=== PATIENT | female | born 1930 | race Two or more races ===

== ENCOUNTER 2016-05-10 07:39 | Inpatient (IN) | payer MEDICARE, OTHER ==
--- NOTE | 2016-05-10 08:01 | PDOC ---
History of Present Illness - General History Source: Family Exam Limitations: Other (AMS) - History of Present Illness Initial Comments: 05/10/16 08:20 The patient is a 85-year-old female, with a significant past medical history of hypothyroidism (on Synthroid), who presents to the ED with altered mental status today. As per daughter, the patient has been experiencing 4 days of chest pain and a right-sided headache. Yesterday the patient experienced 2 witnessed falls. Granddaughter reports loss of consciousness for both episodes but not head trauma. Patient was noted to have slurred speech yesterday and is not active as usual. Pt was brought to [facility] and was diagnosed with a UTI and prescribed a course of Levaquin. Upon examination, patient is complaining of left-sided groin pain. She denies having any chest pain at this time. Granddaughter does report recent travel to [place] and [place]. Patient arrived back on 04/30. HPI is limited due to patients altered mental status. Allergies: Aspirin, Iodine Past surgical history: NONE Social history: No tobacco or alcohol use PMD - Dr. Coronado <Brea Bedolla - Last Filed: 05/10/16 10:21> - General History Source: Family Exam Limitations: No Limitations <Maia Barajas - Last Filed: 05/14/16 02:16> - General Chief Complaint: Altered Mental Status Stated Complaint: ALTERED MENTAL Time Seen by Provider: 05/10/16 07:46 Past History <Brea Bedolla - Last Filed: 05/10/16 10:21> - Past Medical History Thyroid Disease: Yes (HYPO.) - Psycho/Social/Smoking Cessation Hx Anxiety: No Suicidal Ideation: No Smoking History: Never smoked Hx Alcohol Use: No Drug/Substance Use Hx: No Substance Use Type: None <Maia Barajas - Last Filed: 05/14/16 02:16> - Past Medical History Allergies/Adverse Reactions: Allergies Allergy/AdvReac Type Severity Reaction Status Date / Time aspirin Allergy Unknown Verified 05/10/16 07:41 iodine Allergy Unknown Verified 05/10/16 07:41 Home Medications: Ambulatory Orders Levothyroxine [Synthroid -] 50 mcg PO DAILY 05/10/16 Review of Systems - Review of Systems Able to Perform ROS?: Yes Comments:: 05/10/16 08:20 GENERAL/CONSTITUTIONAL: No: fever, chills, weakness, loss of appetite. HEAD, EYES, EARS, NOSE AND THROAT: No: change in vision, ear pain, discharge, sore throat, throat swelling. CARDIOVASCULAR: No: chest pain, lightheadedness, palpitations, syncope RESPIRATORY: No: cough, shortness of breath, wheezing, hemoptysis, stridor. GASTROINTESTINAL: No: nausea, vomiting, abdominal cramping, diarrhea, rectal bleeding, constipation. GENITOURINARY: No: dysuria, hematuria, frequency, urgency, flank pain. (+)Left- sided groin pain MUSCULOSKELETAL: No: back pain, neck pain, joint pain, muscle swelling or pain SKIN AND BREASTS: No: lesions, pallor, rash or easy bruising. NEUROLOGIC: No: vertigo, paresthesias, weakness. (+)Headache ENDOCRINE: No: unexplained weight gain or loss HEMATOLOGIC/LYMPHATIC: No: anemia, easy bleeding, swelling nodes <Brea Bedolla - Last Filed: 05/10/16 10:21> *Physical Exam - Vital Signs Last Vital Signs Temp Pulse Resp BP Pulse Ox 98.7 F 85 18 135/87 100 05/10/16 07:42 05/10/16 07:42 05/10/16 07:42 05/10/16 07:42 05/10/16 07:42 - Physical Exam Comments: 05/10/16 08:22 GENERAL: The patient is in no acute distress. HEAD: Normal with no signs of trauma. EYES: PERRLA, EOMI, sclera anicteric, conjunctiva clear. ENT: Ears normal, nares patent, oropharynx clear without exudates. Moist mucous membranes. NECK: Normal range of motion, supple without lymphadenopathy, JVD, or masses. LUNGS: Breath sounds equal, clear to auscultation bilaterally. No wheezes, and no crackles. HEART:Regular rate and rhythm, normal S1 and S2 without murmur, rub or gallop. ABDOMEN: Soft, nontender, normoactive bowel sounds. No guarding, no rebound. EXTREMITIES: Normal range of motion, no edema. No clubbing or cyanosis. No erythema, or tenderness. NEUROLOGICAL: See NIHSS. MUSCULOSKELETAL: Back non-tender to palpation, no CVA tenderness SKIN: Warm, Dry, normal turgor, no rashes or lesions noted. <Brea Bedolla - Last Filed: 05/10/16 10:21> - Vital Signs Last Vital Signs Temp Pulse Resp BP Pulse Ox 98.7 F 85 18 135/87 100 05/10/16 07:42 05/10/16 07:42 05/10/16 07:42 05/10/16 07:42 05/10/16 07:42 <Maia Barajas - Last Filed: 05/14/16 02:16> ED Treatment Course - LABORATORY CBC & Chemistry Diagram: 05/10/16 08:21 05/10/16 09:20 <Brea Bedolla - Last Filed: 05/10/16 10:21> - LABORATORY CBC & Chemistry Diagram: 05/11/16 06:00 05/11/16 06:00 - RADIOLOGY Radiology Studies Ordered: Category Date Time Status HEAD CT WITHOUT CONTRAST [CT] Stat CT Scan 05/10/16 07:50 Ordered CHEST X-RAY PORTABLE* [RAD] Stat Radiology 05/10/16 07:48 Ordered <Maia Barajas - Last Filed: 05/14/16 02:16> Medical Decision Making - Critical Care Time Total Critical Care Time (minutes): 35 Critical Care Statement: The care of this patient involved high complexity decision making to prevent further life threatening deterioration of the patient 's condition and/or to evalute & treat vital organ system(s) failure or risk of failure. - Medical Decision Making 05/10/16 07:59 A portion of this note was documented by scribe services under my direction. I have reviewed the details of the note, within reason, and agree with the documentation with the following case summary and management plan written by me. Nursing documentation reviewed and incorporated into medical decision making 05/10/16 08:07 This is an 85 yo F who presents to the ER with granddaughter by EMS due to altered mental status pt has been altered for the past 4 days She has been staying in her room She fell yesterday when she tried walking Pt was taken to OSH where labs were done, UA as well Pt dx with UTI Discharged to home on Levaquin Pt granddaughter concerned because again, she is unable to walk Pt previously complained of chest pain and right frontal headache Currently, pt has no chest pain she continues to have a headache On examination: Pt is pleasant A&O x 3 RRR Lungs CTA Please see NIHSS for complete neuro examination Briefly Pt asked to left her legs She is unable to lift left leg, states this is due to pain in the left groin Pt unable to follow commands when I am on the left side of her bed Adeel neglect Pt unable to identify objects on NIHSS stroke scale Pending labs, CT, cxr will do xray left hip Will admit 05/10/16 09:40 Laboratory Tests 05/10/16 05/10/16 05/10/16 08:21 08:21 08:21 WBC 6.7 Hgb 12.2 Hct 36.8 Plt Count 269 INR 1.06 Urine Blood 1+ H Urine Nitrite Negative Ur Leukocyte Esterase 2+ H Urine RBC 1 Urine WBC [address] Pending Results 05/10/16 10:07 CT: No evidence of acute intracranial hemorrhage, edema, midline shift, mass effect or fracture. No CT evidence of acute territorial infarct. Chest x-ray: No evidence of pneumonia, CHF, pleural effusion or pneumothorax 05/10/16 10:17 Laboratory Tests 05/10/16 09:20 Sodium 140 Potassium 4.4 Chloride 106 Carbon Dioxide 25 BUN 22 H Creatinine 1.2 H Random Glucose 92 Alkaline Phosphatase 105 Creatine Kinase 292 H Troponin I < 0.02 Per grand daughter, pt may have had a seizure? Per family, patient is doing "better" 05/10/16 10:[address] Patrick Will admit Requesting consults to [facility] (pt likely had a CVA, not seen on CT) and [facility] (For possible UTI) Clinical impression: AMS/likely CVA, UTI <Maia Barajas - Last Filed: 05/14/16 02:16> *DC/Admit/Observation/Transfer - Attestations Scribe Attestion: 05/10/16 08:23 Documentation prepared by Brea Bedolla, acting as director of medical education for Maia Barajas MD. <Brea Bedolla - Last Filed: 05/10/16 10:21> - Discharge Dispostion Admit: Yes <Maia Barajas - Last Filed: 05/14/16 02:16> Diagnosis at time of Disposition: Altered mental status Qualifiers: Altered mental status type: unspecified Qualified Code(s): R41.82 - Altered mental status, unspecified UTI (urinary tract infection) Qualifiers: Urinary tract infection type: acute cystitis Hematuria presence: without hematuria Qualified Code(s): N30.00 - Acute cystitis without hematuria - Discharge Dispostion Condition at time of disposition: Stable - Referrals NIH Stroke Scale - Last Known Well Date/Time & Onset Date Last Known Well: 05/06/16 - Initial Evaluation Level of consciousness: Alert Ask patient the month and their age: Answers both correctly Ask patient to open & close eyes; make fist and let go: Obeys both correctly Best gaze (horizontal eye movement): Partial gaze palsy Visual field testing: Partial hemianopia Facial paresis (Show teeth/raise eyebrows/close eyes tight): Minor paralysis ( flattened nasolabial fold, asymmetry on smiling) Motor Function: Left Arm: Normal Motor Function: Right Arm: Normal (extends arm 90 (or 45) degrees for 10 seconds without drift Motor Function: Left Leg: No effort against gravity Motor Function: Right Leg: Normal (extends leg 30 degrees for 5 seconds without drift) Limb Ataxia: No ataxia Sensory(Use pinprick test arms,legs,trunk,face/side to side): Normal Best language (Describe picture, name items, read sentences): Mild to moderate aphasia Dysarthria (read several words): Normal articulation Extinction and Inattention: Profound adeel-inattention or extinction to more than one modality - Total Score NIH Stroke Scale Score: 9 <Maia Barajas - Last Filed: 05/14/16 02:16> tPA Exclusion checklist 3-4.5h - Time Elapsed Date last known well: 05/06/16 - Thrombolytic Therapy Candidate Is patient eligible for thrombolytic therapy: No - Exclusion Criteria 3-4.5 hr SBP greater than 185 or DBP greater than 110mmHg despite tx: No Recent IC/spinal surgery,head trauma or stroke<3mos.: No Hx IC hemorrhage, IC neoplasm, AV malformation or aneurysm: No Active internal bleeding: No Blding diathesis(low plt ct, inc PTT,INR>1.7 or use of NOAC): No CT demonstrates multilobar infarct(>1/3 cerebral hemiphere): No Arterial puncture at noncompressible site in previous 7 days: No Blood glucose concentration less than 50mg/dL (2.7mmol/L): No - Relative Exclusion Criteria 3-4.5 hr Life expectancy <1 yr or severe co-morbid illness: No : No Patient/family refused: No Rapid improvement: No Stroke severity too mild: No Recent acute CT (w/in previous 3 months): No Seizure at onset with postictal residual neuro impairments: No Major surgery or serious trauma w/in previous 14 days: No Recent GI or hemorrhage (w/in previous 21 days): No - Add'l Relative Exclusion 3-4.5 hr Age > 80: Yes Hx of both diabetes AND prior ischemic stroke: No Taking an oral anticoagulant regardless of INR: No NIHSS >25: No - Ineligibility reason(s) Reasons No tPA given: Outside of window - delayed arrival <Maia Barajas - Last Filed: 05/14/16 02:16>
[2016-05-10 08:35] LABS: BASOPHIL 0.9 % (0-2.0); EOSINOPHIL 1.2 % (0-4.5); MCH 28.3 pg (25.7-33.7); MCHC 33.2 g/dl (32.0-36.0); MEAN CELL VOLUME 85.1 fl (80-96); NEUTROPHILS 52.5 % (42.8-82.8); PLATELET COUNT 269 K/MM3 (134-434); RDW 15.5 % (11.6-15.6); URINE APPEARANCE CLEAR; URINE BILIRUBIN NEGATIVE (NEGATIVE); URINE COLOR STRAW; URINE GLUCOSE (UA) NEGATIVE (NEGATIVE); URINE KETONE NEGATIVE (NEGATIVE); URINE NITRITE NEGATIVE (NEGATIVE); URINE PROTEIN NEGATIVE (NEGATIVE); URINE UROBILINOGEN NEGATIVE E.U./dl (0.2-1.0); WHITE BLOOD COUNT 6.7 K/mm3 (4.0-10.0)
[2016-05-10 08:40] LABS: URINE BLOOD 1+ (NEGATIVE); URINE LEUK ESTERASE 2+ (NEGATIVE)
[2016-05-10 08:41] LABS: URINE BACTERIA FEW /hpf (NONE SEEN); URINE MUCUS RARE; URINE RBC 1 /hpf (0-3); URINE WBC 15 /hpf (3-5)
[2016-05-10] MEDS ORDERED: ONDANSETRON 4 MG/2 ML VIAL IVPB ONE (09:13)
[2016-05-10] MEDS ORDERED: ACETAMINOPHEN 1000 MG/100 ML VIAL (NON FORMULARY) IVPB ONE (09:13)
[2016-05-10] MEDS ORDERED: CEFTRIAXONE 1 GM in DEXTROSE 5%-WATER - 50 ML IVPB ONE (09:14)
[2016-05-10] MEDS ORDERED: ONDANSETRON 4 MG/2 ML VIAL ONE (09:25)
[2016-05-10] MEDS ORDERED: CEFTRIAXONE 50 ML ONE (09:25)
[2016-05-10] MEDS ORDERED: ACETAMINOPHEN INJECTION 100 ML IVPB ONE (09:58)
[2016-05-10 10:04] LABS: ALBUMIN 3.9 g/dl (3.4-5.0); ANION GAP 9 (8-16); BILIRUBIN,TOTAL 0.5 mg/dL (0.2-1.0); CALCIUM 8.5 mg/dL (8.5-10.1); CO2 25 mmol/L (21-32); CREATININE 1.2 mg/dL (0.55-1.02); GLUCOSE,RANDOM 92 mg/dL (74-106); SGOT/AST 30 U/L (15-37); SGPT/ALT 22 U/L (12-78); TOT PROT 7.1 g/dl (6.4-8.2)
[2016-05-10 10:06] LABS: ALK PHOS 105 U/L (45-117); TROPONIN I < 0.02 ng/ml (0.00-0.05)
--- NOTE | 2016-05-10 10:53 | EKG ---
Test Reason : Blood Pressure : / mmHG Vent. Rate : 090 BPM Atrial Rate : 090 BPM P-R Int : 132 ms QRS Dur : 076 ms QT Int : 372 ms P-R-T Axes : 044 -25 011 degrees QTc Int : 455 ms POOR DATA QUALITY, INTERPRETATION MAY BE ADVERSELY AFFECTED NORMAL SINUS RHYTHM VOLTAGE CRITERIA FOR LEFT VENTRICULAR HYPERTROPHY LEFTWARD AXIS ABNORMAL ECG NO PREVIOUS ECGS AVAILABLE Confirmed by DEMETRIUS SOLITARIO MD ([id number]) on 05/10/2016 10:52:53 AM Referred By: Confirmed By:DEMETRIUS SOLITARIO MD
[2016-05-10] MEDS ORDERED: LEVOTHYROXINE NA 25 MCG TABLET (FP) ONE ×2 (11:40→11:58)
[2016-05-10] MEDS: LEVOTHYROXINE NA 75 MCG TABLET (FP) PO ONE ×2 (11:48→12:01)
--- NOTE | 2016-05-10 15:05 | HP ---
Admitting History and Physical - Primary Care Physician PCP: Maykel Coronado - Admission Chief Complaint: 1. FALL. 2. AMS. 3. UTI History Source: Medical Record - Smoking History Smoking history: Never smoked - Alcohol/Substance Use Hx Alcohol Use: No Home Medications - Allergies Allergies/Adverse Reactions: Allergies Allergy/AdvReac Type Severity Reaction Status Date / Time aspirin Allergy Unknown Verified 05/10/16 07:41 iodine Allergy Unknown Verified 05/10/16 07:41 - Home Medications Home Medications: Ambulatory Orders Levothyroxine [Synthroid -] 50 mcg PO DAILY 05/10/16 Review of Systems - Review of Systems Constitutional: reports: Chills Cardiovascular: reports: Chest Pain Respiratory: denies: SOB Neurological: reports: Weakness Physical Examination Vital Signs: Vital Signs Temperature 99.1 F 05/10/16 09:54 Pulse Rate 16 L 05/10/16 12:53 Respiratory Rate 78 H 05/10/16 12:53 Blood Pressure 137/72 05/10/16 12:53 O2 Sat by Pulse Oximetry (%) 97 05/10/16 12:53 Findings/Remarks: HAD D/W FAMILY AT BEDSIDE Constitutional: Yes: Calm Cardiovascular: Yes: Regular Rate and Rhythm, S1, S2 Respiratory: Yes: CTA Bilaterally Gastrointestinal: Yes: Normal Bowel Sounds, Soft Edema: No Neurological: Yes: Alert, Oriented, Weakness, Other (FOLLOWS COMMANDS. AAO3) ...Motor Strength: LUE (3/5), LLE (2/5), RUE (4/5), RLE (4/5) Psychiatric: No: Agitated Imaging - Results Chest X-ray: Report Reviewed X-ray: Report Reviewed Cat Scan: Report Reviewed Problem List - Problems (1) Altered mental status Code(s): R41.82 - ALTERED MENTAL STATUS, UNSPECIFIED Qualifiers: Altered mental status type: unspecified Qualified Code(s): R41.82 - Altered mental status, unspecified (2) UTI (urinary tract infection) Code(s): N39.0 - URINARY TRACT INFECTION, SITE NOT SPECIFIED Qualifiers: Urinary tract infection type: acute cystitis Hematuria presence: without hematuria Qualified Code(s): N30.00 - Acute cystitis without hematuria (3) Fall Code(s): W19.XXXA - UNSPECIFIED FALL, INITIAL ENCOUNTER (4) Hypothyroid Code(s): E03.9 - HYPOTHYROIDISM, UNSPECIFIED (5) Chest pain Code(s): R07.9 - CHEST PAIN, UNSPECIFIED (6) Head ache Code(s): R51 - HEADACHE Assessment/Plan The patient is a 85-year-old female, with a significant past medical history of hypothyroidism (on Synthroid), who presents to the ED with altered mental status today. As per daughter, the patient has been experiencing 4 days of chest pain and a right-sided headache. Yesterday the patient experienced 2 witnessed falls. Granddaughter reports loss of consciousness for both episodes but not head trauma. Patient was noted to have slurred speech yesterday and is not active as usual. Pt was brought to [facility] and was diagnosed with a UTI and prescribed a course of Levaquin. Upon examination, patient is complaining of left-sided groin pain. She denies having any chest pain at this time. Granddaughter does report recent travel to [place] and [place]. Patient arrived back on 04/30. (1) Altered mental status Code(s): R41.82 - ALTERED MENTAL STATUS, UNSPECIFIED Qualifiers: Altered mental status type: unspecified Qualified Code(s): R41.82 - Altered mental status, unspecified 2/2 UTI? 2/2 CVA? 2/2 ACS? NEURO CONSULTED SEE #6 (2) UTI (urinary tract infection) Code(s): N39.0 - URINARY TRACT INFECTION, SITE NOT SPECIFIED Qualifiers: Urinary tract infection type: acute cystitis Hematuria presence: without hematuria Qualified Code(s): N30.00 - Acute cystitis without hematuria ID CONSULTED F/U CULTURES IV ABx - BCx (3) Fall Code(s): W19.XXXA - UNSPECIFIED FALL, INITIAL ENCOUNTER PT CONSULTED SW CONSULTED FOR [facility] S/P DC (4) Hypothyroid Code(s): E03.9 - HYPOTHYROIDISM, UNSPECIFIED - TSH (5) Chest pain Code(s): R07.9 - CHEST PAIN, UNSPECIFIED TROP NEG x 1 -> F/U EKG UNREMARKABLE - CARDIO (6) Head ache Code(s): R51 - HEADACHE HAD CTB AT [facility] 1/12 AM -> PER FAMILY WAS NEG TODAY'S CTB NEG COUGH WITH WATER -> THICKENED NECTOR/PUREE DIET - [facility]
[2016-05-10] MEDS: DEXTROSE 5%-NORMAL SALINE 1,000 ML IV SCH (17:00)
[2016-05-10 17:57] VITALS: BMI 25.4
--- NOTE | 2016-05-10 18:02 | CONSULT ---
Consult Consult Specialty:: Cardiology Referred by:: Dr Domingo Reason for Consultation:: Chest pain, ? syncope - History of Present Illness Chief Complaint: Change in mental status History of Present Illness: 85- yo female, with hx of HLD, hypothyroidism (on Synthroid), seizures 3 ya, here with altered mental status. Daughter says that about a week ago, pt complained of CP -. lasted 2 days. They didn't make much of it because pt had just been to [facility] and was very active. Yesterday, she was found on floor -> taken to [facility] where found with a UTI and d/mariam Today, she was again found on the floor -> had difficulty speaking (slurred speech) and didn't recognize her -> taken to ER here. Patient has no history of NJ, CHF, CP syndrome, per her daughter. She saw digital asset specialist (? name ) 3 ya ago after she started wit the seizures -. tests were always ok. - History Source History Provided By: Family Member - Past Medical History [employer] INS[employer]: Yes: Seizure (3 ya) Cardio/Vascular: Yes: Hyperlipdemia Endocrine: Yes: Hypothyroidism - Alcohol/Substance Use Hx Alcohol Use: No - Smoking History Smoking history: Former smoker (remotely) Have you smoked in the past 12 months: No - Social History Usual Living Arrangement: With Child Home Medications - Allergies Allergies/Adverse Reactions: Allergies Allergy/AdvReac Type Severity Reaction Status Date / Time aspirin Allergy Unknown Verified 05/10/16 07:41 iodine Allergy Unknown Verified 05/10/16 07:41 - Home Medications Home Medications: Ambulatory Orders Levothyroxine [Synthroid -] 50 mcg PO DAILY 05/10/16 Family Disease History - Family Disease History Family History: Denies (premature CAD) Review of Systems Unable to obtain ROS, reason: due to MS Physical Exam Vital Signs: Vital Signs Temperature 98.3 F 05/10/16 15:39 Pulse Rate 85 05/10/16 15:39 Respiratory Rate 16 05/10/16 15:39 Blood Pressure 133/78 05/10/16 15:39 O2 Sat by Pulse Oximetry (%) 100 05/10/16 15:39 Constitutional: Yes: No Distress Eyes: Yes: Conjunctiva Clear HENT: Yes: Atraumatic Neck: Yes: Supple Cardiovascular: Yes: Regular Rate and Rhythm. No: Murmur Respiratory: Yes: CTA Bilaterally Gastrointestinal: Yes: Normal Bowel Sounds, Soft. No: Tenderness Musculoskeletal: Yes: Muscle Weakness (on left mostly) Extremities: Yes: Other (warm) Edema: No Peripheral Pulses WNL: Yes Neurological: Yes: Facial Droop (? on left), Other (slurred) Imaging - Results Chest X-ray: Report Reviewed, Image Reviewed EKG: Report Reviewed, Image Reviewed (SR, LVH) Assessment/Plan 85 yo female with the above history , here with change in mental status -. appear with left droop and left sided weakness Head CT w/o acute changes Report of syncope, but pt was found on floor on both occasions, awake, per her daughter. Report of CP for 2 days last week. No evidence of ACS so far No CHF. Rec: Trend cardiac enzymes Continue pt's lipitor when able to swallow pills Cont thyroid meds Check lipids, TFTs Per Neuro/IM Thanks! We'll follow! D/w daughter at bedside
[2016-05-10 18:07] LABS: TROPONIN I < 0.02 ng/ml (0.00-0.05)
[2016-05-10 22:35] LABS: TROPONIN I < 0.02 ng/ml (0.00-0.05)
[2016-05-11] MEDS: LEVOTHYROXINE NA 50 MCG TABLET (FP) PO SCH (06:26)
[2016-05-11] MEDS: DEXTROSE 5%-NORMAL SALINE 1,000 ML IV SCH ×2 (06:42→18:50)
[2016-05-11 07:53] LABS: BASOPHIL 0.4 % (0-2.0); EOSINOPHIL 1.4 % (0-4.5); MCH 28.4 pg (25.7-33.7); MCHC 33.3 g/dl (32.0-36.0); MEAN CELL VOLUME 85.1 fl (80-96); MEAN PLT VOLUME 7.7 fl (7.5-11.1); NEUTROPHILS 55.7 % (42.8-82.8); PLATELET COUNT 280 K/MM3 (134-434); RDW 14.9 % (11.6-15.6)
--- NOTE | 2016-05-11 10:18 | PN ---
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, Physician - Current Medication List Current Medications: Active Medications Dextrose/Sodium Chloride (D5-Ns -) 1,000 mls @ 75 mls/hr IV ASDIR [facility] Last Admin: 05/11/16 06:42 Dose: 75 mls/hr Ceftriaxone Sodium (Rocephin 1gm Ivpb (Pre-Docked)) 50 mls @ 100 mls/hr IVPB DAILY [facility] Levothyroxine Sodium (Synthroid -) 50 mcg PO DAILY@0700 [facility] Last Admin: 05/11/16 06:26 Dose: 50 mcg - Objective Vital Signs: Vital Signs Temperature 98.8 F 05/11/16 05:39 Pulse Rate 91 H 05/11/16 05:39 Respiratory Rate 18 05/11/16 05:39 Blood Pressure 153/79 05/11/16 05:39 O2 Sat by Pulse Oximetry (%) 100 05/10/16 20:57 Cardiovascular: Yes: S1, S2 Respiratory: Yes: Regular, CTA Bilaterally Gastrointestinal: Yes: Normal Bowel Sounds, Soft Neurological: Yes: Facial Droop, Pre-Existing Deficit Labs: CBC, BMP 05/11/16 06:00 05/11/16 06:00 INR, PTT INR 1.06 (0.82-1.09) 05/10/16 08:21 Assessment/Plan The patient is a 85-year-old female, with a significant past medical history of hypothyroidism (on Synthroid), who presents to the ED with altered mental status today. As per daughter, the patient has been experiencing 4 days of chest pain and a right-sided headache. Yesterday the patient experienced 2 witnessed falls. Granddaughter reports loss of consciousness for both episodes but not head trauma. Patient was noted to have slurred speech yesterday and is not active as usual. Pt was brought to [facility] and was diagnosed with a UTI and prescribed a course of Levaquin. Upon examination, patient is complaining of left-sided groin pain. She denies having any chest pain at this time. Granddaughter does report recent travel to [place] and [place]. Patient arrived back on 04/30. (1) Altered mental status-- Code(s): R41.82 - ALTERED MENTAL STATUS, UNSPECIFIED Qualifiers: Altered mental status type: unspecified Qualified Code(s): R41.82 - Altered mental status, unspecified CT OF HEAD NEGATIVE-- R/O CVA-- NEURO CONSULTED---MRI SEE #6 (2) UTI (urinary tract infection) Code(s): N39.0 - URINARY TRACT INFECTION, SITE NOT SPECIFIED Qualifiers: Urinary tract infection type: acute cystitis Hematuria presence: without hematuria Qualified Code(s): N30.00 - Acute cystitis without hematuria ID CONSULTED F/U CULTURES IV ABx - BCx (3) Fall Code(s): W19.XXXA - UNSPECIFIED FALL, INITIAL ENCOUNTER PT CONSULTED SW CONSULTED FOR [facility] S/P DC (4) Hypothyroid Code(s): E03.9 - HYPOTHYROIDISM, UNSPECIFIED - TSH (5) Chest pain Code(s): R07.9 - CHEST PAIN, UNSPECIFIED TROP NEG x 1 -> F/U EKG UNREMARKABLE - CARDIO (6) Head ache Code(s): R51 - HEADACHE HAD CTB AT [facility] 1/12 AM -> PER FAMILY WAS NEG TODAY'S CTB NEG COUGH WITH WATER -> THICKENED NECTOR/PUREE DIET -
[2016-05-11] MEDS: CEFTRIAXONE 50 ML IVPB SCH (10:44)
[2016-05-11 10:52] LABS: ALBUMIN 3.2 g/dl (3.4-5.0); BILIRUBIN,TOTAL 0.4 mg/dL (0.2-1.0); CALCIUM 8.4 mg/dL (8.5-10.1); TOT PROT 6.7 g/dl (6.4-8.2)
--- NOTE | 2016-05-11 14:19 | PN ---
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 (short form) - Note 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: ID Consult dictated UTI/possible sepsis secondary to UTI Toxic metabolic encephalopathy Await cultures Continue ceftriaxone empirically
--- NOTE | 2016-05-11 14:37 | CONSULT ---
Consult - text type - Consultation Consultation Note: NEUROLOGY CONSULTATION is greatly appreciated: This 85 yo RH woman live with her family who are at the bedside. PMH of hypothyroidism, on L-Thyroxin. 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 Was on AED's but DC'ed few years ago. Last week, c/o chest pain x few days. 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 Family describes difficulty walking and left sided weakness. She received Rx for UTI and was discharged although family insists she still couldn't walk due to left sided weakness. Yesterday AM fell again with slurred speech and weakness. Today coughing after family fed small amt's pureed. CT of head in ER (reviewed): Essentially normal study for age. Moderate, diffuse atrophy. No evidence for acute CVA. MANISH: No bruits, Cor reg, No head trauma. NEURO: Awake, alert, but resting with eyes closed. Follows most simple commands. CN: Right conjugate gaze deviation. Left homonomous hemianopsia to threat. Mild Left facial. Gag decreased. Motor: Left arm drops when elevated. Left leg rests everted. Depressed reflexes on left. Left Babinski. Coord: Normal on right. Sensory: Reduced response to pinch left arm. IMP: Acute Right cerebral dysfunction, most c/w MCA-territory CVA. History of seizures but seizure with Shun's Paralysis much less likely at this juncture. The major issue is whether her chest pain last week could have been a missed NJ predisposing to Cardiogenic embolism. SUGGEST: MRI of brain and MR Angio today (Angio may give information re: thrombotic vs embolic CVA). Carotid duplex Doppler. Event of AM may have been a Right cerebral TIA. Check records [facility] ER. Discussed with Cardiology: Transfer to telemetry, r/o NJ, transsternal and possibly Transesophageal Echos. NPO for now. Speech and swallowing eval Friday. Thank you very much, Car Marrero MD
--- NOTE | 2016-05-11 14:42 | PN ---
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, Physician History of Present Illness: no new events - Current Medication List Current Medications: Active Medications Cyanocobalamin (Vitamin B12 Injection -) 1,000 mcg IM DAILY [facility] Dextrose/Sodium Chloride (D5-Ns -) 1,000 mls @ 75 mls/hr IV ASDIR [facility] Last Admin: 05/11/16 06:42 Dose: 75 mls/hr Ceftriaxone Sodium (Rocephin 1gm Ivpb (Pre-Docked)) 50 mls @ 100 mls/hr IVPB DAILY [facility] Last Admin: 05/11/16 10:44 Dose: 100 mls/hr Levothyroxine Sodium (Synthroid -) 50 mcg PO DAILY@0700 [facility] Last Admin: 05/11/16 06:26 Dose: 50 mcg - Objective Vital Signs: Vital Signs Temperature 98.8 F 05/11/16 05:39 Pulse Rate 91 H 05/11/16 05:39 Respiratory Rate 18 05/11/16 05:39 Blood Pressure 153/79 05/11/16 05:39 O2 Sat by Pulse Oximetry (%) 100 05/11/16 09:00 Constitutional: Yes: No Distress, Other (mumbling) HENT: Yes: Atraumatic Neck: Yes: Supple Cardiovascular: Yes: Regular Rate and Rhythm Respiratory: Yes: CTA Bilaterally Gastrointestinal: Yes: Normal Bowel Sounds, Soft. No: Abdomen, Obese Extremities: Yes: Other (warm) Edema: No Peripheral Pulses WNL: Yes Neurological: Yes: Other (answers some questions) Labs: CBC, BMP 05/11/16 06:00 05/11/16 06:00 INR, PTT INR 1.06 (0.82-1.09) 05/10/16 08:21 Assessment/Plan 85 yo female with the above history , here with change in mental status -. appear with left droop and left sided weakness Head CT w/o acute changes Report of syncope, but pt was found on floor on both occasions, awake, per her daughter. Report of CP for 2 days last week. No evidence of ACS -> trop I neg X [address] Marrero, pt appears with large left MCA CVA -. ? embolic phenomenon Rec: Transfer to tele to afib Resume pt's lipitor when able to swallow pills Check lipids, TFTs Echocardiogram on Friday Per Neuro/IM Thanks! We'll follow! D/w daughter and other family members at bedside D/w Dr Marrero
--- NOTE | 2016-05-11 14:43 | CONS ---
INFECTIOUS DISEASE CONSULTATION DATE OF CONSULTATION: DATE OF DICTATION: 05/11/2016 HISTORY OF PRESENT ILLNESS: The patient is an 85-year-old female evaluated for urinary tract infection, possible urosepsis. History was obtained from the chart and family members as she cannot give a history. The patient was taken to the hospital by her family members with worsening mentation. She has a change in the mental status over the past several days. She has had falls at home. Is also complaining of chest pain and right-sided headache. She was seen in the emergency room at [facility] where she was diagnosed with a urinary tract infection and prescribed Levaquin. Family reports they had not filled that prescription. She now is admitted with deterioration to the point where she is unable to ambulate. She is awake. However, she offers no complaints. Family reports that she has not complained of dysuria or hematuria. No complaints of suprapubic or flank pain. PAST MEDICAL HISTORY: Positive for hypothyroidism. ALLERGIES: 1. ASPIRIN 2. IODINE MEDICATIONS: 1. Ceftriaxone 2. Levothyroxine 3. Vitamin B12 SOCIAL HISTORY: Lives at home with family members, non-smoker, non-drinker. SYSTEMS REVIEW: Neurologic: As per HPI. Cardiac: Negative chest pain and palpitations. Respiratory: Negative cough or sputum production. Gastrointestinal: Negative vomiting or diarrhea. Genitourinary: As per HPI. LAB DATA: White count 5.0, hematocrit 34.7, platelet count 280, BUN 13, creatinine 1.0. Urinalysis: 15 white cells. Blood cultures pending. PHYSICAL EXAMINATION: General: The patient is awake and alert, not acutely toxic-appearing. Vital signs: Temperature 98.8, blood pressure 153/79, pulse 91/regular, respirations 18 per minute. HEENT: Sclera anicteric. Heart: Heart sounds S1, S2. Lungs: Clear. Abdomen: Soft, no tenderness elicited. No mass, rebound or rigidity. No suprapubic or flank tenderness elicited. Extremities: Negative for edema. IMPRESSION: 1. Urinary tract infection/possible sepsis secondary to UTI. 2. Toxic metabolic encephalopathy versus stroke. 3. Urine culture appears to have been contaminated. Will repeat pending repeat culture. Empiric antibiotic coverage with Ceftriaxone 1 gm IV piggyback daily. 4. Neurology evaluation discussed with family members. 5. Further recommendations pending cultures. Will follow. Thank you for the kind referral. DEMETRIUS BOWERS M.D. [id number]
[2016-05-11 15:36] LABS: TROPONIN I < 0.02 ng/ml (0.00-0.05)
[2016-05-11 18:18] LABS: THYROID STIMULATING HORMONE 3.1 uIU/ml (0.358-3.74)
[2016-05-11] MEDS: CYANOCOBALAMIN (VITAMIN B-12) 1000 MCG/1 ML VIAL IM SCH (18:51)
[2016-05-12] MEDS: LEVOTHYROXINE NA 50 MCG TABLET (FP) PO SCH (06:02)
--- NOTE | 2016-05-12 07:54 | PN ---
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, Physician - Current Medication List Current Medications: Active Medications Cyanocobalamin (Vitamin B12 Injection -) 1,000 mcg IM DAILY [facility] Last Admin: 05/11/16 18:51 Dose: 1,000 mcg Dextrose/Sodium Chloride (D5-Ns -) 1,000 mls @ 75 mls/hr IV ASDIR [facility] Last Admin: 05/11/16 18:50 Dose: 75 mls/hr Ceftriaxone Sodium (Rocephin 1gm Ivpb (Pre-Docked)) 50 mls @ 100 mls/hr IVPB DAILY [facility] Last Admin: 05/11/16 10:44 Dose: 100 mls/hr Levothyroxine Sodium (Synthroid -) 50 mcg PO DAILY@0700 [facility] Last Admin: 05/12/16 06:02 Dose: Not Given - Objective Vital Signs: Vital Signs Temperature 98 F 05/12/16 07:21 Pulse Rate 75 05/12/16 07:21 Respiratory Rate 20 05/12/16 07:21 Blood Pressure 119/68 05/12/16 07:21 O2 Sat by Pulse Oximetry (%) 100 05/11/16 22:00 Labs: CBC, BMP 05/11/16 06:00 05/11/16 06:00 INR, PTT INR 1.06 (0.82-1.09) 05/10/16 08:21 Problem List - Problems (1) CVA (cerebral vascular accident) Assessment/Plan: CT OF HEAD NEGATIVE-- R/O CVA-- NEURO CONSULTED---NOTED MRI--ACUTE CVA STATIN PLAVIX WILL D/W FAMILY REGARDING ASA ALLERGY Code(s): I63.9 - CEREBRAL INFARCTION, UNSPECIFIED (2) Hypothyroid Assessment/Plan: CONTINUE WITH SYNTHROID Code(s): E03.9 - HYPOTHYROIDISM, UNSPECIFIED (3) UTI (urinary tract infection) Assessment/Plan: ABX AWAIT CULTURES Code(s): N39.0 - URINARY TRACT INFECTION, SITE NOT SPECIFIED Qualifiers: Urinary tract infection type: acute cystitis Hematuria presence: without hematuria Qualified Code(s): N30.00 - Acute cystitis without hematuria
[2016-05-12] MEDS: CEFTRIAXONE 50 ML IVPB SCH (08:59)
[2016-05-12] MEDS: HEPARIN NA (PORCINE) 5,000 UNITS/ML 1ML VIAL SQ SCH ×2 (08:59→22:00)
[2016-05-12] MEDS: CYANOCOBALAMIN (VITAMIN B-12) 1000 MCG/1 ML VIAL IM SCH (08:59)
[2016-05-12] MEDS: CLOPIDOGREL BISULFATE 75 MG TABLET (FP) PO SCH (09:00)
[2016-05-12 10:16] LABS: CHOLESTEROL 214 mg/dL (50-200); LDL CHOLESTEROL (ONLY SJRH) 146 mg/dL (5-100)
--- NOTE | 2016-05-12 13:14 | CONSULT ---
Admitting History and Physical - Primary Care Physician PCP: Aiden Patrick - Admission History of Present Illness: Per NEUROLOGY : "This 85 yo RH woman live with her family who are at the bedside. PMH of hypothyroidism, on L-Thyroxin. 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 Was on AED's but DC'ed few years ago. Last week, c/o chest pain x few days. 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 Family describes difficulty walking and left sided weakness. She received Rx for UTI and was discharged although family insists she still couldn't walk due to left sided weakness. Yesterday AM fell again with slurred speech and weakness. Today coughing after family fed small amt's pureed. CT of head in ER (reviewed): Essentially normal study for age. Moderate, diffuse atrophy. No evidence for acute CVA....... IMP: Acute Right cerebral dysfunction, most c/w MCA-territory CVA. History of seizures but seizure with Shun's Paralysis much less likely at this juncture. The major issue is whether her chest pain last week could have been a missed GA predisposing to Cardiogenic embolism. SUGGEST: MRI of brain and MR Angio today (Angio may give information re: thrombotic vs embolic CVA). Carotid duplex Doppler. Event of AM may have been a Right cerebral TIA. Check records [facility] ER. Discussed with Cardiology: Transfer to telemetry, r/o GA, transsternal and possibly Transesophageal Echos. NPO for now. 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 Left hemianopsia suspected. Left neglect.Possible anosognosia, attempts to clap with left hemiplegia) Attention: Moderate Impairment (keeps eyes closed. Opens briefly upon command.) Ability to Follow Directions: Good - Hearing Hearing: Functional Hearing: Normal Hearing Aide: No Speech Evaluation - Communication Primary Language: GABONESE Communication: Yes: Simple Responses, Dysarthria - Speech Production Dysarthria: Yes: Flaccid Intelligibility: Yes: Mildly Impaired - Speech Characteristics Voice Loudness: Mildly Soft/Quiet Voice Pitch: Yes: Normal Voice Phonatory-based Quality: Yes: Normal Speech Pattern: Impaired Speech Clarity: < 50% Nasal Resonance: Normal Articulation: Yes: Imprecise - Language/Auditory Comprehension Follows: Yes: 1 Stage Simple Commands - Memory/Perception Hemaniopsia: Yes: Left - Swallow Evaluation/Bedside Assessment Current Nutritional Intake: NPO Oral Secretions: Yes: WFL Dentition: Yes: Edentulous (upper), Missing Teeth (lower) Facial Symmetry at Rest: Facial Droop Left Facial Symmetry on Retraction: Facial Droop Left Pucker Lips: Droops Left Smile: Droops Left Lingual Speed of Movement: Reduced Bolus Size: Small Oral Prep Time: Increased Timing of Swallow: Delayed Coughing/Throat Clear: No (with trial nectar thick liquid) Recommendations - Speech Evaluation, Impression/Plan Impression: 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 o x 3. Attempts to clap with left sideb faccid. Ansognosia suspected. Dysphagia with likely aspiration on thin liquid. - [facility]position [facility] - Dysphagia Impressions/Plan Swallowing Skills: Impaired Dysphagia Impressions: Mild Impairment, Moderate Impairment, Suspect Aspiration (thin) *Silent aspiration: cannot be R/O at bedside Dysphagia Treatment Plan: Small Bites, Chin Tuck/Down, Safe Rate, 1/2 tsp. at a time, Elevate HOB during feed Recommendations: Modified Barium Swallow (if cough/congestion, NPO/MBS or to advance diet.) - Recommendations Diet Consistency: Dysphagia Pureed Medication Administration: Crushed with applesauce Liquids: [place] Thick (on tsp) Supplement: Magic Cup, Other (Ensure compact)
[2016-05-12] MEDS: ARTIFICIAL TEARS (POLYVINYL ALCOHOL 1.4%) OPTH DROPS OU PRN (21:59)
[2016-05-12] MEDS: ATORVASTATIN CA 40 MG TABLET (FP) PO SCH (22:00)
[2016-05-12] MEDS: DEXTROSE 5%-NORMAL SALINE 1,000 ML IV SCH (22:01)
[2016-05-12] MEDS: ACETAMINOPHEN 325 MG TABLET (FP) PO PRN (23:28)
[2016-05-13] MEDS: LEVOTHYROXINE NA 50 MCG TABLET (FP) PO SCH (06:52)
--- NOTE | 2016-05-13 09:35 | PN ---
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, Physician Chief Complaint: HAD D/W FAMILY CANNOT SEE FROM L EYE - Current Medication List Current Medications: Active Medications Acetaminophen (Tylenol -) 650 mg PO Q4H PRN PRN Reason: FEVER OR PAIN Last Admin: 05/12/16 23:28 Dose: 650 mg Artificial Tears (Artificial Tears) 1 drop OU BID PRN PRN Reason: DRY EYES Last Admin: 05/12/16 21:59 Dose: 1 5ml Atorvastatin Calcium (Lipitor -) 40 mg PO HS [facility] Last Admin: 05/12/16 22:00 Dose: 40 mg Clopidogrel Bisulfate (Plavix -) 75 mg PO DAILY [facility] Last Admin: 05/12/16 09:00 Dose: 75 mg Cyanocobalamin (Vitamin B12 Injection -) 1,000 mcg IM DAILY [facility] Last Admin: 05/12/16 08:59 Dose: 1,000 mcg Heparin Sodium (Porcine) (Heparin -) 5,000 unit SQ BID [facility] Last Admin: 05/12/16 22:00 Dose: 5,000 unit Dextrose/Sodium Chloride (D5-Ns -) 1,000 mls @ 75 mls/hr IV ASDIR [facility] Last Admin: 05/12/16 22:01 Dose: 75 mls/hr Ceftriaxone Sodium (Rocephin 1gm Ivpb (Pre-Docked)) 50 mls @ 100 mls/hr IVPB DAILY [facility] Last Admin: 05/12/16 08:59 Dose: 100 mls/hr Levothyroxine Sodium (Synthroid -) 50 mcg PO DAILY@0700 [facility] Last Admin: 05/13/16 06:52 Dose: 50 mcg - Objective Vital Signs: Vital Signs Temperature 98.6 F 05/13/16 05:39 Pulse Rate 95 H 05/13/16 05:39 Respiratory Rate 16 05/13/16 05:39 Blood Pressure 141/70 05/13/16 05:39 O2 Sat by Pulse Oximetry (%) 96 05/12/16 21:00 Constitutional: Yes: Calm Cardiovascular: Yes: Regular Rate and Rhythm, S1, S2 Respiratory: Yes: CTA Bilaterally Gastrointestinal: Yes: Normal Bowel Sounds, Soft Edema: No Neurological: Yes: Alert, Oriented (FOLLOWS COMMANDS), Weakness (LEFT), Other ( DID NOT TELL ME HOW MANY FINGERS FROM L EYE) Labs: CBC, BMP 05/11/16 06:00 05/11/16 06:00 INR, PTT INR 1.06 (0.82-1.09) 05/10/16 08:21 Problem List - Problems (1) Altered mental status Code(s): R41.82 - ALTERED MENTAL STATUS, UNSPECIFIED Qualifiers: Altered mental status type: unspecified Qualified Code(s): R41.82 - Altered mental status, unspecified (2) UTI (urinary tract infection) Code(s): N39.0 - URINARY TRACT INFECTION, SITE NOT SPECIFIED Qualifiers: Urinary tract infection type: acute cystitis Hematuria presence: without hematuria Qualified Code(s): N30.00 - Acute cystitis without hematuria (3) Fall Code(s): W19.XXXA - UNSPECIFIED FALL, INITIAL ENCOUNTER (4) Hypothyroid Code(s): E03.9 - HYPOTHYROIDISM, UNSPECIFIED (5) Chest pain Code(s): R07.9 - CHEST PAIN, UNSPECIFIED (6) Head ache Code(s): R51 - HEADACHE Assessment/Plan (1) CVA (cerebral vascular accident) Assessment/Plan: NEURO CONSULTED---NOTED ACUTE CVA + TIA STATIN PLAVIX WILL D/W FAMILY REGARDING ASA ALLERGY LOST L EYE VISION -> OPHTHAL - F/U TODAY'S ECHO - PT Code(s): I63.9 - CEREBRAL INFARCTION, UNSPECIFIED (2) Hypothyroid Assessment/Plan: CONTINUE WITH SYNTHROID TSH WNL Code(s): E03.9 - HYPOTHYROIDISM, UNSPECIFIED (3) UTI (urinary tract infection) Assessment/Plan: IV ABX AWAIT CULTURES -> F/U REPEAT UCx Code(s): N39.0 - URINARY TRACT INFECTION, SITE NOT SPECIFIED Qualifiers: Urinary tract infection type: acute cystitis Hematuria presence: without hematuria Qualified Code(s): N30.00 - Acute cystitis without hematuria 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
--- NOTE | 2016-05-13 09:39 | PN ---
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, Physician History of Present Illness: No events overnight. - Current Medication List Current Medications: Active Medications Acetaminophen (Tylenol -) 650 mg PO Q4H PRN PRN Reason: FEVER OR PAIN Last Admin: 05/12/16 23:28 Dose: 650 mg Artificial Tears (Artificial Tears) 1 drop OU BID PRN PRN Reason: DRY EYES Last Admin: 05/12/16 21:59 Dose: 1 5ml Atorvastatin Calcium (Lipitor -) 40 mg PO HS [facility] Last Admin: 05/12/16 22:00 Dose: 40 mg Clopidogrel Bisulfate (Plavix -) 75 mg PO DAILY [facility] Last Admin: 05/12/16 09:00 Dose: 75 mg Cyanocobalamin (Vitamin B12 Injection -) 1,000 mcg IM DAILY [facility] Last Admin: 05/12/16 08:59 Dose: 1,000 mcg Heparin Sodium (Porcine) (Heparin -) 5,000 unit SQ BID [facility] Last Admin: 05/12/16 22:00 Dose: 5,000 unit Dextrose/Sodium Chloride (D5-Ns -) 1,000 mls @ 75 mls/hr IV ASDIR [facility] Last Admin: 05/12/16 22:01 Dose: 75 mls/hr Ceftriaxone Sodium (Rocephin 1gm Ivpb (Pre-Docked)) 50 mls @ 100 mls/hr IVPB DAILY [facility] Last Admin: 05/12/16 08:59 Dose: 100 mls/hr Levothyroxine Sodium (Synthroid -) 50 mcg PO DAILY@0700 [facility] Last Admin: 05/13/16 06:52 Dose: 50 mcg - Objective Vital Signs: Vital Signs Temperature 98.6 F 05/13/16 05:39 Pulse Rate 95 H 05/13/16 05:39 Respiratory Rate 16 05/13/16 05:39 Blood Pressure 141/70 05/13/16 05:39 O2 Sat by Pulse Oximetry (%) 96 05/12/16 21:00 Constitutional: Yes: No Distress Eyes: Yes: Conjunctiva Clear, EOM Intact HENT: Yes: Atraumatic, Normocephalic Cardiovascular: Yes: Regular Rate and Rhythm. No: JVD, Murmur Respiratory: Yes: CTA Bilaterally Gastrointestinal: Yes: Normal Bowel Sounds, Soft. No: Tenderness Edema: No Labs: CBC, BMP 05/11/16 06:00 05/11/16 06:00 INR, PTT INR 1.06 (0.82-1.09) 05/10/16 08:21 Assessment/Plan 85 yo female with hyperlipidemia, hypothyroidism (on synthroid), seizures 3 years ago. Admitted with AMS and found to have R MCA infarct per brain MRI. Patient reported episode of CP x 2 days last week. No evidence of ACS -> trop neg x 3. No evidence of anterior infarct per ECG to predispose patient to developing LV thrombus. No afib/flutter to date. RECS: Continue Plavix and Lipitor Transthoracic echocardiogram pending. Low suspicion of SC last week to cause formation of LV thrombus as this is usually seen in the setting of large anterior STEMI with significant LV dysfunction. No evidence per ECG to suggest this. Further recs as per neurology and primary care team.
[2016-05-13] MEDS: CEFTRIAXONE 50 ML IVPB SCH (09:54)
[2016-05-13] MEDS: CYANOCOBALAMIN (VITAMIN B-12) 1000 MCG/1 ML VIAL IM SCH (09:55)
[2016-05-13] MEDS: CLOPIDOGREL BISULFATE 75 MG TABLET (FP) PO SCH (09:56)
[2016-05-13] MEDS: HEPARIN NA (PORCINE) 5,000 UNITS/ML 1ML VIAL SQ SCH ×2 (09:59→22:08)
[2016-05-13] MEDS: ARTIFICIAL TEARS (POLYVINYL ALCOHOL 1.4%) OPTH DROPS OU PRN (10:17)
--- NOTE | 2016-05-13 12:13 | PN ---
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, Physician Chief Complaint: ID Lethargic but arousable and able to answer questions Ceftriaxone - Current Medication List Current Medications: Active Medications Acetaminophen (Tylenol -) 650 mg PO Q4H PRN PRN Reason: FEVER OR PAIN Last Admin: 05/12/16 23:28 Dose: 650 mg Artificial Tears (Artificial Tears) 1 drop OU BID PRN PRN Reason: DRY EYES Last Admin: 05/13/16 10:17 Dose: 1 drop Atorvastatin Calcium (Lipitor -) 40 mg PO HS [facility] Last Admin: 05/12/16 22:00 Dose: 40 mg Clopidogrel Bisulfate (Plavix -) 75 mg PO DAILY [facility] Last Admin: 05/13/16 09:56 Dose: 75 mg Cyanocobalamin (Vitamin B12 Injection -) 1,000 mcg IM DAILY [facility] Last Admin: 05/13/16 09:55 Dose: 1,000 mcg Heparin Sodium (Porcine) (Heparin -) 5,000 unit SQ BID [facility] Last Admin: 05/13/16 09:59 Dose: 5,000 unit Dextrose/Sodium Chloride (D5-Ns -) 1,000 mls @ 75 mls/hr IV ASDIR [facility] Last Admin: 05/12/16 22:01 Dose: 75 mls/hr Ceftriaxone Sodium (Rocephin 1gm Ivpb (Pre-Docked)) 50 mls @ 100 mls/hr IVPB DAILY [facility] Last Admin: 05/13/16 09:54 Dose: 100 mls/hr Levothyroxine Sodium (Synthroid -) 50 mcg PO DAILY@0700 [facility] Last Admin: 05/13/16 06:52 Dose: 50 mcg - Objective Vital Signs: Vital Signs Temperature 98.4 F 05/13/16 10:05 Pulse Rate 90 05/13/16 10:05 Respiratory Rate 18 05/13/16 10:05 Blood Pressure 128/77 05/13/16 10:05 O2 Sat by Pulse Oximetry (%) 96 05/13/16 10:05 Constitutional: Yes: No Distress Neck: Yes: WNL, Supple Cardiovascular: Yes: S1, S2 Respiratory: Yes: WNL, Regular, CTA Bilaterally Gastrointestinal: Yes: WNL, Normal Bowel Sounds, Soft. No: Tenderness Edema: No Labs: CBC, BMP 05/11/16 06:00 05/11/16 06:00 INR, PTT INR 1.06 (0.82-1.09) 05/10/16 08:21 Assessment/Plan Microbiology 05/10/16 08:21 Urine - Urine Clean Catch Urine Culture - Final Contaminated: Please Repeat 05/10/16 17:50 Blood - Peripheral Venous Blood Culture - Preliminary NO GROWTH OBTAINED AFTER 48 HOURS, INCUBATION TO CONTINUE FOR 3 DAYS. 05/10/16 17:45 Blood - Peripheral Venous Blood Culture - Preliminary NO GROWTH OBTAINED AFTER 48 HOURS, INCUBATION TO CONTINUE FOR 3 DAYS. Laboratory Tests 05/10/16 05/11/16 05/11/16 08:21 06:00 06:00 WBC 5.0 Hgb 11.6 Hct 34.7 Plt Count 280 BUN 13 D Creatinine 1.0 Creat Clearance w eGFR 52.45 Ur Leukocyte Esterase 2+ H Urine RBC 1 Urine WBC 15 Assessment UTI ( Contaminated urine) Plan Switch po therapy Keflex po bid 3 days Chun ANDREWS
--- NOTE | 2016-05-13 13:14 | PN ---
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 Selected Entries 05/12/16 05/12/16 05/12/16 02:25 07:21 10:00 Breakfast Supper Temperature 97.6 F 98 F 98.2 F 05/12/16 05/12/16 05/12/16 14:00 18:00 22:00 Breakfast Supper 25% Temperature 97.6 F 99.5 F 100.1 F H 05/13/16 05/13/16 05/13/16 01:55 05:39 10:05 Breakfast Supper Temperature 99 F 98.6 F 98.4 F 05/13/16 10:52 Breakfast 75% Supper Temperature For MBS to further assess swallowing function. Consider rehab eval/PT/ Rehab placement.
[2016-05-13] MEDS: DEXTROSE 5%-NORMAL SALINE 1,000 ML IV SCH ×2 (13:55→17:40)
[2016-05-13] MEDS: ACETAMINOPHEN 325 MG TABLET (FP) PO PRN ×2 (13:57→19:03)
[2016-05-13] MEDS ORDERED: ONDANSETRON 4 MG/2 ML VIAL IVPB PRN (17:26)
--- NOTE | 2016-05-13 21:00 | PN ---
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 (short form) - Note 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: NEUROLOGY FOLLOW-up: Events reviewed. MRI of brain (reviewed): Acute R MCA-territory infarct. MR Angio (reviewed): R MCA trifurcation occlusion. Appears to be a round occlusion (3 x3 mm) but not definitive of embolism over thrombus. Carotid duplex: Intimal thickening and mural plaque but no sig. stenosis. Ms. Alford's consultation appreicated. Pt on pureed, thickened, feeds. MANISH: Cor reg. - head trauma NEURO: Awake, alert, follows commands. Sl dysarthric speech. Rests with eyes closed. Opens on command. Still with Right conjugate gaze deviation and left homonomous hemianopsia to threat. Left arm is flaccid. left leg rests everted. Still depressed reflexes on left and left Babinski. Still decreased reaction to pinch Left arm. IMP: Stable but severe neuro deficit after Right MCA occlusion and infarct. SUGGEST: Continue telemetry. Await Echo(s). Low molecular weight heparinoids for now (for DVT prophylaxis) but still suspect possible cardiogenic embolism. PM&R evaluation and bedside PT as directed. Thank you very much, Car Marrero MD
[2016-05-13] MEDS: CEPHALEXIN MONOHYDRATE 500 MG CAPSULE (UD) PO SCH (22:07)
[2016-05-13] MEDS: ATORVASTATIN CA 40 MG TABLET (FP) PO SCH (22:07)
[2016-05-14] MEDS: LEVOTHYROXINE NA 50 MCG TABLET (FP) PO SCH (06:39)
[2016-05-14 07:07] LABS: ALBUMIN 2.6 g/dl (3.4-5.0); ALK PHOS 104 U/L (45-117); ANION GAP 7 (8-16); BILIRUBIN,TOTAL 0.3 mg/dL (0.2-1.0); CALCIUM 7.5 mg/dL (8.5-10.1); CO2 23 mmol/L (21-32); CREATININE 0.8 mg/dL (0.55-1.02); GLUCOSE,RANDOM 115 mg/dL (74-106); SGOT/AST 74 U/L (15-37); SGPT/ALT 45 U/L (12-78); TOT PROT 5.9 g/dl (6.4-8.2)
[2016-05-14 07:17] LABS: BASOPHIL 0.6 % (0-2.0); EOSINOPHIL 0.8 % (0-4.5); MCH 28.3 pg (25.7-33.7); MCHC 33.2 g/dl (32.0-36.0); MEAN CELL VOLUME 85.2 fl (80-96); MEAN PLT VOLUME 8.4 fl (7.5-11.1); NEUTROPHILS 63.3 % (42.8-82.8); PLATELET COUNT 234 K/MM3 (134-434); RDW 14.7 % (11.6-15.6); WHITE BLOOD COUNT 9.5 K/mm3 (4.0-10.0)
--- NOTE | 2016-05-14 09:10 | PN ---
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, Physician History of Present Illness: No events overnight. - Current Medication List Current Medications: Active Medications Acetaminophen (Tylenol -) 650 mg PO Q4H PRN PRN Reason: FEVER OR PAIN Last Admin: 05/13/16 19:03 Dose: 650 mg Artificial Tears (Artificial Tears) 1 drop OU BID PRN PRN Reason: DRY EYES Last Admin: 05/13/16 10:17 Dose: 1 drop Atorvastatin Calcium (Lipitor -) 40 mg PO HS [facility] Last Admin: 05/13/16 22:07 Dose: 40 mg Cephalexin HCl (Keflex -) 500 mg PO BID [facility] Last Admin: 05/13/16 22:07 Dose: 500 mg Clopidogrel Bisulfate (Plavix -) 75 mg PO DAILY [facility] Last Admin: 05/13/16 09:56 Dose: 75 mg Cyanocobalamin (Vitamin B12 Injection -) 1,000 mcg IM DAILY [facility] Last Admin: 05/13/16 09:55 Dose: 1,000 mcg Heparin Sodium (Porcine) (Heparin -) 5,000 unit SQ BID [facility] Last Admin: 05/13/16 22:08 Dose: 5,000 unit Dextrose/Sodium Chloride (D5-Ns -) 1,000 mls @ 75 mls/hr IV ASDIR [facility] Last Admin: 05/13/16 17:40 Dose: Not Given Levothyroxine Sodium (Synthroid -) 50 mcg PO DAILY@0700 [facility] Last Admin: 05/14/16 06:39 Dose: 50 mcg Ondansetron HCl (Zofran Injection) 4 mg IVPB Q6H PRN PRN Reason: NAUSEA AND/OR VOMITING Last Admin: 05/13/16 17:48 Dose: 4 mg - Objective Vital Signs: Vital Signs Temperature 98.2 F 05/14/16 06:00 Pulse Rate 94 H 05/14/16 06:00 Respiratory Rate 18 05/14/16 06:00 Blood Pressure 132/77 05/14/16 06:00 O2 Sat by Pulse Oximetry (%) 96 05/13/16 21:00 HENT: Yes: Atraumatic, Normocephalic Cardiovascular: Yes: Regular Rate and Rhythm. No: JVD, Murmur Respiratory: Yes: CTA Bilaterally Gastrointestinal: Yes: Normal Bowel Sounds, Soft. No: Tenderness Edema: No Labs: CBC, BMP 05/14/16 05:35 05/14/16 05:35 INR, PTT INR 1.06 (0.82-1.09) 05/10/16 08:21 Assessment/Plan 85 yo female with hyperlipidemia, hypothyroidism (on synthroid), seizures 3 years ago. Admitted with AMS and found to have R MCA infarct per brain MRI. Patient reported episode of CP x 2 days last week. No evidence of ACS -> trop neg x 3. No evidence of anterior infarct per ECG to predispose patient to developing LV thrombus. No afib/flutter to date per review of telemetry. 05/13/16 Echo demonstrated normal LV size and systolic function, mild TR, diastolic dysfunction. I reviewed the echo images myself as well and no LV thrombus was seen or gross valvular vegetations. RECS: Transthoracic echocardiogram negative for LV thrombus. No atrial arrhythmias ( e.g. afib/flutter) to date as potential cause for her CVA. Would continue treatment with Plavix and atorvastatin. NYA is unlikely to change patient's management at this time as there is no LV thrombus on transthoracic echo and no afib/aflutter to date to warrant anticoagulation. Possible embolic cause for CVA may be plaque rupture in aorta or other artery, however, treatment for this would be antiplatelet agents and statin therapy. Patient may benefit from outpatient event monitor or implantable loop recorder to evaluate for occult afib. If NYA is still requested by neurology consult, please call me at . Further recs as per neurology and primary care team. Will see prn. Please call with questions.
[2016-05-14] MEDS: CYANOCOBALAMIN (VITAMIN B-12) 1000 MCG/1 ML VIAL IM SCH (10:02)
[2016-05-14] MEDS: CEPHALEXIN MONOHYDRATE 500 MG CAPSULE (UD) PO SCH ×2 (10:02→21:35)
[2016-05-14] MEDS: HEPARIN NA (PORCINE) 5,000 UNITS/ML 1ML VIAL SQ SCH ×2 (10:02→21:35)
[2016-05-14] MEDS: CLOPIDOGREL BISULFATE 75 MG TABLET (FP) PO SCH (10:02)
--- NOTE | 2016-05-14 16:09 | PN ---
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, Physician Chief Complaint: asleep, lethargic fever 102' 02 sat 93% on room air family bedside - Current Medication List Current Medications: Active Medications Acetaminophen (Tylenol -) 650 mg PO Q4H PRN PRN Reason: FEVER OR PAIN Last Admin: 05/13/16 19:03 Dose: 650 mg Artificial Tears (Artificial Tears) 1 drop OU BID PRN PRN Reason: DRY EYES Last Admin: 05/13/16 10:17 Dose: 1 drop Atorvastatin Calcium (Lipitor -) 40 mg PO HS [facility] Last Admin: 05/13/16 22:07 Dose: 40 mg Cephalexin HCl (Keflex -) 500 mg PO BID [facility] Last Admin: 05/14/16 10:02 Dose: 500 mg Clopidogrel Bisulfate (Plavix -) 75 mg PO DAILY [facility] Last Admin: 05/14/16 10:02 Dose: 75 mg Cyanocobalamin (Vitamin B12 Injection -) 1,000 mcg IM DAILY [facility] Last Admin: 05/14/16 10:02 Dose: 1,000 mcg Heparin Sodium (Porcine) (Heparin -) 5,000 unit SQ BID [facility] Last Admin: 05/14/16 10:02 Dose: 5,000 unit Dextrose/Sodium Chloride (D5-Ns -) 1,000 mls @ 75 mls/hr IV ASDIR [facility] Last Admin: 05/13/16 17:40 Dose: Not Given Levothyroxine Sodium (Synthroid -) 50 mcg PO DAILY@0700 [facility] Last Admin: 05/14/16 06:39 Dose: 50 mcg Ondansetron HCl (Zofran Injection) 4 mg IVPB Q6H PRN PRN Reason: NAUSEA AND/OR VOMITING Last Admin: 05/13/16 17:48 Dose: 4 mg - Objective Vital Signs: Vital Signs Temperature 102.5 F H 05/14/16 14:30 Pulse Rate 111 H 05/14/16 14:30 Respiratory Rate 20 05/14/16 14:30 Blood Pressure 137/81 05/14/16 14:30 O2 Sat by Pulse Oximetry (%) 96 05/14/16 09:00 Constitutional: Yes: Mild Distress Eyes: Yes: Conjunctiva Clear, Tearing, Other HENT: Yes: WNL, Other Neck: Yes: WNL Cardiovascular: Yes: WNL Respiratory: Yes: WNL, On Nasal O2 Gastrointestinal: Yes: WNL Genitourinary: Yes: Incontinence Musculoskeletal: Yes: Muscle Weakness Edema: No Peripheral Pulses WNL: Yes Integumentary: Yes: WNL Wound/Incision: Yes: Clean/Dry Neurological: Yes: Pre-Existing Deficit, Weakness ...Motor Strength: LLE, RLE (weakness left sided) Psychiatric: Yes: Other Labs: CBC, BMP 05/14/16 05:35 05/14/16 05:35 INR, PTT INR 1.06 (0.82-1.09) 05/10/16 08:21 Problem List - Problems (1) Altered mental status Code(s): R41.82 - ALTERED MENTAL STATUS, UNSPECIFIED Qualifiers: Altered mental status type: unspecified Qualified Code(s): R41.82 - Altered mental status, unspecified (2) CVA (cerebral vascular accident) Code(s): I63.9 - CEREBRAL INFARCTION, UNSPECIFIED (3) Fever Code(s): R50.9 - FEVER, UNSPECIFIED Assessment/Plan bllod cultures x 2 urine analysis and cultures cxr portable r/o pna pt, oob to chair po intake good for lunch fall and seizure precautions
[2016-05-14] MEDS: ACETAMINOPHEN 325 MG TABLET (FP) PO PRN (16:16)
[2016-05-14] MEDS: DEXTROSE 5%-NORMAL SALINE 1,000 ML IV SCH (17:00)
[2016-05-14 20:50] LABS: URINE APPEARANCE CLEAR; URINE BILIRUBIN NEGATIVE (NEGATIVE); URINE BLOOD NEGATIVE (NEGATIVE); URINE COLOR STRAW; URINE GLUCOSE (UA) NEGATIVE (NEGATIVE); URINE KETONE NEGATIVE (NEGATIVE); URINE LEUK ESTERASE NEGATIVE (NEGATIVE); URINE NITRITE NEGATIVE (NEGATIVE); URINE PROTEIN NEGATIVE (NEGATIVE); URINE UROBILINOGEN NEGATIVE E.U./dl (0.2-1.0)
[2016-05-14] MEDS: ATORVASTATIN CA 40 MG TABLET (FP) PO SCH (21:39)
[2016-05-15] MEDS: LEVOTHYROXINE NA 50 MCG TABLET (FP) PO SCH (06:07)
[2016-05-15 07:05] LABS: ALBUMIN 2.3 g/dl (3.4-5.0); BILIRUBIN,TOTAL 0.3 mg/dL (0.2-1.0); CALCIUM 8.1 mg/dL (8.5-10.1); TOT PROT 5.6 g/dl (6.4-8.2)
[2016-05-15 07:31] LABS: MCH 28.4 pg (25.7-33.7); MCHC 33.2 g/dl (32.0-36.0); MEAN CELL VOLUME 85.5 fl (80-96); MEAN PLT VOLUME 8.2 fl (7.5-11.1); PLATELET COUNT 234 K/MM3 (134-434); RDW 14.6 % (11.6-15.6); WHITE BLOOD COUNT 9.5 K/mm3 (4.0-10.0)
--- NOTE | 2016-05-15 09:12 | PN ---
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, Physician Chief Complaint: HAD D/W FAMILY FAMILY INVOLVED REQUESTING R KNEE XRay 2/2 STILL IN PAIN AGREE WITH [facility] - Current Medication List Current Medications: Active Medications Acetaminophen (Tylenol -) 650 mg PO Q4H PRN PRN Reason: FEVER OR PAIN Last Admin: 05/14/16 16:16 Dose: 650 mg Artificial Tears (Artificial Tears) 1 drop OU BID PRN PRN Reason: DRY EYES Last Admin: 05/13/16 10:17 Dose: 1 drop Atorvastatin Calcium (Lipitor -) 40 mg PO HS [facility] Last Admin: 05/14/16 21:39 Dose: 40 mg Cephalexin HCl (Keflex -) 500 mg PO BID [facility] Last Admin: 05/14/16 21:35 Dose: 500 mg Clopidogrel Bisulfate (Plavix -) 75 mg PO DAILY [facility] Last Admin: 05/14/16 10:02 Dose: 75 mg Cyanocobalamin (Vitamin B12 Injection -) 1,000 mcg IM DAILY [facility] Last Admin: 05/14/16 10:02 Dose: 1,000 mcg Heparin Sodium (Porcine) (Heparin -) 5,000 unit SQ BID [facility] Last Admin: 05/14/16 21:35 Dose: 5,000 unit Dextrose/Sodium Chloride (D5-Ns -) 1,000 mls @ 75 mls/hr IV ASDIR [facility] Last Admin: 05/14/16 17:00 Dose: 75 mls/hr Levothyroxine Sodium (Synthroid -) 50 mcg PO DAILY@0700 [facility] Last Admin: 05/15/16 06:07 Dose: 50 mcg Ondansetron HCl (Zofran Injection) 4 mg IVPB Q6H PRN PRN Reason: NAUSEA AND/OR VOMITING Last Admin: 05/13/16 17:48 Dose: 4 mg - Objective Vital Signs: Vital Signs Temperature 99.7 F H 05/15/16 06:00 Pulse Rate 111 H 05/15/16 06:00 Respiratory Rate 20 05/15/16 06:00 Blood Pressure 114/62 05/15/16 06:00 O2 Sat by Pulse Oximetry (%) 96 05/14/16 21:00 Constitutional: Yes: Calm Eyes: Yes: Other (POOR VISION -> SEEN BY OPHTHAL?) Cardiovascular: Yes: Regular Rate and Rhythm, S1, S2 Respiratory: Yes: CTA Bilaterally Gastrointestinal: Yes: Normal Bowel Sounds, Soft Edema: No Neurological: Yes: Weakness (LEFT) Labs: CBC, BMP 05/15/16 05:32 05/15/16 05:32 INR, PTT INR 1.06 (0.82-1.09) 05/10/16 08:21 Problem List - Problems (1) Altered mental status Code(s): R41.82 - ALTERED MENTAL STATUS, UNSPECIFIED Qualifiers: Altered mental status type: unspecified Qualified Code(s): R41.82 - Altered mental status, unspecified (2) UTI (urinary tract infection) Code(s): N39.0 - URINARY TRACT INFECTION, SITE NOT SPECIFIED Qualifiers: Urinary tract infection type: acute cystitis Hematuria presence: without hematuria Qualified Code(s): N30.00 - Acute cystitis without hematuria (3) Fall Code(s): W19.XXXA - UNSPECIFIED FALL, INITIAL ENCOUNTER (4) Hypothyroid Code(s): E03.9 - HYPOTHYROIDISM, UNSPECIFIED (5) Chest pain Code(s): R07.9 - CHEST PAIN, UNSPECIFIED (6) Head ache Code(s): R51 - HEADACHE Assessment/Plan (1) Altered mental status Code(s): R41.82 - ALTERED MENTAL STATUS, UNSPECIFIED Qualifiers: Altered mental status type: unspecified Qualified Code(s): R41.82 - Altered mental status, unspecified (2) CVA (cerebral vascular accident) Code(s): I63.9 - CEREBRAL INFARCTION, UNSPECIFIED po intake good for lunch -> as per mbs can eat with precautions/modifications fall and seizure precautions appreciate cardio consult -> Possible embolic cause for CVA may be plaque rupture in aorta or other artery, however, treatment for this would be antiplatelet agents and statin therapy. Patient may benefit from outpatient event monitor or implantable loop recorder to evaluate for occult afib. (3) Fever Code(s): R50.9 - FEVER, UNSPECIFIED f/u repeat ucx & bcx tmax 102.5 on po abx cxr portable r/o pna -> nad pt, oob to chair - f/u id recommendations DISCHARGE PLANNING TO [facility]
[2016-05-15] MEDS: DEXTROSE 5%-NORMAL SALINE 1,000 ML IV SCH ×2 (10:00→17:07)
[2016-05-15] MEDS: CYANOCOBALAMIN (VITAMIN B-12) 1000 MCG/1 ML VIAL IM SCH (10:01)
[2016-05-15] MEDS: HEPARIN NA (PORCINE) 5,000 UNITS/ML 1ML VIAL SQ SCH ×2 (10:01→22:19)
[2016-05-15] MEDS: CLOPIDOGREL BISULFATE 75 MG TABLET (FP) PO SCH (10:07)
[2016-05-15] MEDS: CEPHALEXIN MONOHYDRATE 500 MG CAPSULE (UD) PO SCH ×2 (10:07→22:19)
--- NOTE | 2016-05-15 11:33 | PN ---
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 Swallowing precautions/recommendations made including arousing pt for each trial and reminding her to swallow, HOB elevated , chin at neutral, 1/2 tsp at a time. Monitor tolerance. Eyes remain closed most of the time secondary to acute CVA. Selected Entries 05/13/16 05/13/16 05/13/16 01:55 05:39 10:05 Breakfast Diet Tolerated Lunch Supper Temperature 99 F 98.6 F 98.4 F 05/13/16 05/13/16 05/13/16 15:36 18:00 22:00 Breakfast Diet Tolerated Lunch Supper Temperature 99 F 100.5 F H 98.0 F 05/14/16 05/14/16 05/14/16 02:00 06:00 09:58 Breakfast Diet Tolerated Lunch Supper Temperature 98.3 F 98.2 F 98.2 F 05/14/16 05/14/16 05/14/16 10:00 13:06 14:30 Breakfast 75% 100% Diet Tolerated Lunch 100% Supper Temperature 102.5 F H 05/14/16 05/14/16 05/14/16 18:29 19:15 22:00 Breakfast Diet Tolerated Lunch Supper Temperature 101.6 F H 98.9 F 99.5 F 05/14/16 05/15/16 05/15/16 22:34 02:00 06:00 Breakfast Diet Tolerated Lunch Supper 100% Temperature 98.7 F 99.7 F H 05/15/16 05/15/16 08:49 10:05 Breakfast 100% Diet Tolerated Well Lunch Supper Temperature 99.6 F Laboratory Tests 05/15/16 05:32 WBC 9.5
[2016-05-15] MEDS ORDERED: PT OWN MED DRAWER 7, Y5N ONE ×3 (13:03→22:03)
[2016-05-15] MEDS: ARTIFICIAL TEARS (POLYVINYL ALCOHOL 1.4%) OPTH DROPS OU PRN ×2 (17:07→22:19)
[2016-05-16] MEDS: DEXTROSE 5%-NORMAL SALINE 1,000 ML IV SCH ×2 (01:06→17:15)
[2016-05-16] MEDS: LEVOTHYROXINE NA 50 MCG TABLET (FP) PO SCH (06:01)
[2016-05-16 07:21] LABS: BASOPHIL 0.4 % (0-2.0); EOSINOPHIL 1.3 % (0-4.5); MCH 28.2 pg (25.7-33.7); MEAN CELL VOLUME 85.6 fl (80-96); MEAN PLT VOLUME 8.4 fl (7.5-11.1); NEUTROPHILS 64.9 % (42.8-82.8); PLATELET COUNT 286 K/MM3 (134-434); RDW 15.3 % (11.6-15.6); WHITE BLOOD COUNT 10.6 K/mm3 (4.0-10.0)
[2016-05-16 07:43] LABS: ALBUMIN 2.3 g/dl (3.4-5.0); BILIRUBIN,TOTAL 0.4 mg/dL (0.2-1.0); CALCIUM 7.9 mg/dL (8.5-10.1); TOT PROT 5.7 g/dl (6.4-8.2)
[2016-05-16] MEDS: HEPARIN NA (PORCINE) 5,000 UNITS/ML 1ML VIAL SQ SCH ×2 (10:14→21:03)
[2016-05-16] MEDS: CLOPIDOGREL BISULFATE 75 MG TABLET (FP) PO SCH (10:18)
[2016-05-16] MEDS: CEPHALEXIN MONOHYDRATE 500 MG CAPSULE (UD) PO SCH ×2 (10:18→21:03)
[2016-05-16] MEDS: ARTIFICIAL TEARS (POLYVINYL ALCOHOL 1.4%) OPTH DROPS OU PRN (10:22)
--- NOTE | 2016-05-16 11:02 | PN ---
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: Selected Entries 05/12/16 05/12/16 05/12/16 02:25 07:21 10:00 Breakfast Lunch Supper Temperature 97.6 F 98 F 98.2 F 05/12/16 05/12/16 05/12/16 14:00 18:00 22:00 Breakfast Lunch Supper Temperature 97.6 F 99.5 F 100.1 F H 05/14/16 05/14/16 05/14/16 02:00 06:00 09:58 Breakfast Lunch Supper Temperature 98.3 F 98.2 F 98.2 F 05/14/16 05/14/16 05/14/16 14:30 18:29 19:15 Breakfast Lunch Supper Temperature 102.5 F H 101.6 F H 98.9 F 05/14/16 05/15/16 05/15/16 22:00 02:00 06:00 Breakfast Lunch Supper Temperature 99.5 F 98.7 F 99.7 F H 05/15/16 05/15/16 05/15/16 08:49 10:05 14:40 Breakfast 100% Lunch 100% Supper Temperature 99.6 F 98.6 F 05/15/16 05/15/16 05/15/16 18:47 21:00 22:15 Breakfast Lunch Supper Temperature 98.8 F 101.8 F H 100.1 F H 05/15/16 05/16/16 05/16/16 23:10 02:00 06:26 Breakfast Lunch Supper 100% Temperature 98.5 F 98.3 F Laboratory Tests 05/15/16 05/16/16 05:32 05:35 WBC 9.5 10.6 H Tolerating diet well per staff. Eyes remain closed but interactive with cues.
[2016-05-16] MEDS: MAGNESIUM HYDROX 2400MG/30ML ORAL SUSPENSION 30 ML CUP PO PRN (18:55)
[2016-05-16] MEDS: DOCUSATE SODIUM 100 MG CAPSULE (FP) PO PRN (18:56)
--- NOTE | 2016-05-16 19:20 | PN ---
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, Physician - Current Medication List Current Medications: Active Medications Artificial Tears (Artificial Tears) 1 drop OU BID PRN PRN Reason: DRY EYES Last Admin: 05/16/16 10:22 Dose: 1 drop Cephalexin HCl (Keflex -) 500 mg PO BID [facility] Last Admin: 05/16/16 10:18 Dose: 500 mg Clopidogrel Bisulfate (Plavix -) 75 mg PO DAILY [facility] Last Admin: 05/16/16 10:18 Dose: 75 mg Docusate Sodium (Colace -) 100 mg PO BID PRN PRN Reason: CONSTIPATION Last Admin: 05/16/16 18:56 Dose: 100 mg Heparin Sodium (Porcine) (Heparin -) 5,000 unit SQ BID [facility] Last Admin: 05/16/16 10:14 Dose: 5,000 unit Dextrose/Sodium Chloride (D5-Ns -) 1,000 mls @ 75 mls/hr IV ASDIR [facility] Last Admin: 05/16/16 17:15 Dose: 75 mls/hr Levothyroxine Sodium (Synthroid -) 50 mcg PO DAILY@0700 [facility] Last Admin: 05/16/16 06:01 Dose: Not Given Magnesium Hydroxide (Milk Of Magnesia -) 30 ml PO Q8H PRN PRN Reason: INDIGESTION Last Admin: 05/16/16 18:55 Dose: 30 ml - Objective Vital Signs: Vital Signs Temperature 99.3 F 05/16/16 14:46 Pulse Rate 114 H 05/16/16 14:46 Respiratory Rate 18 05/16/16 14:46 Blood Pressure 140/72 05/16/16 14:46 O2 Sat by Pulse Oximetry (%) 95 05/16/16 10:20 Cardiovascular: Yes: Regular Rate and Rhythm, S1, S2 Respiratory: Yes: CTA Bilaterally Gastrointestinal: Yes: Normal Bowel Sounds, Soft Labs: CBC, BMP 05/16/16 05:35 05/16/16 05:35 INR, PTT INR 1.06 (0.82-1.09) 05/10/16 08:21 Problem List - Problems (1) Altered mental status Code(s): R41.82 - ALTERED MENTAL STATUS, UNSPECIFIED Qualifiers: Altered mental status type: unspecified Qualified Code(s): R41.82 - Altered mental status, unspecified (2) UTI (urinary tract infection) Code(s): N39.0 - URINARY TRACT INFECTION, SITE NOT SPECIFIED Qualifiers: Urinary tract infection type: acute cystitis Hematuria presence: without hematuria Qualified Code(s): N30.00 - Acute cystitis without hematuria (3) Fall Code(s): W19.XXXA - UNSPECIFIED FALL, INITIAL ENCOUNTER (4) Hypothyroid Code(s): E03.9 - HYPOTHYROIDISM, UNSPECIFIED (5) Chest pain Code(s): R07.9 - CHEST PAIN, UNSPECIFIED (6) Head ache Code(s): R51 - HEADACHE Assessment/Plan 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
--- NOTE | 2016-05-16 19:41 | CON.GI ---
Consult Consult Specialty:: GI Referred by:: Dr Moura - History of Present Illness Chief Complaint: transaminitis History of Present Illness: 85 y/o female was admitted because of acute stroke on 05/10/2015. On routine labs the patient was noted to have elevated LFTS. Today she is more alert and able to tolerate liquids. She was given medication for constipation. 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: Yes: Seizure (3 ya) Cardio/Vascular: Yes: Hyperlipdemia ...: No Endocrine: Yes: Hypothyroidism - Alcohol/Substance Use Hx Alcohol Use: No - Smoking History Smoking history: Never smoked Have you smoked in the past 12 months: No - Social History Usual Living Arrangement: With Child Home Medications - Allergies Allergies/Adverse Reactions: Allergies Allergy/AdvReac Type Severity Reaction Status Date / Time aspirin Allergy Unknown Verified 05/10/16 07:41 iodine Allergy Unknown Verified 05/10/16 07:41 - Home Medications Home Medications: Ambulatory Orders Levothyroxine [Synthroid -] 50 mcg PO DAILY 05/10/16 Physical Exam-GI Vital Signs: Vital Signs Temperature 99.3 F 05/16/16 14:46 Pulse Rate 114 H 05/16/16 14:46 Respiratory Rate 18 05/16/16 14:46 Blood Pressure 140/72 05/16/16 14:46 O2 Sat by Pulse Oximetry (%) 95 05/16/16 10:20 Constitutional: Yes: No Distress Eyes: Yes: Conjunctiva Clear HENT: Yes: Atraumatic Neck: Yes: Supple Cardiovascular: Yes: Regular Rate and Rhythm Respiratory: Yes: CTA Bilaterally Gastrointestinal Inspection: No: Distention ...Palpate: Yes: Soft. No: Firm/Rigid, Guarding, Hepatomegaly, Mass, Pulsatile Mass, Splenomegaly, Tenderness ...Percussion: No: Tympanitic Labs: CBC, BMP 05/16/16 05:35 05/16/16 05:35 INR, PTT INR 1.06 (0.82-1.09) 05/10/16 08:21 Problem List - Problems (1) Elevated liver enzymes Assessment/Plan: most likely secondary to ischemia R> expect lfts to have downward trend as patients dehydration improves Code(s): R74.8 - ABNORMAL LEVELS OF OTHER SERUM ENZYMES
[2016-05-17] MEDS: LEVOTHYROXINE NA 50 MCG TABLET (FP) PO SCH (06:22)
[2016-05-17] MEDS: DEXTROSE 5%-NORMAL SALINE 1,000 ML IV SCH (06:56)
[2016-05-17 07:15] LABS: BASOPHIL 0.9 % (0-2.0); EOSINOPHIL 1.1 % (0-4.5); MCH 28.3 pg (25.7-33.7); MCHC 33.1 g/dl (32.0-36.0); MEAN CELL VOLUME 85.4 fl (80-96); NEUTROPHILS 59.3 % (42.8-82.8); PLATELET COUNT 286 K/MM3 (134-434); RDW 14.8 % (11.6-15.6); WHITE BLOOD COUNT 10.6 K/mm3 (4.0-10.0)
[2016-05-17 07:49] LABS: ALBUMIN 2.2 g/dl (3.4-5.0); BILIRUBIN,TOTAL 0.4 mg/dL (0.2-1.0); CALCIUM 8.3 mg/dL (8.5-10.1); CREATININE 0.9 mg/dL (0.55-1.02); TOT PROT 5.7 g/dl (6.4-8.2)
[2016-05-17] MEDS: HEPARIN NA (PORCINE) 5,000 UNITS/ML 1ML VIAL SQ SCH ×2 (09:33→21:14)
[2016-05-17] MEDS: CLOPIDOGREL BISULFATE 75 MG TABLET (FP) PO SCH (09:33)
--- NOTE | 2016-05-17 10:36 | DS ---
Physical Examination Vital Signs: Vital Signs Temperature 98.2 F 05/17/16 08:28 Pulse Rate 114 H 05/17/16 08:28 Respiratory Rate 18 05/17/16 08:28 Blood Pressure 164/77 05/17/16 08:28 O2 Sat by Pulse Oximetry (%) 98 05/16/16 21:00 Labs: CBC, BMP 05/17/16 05:38 05/17/16 05:38 Discharge Summary Reason For Visit: ALTERED MENTAL STATUS,UTI Current Active Problems Altered mental status (Acute) CVA (cerebral vascular accident) (Acute) Chest pain (Acute) Elevated liver enzymes (Acute) Fall (Acute) Fever (Acute) Head ache (Acute) Hypothyroid (Acute) UTI (urinary tract infection) (Acute) Hospital Course: (1) Altered mental status Code(s): R41.82 - ALTERED MENTAL STATUS, UNSPECIFIED Qualifiers: Altered mental status type: unspecified Qualified Code(s): R41.82 - Altered mental status, unspecified (2) CVA (cerebral vascular accident) Code(s): I63.9 - CEREBRAL INFARCTION, UNSPECIFIED po intake good for lunch -> as per mbs can eat with precautions/modifications fall and seizure precautions sq heparin/asa appreciate cardio consult -> Possible embolic cause for CVA may be plaque rupture in aorta or other artery, however, treatment for this would be antiplatelet agents and statin therapy. Patient may benefit from outpatient event monitor or implantable loop recorder to evaluate for occult afib. (3) Fever Code(s): R50.9 - FEVER, UNSPECIFIED resolved repeat ucx/bcx/cxr - neg pt, oob to chair id on case [facility] Condition: Stable - Instructions Referrals: Maykel Coronado [Primary Care Provider] - Disposition: [facility] - Home Medications Comprehensive Discharge Medication List: Ambulatory Orders Levothyroxine [Synthroid -] 50 mcg PO DAILY 05/10/16
--- NOTE | 2016-05-17 10:59 | DS ---
Physical Examination Vital Signs: Vital Signs Temperature 98.2 F 05/17/16 08:28 Pulse Rate 114 H 05/17/16 08:28 Respiratory Rate 18 05/17/16 08:28 Blood Pressure 164/77 05/17/16 08:28 O2 Sat by Pulse Oximetry (%) 98 05/16/16 21:00 Constitutional: Yes: Mild Distress Eyes: Yes: WNL HENT: Yes: WNL Neck: Yes: WNL Cardiovascular: Yes: WNL Respiratory: Yes: WNL Gastrointestinal: Yes: WNL Renal/: Yes: WNL Musculoskeletal: Yes: Muscle Weakness Extremities: Yes: WNL Edema: No Peripheral Pulses WNL: Yes Integumentary: Yes: WNL Wound/Incision: Yes: Clean/Dry Neurological: Yes: Pre-Existing Deficit, Unsteady Gait ...Motor Strength: LLE, RLE Psychiatric: Yes: Other Labs: CBC, BMP 05/17/16 05:38 05/17/16 05:38 Discharge Summary Reason For Visit: ALTERED MENTAL STATUS,UTI Current Active Problems Altered mental status (Acute) CVA (cerebral vascular accident) (Acute) Chest pain (Acute) Elevated liver enzymes (Acute) Fall (Acute) Fever (Acute) Head ache (Acute) Hypothyroid (Acute) UTI (urinary tract infection) (Acute) Procedures: Principal: mri/mra brain Other Procedures: ct head/carotid doppler Hospital Course: admitted for acute weakness/altered mental status, cva vs tia, weakness, fever, chronically ill woman with multiple medical problems will need SNF Condition: Stable - Instructions Diet, Activity, Other Instructions: ada/low sodium Referrals: Maykel Coronado [Primary Care Provider] - Aiden Patrick MD [Staff Physician] - Disposition: [facility]ARE HOME FACILITY - Home Medications Comprehensive Discharge Medication List: Ambulatory Orders Levothyroxine [Synthroid -] 50 mcg PO DAILY 05/10/16 Clopidogrel Bisulfate [Plavix -] 75 mg PO DAILY tablet 05/17/16 Docusate Sodium [Colace -] 100 mg PO BID PRN #0 capsule 05/17/16 Heparin - 5,000 unit SQ BID vial 05/17/16 Magnesium Hydrox 2400MG/30Ml [Milk of Magnesia -] 30 ml PO Q8H PRN #0 cup Polyvinyl Alcohol [Artificial Tears] 1 drop OU BID PRN #0 drops 05/17/16
--- NOTE | 2016-05-17 12:26 | PN ---
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 Eyes remain closed but interactive with cues. Pending d/c. Continue modified diet until pt becomes more alert and arousable. Pt ,may benefit from a repeat MBS to upgrade diet with safety.
[2016-05-17] MEDS: MAGNESIUM HYDROX 2400MG/30ML ORAL SUSPENSION 30 ML CUP PO PRN (20:20)
[2016-05-17] MEDS: DOCUSATE SODIUM 100 MG CAPSULE (FP) PO PRN (20:20)
[2016-05-18] MEDS: LEVOTHYROXINE NA 50 MCG TABLET (FP) PO SCH (06:28)
[2016-05-18] MEDS ORDERED: PT OWN MED DRAWER 7, Y5N ONE (06:48)
[2016-05-18] MEDS: HEPARIN NA (PORCINE) 5,000 UNITS/ML 1ML VIAL SQ SCH ×2 (10:21→21:22)
[2016-05-18] MEDS: CLOPIDOGREL BISULFATE 75 MG TABLET (FP) PO SCH (10:22)
[2016-05-18] MEDS: ARTIFICIAL TEARS (POLYVINYL ALCOHOL 1.4%) OPTH DROPS OU PRN (10:26)
--- NOTE | 2016-05-18 15:33 | PN ---
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 (short form) - Note 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: CHART REVIEWED AWAITING AUTHORIZATION FOR SNF FAMILY BEDSIDE PATIENT EXAMINED CONTINUE CURRENT CARE Problem List - Problems (1) Altered mental status Code(s): R41.82 - ALTERED MENTAL STATUS, UNSPECIFIED Qualifiers: Altered mental status type: unspecified Qualified Code(s): R41.82 - Altered mental status, unspecified (2) CVA (cerebral vascular accident) Code(s): I63.9 - CEREBRAL INFARCTION, UNSPECIFIED (3) Fever Code(s): R50.9 - FEVER, UNSPECIFIED
[2016-05-19] MEDS: LEVOTHYROXINE NA 50 MCG TABLET (FP) PO SCH (06:03)
[2016-05-19] MEDS ORDERED: PIPERACILLIN/TAZOB 3.375 GM/50 ML PRE-DOCKED IVPB ONE (10:15)
[2016-05-19 10:44] LABS: MCH 28.2 pg (25.7-33.7); MCHC 33.5 g/dl (32.0-36.0); MEAN CELL VOLUME 84.2 fl (80-96); MEAN PLT VOLUME 7.4 fl (7.5-11.1); PLATELET COUNT 354 K/MM3 (134-434); RDW 14.6 % (11.6-15.6); WHITE BLOOD COUNT 9.5 K/mm3 (4.0-10.0)
--- NOTE | 2016-05-19 10:52 | PN ---
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, Physician Chief Complaint: ID Unresponvive verbal stimuli Febrile 103 with intermittent fevers Drooling - Current Medication List Current Medications: Active Medications Artificial Tears (Artificial Tears) 1 drop OU BID PRN PRN Reason: DRY EYES Last Admin: 05/18/16 10:26 Dose: 1 drop Clopidogrel Bisulfate (Plavix -) 75 mg PO DAILY [facility] Last Admin: 05/18/16 10:22 Dose: 75 mg Docusate Sodium (Colace -) 100 mg PO BID PRN PRN Reason: CONSTIPATION Last Admin: 05/17/16 20:20 Dose: 100 mg Heparin Sodium (Porcine) (Heparin -) 5,000 unit SQ BID [facility] Last Admin: 05/18/16 21:22 Dose: 5,000 unit Ibuprofen (Caldolor Injection -) 400 mg IVPB ONCE ONE Stop: 05/19/16 10:16 Levothyroxine Sodium (Synthroid -) 50 mcg PO DAILY@0700 [facility] Last Admin: 05/19/16 06:03 Dose: 50 mcg Magnesium Hydroxide (Milk Of Magnesia -) 30 ml PO Q8H PRN PRN Reason: INDIGESTION Last Admin: 05/17/16 20:20 Dose: 30 ml - Objective Vital Signs: Vital Signs Temperature 103 F H 05/19/16 09:28 Pulse Rate 142 H 05/19/16 09:28 Respiratory Rate 20 05/19/16 09:28 Blood Pressure 158/83 05/19/16 09:28 O2 Sat by Pulse Oximetry (%) 98 05/18/16 21:00 Constitutional: Yes: No Distress, Other (Unresponsive) Neck: Yes: Decreased ROM Cardiovascular: Yes: Tachycardia, S1, S2 Respiratory: Yes: WNL, Regular, CTA Bilaterally Gastrointestinal: Yes: WNL, Normal Bowel Sounds, Soft. No: Tenderness, Tenderness, Epigastrium Labs: CBC, BMP 05/19/16 10:20 INR, PTT INR 1.06 (0.82-1.09) 05/10/16 08:21 Assessment/Plan Microbiology 05/14/16 19:00 Urine - Urine - Catheterized Urine Culture - Final NO GROWTH OBTAINED 05/17/16 17:30 Blood - Peripheral Venous Blood Culture - Preliminary NO GROWTH OBTAINED AFTER 24 HOURS, INCUBATION TO CONTINUE FOR 4 DAYS. 05/17/16 17:30 Blood - Peripheral Venous Blood Culture - Preliminary NO GROWTH OBTAINED AFTER 24 HOURS, INCUBATION TO CONTINUE FOR 4 DAYS. Selected Entries 05/19/16 09:28 Temperature 103 F H Laboratory Tests 05/10/16 05/14/16 05/17/16 08:21 19:00 05:38 WBC 10.6 H Hgb 10.4 L Hct 31.5 L Plt Count 286 Creat Clearance w eGFR Ur Leukocyte Esterase 2+ H Negative 05/17/16 05:38 WBC Hgb Hct Plt Count Creat Clearance w eGFR 59.23 Ur Leukocyte Esterase Assessment FUO blood cultures negative and chest xray no clear infiltrate though at risk for aspiration with underlying CVA Plan Agree with empiric trial of Zosyn and if no change in fever would image chest abd and do a spinal tap Chun ANDREWS
--- NOTE | 2016-05-19 10:55 | PN ---
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 (short form) - Note 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: ID addendum Issue of liver enzymes noted Laboratory Tests 05/17/16 05:38 AST 248 H D Alkaline Phosphatase 217 H D Recent sono with stones Advise explore the GB as possible source of fever with HIDA and CT abd pelvis Chun ANDREWS
[2016-05-19] MEDS: CLOPIDOGREL BISULFATE 75 MG TABLET (FP) PO SCH (11:00)
[2016-05-19] MEDS: HEPARIN NA (PORCINE) 5,000 UNITS/ML 1ML VIAL SQ SCH ×2 (11:00→22:24)
[2016-05-19] MEDS ORDERED: IBUPROFEN 800 MG/8 ML IJ IVPB ONE (11:15)
[2016-05-19 11:16] LABS: ALBUMIN 2.4 g/dl (3.4-5.0); BILIRUBIN,TOTAL 0.4 mg/dL (0.2-1.0); CALCIUM 8.2 mg/dL (8.5-10.1); CREATININE 0.9 mg/dL (0.55-1.02); TOT PROT 6.5 g/dl (6.4-8.2)
--- NOTE | 2016-05-19 11:57 | PN ---
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, Physician Chief Complaint: asleep fever transaminitis - Current Medication List Current Medications: Active Medications Artificial Tears (Artificial Tears) 1 drop OU BID PRN PRN Reason: DRY EYES Last Admin: 05/18/16 10:26 Dose: 1 drop Clopidogrel Bisulfate (Plavix -) 75 mg PO DAILY [facility] Last Admin: 05/19/16 11:00 Dose: Not Given Docusate Sodium (Colace -) 100 mg PO BID PRN PRN Reason: CONSTIPATION Last Admin: 05/17/16 20:20 Dose: 100 mg Heparin Sodium (Porcine) (Heparin -) 5,000 unit SQ BID [facility] Last Admin: 05/19/16 11:00 Dose: 5,000 unit Piperacillin Sod/Tazobactam Sod (Zosyn 4.5gm Ivpb (Pre-Docked)) 100 mls @ 200 mls/hr IVPB Q8H-IV [facility] Levothyroxine Sodium (Synthroid -) 50 mcg PO DAILY@0700 [facility] Last Admin: 05/19/16 06:03 Dose: 50 mcg Magnesium Hydroxide (Milk Of Magnesia -) 30 ml PO Q8H PRN PRN Reason: INDIGESTION Last Admin: 05/17/16 20:20 Dose: 30 ml - Objective Vital Signs: Vital Signs Temperature 103 F H 05/19/16 09:28 Pulse Rate 142 H 05/19/16 09:28 Respiratory Rate 20 05/19/16 09:28 Blood Pressure 158/83 05/19/16 09:28 O2 Sat by Pulse Oximetry (%) 98 05/18/16 21:00 Constitutional: Yes: Mild Distress Eyes: Yes: WNL HENT: Yes: WNL Neck: Yes: WNL Cardiovascular: Yes: WNL Respiratory: Yes: WNL Gastrointestinal: Yes: WNL Genitourinary: Yes: Incontinence Musculoskeletal: Yes: WNL Extremities: Yes: WNL Edema: No Peripheral Pulses WNL: Yes Integumentary: Yes: WNL Wound/Incision: Yes: Clean/Dry Neurological: Yes: Pre-Existing Deficit, Unsteady Gait, Weakness ...Motor Strength: LUE, LLE Psychiatric: Yes: Other Labs: CBC, BMP 05/19/16 10:20 05/19/16 10:20 INR, PTT INR 1.06 (0.82-1.09) 05/10/16 08:21 Problem List - Problems (1) Altered mental status Code(s): R41.82 - ALTERED MENTAL STATUS, UNSPECIFIED Qualifiers: Altered mental status type: unspecified Qualified Code(s): R41.82 - Altered mental status, unspecified (2) CVA (cerebral vascular accident) Code(s): I63.9 - CEREBRAL INFARCTION, UNSPECIFIED (3) Fever Code(s): R50.9 - FEVER, UNSPECIFIED (4) Acute disorder of liver Code(s): K76.9 - LIVER DISEASE, UNSPECIFIED Assessment/Plan DISCUSSED WITH ID DR WAN PERSISTENT FEVER BLOOD CX NEGATIVE INCREASING TRANSAMINASES ORDER CT SCAN ABD PELVIS WITH HIDS MAY HAVE NEUROLOGY ORDER LUMBAR PUNCTURE IF GI WORKUP NEGATIVE ZOSYN IV CANCEL DISCHARGE ORDER TO SNF FOR NOW
[2016-05-19] MEDS: PIPERACILLIN/TAZOB 4.5 GM 100 ML IVPB SCH (17:38)
--- NOTE | 2016-05-19 17:55 | CONSULT ---
Consult Consult Specialty:: Surgery Reason for Consultation:: Evaluate for cholangitis - History of Present Illness History of Present Illness: 85 female presented to the hospital on 05/10/16 for altered mental status Per the chart the patient had been experiencing 4 days of chest pain and a headache and had two witnessed falls prior to presenting to the hospital She was noted to have slurred speech at the time She was diagnosed with an acute stroke and followed by Neurology She was noted during her hospital course to have elevated LFTs GI was consulted at that time- noted elevated LFTs likely due to ischemia Ultrasound demonstrated small gallstones, no pericholecystic fluid, no thickening of the gallbladder wall, no ductal dilation; no evidence of acute cholecystitis Seen by ID as well to rule out source of infection Somnolent-unable to elicit history from patient Tmax 103 this am HR 60-140s BP 90-150s/40-80s Abd soft, no RUQ tenderness, no Mcmanus's sign, no rebound tenderness WBC 9.5 AST/ALT elevated Bilirubin 0.4 - History Source History Provided By: Medical Record Limitations to Obtaining History: Unresponsive - Past Medical History 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: Yes: Seizure (3 ya) Cardio/Vascular: Yes: Hyperlipdemia ...: No Endocrine: Yes: Hypothyroidism - Alcohol/Substance Use Hx Alcohol Use: No - Smoking History Smoking history: Never smoked Have you smoked in the past 12 months: No - Social History Usual Living Arrangement: With Child Home Medications - Allergies Allergies/Adverse Reactions: Allergies Allergy/AdvReac Type Severity Reaction Status Date / Time aspirin Allergy Unknown Verified 05/10/16 07:41 iodine Allergy Unknown Verified 05/10/16 07:41 - Home Medications Home Medications: Ambulatory Orders Levothyroxine [Synthroid -] 50 mcg PO DAILY 05/10/16 Clopidogrel Bisulfate [Plavix -] 75 mg PO DAILY tablet 05/17/16 Docusate Sodium [Colace -] 100 mg PO BID PRN #0 capsule 05/17/16 Heparin - 5,000 unit SQ BID vial 05/17/16 Magnesium Hydrox 2400MG/30Ml [Milk of Magnesia -] 30 ml PO Q8H PRN #0 cup Polyvinyl Alcohol [Artificial Tears] 1 drop OU BID PRN #0 drops 05/17/16 Family Disease History - Family Disease History Family History: Unable to Obtain Review of Systems Unable to obtain ROS, reason: Somnolent, not responding Physical Exam Vital Signs: Vital Signs Temperature 100.0 F H 05/19/16 14:45 Pulse Rate 107 H 05/19/16 14:45 Respiratory Rate 20 05/19/16 14:45 Blood Pressure 91/47 05/19/16 14:45 O2 Sat by Pulse Oximetry (%) 98 05/19/16 10:40 Neck: Yes: Supple Respiratory: Yes: Diminished Gastrointestinal: Yes: Soft. No: Distention, Tenderness, Tenderness, Rebound Neurological: Yes: Lethargy, Unresponsive Labs: CBC, BMP 05/19/16 10:20 05/19/16 10:20 Imaging - Results Ultrasound: Report Reviewed Problem List - Problems (1) Altered mental status Code(s): R41.82 - ALTERED MENTAL STATUS, UNSPECIFIED Qualifiers: Altered mental status type: unspecified Qualified Code(s): R41.82 - Altered mental status, unspecified (2) Elevated liver enzymes Code(s): R74.8 - ABNORMAL LEVELS OF OTHER SERUM ENZYMES Assessment/Plan 85 female with acute Right MCA infarct per chart with elevated transaminase levels Somnolent/lethargic Unable to elicit history No evidence of an acute abdomen on exam WBC WNL Ultrasound- no ductal dilation GI following If concerned about cholangitis, would recommend MRCP although I do not believe that is the reason for the elevated LFTs Agree with GI- likely ischemic in nature
[2016-05-19] MEDS: IBUPROFEN 800 MG/8 ML IJ IVPB PRN (18:06)
[2016-05-20] MEDS: PIPERACILLIN/TAZOB 4.5 GM 100 ML IVPB SCH ×3 (01:05→18:28)
[2016-05-20] MEDS: LEVOTHYROXINE NA 50 MCG TABLET (FP) PO SCH (06:00)
[2016-05-20 07:10] LABS: MCH 28.2 pg (25.7-33.7); MEAN CELL VOLUME 85.3 fl (80-96); MEAN PLT VOLUME 7.5 fl (7.5-11.1); PLATELET COUNT 331 K/MM3 (134-434); RDW 14.7 % (11.6-15.6); WHITE BLOOD COUNT 5.5 K/mm3 (4.0-10.0)
[2016-05-20 07:33] LABS: ALBUMIN 2.2 g/dl (3.4-5.0); BILIRUBIN,TOTAL 0.3 mg/dL (0.2-1.0); CALCIUM 7.9 mg/dL (8.5-10.1); CREATININE 1.1 mg/dL (0.55-1.02)
--- NOTE | 2016-05-20 09:44 | PN ---
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 Eyes open and interactive, Salvadorean speaking. Good intelligibility. If pt continues to be alert, will upgrade diet. Improving rehab candidacy.
--- NOTE | 2016-05-20 10:22 | PN ---
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, Physician Chief Complaint: HAD D/W FAMILY AT BEDSIDE FEELS PATIENT IS IMPROVING MORE LUCID BEING FED - Current Medication List Current Medications: Active Medications Artificial Tears (Artificial Tears) 1 drop OU BID PRN PRN Reason: DRY EYES Last Admin: 05/18/16 10:26 Dose: 1 drop Docusate Sodium (Colace -) 100 mg PO BID PRN PRN Reason: CONSTIPATION Last Admin: 05/17/16 20:20 Dose: 100 mg Heparin Sodium (Porcine) (Heparin -) 5,000 unit SQ BID [facility] Last Admin: 05/19/16 22:24 Dose: 5,000 unit Piperacillin Sod/Tazobactam Sod (Zosyn 4.5gm Ivpb (Pre-Docked)) 100 mls @ 200 mls/hr IVPB Q8H-IV [facility] Last Admin: 05/20/16 01:05 Dose: 200 mls/hr Ibuprofen (Caldolor Injection -) 400 mg IVPB Q6H PRN PRN Reason: FEVER Last Admin: 05/19/16 18:06 Dose: 400 mg Levothyroxine Sodium (Synthroid -) 50 mcg PO DAILY@0700 [facility] Last Admin: 05/20/16 06:00 Dose: Not Given Magnesium Hydroxide (Milk Of Magnesia -) 30 ml PO Q8H PRN PRN Reason: INDIGESTION Last Admin: 05/17/16 20:20 Dose: 30 ml - Objective Vital Signs: Vital Signs Temperature 98.2 F 05/20/16 06:00 Pulse Rate 99 H 05/20/16 10:16 Respiratory Rate 20 05/20/16 06:00 Blood Pressure 123/65 05/20/16 06:00 O2 Sat by Pulse Oximetry (%) 95 05/20/16 10:16 Constitutional: Yes: Calm Cardiovascular: Yes: Regular Rate and Rhythm, S1, S2 Respiratory: Yes: CTA Bilaterally Gastrointestinal: Yes: Normal Bowel Sounds, Soft Edema: No Labs: CBC, BMP 05/20/16 05:30 05/20/16 05:30 INR, PTT INR 1.06 (0.82-1.09) 05/10/16 08:21 Problem List - Problems (1) Altered mental status Code(s): R41.82 - ALTERED MENTAL STATUS, UNSPECIFIED Qualifiers: Altered mental status type: unspecified Qualified Code(s): R41.82 - Altered mental status, unspecified (2) UTI (urinary tract infection) Code(s): N39.0 - URINARY TRACT INFECTION, SITE NOT SPECIFIED Qualifiers: Urinary tract infection type: acute cystitis Hematuria presence: without hematuria Qualified Code(s): N30.00 - Acute cystitis without hematuria (3) Fall Code(s): W19.XXXA - UNSPECIFIED FALL, INITIAL ENCOUNTER (4) Hypothyroid Code(s): E03.9 - HYPOTHYROIDISM, UNSPECIFIED (5) Chest pain Code(s): R07.9 - CHEST PAIN, UNSPECIFIED (6) Head ache Code(s): R51 - HEADACHE Assessment/Plan (1) Altered mental status Code(s): R41.82 - ALTERED MENTAL STATUS, UNSPECIFIED Qualifiers: Altered mental status type: unspecified Qualified Code(s): R41.82 - Altered mental status, unspecified MAY HAVE NEUROLOGY ORDER LUMBAR PUNCTURE IF GI WORKUP NEGATIVE (2) CVA (cerebral vascular accident) Code(s): I63.9 - CEREBRAL INFARCTION, UNSPECIFIED FOR [facility] (3) Fever Code(s): R50.9 - FEVER, UNSPECIFIED APPRECIATE ID CONSULT PERSISTENT FEVER BLOOD CX NEGATIVE ZOSYN IV (4) Acute disorder of liver Code(s): K76.9 - LIVER DISEASE, UNSPECIFIED NOT IMPROVED APPRECIATE SURG CONSULT APPRECIATE GI CONSULT -> ISCHEMIC - F/U YUNI CHUNG
[2016-05-20] MEDS: HEPARIN NA (PORCINE) 5,000 UNITS/ML 1ML VIAL SQ SCH ×2 (10:41→21:14)
--- NOTE | 2016-05-20 14:11 | PN ---
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 (short form) - Note 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: No acute events Per family, patient appears more awake and more lucid Deny pain Tolerating dysphagia diet Afebrile today BP 90-120/40-60s HR 90-140 Abd soft, ND, NT WBC 5.5 AST/ALT 325/328- slightly increasing Alk Phos 320- decreasing Bilirubin 0.3- WNL Lipase 327- WNL Continue current care MRCP if cholangitis still being considered- although unlikely Problem List - Problems (1) Altered mental status Code(s): R41.82 - ALTERED MENTAL STATUS, UNSPECIFIED Qualifiers: Altered mental status type: unspecified Qualified Code(s): R41.82 - Altered mental status, unspecified (2) Elevated liver enzymes Code(s): R74.8 - ABNORMAL LEVELS OF OTHER SERUM ENZYMES
[2016-05-20] MEDS: IBUPROFEN 800 MG/8 ML IJ IVPB PRN (16:10)
--- NOTE | 2016-05-20 20:51 | PN ---
GI 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 Subjective: lfts was trending upward - Objective Vital Signs: Vital Signs Temperature 99.3 F 05/20/16 18:09 Pulse Rate 97 H 05/20/16 18:09 Respiratory Rate 18 05/20/16 18:09 Blood Pressure 100/60 05/20/16 18:09 O2 Sat by Pulse Oximetry (%) 95 05/20/16 10:16 Constitutional: Well Nourished Eyes: Yes: Conjunctiva Clear HENT: Yes: Atraumatic Cardiovascular: Yes: Regular Rate and Rhythm Respiratory: Yes: CTA Bilaterally ...Palpate: Yes: Soft. No: Firm/Rigid, Guarding, Hepatomegaly, Mass, Pulsatile Mass, Splenomegaly, Tenderness Labs: CBC, BMP 05/20/16 05:30 05/20/16 05:30 INR, PTT INR 1.06 (0.82-1.09) 05/10/16 08:21 Problem List - Problems (1) Elevated liver enzymes Assessment/Plan: R> start Actigal 300mg bid Code(s): R74.8 - ABNORMAL LEVELS OF OTHER SERUM ENZYMES
[2016-05-20] MEDS ORDERED: PT OWN MED DRAWER 7, Y5N ONE (21:10)
[2016-05-20] MEDS: DOCUSATE SODIUM 100 MG CAPSULE (FP) PO PRN (21:13)
[2016-05-20] MEDS: ARTIFICIAL TEARS (POLYVINYL ALCOHOL 1.4%) OPTH DROPS OU PRN (21:13)
[2016-05-20] MEDS: URSODIOL 300 MG CAPSULE PO SCH (21:14)
[2016-05-21] MEDS: PIPERACILLIN/TAZOB 4.5 GM 100 ML IVPB SCH ×3 (02:16→17:12)
[2016-05-21] MEDS: LEVOTHYROXINE NA 50 MCG TABLET (FP) PO SCH ×2 (06:07→11:00)
[2016-05-21 07:27] LABS: BASOPHIL 0.9 % (0-2.0); EOSINOPHIL 2.6 % (0-4.5); MCH 28.2 pg (25.7-33.7); MEAN CELL VOLUME 85.6 fl (80-96); MEAN PLT VOLUME 7.6 fl (7.5-11.1); NEUTROPHILS 45.7 % (42.8-82.8); PLATELET COUNT 361 K/MM3 (134-434); RDW 14.7 % (11.6-15.6); WHITE BLOOD COUNT 5.2 K/mm3 (4.0-10.0)
[2016-05-21 08:17] LABS: ALBUMIN 2.4 g/dl (3.4-5.0); BILIRUBIN,TOTAL 0.2 mg/dL (0.2-1.0); CREATININE 1.2 mg/dL (0.55-1.02); TOT PROT 6.5 g/dl (6.4-8.2)
[2016-05-21] MEDS ORDERED: PT OWN MED DRAWER 7, Y5N ONE ×2 (10:48→22:10)
[2016-05-21] MEDS: HEPARIN NA (PORCINE) 5,000 UNITS/ML 1ML VIAL SQ SCH ×2 (11:00→22:17)
[2016-05-21] MEDS: URSODIOL 300 MG CAPSULE PO SCH ×2 (11:00→22:17)
--- NOTE | 2016-05-21 11:33 | PN ---
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 Sleeping. REC as before. Continue modified diet. When more alert, diet upgrade would be indicated.
--- NOTE | 2016-05-21 12:14 | PN ---
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, Physician Chief Complaint: Seen in presence of family who spoke to pt in French Pt awake, alert. Answers questions appropriately Offers no complaints No c/o abdominal pain. No N/V Temps down- afebrile WBC WNL LFTs remains elevated HIDA pending - Current Medication List Current Medications: Active Medications Artificial Tears (Artificial Tears) 1 drop OU BID PRN PRN Reason: DRY EYES Last Admin: 05/20/16 21:13 Dose: 1 drop Docusate Sodium (Colace -) 100 mg PO BID PRN PRN Reason: CONSTIPATION Last Admin: 05/20/16 21:13 Dose: 100 mg Heparin Sodium (Porcine) (Heparin -) 5,000 unit SQ BID [facility] Last Admin: 05/21/16 11:00 Dose: 5,000 unit Piperacillin Sod/Tazobactam Sod (Zosyn 4.5gm Ivpb (Pre-Docked)) 100 mls @ 200 mls/hr IVPB Q8H-IV [facility] Last Admin: 05/21/16 11:00 Dose: 200 mls/hr Ibuprofen (Caldolor Injection -) 400 mg IVPB Q6H PRN PRN Reason: FEVER Last Admin: 05/20/16 16:10 Dose: 400 mg Levothyroxine Sodium (Synthroid -) 50 mcg PO DAILY@0700 [facility] Last Admin: 05/21/16 11:00 Dose: 50 mcg Magnesium Hydroxide (Milk Of Magnesia -) 30 ml PO Q8H PRN PRN Reason: INDIGESTION Last Admin: 05/17/16 20:20 Dose: 30 ml Ursodiol (Actigal -) 300 mg PO BID [facility] Last Admin: 05/21/16 11:00 Dose: 300 mg - Objective Vital Signs: Vital Signs Temperature 98.1 F 05/21/16 06:16 Pulse Rate 65 05/21/16 06:16 Respiratory Rate 18 05/21/16 06:16 Blood Pressure 120/72 05/21/16 06:16 O2 Sat by Pulse Oximetry (%) 100 05/20/16 21:00 Constitutional: Yes: No Distress Eyes: Yes: Conjunctiva Clear Cardiovascular: Yes: Regular Rate and Rhythm, S1, S2 Respiratory: Yes: Diminished Gastrointestinal: Yes: Normal Bowel Sounds, Soft. No: Tenderness Edema: No Neurological: Yes: Other (hemiparesis) Labs: CBC, BMP 05/21/16 05:35 05/21/16 05:35 INR, PTT INR 1.06 (0.82-1.09) 05/10/16 08:21 Assessment/Plan Fevers- resolved on empiric Zosyn Elevated LFTs possible occult biliary tract disease S/P CVA Await HIDA Continue empiric zosyn No evidence for DISABILITY REPRESENTATIVE infection. No need for LP
--- NOTE | 2016-05-21 15:20 | PN ---
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, Physician Chief Complaint: ASLEEP PASSED SWALLOW EVAL AWAITING RESULTS OF HIDS SCAN - Current Medication List Current Medications: Active Medications Artificial Tears (Artificial Tears) 1 drop OU BID PRN PRN Reason: DRY EYES Last Admin: 05/20/16 21:13 Dose: 1 drop Docusate Sodium (Colace -) 100 mg PO BID PRN PRN Reason: CONSTIPATION Last Admin: 05/20/16 21:13 Dose: 100 mg Heparin Sodium (Porcine) (Heparin -) 5,000 unit SQ BID [facility] Last Admin: 05/21/16 11:00 Dose: 5,000 unit Piperacillin Sod/Tazobactam Sod (Zosyn 4.5gm Ivpb (Pre-Docked)) 100 mls @ 200 mls/hr IVPB Q8H-IV [facility] Last Admin: 05/21/16 11:00 Dose: 200 mls/hr Ibuprofen (Caldolor Injection -) 400 mg IVPB Q6H PRN PRN Reason: FEVER Last Admin: 05/20/16 16:10 Dose: 400 mg Levothyroxine Sodium (Synthroid -) 50 mcg PO DAILY@0700 [facility] Last Admin: 05/21/16 11:00 Dose: 50 mcg Magnesium Hydroxide (Milk Of Magnesia -) 30 ml PO Q8H PRN PRN Reason: INDIGESTION Last Admin: 05/17/16 20:20 Dose: 30 ml Ursodiol (Actigal -) 300 mg PO BID [facility] Last Admin: 05/21/16 11:00 Dose: 300 mg - Objective Vital Signs: Vital Signs Temperature 98.6 F 05/21/16 14:43 Pulse Rate 101 H 05/21/16 14:43 Respiratory Rate 18 05/21/16 14:43 Blood Pressure 118/60 05/21/16 14:43 O2 Sat by Pulse Oximetry (%) 100 05/20/16 21:00 Constitutional: Yes: Mild Distress Eyes: Yes: WNL HENT: Yes: WNL Neck: Yes: WNL Cardiovascular: Yes: WNL Respiratory: Yes: WNL Gastrointestinal: Yes: WNL Genitourinary: Yes: Incontinence Musculoskeletal: Yes: Muscle Weakness Extremities: Yes: WNL Edema: No Peripheral Pulses WNL: Yes Integumentary: Yes: WNL Wound/Incision: Yes: Clean/Dry Neurological: Yes: Pre-Existing Deficit, Unsteady Gait, Weakness ...Motor Strength: LUE, LLE, RLE Psychiatric: Yes: Other Labs: CBC, BMP 05/21/16 05:35 05/21/16 05:35 INR, PTT INR 1.06 (0.82-1.09) 05/10/16 08:21 Problem List - Problems (1) Altered mental status Code(s): R41.82 - ALTERED MENTAL STATUS, UNSPECIFIED Qualifiers: Altered mental status type: unspecified Qualified Code(s): R41.82 - Altered mental status, unspecified (2) CVA (cerebral vascular accident) Code(s): I63.9 - CEREBRAL INFARCTION, UNSPECIFIED (3) Fever Code(s): R50.9 - FEVER, UNSPECIFIED (4) Acute disorder of liver Code(s): K76.9 - LIVER DISEASE, UNSPECIFIED Assessment/Plan AWAIT HIDA SCAN RESULTS CONTINUE ZOSYN MONITOR LFT'S GI AND ID EVAL APPRECIATED OOB TO CHAIR WILL NEED SNF POST CVA
[2016-05-21] MEDS: IBUPROFEN 800 MG/8 ML IJ IVPB PRN (17:11)
--- NOTE | 2016-05-21 19:31 | PN ---
GI 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 Subjective: Patient currently comfortable She is taking po without difficulty, and conversant. She responds to questions appropriately. Her son is present - Objective Vital Signs: Vital Signs Temperature 98.6 F 05/21/16 14:43 Pulse Rate 101 H 05/21/16 14:43 Respiratory Rate 18 05/21/16 14:43 Blood Pressure 118/60 05/21/16 14:43 O2 Sat by Pulse Oximetry (%) 97 05/21/16 09:00 Constitutional: Well Nourished, Calm Eyes: Yes: Other (L gaze) Neck: Yes: Supple Cardiovascular: Yes: Regular Rate and Rhythm Respiratory: Yes: CTA Bilaterally Gastrointestinal Inspection: Yes: WNL ...Auscultate: Yes: Normoactive Bowel Sounds ...Palpate: Yes: Soft. No: Tenderness Neurological: Yes: Other (L sided neglect) Labs: CBC, BMP 05/21/16 05:35 05/21/16 05:35 INR, PTT INR 1.06 (0.82-1.09) 05/10/16 08:21 Assessment/Plan 85 F S/P MCA stroke, with elevated LFT's Likely multifactorial, incl meds, hypotension early in the admission. No evidence of CBD obstruction on HIDA with good biliary to bowel transit. Temp to 102.9 earlier today R/O central fever, Urinary. LFTs trending down on actigall-continue as ordered.
--- NOTE | 2016-05-21 19:35 | PN ---
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 (short form) - Note 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: NEUROLOGY F/U: Events reviewed and discussed with son. Now on Zosyn (day #3) for fever and mild leukocytosis without obvious source. Son notes good appetite and swallowing when he feeds her. Exam: Still with eyes closed but opens on commands. Fluent speech in brief phrases and follows simple commands. Still with Right conjugate gaze deviation and Left homonomous hemianopsia. Left are still flaccid and left leg weak (3/5). Still areflexic on left with Left Babinski. Grimaces to pinch left leg >>> Arm. IMP: Severe Right cerebral dysfunction after Right MCA infarct. On Heparin 5000 units BID for DVT prophylaxis. No obvious cardioembolic source to warrant anticoagulation. Suggest: Mobilize OO bed to chair TID for meals. Continue antibiotics as per ID. PT Eval and Rx. Begin planning for Rehab or SNF/rehab placement. Thank you very much, Car Marrero MD
[2016-05-21] MEDS: ARTIFICIAL TEARS (POLYVINYL ALCOHOL 1.4%) OPTH DROPS OU PRN (22:17)
[2016-05-22] MEDS: PIPERACILLIN/TAZOB 4.5 GM 100 ML IVPB SCH ×3 (03:10→18:00)
[2016-05-22] MEDS: LEVOTHYROXINE NA 50 MCG TABLET (FP) PO SCH (06:11)
[2016-05-22 07:03] LABS: MCH 28.8 pg (25.7-33.7); MCHC 33.7 g/dl (32.0-36.0); MEAN CELL VOLUME 85.5 fl (80-96); MEAN PLT VOLUME 7.2 fl (7.5-11.1); PLATELET COUNT 355 K/MM3 (134-434); RDW 14.6 % (11.6-15.6); WHITE BLOOD COUNT 4.1 K/mm3 (4.0-10.0)
[2016-05-22 07:41] LABS: ALBUMIN 2.2 g/dl (3.4-5.0); CALCIUM 7.4 mg/dL (8.5-10.1)
[2016-05-22 07:46] LABS: BILIRUBIN,TOTAL 0.2 mg/dL (0.2-1.0); CREATININE 1.1 mg/dL (0.55-1.02)
--- NOTE | 2016-05-22 09:15 | PN ---
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, Physician Chief Complaint: NO CHANGE - Current Medication List Current Medications: Active Medications Artificial Tears (Artificial Tears) 1 drop OU BID PRN PRN Reason: DRY EYES Last Admin: 05/21/16 22:17 Dose: 1 drop Docusate Sodium (Colace -) 100 mg PO BID PRN PRN Reason: CONSTIPATION Last Admin: 05/20/16 21:13 Dose: 100 mg Heparin Sodium (Porcine) (Heparin -) 5,000 unit SQ BID [facility] Last Admin: 05/21/16 22:17 Dose: 5,000 unit Piperacillin Sod/Tazobactam Sod (Zosyn 4.5gm Ivpb (Pre-Docked)) 100 mls @ 200 mls/hr IVPB Q8H-IV [facility] Last Admin: 05/22/16 03:10 Dose: 200 mls/hr Ibuprofen (Caldolor Injection -) 400 mg IVPB Q6H PRN PRN Reason: FEVER Last Admin: 05/21/16 17:11 Dose: 400 mg Levothyroxine Sodium (Synthroid -) 50 mcg PO DAILY@0700 [facility] Last Admin: 05/22/16 06:11 Dose: 50 mcg Magnesium Hydroxide (Milk Of Magnesia -) 30 ml PO Q8H PRN PRN Reason: INDIGESTION Last Admin: 05/17/16 20:20 Dose: 30 ml Ursodiol (Actigal -) 300 mg PO BID [facility] Last Admin: 05/21/16 22:17 Dose: 300 mg - Objective Vital Signs: Vital Signs Temperature 98.8 F 05/22/16 06:00 Pulse Rate 105 H 05/22/16 06:00 Respiratory Rate 20 05/22/16 06:00 Blood Pressure 117/70 05/22/16 06:00 O2 Sat by Pulse Oximetry (%) 97 05/21/16 21:00 Constitutional: Yes: Calm Cardiovascular: Yes: Regular Rate and Rhythm, S1, S2 Respiratory: Yes: CTA Bilaterally Gastrointestinal: Yes: Normal Bowel Sounds, Soft Edema: No Neurological: Yes: Weakness Labs: CBC, BMP 05/22/16 05:35 05/22/16 05:35 INR, PTT INR 1.06 (0.82-1.09) 05/10/16 08:21 Problem List - Problems (1) Altered mental status Code(s): R41.82 - ALTERED MENTAL STATUS, UNSPECIFIED Qualifiers: Altered mental status type: unspecified Qualified Code(s): R41.82 - Altered mental status, unspecified (2) UTI (urinary tract infection) Code(s): N39.0 - URINARY TRACT INFECTION, SITE NOT SPECIFIED Qualifiers: Urinary tract infection type: acute cystitis Hematuria presence: without hematuria Qualified Code(s): N30.00 - Acute cystitis without hematuria (3) Fall Code(s): W19.XXXA - UNSPECIFIED FALL, INITIAL ENCOUNTER (4) Hypothyroid Code(s): E03.9 - HYPOTHYROIDISM, UNSPECIFIED (5) Chest pain Code(s): R07.9 - CHEST PAIN, UNSPECIFIED (6) Head ache Code(s): R51 - HEADACHE Assessment/Plan (1) Altered mental status Code(s): R41.82 - ALTERED MENTAL STATUS, UNSPECIFIED Qualifiers: Altered mental status type: unspecified Qualified Code(s): R41.82 - Altered mental status, unspecified (2) CVA (cerebral vascular accident) Code(s): I63.9 - CEREBRAL INFARCTION, UNSPECIFIED (3) Fever Code(s): R50.9 - FEVER, UNSPECIFIED (4) Acute disorder of liver Code(s): K76.9 - LIVER DISEASE, UNSPECIFIED Assessment/Plan AWAIT HIDA SCAN RESULTS -> NEG CONTINUE ZOSYN MONITOR LFT'S -> IMPROVED GI AND ID EVAL APPRECIATED OOB TO CHAIR WILL NEED SNF POST CVA 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
[2016-05-22] MEDS: URSODIOL 300 MG CAPSULE PO SCH ×2 (10:37→21:21)
[2016-05-22] MEDS: HEPARIN NA (PORCINE) 5,000 UNITS/ML 1ML VIAL SQ SCH ×2 (10:38→21:21)
[2016-05-22] MEDS: ARTIFICIAL TEARS (POLYVINYL ALCOHOL 1.4%) OPTH DROPS OU PRN ×2 (10:39→21:22)
--- NOTE | 2016-05-22 15:33 | PN ---
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 . Per pt's family,reported to be verbal and fluent with improving dysarthria. Eyes closed, rare responses for me today. As pt becomes more alert, possibly in future at [place], diet upgrade may be considered.
--- NOTE | 2016-05-22 16:10 | PN ---
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 (short form) - Note 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: Temperature of 102.9 yesterday am Afebrile since HR 90-110s BP 110-130/50-70s On dysphagia diet Abd soft, NT WBC 4 LFTs improving HIDA- normal; no signs of acute cholecystitis or CBD obstruction Continue current care No surgical intervention needed at this time Thank you Problem List - Problems (1) Altered mental status Code(s): R41.82 - ALTERED MENTAL STATUS, UNSPECIFIED Qualifiers: Altered mental status type: unspecified Qualified Code(s): R41.82 - Altered mental status, unspecified (2) Elevated liver enzymes Code(s): R74.8 - ABNORMAL LEVELS OF OTHER SERUM ENZYMES
[2016-05-22] MEDS: IBUPROFEN 800 MG/8 ML IJ IVPB PRN (16:46)
[2016-05-22] MEDS: DOCUSATE SODIUM 100 MG CAPSULE (FP) PO PRN ×2 (16:47→21:22)
[2016-05-22] MEDS ORDERED: PT OWN MED DRAWER 7, Y5N ONE (21:00)
[2016-05-23] MEDS: PIPERACILLIN/TAZOB 4.5 GM 100 ML IVPB SCH ×3 (01:15→17:05)
[2016-05-23] MEDS: LEVOTHYROXINE NA 50 MCG TABLET (FP) PO SCH (06:35)
[2016-05-23 07:01] LABS: BASOPHIL 0.7 % (0-2.0); EOSINOPHIL 0.9 % (0-4.5); MCH 28.7 pg (25.7-33.7); MCHC 33.6 g/dl (32.0-36.0); MEAN CELL VOLUME 85.2 fl (80-96); MEAN PLT VOLUME 7.6 fl (7.5-11.1); NEUTROPHILS 39.2 % (42.8-82.8); PLATELET COUNT 411 K/MM3 (134-434); RDW 14.8 % (11.6-15.6); WHITE BLOOD COUNT 3.7 K/mm3 (4.0-10.0)
[2016-05-23 07:57] LABS: ALBUMIN 2.3 g/dl (3.4-5.0); BILIRUBIN,TOTAL 0.3 mg/dL (0.2-1.0); CALCIUM 7.7 mg/dL (8.5-10.1); CREATININE 1.2 mg/dL (0.55-1.02); TOT PROT 6.3 g/dl (6.4-8.2)
[2016-05-23] MEDS: URSODIOL 300 MG CAPSULE PO SCH ×2 (10:16→21:21)
[2016-05-23] MEDS: HEPARIN NA (PORCINE) 5,000 UNITS/ML 1ML VIAL SQ SCH ×2 (10:16→21:21)
--- NOTE | 2016-05-23 11:04 | PN ---
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, Physician Chief Complaint: awake more alert events and chart reviewed - Current Medication List Current Medications: Active Medications Artificial Tears (Artificial Tears) 1 drop OU BID PRN PRN Reason: DRY EYES Last Admin: 05/22/16 21:22 Dose: 1 drop Docusate Sodium (Colace -) 100 mg PO BID PRN PRN Reason: CONSTIPATION Last Admin: 05/22/16 21:22 Dose: 100 mg Heparin Sodium (Porcine) (Heparin -) 5,000 unit SQ BID [facility] Last Admin: 05/23/16 10:16 Dose: 5,000 unit Piperacillin Sod/Tazobactam Sod (Zosyn 4.5gm Ivpb (Pre-Docked)) 100 mls @ 200 mls/hr IVPB Q8H-IV [facility] Last Admin: 05/23/16 10:16 Dose: 200 mls/hr Ibuprofen (Caldolor Injection -) 400 mg IVPB Q6H PRN PRN Reason: FEVER Last Admin: 05/22/16 16:46 Dose: 400 mg Levothyroxine Sodium (Synthroid -) 50 mcg PO DAILY@0700 [facility] Last Admin: 05/23/16 06:35 Dose: 50 mcg Magnesium Hydroxide (Milk Of Magnesia -) 30 ml PO Q8H PRN PRN Reason: INDIGESTION Last Admin: 05/17/16 20:20 Dose: 30 ml Ursodiol (Actigal -) 300 mg PO BID [facility] Last Admin: 05/23/16 10:16 Dose: 300 mg - Objective Vital Signs: Vital Signs Temperature 97.8 F 05/23/16 06:00 Pulse Rate 99 H 05/23/16 06:00 Respiratory Rate 18 05/23/16 06:00 Blood Pressure 110/71 05/23/16 06:00 O2 Sat by Pulse Oximetry (%) 100 05/22/16 22:00 Constitutional: Yes: Mild Distress Eyes: Yes: WNL HENT: Yes: WNL Neck: Yes: WNL Cardiovascular: Yes: WNL Respiratory: Yes: WNL Gastrointestinal: Yes: WNL Genitourinary: Yes: Incontinence Musculoskeletal: Yes: Muscle Weakness Extremities: Yes: WNL Edema: No Peripheral Pulses WNL: Yes Integumentary: Yes: WNL Wound/Incision: Yes: Clean/Dry Neurological: Yes: Confusion, Weakness ...Motor Strength: LLE, RLE Psychiatric: Yes: Other Labs: CBC, BMP 05/23/16 05:35 05/23/16 05:35 INR, PTT INR 1.06 (0.82-1.09) 05/10/16 08:21 Problem List - Problems (1) Altered mental status Code(s): R41.82 - ALTERED MENTAL STATUS, UNSPECIFIED Qualifiers: Altered mental status type: unspecified Qualified Code(s): R41.82 - Altered mental status, unspecified (2) CVA (cerebral vascular accident) Code(s): I63.9 - CEREBRAL INFARCTION, UNSPECIFIED (3) Fever Code(s): R50.9 - FEVER, UNSPECIFIED (4) Acute disorder of liver Code(s): K76.9 - LIVER DISEASE, UNSPECIFIED Assessment/Plan PERSISTENT FEVERS CT ABD/PELVIS/CHEST R/O NEOPLASM VS HIDDEN ABSCESS IV ABX DVT PROPHYLAXIS OOB TO CHAIR
--- NOTE | 2016-05-23 11:14 | PN ---
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, Physician History of Present Illness: Awake, alert, responsive Afebrile this am, but temp 101.1 overnight Breathing non-labored. No cough noted - Current Medication List Current Medications: Active Medications Artificial Tears (Artificial Tears) 1 drop OU BID PRN PRN Reason: DRY EYES Last Admin: 05/22/16 21:22 Dose: 1 drop Docusate Sodium (Colace -) 100 mg PO BID PRN PRN Reason: CONSTIPATION Last Admin: 05/22/16 21:22 Dose: 100 mg Heparin Sodium (Porcine) (Heparin -) 5,000 unit SQ BID [facility] Last Admin: 05/23/16 10:16 Dose: 5,000 unit Piperacillin Sod/Tazobactam Sod (Zosyn 4.5gm Ivpb (Pre-Docked)) 100 mls @ 200 mls/hr IVPB Q8H-IV [facility] Last Admin: 05/23/16 10:16 Dose: 200 mls/hr Ibuprofen (Caldolor Injection -) 400 mg IVPB Q6H PRN PRN Reason: FEVER Last Admin: 05/22/16 16:46 Dose: 400 mg Levothyroxine Sodium (Synthroid -) 50 mcg PO DAILY@0700 [facility] Last Admin: 05/23/16 06:35 Dose: 50 mcg Magnesium Hydroxide (Milk Of Magnesia -) 30 ml PO Q8H PRN PRN Reason: INDIGESTION Last Admin: 05/17/16 20:20 Dose: 30 ml Ursodiol (Actigal -) 300 mg PO BID [facility] Last Admin: 05/23/16 10:16 Dose: 300 mg - Objective Vital Signs: Vital Signs Temperature 97.8 F 05/23/16 06:00 Pulse Rate 99 H 05/23/16 06:00 Respiratory Rate 18 05/23/16 06:00 Blood Pressure 110/71 05/23/16 06:00 O2 Sat by Pulse Oximetry (%) 100 05/22/16 22:00 Constitutional: Yes: No Distress, Thin Eyes: Yes: Conjunctiva Clear Cardiovascular: Yes: Regular Rate and Rhythm, S1, S2 Respiratory: Yes: Diminished Gastrointestinal: Yes: Normal Bowel Sounds, Soft. No: Tenderness Extremities: Yes: Other (+hemiparesis) Labs: CBC, BMP 05/23/16 05:35 05/23/16 05:35 INR, PTT INR 1.06 (0.82-1.09) 05/10/16 08:21 Assessment/Plan Fevers- unclear source Elevated LFTs- slowly improving HIDA normal S/P CVA Obtain CT C/A/P Continue empiric zosyn No evidence for [employer]ISTR[employer] infection. No need for LP
[2016-05-23] MEDS ORDERED: PT OWN MED DRAWER 7, Y5N ONE (21:12)
[2016-05-23] MEDS: ARTIFICIAL TEARS (POLYVINYL ALCOHOL 1.4%) OPTH DROPS OU PRN (21:21)
[2016-05-24] MEDS ORDERED: PT OWN MED DRAWER 7, Y5N ONE ×3 (01:54→21:50)
[2016-05-24] MEDS: PIPERACILLIN/TAZOB 4.5 GM 100 ML IVPB SCH ×2 (02:04→11:26)
[2016-05-24] MEDS: LEVOTHYROXINE NA 50 MCG TABLET (FP) PO SCH (06:53)
[2016-05-24 09:33] LABS: ALBUMIN 2.4 g/dl (3.4-5.0); BILIRUBIN,TOTAL 0.2 mg/dL (0.2-1.0); CALCIUM 7.7 mg/dL (8.5-10.1); CREATININE 1.1 mg/dL (0.55-1.02); TOT PROT 6.6 g/dl (6.4-8.2)
--- NOTE | 2016-05-24 10:57 | PN ---
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, Physician Chief Complaint: HAD D/W FAMILY FAMILY USUALLY PRESENT PATIENT MORE ALERT FOLLOWS COMMANDS - Current Medication List Current Medications: Active Medications Artificial Tears (Artificial Tears) 1 drop OU BID PRN PRN Reason: DRY EYES Last Admin: 05/23/16 21:21 Dose: 1 drop Docusate Sodium (Colace -) 100 mg PO BID PRN PRN Reason: CONSTIPATION Last Admin: 05/22/16 21:22 Dose: 100 mg Piperacillin Sod/Tazobactam Sod (Zosyn 4.5gm Ivpb (Pre-Docked)) 100 mls @ 200 mls/hr IVPB Q8H-IV [facility] Last Admin: 05/24/16 02:04 Dose: 200 mls/hr Ibuprofen (Caldolor Injection -) 400 mg IVPB Q6H PRN PRN Reason: FEVER Last Admin: 05/22/16 16:46 Dose: 400 mg Lactobacillus Acidophilus (Bacid -) 1 tab PO DAILY [facility] Levothyroxine Sodium (Synthroid -) 50 mcg PO DAILY@0700 [facility] Last Admin: 05/24/16 06:53 Dose: 50 mcg Magnesium Hydroxide (Milk Of Magnesia -) 30 ml PO Q8H PRN PRN Reason: INDIGESTION Last Admin: 05/17/16 20:20 Dose: 30 ml Ursodiol (Actigal -) 300 mg PO BID [facility] Last Admin: 05/23/16 21:21 Dose: 300 mg - Objective Vital Signs: Vital Signs Temperature 98.3 F 05/24/16 06:00 Pulse Rate 100 H 05/24/16 06:00 Respiratory Rate 18 05/24/16 06:00 Blood Pressure 115/65 05/24/16 06:00 O2 Sat by Pulse Oximetry (%) 100 05/23/16 22:00 Constitutional: Yes: Calm Eyes: Yes: Other (L POOR VISION) Cardiovascular: Yes: Regular Rate and Rhythm, S1, S2 Respiratory: Yes: CTA Bilaterally Gastrointestinal: Yes: Normal Bowel Sounds, Soft Edema: No Neurological: Yes: Weakness Labs: CBC, BMP 05/23/16 05:35 05/24/16 08:40 INR, PTT INR 1.06 (0.82-1.09) 05/10/16 08:21 Problem List - Problems (1) Altered mental status Code(s): R41.82 - ALTERED MENTAL STATUS, UNSPECIFIED Qualifiers: Altered mental status type: unspecified Qualified Code(s): R41.82 - Altered mental status, unspecified (2) UTI (urinary tract infection) Code(s): N39.0 - URINARY TRACT INFECTION, SITE NOT SPECIFIED Qualifiers: Urinary tract infection type: acute cystitis Hematuria presence: without hematuria Qualified Code(s): N30.00 - Acute cystitis without hematuria (3) Fall Code(s): W19.XXXA - UNSPECIFIED FALL, INITIAL ENCOUNTER (4) Hypothyroid Code(s): E03.9 - HYPOTHYROIDISM, UNSPECIFIED (5) Chest pain Code(s): R07.9 - CHEST PAIN, UNSPECIFIED (6) Head ache Code(s): R51 - HEADACHE Assessment/Plan (1) Altered mental status Code(s): R41.82 - ALTERED MENTAL STATUS, UNSPECIFIED Qualifiers: Altered mental status type: unspecified Qualified Code(s): R41.82 - Altered mental status, unspecified (2) CVA (cerebral vascular accident) Code(s): I63.9 - CEREBRAL INFARCTION, UNSPECIFIED OOB TO CHAIR FOR [facility] PT ON CASE (3) Fever Code(s): R50.9 - FEVER, UNSPECIFIED APPRECIATE ID & GI CONSULTS CTAP -> T12 COMPRESSION Fx. OSTEOPENIA. PROCTITIS vs LESION IV ABx CULTURES NEG (4) Acute disorder of liver Code(s): K76.9 - LIVER DISEASE, UNSPECIFIED HIDA- normal; no signs of acute cholecystitis or CBD obstruction APPRECIATE GI & SURG CONSULTS FACILITIES ADMINISTRATOR JULIET
[2016-05-24] MEDS: URSODIOL 300 MG CAPSULE PO SCH ×2 (11:26→21:53)
[2016-05-24] MEDS: HEPARIN NA (PORCINE) 5,000 UNITS/ML 1ML VIAL SQ SCH (11:26)
[2016-05-24] MEDS: LACTOBACILLUS ACIDOPHILUS 1 EACH TAB (FP) PO SCH (11:26)
--- NOTE | 2016-05-24 12:28 | PN ---
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, Physician History of Present Illness: More lethargic today Family reports pt comfortable, without c/o pain Temps down Leukopenic LFTs remain elevated - Current Medication List Current Medications: Active Medications Artificial Tears (Artificial Tears) 1 drop OU BID PRN PRN Reason: DRY EYES Last Admin: 05/23/16 21:21 Dose: 1 drop Docusate Sodium (Colace -) 100 mg PO BID PRN PRN Reason: CONSTIPATION Last Admin: 05/22/16 21:22 Dose: 100 mg Piperacillin Sod/Tazobactam Sod (Zosyn 4.5gm Ivpb (Pre-Docked)) 100 mls @ 200 mls/hr IVPB Q8H-IV [facility] Last Admin: 05/24/16 11:26 Dose: 200 mls/hr Ibuprofen (Caldolor Injection -) 400 mg IVPB Q6H PRN PRN Reason: FEVER Last Admin: 05/22/16 16:46 Dose: 400 mg Lactobacillus Acidophilus (Bacid -) 1 tab PO DAILY [facility] Last Admin: 05/24/16 11:26 Dose: 1 tab Levothyroxine Sodium (Synthroid -) 50 mcg PO DAILY@0700 [facility] Last Admin: 05/24/16 06:53 Dose: 50 mcg Magnesium Hydroxide (Milk Of Magnesia -) 30 ml PO Q8H PRN PRN Reason: INDIGESTION Last Admin: 05/17/16 20:20 Dose: 30 ml Ursodiol (Actigal -) 300 mg PO BID [facility] Last Admin: 05/24/16 11:26 Dose: 300 mg - Objective Vital Signs: Vital Signs Temperature 99.3 F 05/24/16 09:00 Pulse Rate 105 H 05/24/16 09:00 Respiratory Rate 18 05/24/16 09:00 Blood Pressure 118/76 05/24/16 09:00 O2 Sat by Pulse Oximetry (%) 100 05/23/16 22:00 Constitutional: Yes: No Distress Eyes: Yes: Conjunctiva Clear Cardiovascular: Yes: Regular Rate and Rhythm, S1, S2 Respiratory: Yes: Diminished Gastrointestinal: Yes: Normal Bowel Sounds. No: Tenderness Labs: CBC, BMP 05/23/16 05:35 05/24/16 08:40 INR, PTT INR 1.06 (0.82-1.09) 05/10/16 08:21 Assessment/Plan Fevers- unclear source Elevated LFTs- slowly improving HIDA normal CT C/A/P no acute pathology S/P CVA Day # 6 empiric zosyn Will D/C, observe Reculture off antibiotics for recurrent fever
--- NOTE | 2016-05-24 12:45 | PN ---
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 Slow to respond with limited verbalizations. Selected Entries 05/23/16 05/23/16 05/23/16 02:14 06:00 10:00 Breakfast Supper Temperature 97.6 F 97.8 F 98.5 F 05/23/16 05/23/16 05/24/16 15:00 22:00 02:00 Breakfast Supper 75% Temperature 97.9 F 97.9 F 99.1 F 05/24/16 05/24/16 06:00 09:00 Breakfast 75% Supper Temperature 98.3 F 99.3 F
[2016-05-25] MEDS: ARTIFICIAL TEARS (POLYVINYL ALCOHOL 1.4%) OPTH DROPS OU PRN ×2 (06:27→21:43)
[2016-05-25] MEDS: LEVOTHYROXINE NA 50 MCG TABLET (FP) PO SCH (06:27)
[2016-05-25 07:24] LABS: BASOPHIL 0.4 % (0-2.0); MCH 28.1 pg (25.7-33.7); MCHC 32.8 g/dl (32.0-36.0); MEAN CELL VOLUME 85.5 fl (80-96); MEAN PLT VOLUME 7.2 fl (7.5-11.1); NEUTROPHILS 51.6 % (42.8-82.8); PLATELET COUNT 398 K/MM3 (134-434); WHITE BLOOD COUNT 7.5 K/mm3 (4.0-10.0)
[2016-05-25 08:33] LABS: ALBUMIN 2.5 g/dl (3.4-5.0); BILIRUBIN,TOTAL 0.2 mg/dL (0.2-1.0); CALCIUM 8.2 mg/dL (8.5-10.1); CREATININE 0.9 mg/dL (0.55-1.02); TOT PROT 6.4 g/dl (6.4-8.2)
--- NOTE | 2016-05-25 09:21 | PN ---
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, Physician - Current Medication List Current Medications: Active Medications Artificial Tears (Artificial Tears) 1 drop OU BID PRN PRN Reason: DRY EYES Last Admin: 05/25/16 06:27 Dose: 1 drop Docusate Sodium (Colace -) 100 mg PO BID PRN PRN Reason: CONSTIPATION Last Admin: 05/22/16 21:22 Dose: 100 mg Ibuprofen (Caldolor Injection -) 400 mg IVPB Q6H PRN PRN Reason: FEVER Last Admin: 05/22/16 16:46 Dose: 400 mg Lactobacillus Acidophilus (Bacid -) 1 tab PO DAILY [facility] Last Admin: 05/24/16 11:26 Dose: 1 tab Levothyroxine Sodium (Synthroid -) 50 mcg PO DAILY@0700 [facility] Last Admin: 05/25/16 06:27 Dose: 50 mcg Magnesium Hydroxide (Milk Of Magnesia -) 30 ml PO Q8H PRN PRN Reason: INDIGESTION Last Admin: 05/17/16 20:20 Dose: 30 ml Ursodiol (Actigal -) 300 mg PO BID [facility] Last Admin: 05/24/16 21:53 Dose: 300 mg - Objective Vital Signs: Vital Signs Temperature 98.8 F 05/25/16 06:25 Pulse Rate 92 H 05/25/16 06:25 Respiratory Rate 16 05/25/16 06:25 Blood Pressure 125/71 05/25/16 06:25 O2 Sat by Pulse Oximetry (%) 100 05/24/16 21:00 Cardiovascular: Yes: S1, S2 Respiratory: Yes: Regular, CTA Bilaterally Gastrointestinal: Yes: Normal Bowel Sounds, Soft Labs: CBC, BMP 05/25/16 06:00 05/25/16 06:00 INR, PTT INR 1.06 (0.82-1.09) 05/10/16 08:21 Problem List - Problems (1) CVA (cerebral vascular accident) Code(s): I63.9 - CEREBRAL INFARCTION, UNSPECIFIED (2) Hypothyroid Code(s): E03.9 - HYPOTHYROIDISM, UNSPECIFIED (3) UTI (urinary tract infection) Code(s): N39.0 - URINARY TRACT INFECTION, SITE NOT SPECIFIED Qualifiers: Urinary tract infection type: acute cystitis Hematuria presence: without hematuria Qualified Code(s): N30.00 - Acute cystitis without hematuria Assessment/Plan The patient is a 85-year-old female, with a significant past medical history of hypothyroidism (on Synthroid), who presents to the ED with altered mental status today. As per daughter, the patient has been experiencing 4 days of chest pain and a right-sided headache. Yesterday the patient experienced 2 witnessed falls. Granddaughter reports loss of consciousness for both episodes but not head trauma. Patient was noted to have slurred speech yesterday and is not active as usual. Pt was brought to [facility] and was diagnosed with a UTI and prescribed a course of Levaquin. Upon examination, patient is complaining of left-sided groin pain. She denies having any chest pain at this time. Granddaughter does report recent travel to [place] and [place]. Patient arrived back on 04/30. (1) Altered mental status-- Code(s): R41.82 - ALTERED MENTAL STATUS, UNSPECIFIED Qualifiers: Altered mental status type: unspecified Qualified Code(s): R41.82 - Altered mental status, unspecified CT OF HEAD NEGATIVE-- MRI-- CVA-- PT (2) UTI (urinary tract infection) Code(s): N39.0 - URINARY TRACT INFECTION, SITE NOT SPECIFIED Qualifiers: Urinary tract infection type: acute cystitis Hematuria presence: without hematuria Qualified Code(s): N30.00 - Acute cystitis without hematuria ID CONSULTED Microbiology 05/17/16 17:30 Blood - Peripheral Venous Blood Culture - Final NO GROWTH AFTER 5 DAYS INCUBATION 05/12/16 17:00 Urine - Urine - Catheterized Urine Culture - Final NO GROWTH OBTAINED (3) Hypothyroid Code(s): E03.9 - HYPOTHYROIDISM, UNSPECIFIED - TSH (4) Acute disorder of liver Code(s): K76.9 - LIVER DISEASE, UNSPECIFIED HIDA- normal; no signs of acute cholecystitis or CBD obstruction APPRECIATE GI & SURG CONSULTS (5) Fever Code(s): R50.9 - FEVER, UNSPECIFIED APPRECIATE ID & GI CONSULTS CTAP -> T12 COMPRESSION Fx. OSTEOPENIA. PROCTITIS vs LESION OFF IV ABx CULTURES NEG
[2016-05-25] MEDS: URSODIOL 300 MG CAPSULE PO SCH ×2 (10:26→21:43)
[2016-05-25] MEDS: LACTOBACILLUS ACIDOPHILUS 1 EACH TAB (FP) PO SCH (10:26)
[2016-05-25] MEDS: MAGNESIUM HYDROX 2400MG/30ML ORAL SUSPENSION 30 ML CUP PO PRN (15:26)
[2016-05-26] MEDS: IBUPROFEN 800 MG/8 ML IJ IVPB PRN (01:21)
[2016-05-26] MEDS: LEVOTHYROXINE NA 50 MCG TABLET (FP) PO SCH (07:00)
[2016-05-26] MEDS: LACTOBACILLUS ACIDOPHILUS 1 EACH TAB (FP) PO SCH (10:35)
[2016-05-26] MEDS: URSODIOL 300 MG CAPSULE PO SCH ×2 (10:35→21:01)
--- NOTE | 2016-05-26 11:18 | PN ---
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, Physician History of Present Illness: IN BED COMFORTABLE - Current Medication List Current Medications: Active Medications Artificial Tears (Artificial Tears) 1 drop OU BID PRN PRN Reason: DRY EYES Last Admin: 05/25/16 21:43 Dose: 1 drop Docusate Sodium (Colace -) 100 mg PO BID PRN PRN Reason: CONSTIPATION Last Admin: 05/22/16 21:22 Dose: 100 mg Ibuprofen (Caldolor Injection -) 400 mg IVPB Q6H PRN PRN Reason: FEVER Last Admin: 05/26/16 01:21 Dose: 400 mg Lactobacillus Acidophilus (Bacid -) 1 tab PO DAILY [facility] Last Admin: 05/26/16 10:35 Dose: 1 tab Levothyroxine Sodium (Synthroid -) 50 mcg PO DAILY@0700 [facility] Last Admin: 05/26/16 07:00 Dose: 50 mcg Magnesium Hydroxide (Milk Of Magnesia -) 30 ml PO Q8H PRN PRN Reason: INDIGESTION Last Admin: 05/25/16 15:26 Dose: 30 ml Ursodiol (Actigal -) 300 mg PO BID [facility] Last Admin: 05/26/16 10:35 Dose: 300 mg - Objective Vital Signs: Vital Signs Temperature 98.1 F 05/26/16 07:00 Pulse Rate 95 H 05/26/16 07:00 Respiratory Rate 20 05/26/16 07:00 Blood Pressure 116/68 05/26/16 07:00 O2 Sat by Pulse Oximetry (%) 100 05/24/16 21:00 Cardiovascular: Yes: S1, S2 Respiratory: Yes: Regular, CTA Bilaterally Gastrointestinal: Yes: Normal Bowel Sounds, Soft Edema: No Neurological: Yes: Alert, Other (LEFT LOUISA) Labs: CBC, BMP 05/25/16 06:00 05/25/16 06:00 INR, PTT INR 1.06 (0.82-1.09) 05/10/16 08:21 Problem List - Problems (1) CVA (cerebral vascular accident) Code(s): I63.9 - CEREBRAL INFARCTION, UNSPECIFIED (2) Hypothyroid Code(s): E03.9 - HYPOTHYROIDISM, UNSPECIFIED (3) UTI (urinary tract infection) Code(s): N39.0 - URINARY TRACT INFECTION, SITE NOT SPECIFIED Qualifiers: Urinary tract infection type: acute cystitis Hematuria presence: without hematuria Qualified Code(s): N30.00 - Acute cystitis without hematuria Assessment/Plan The patient is a 85-year-old female, with a significant past medical history of hypothyroidism (on Synthroid), who presents to the ED with altered mental status today. As per daughter, the patient has been experiencing 4 days of chest pain and a right-sided headache. Yesterday the patient experienced 2 witnessed falls. Granddaughter reports loss of consciousness for both episodes but not head trauma. Patient was noted to have slurred speech yesterday and is not active as usual. Pt was brought to [facility] and was diagnosed with a UTI and prescribed a course of Levaquin. Upon examination, patient is complaining of left-sided groin pain. She denies having any chest pain at this time. Granddaughter does report recent travel to [place] and [place]. Patient arrived back on 04/30. (1) Altered mental status-- Code(s): R41.82 - ALTERED MENTAL STATUS, UNSPECIFIED Qualifiers: Altered mental status type: unspecified Qualified Code(s): R41.82 - Altered mental status, unspecified CT OF HEAD NEGATIVE-- MRI-- RT CVA-- PT (2) UTI (urinary tract infection) Code(s): N39.0 - URINARY TRACT INFECTION, SITE NOT SPECIFIED Qualifiers: Urinary tract infection type: acute cystitis Hematuria presence: without hematuria Qualified Code(s): N30.00 - Acute cystitis without hematuria Microbiology 05/17/16 17:30 Blood - Peripheral Venous Blood Culture - Final NO GROWTH AFTER 5 DAYS INCUBATION 05/14/16 19:00 Urine - Urine - Catheterized Urine Culture - Final NO GROWTH OBTAINED (3) Hypothyroid Code(s): E03.9 - HYPOTHYROIDISM, UNSPECIFIED - TSH (4) Acute disorder of liver Code(s): K76.9 - LIVER DISEASE, UNSPECIFIED HIDA- normal; no signs of acute cholecystitis or CBD obstruction APPRECIATE GI & SURG CONSULTS (5) Fever Code(s): R50.9 - FEVER, UNSPECIFIED TEMP 100.8 APPRECIATE ID & GI CONSULTS CTAP -> T12 COMPRESSION Fx. OSTEOPENIA. PROCTITIS vs LESION OFF IV ABx CULTURES NE
[2016-05-26] MEDS ORDERED: PT OWN MED DRAWER 7, Y5N ONE (20:35)
[2016-05-27] MEDS: LEVOTHYROXINE NA 50 MCG TABLET (FP) PO SCH (06:10)
[2016-05-27] MEDS: LACTOBACILLUS ACIDOPHILUS 1 EACH TAB (FP) PO SCH (09:57)
[2016-05-27] MEDS: URSODIOL 300 MG CAPSULE PO SCH (09:57)
--- NOTE | 2016-05-27 11:22 | PN ---
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, LPN RN HOSPICE - Note 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: Selected Entries 05/26/16 05/26/16 05/26/16 01:55 07:00 09:00 Breakfast 75% Lunch Supper Temperature 100.8 F H 98.1 F 05/26/16 05/26/16 05/26/16 10:00 13:00 14:00 Breakfast Lunch 50% Supper Temperature 98.4 F 98.2 F 05/26/16 05/26/16 05/26/16 18:51 23:38 23:55 Breakfast Lunch Supper 100% Temperature 98.1 F 98.2 F 05/27/16 05/27/16 02:00 06:00 Breakfast Lunch Supper Temperature 97.6 F 97.4 F L Performance unchanged. Pending d/c, when medically appropriate.
--- NOTE | 2016-05-27 14:13 | PN ---
[id number] Tears (Artificial Tears) 1 drop OU BID PRN PRN Reason: DRY EYES Last Admin: 05/25/16 21:43 Dose: 1 drop Docusate Sodium (Colace -) 100 mg PO BID PRN PRN Reason: CONSTIPATION Last Admin: 05/22/16 21:22 Dose: 100 mg Ibuprofen (Caldolor Injection -) 400 mg IVPB Q6H PRN PRN Reason: FEVER Last Admin: 05/26/16 01:21 Dose: 400 mg Lactobacillus Acidophilus (Bacid -) 1 tab PO DAILY [facility] Last Admin: 05/27/16 09:57 Dose: 1 tab Levothyroxine Sodium (Synthroid -) 50 mcg PO DAILY@0700 [facility] Last Admin: 05/27/16 06:10 Dose: 50 mcg Magnesium Hydroxide (Milk Of Magnesia -) 30 ml PO Q8H PRN PRN Reason: INDIGESTION Last Admin: 05/25/16 15:26 Dose: 30 ml Ursodiol (Actigal -) 300 mg PO BID [facility] Last Admin: 05/27/16 09:57 Dose: 300 mg - Objective Vital Signs: Vital Signs Temperature 98.2 F 05/27/16 10:00 Pulse Rate 93 H 05/27/16 10:00 Respiratory Rate 18 05/27/16 10:00 Blood Pressure 132/71 05/27/16 10:00 O2 Sat by Pulse Oximetry (%) 99 05/27/16 09:00 Cardiovascular: Yes: WNL Respiratory: Yes: WNL Gastrointestinal: Yes: WNL Labs: CBC, BMP 05/25/16 06:00 05/25/16 06:00 INR, PTT INR 1.06 (0.82-1.09) 05/10/16 08:21 Problem List - Problems (1) Altered mental status Code(s): R41.82 - ALTERED MENTAL STATUS, UNSPECIFIED (2) UTI (urinary tract infection) Code(s): N39.0 - URINARY TRACT INFECTION, SITE NOT SPECIFIED Qualifiers: Urinary tract infection type: acute cystitis Hematuria presence: without hematuria Qualified Code(s): N30.00 - Acute cystitis without hematuria (3) Fall Code(s): W19.XXXA - UNSPECIFIED FALL, INITIAL ENCOUNTER (4) Hypothyroid Code(s): E03.9 - HYPOTHYROIDISM, UNSPECIFIED (5) Chest pain Code(s): R07.9 - CHEST PAIN, UNSPECIFIED (6) Head ache Code(s): R51 - HEADACHE Assessment/Plan The patient is a 85-year-old female, with a significant past medical history of hypothyroidism (on Synthroid), who presents to the ED with altered mental status today. As per daughter, the patient has been experiencing 4 days of chest pain and a right-sided headache. Yesterday the patient experienced 2 witnessed falls. Granddaughter reports loss of consciousness for both episodes but not head trauma. Patient was noted to have slurred speech yesterday and is not active as usual. Pt was brought to [facility] and was diagnosed with a UTI and prescribed a course of Levaquin. Upon examination, patient is complaining of left-sided groin pain. She denies having any chest pain at this time. Granddaughter does report recent travel to [place] and [place]. Patient arrived back on 04/30. (1) Altered mental status-- Code(s): R41.82 - ALTERED MENTAL STATUS, UNSPECIFIED Qualifiers: Altered mental status type: unspecified Qualified Code(s): R41.82 - Altered mental status, unspecified CT OF HEAD NEGATIVE-- MRI-- RT CVA-- PT FOR SNF (2) UTI (urinary tract infection) Code(s): N39.0 - URINARY TRACT INFECTION, SITE NOT SPECIFIED Qualifiers: Urinary tract infection type: acute cystitis Hematuria presence: without hematuria Qualified Code(s): N30.00 - Acute cystitis without hematuria S/P ABx APPRECIATE ID CONSULT (3) Hypothyroid Code(s): E03.9 - HYPOTHYROIDISM, UNSPECIFIED TSH WNL (4) Acute disorder of liver Code(s): K76.9 - LIVER DISEASE, UNSPECIFIED HIDA- normal; no signs of acute cholecystitis or CBD obstruction APPRECIATE GI & SURG CONSULTS LFTs IMPROVING (5) Fever Code(s): R50.9 - FEVER, UNSPECIFIED TEMP 100.8 APPRECIATE ID & GI CONSULTS CTAP -> T12 COMPRESSION Fx. OSTEOPENIA. PROCTITIS vs LESION OFF IV ABx CULTURES NEG DISCHARGE TO SNF [facility]
[2016-05-27 15:03] VITALS: BP 101/67; PULSE 100; TEMP 97.6
--- NOTE | 2016-05-28 14:59 | DS ---
Physical Examination Vital Signs: Vital Signs Temperature 97.6 F 05/27/16 14:02 Pulse Rate 100 H 05/27/16 14:02 Respiratory Rate 18 05/27/16 14:02 Blood Pressure 101/67 05/27/16 14:02 O2 Sat by Pulse Oximetry (%) 99 05/27/16 09:00 Findings/Remarks: addendum to discharge summary , patient has Encephalopathy for AlteredMental Status Labs: CBC, BMP 05/25/16 06:00 05/25/16 06:00 Discharge Summary Reason For Visit: ALTERED MENTAL STATUS,UTI Altered Mental Status from Encephalopathy for altered mental status Condition: Stable - Instructions Diet, Activity, Other Instructions: ada/low sodium Referrals: Maykel Coronado [Primary Care Provider] - Aiden Patrick MD [Staff Physician] - Disposition: [facility] - Home Medications Comprehensive Discharge Medication List: Ambulatory Orders Levothyroxine [Synthroid -] 50 mcg PO DAILY 05/10/16 Docusate Sodium [Colace -] 100 mg PO BID PRN #0 capsule 05/17/16 Magnesium Hydrox 2400MG/30Ml [Milk of Magnesia -] 30 ml PO Q8H PRN #0 cup Polyvinyl Alcohol [Artificial Tears] 1 drop OU BID PRN #0 drops 05/17/16 Lactobacillus Acidophilus [Bacid -] 1 tab PO DAILY tab 05/27/16 Ursodiol [Actigal -] 300 mg PO BID capsule 05/27/16
--- NOTE | 2016-06-05 10:14 | PN ---
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 (short form) - Note 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: PATIENT WAS NOT STARTED ON STATIN THERAPY AT THIS TIME BECAUSE OF ACUTE TRANSAMINITIS WHICH IS CONTRAINDICATED TO START WITH HIGH LIVER FUNCTION. PLAVIX WAS STOPPED BECAUSE POSSIBLE ACUTE BRAIN BLEED, WILL RESTART OUTPATIENT IF LEVELS IMPROVE. Problem List - Problems (1) Altered mental status Code(s): R41.82 - ALTERED MENTAL STATUS, UNSPECIFIED (2) CVA (cerebral vascular accident) Code(s): I63.9 - CEREBRAL INFARCTION, UNSPECIFIED (3) Fever Code(s): R50.9 - FEVER, UNSPECIFIED (4) Acute disorder of liver Code(s): K76.9 - LIVER DISEASE, UNSPECIFIED
--- NOTE | 2016-06-05 10:16 | PN ---
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 (short form) - Note 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: STATINS HELD BECAUSE OF ACUTE TRANSAMINITIS WHICH IS CONTRAINDICATED, AND PLAVIX HELD DUE TO POSSIBLE BRAIN BLEED. WILL RESTART OUTPATIENT WHEN LEVELS IMPROVE. Problem List - Problems (1) Altered mental status Code(s): R41.82 - ALTERED MENTAL STATUS, UNSPECIFIED (2) CVA (cerebral vascular accident) Code(s): I63.9 - CEREBRAL INFARCTION, UNSPECIFIED (3) Fever Code(s): R50.9 - FEVER, UNSPECIFIED (4) Acute disorder of liver Code(s): K76.9 - LIVER DISEASE, UNSPECIFIED
== END 2016-05-27 15:41 | DRG 64 ==
LOC: JER 07:39 → JERBED 10:38 → J7W 16:05 → J4S 05-11 18:14
PROVIDERS: ADMIT Family Medicine; ATTEND Family Medicine
DX: I63.511 Cerebral infarction due to unspecified occlusion or stenosis of right middle cerebral artery (principal); G93.40 Encephalopathy, unspecified; N39.0 Urinary tract infection, site not specified; G81.94 Hemiplegia, unspecified affecting left nondominant side; E03.9 Hypothyroidism, unspecified; R29.709 NIHSS score 9; R51 Headache; E78.5 Hyperlipidemia, unspecified; R07.9 Chest pain, unspecified; K76.9 Liver disease, unspecified; R41.82 Altered mental status, unspecified
CPT/HCPCS: 36415; 70450-TC; 70544-TC; 70551-TC; 71010-TC; 71250-TC; 73523-TC; 73560-TC-RT; 74176-TC; 74230-TC; 76705-TC; 78226-TC; 80053; 80061; 80074; 81003; 81015; 82550; 82553; 82607; 83605; 83690; 83721; 83880; 84443; 84484; 85025; 85027; 85610; 86593; 86850; 86900; 86901; 87040; 87086; 92611-GN; 93005; 93010; 93306-TC; 93880-TC; 97116-GP; 97163-GP; 99284-25; A9537; J1644

== ENCOUNTER 2016-06-02 14:05 | Inpatient (IN) | payer MEDICARE ==
[2016-06-02] MEDS ORDERED: LORAZEPAM CARPU-JECT 2 MG/ML DISP.SYRIN ONE ×2 (14:19→14:25)
[2016-06-02] MEDS ORDERED: levETIRAcetam 500 MG/5 ML INJECTION VIAL IVPB ONE ×2 (14:24→14:32)
[2016-06-02] MEDS ORDERED: SODIUM CHLORIDE 0.9% 1000 ML INFUS.BAG IV PRN (14:30)
--- NOTE | 2016-06-02 14:30 | PDOC ---
History of Present Illness - General History Source: EMS, Family, Old Records Exam Limitations: Clinical Condition <Radha Farris - Last Filed: 06/02/16 17:12> - General History Source: Patient, Old Records Exam Limitations: Clinical Condition - History of Present Illness Initial Comments: 06/02/16 14:56 The patient is a 85-year-old woman, accompanied by family, with a past medical history of epilepsy (not on any medications) hypothyroidism, hypocholesterolemia and CVA (April 2016) who presents to the emergency department via EMS for further evaluation of altered mental status. At baseline , the patient is awake, alert and communicative, as per family. EMS was activated when the patient was found to be tachycardic with noted right upper extremities stiffness. Patient/ family at bedside state that the patient has been experiencing RUE stiffness with associated RUE/RLE involuntary muscle twitches for the past 6 days. Family expresses concern, as patient recently had a CVA, last month, for which she is currently undergoing rehabilitation at [facility]. Upon arrival, patient was noted to have a rectal temperature measurement of 101.4 and a heart rate in the 130s. Allergies: Aspirin. Iodine Past Surgical History: None reported Social History: No tobacco, ETOH and recreational drug use. Primary Care Physician: Dr. Maykel Coronado [phone] <Kathryn Araujo - Last Filed: 06/02/16 17:18> - General Stated Complaint: ALTERED MENTAL Time Seen by Provider: 06/02/16 14:26 Past History - Past Medical History Hypercholesterolemia: Yes Thyroid Disease: Yes (HYPO.) - Psycho/Social/Smoking Cessation Hx Anxiety: No Suicidal Ideation: No Smoking History: Never smoked Have you smoked in the past 12 months: No Hx Alcohol Use: No Drug/Substance Use Hx: No Substance Use Type: None Hx Substance Use Treatment: No <Radha Farris - Last Filed: 06/02/16 17:12> <Kathryn Araujo - Last Filed: 06/02/16 17:18> - Past Medical History Allergies/Adverse Reactions: Allergies Allergy/AdvReac Type Severity Reaction Status Date / Time aspirin Allergy Unknown Verified 05/10/16 07:41 iodine Allergy Unknown Verified 05/10/16 07:41 Home Medications: Ambulatory Orders Levothyroxine [Synthroid -] 75 mcg PO DAILY 05/10/16 Docusate Sodium [Colace -] 100 mg PO BID PRN #0 capsule 05/17/16 Polyvinyl Alcohol [Artificial Tears] 1 drop OU BID PRN #0 drops 05/17/16 Lactobacillus Acidophilus [Bacid -] 1 tab PO DAILY tab 05/27/16 Ursodiol [Actigal -] 300 mg PO BID capsule 05/27/16 Amlodipine Besylate [Norvasc -] 10 mg PO DAILY 06/02/16 Atorvastatin Ca [Lipitor] 20 mg PO HS 06/02/16 Review of Systems - Review of Systems Able to Perform ROS?: Yes Comments:: 06/02/16 15:07 CONSTITUTIONAL: Absent: fever, chills, diaphoresis, generalized weakness, malaise, loss of appetite HEENT: Absent: rhinorrhea, nasal congestion, throat pain, throat swelling, difficulty swallowing, mouth swelling, ear pain, eye pain, visual Changes CARDIOVASCULAR: Absent: chest pain, syncope, palpitations, irregular heart rate , lightheadedness, peripheral edema RESPIRATORY: Absent: cough, shortness of breath, dyspnea with exertion, orthopnea, wheezing, stridor, hemoptysis GASTROINTESTINAL:Absent: abdominal pain, abdominal distension, nausea, vomiting , diarrhea, constipation, melena, hematochezia GENITOURINARY: Absent: dysuria, frequency, urgency, hesitancy, hematuria, flank pain, genital pain MUSCULOSKELETAL: Absent: myalgia, arthralgia, joint swelling SKIN: Absent: rash, itching, pallor HEMATOLOGIC/IMMUNOLOGIC: Absent: easy bleeding, easy bruising, lymphadenopathy, frequent infections ENDOCRINE:Absent: unexplained weight gain, unexplained weight loss, heat intolerance, cold intolerance NEUROLOGIC: Present: right sided involuntary twitches. Right upper extremity stiffness. Absent: headache, dizziness, unsteady gait, seizure, mental status changes, bladder or bowel incontinence PSYCHIATRIC: Absent: anxiety, depression, suicidal or homicidal ideation, hallucinations <Kathryn Araujo - Last Filed: 06/02/16 17:18> *Physical Exam - Vital Signs Last Vital Signs Temp Pulse Resp BP Pulse Ox 101.4 F H 136 H 16 164/77 98 06/02/16 14:05 06/02/16 14:05 06/02/16 14:05 06/02/16 14:05 06/02/16 14:05 - Physical Exam Comments: 06/02/16 15:07 GENERAL: Unresponsive to verbal stimuli. HEENT: Normocephalic, atraumatic. PERRLA, EOMI. No conjunctival pallor. Sclera are non-icteric. NECK: Supple. Full ROM. No JVD. CARDIOVASCULAR: Tachycardic, Regular rate and rhythm. No murmurs, rubs, or gallops. PULMONARY: Bilateral rhonchorous breath sounds but with good air movement. No wheezing, rales. ABDOMINAL: Soft. Non-tender. Non-distended. No rebound or guarding. No organomegaly. Normoactive bowel sounds. MUSCULOSKELETAL: Normal range of motion at all joints. No bony deformities or tenderness. No CVA tenderness. EXTREMITIES: No cyanosis. No clubbing. No edema. No calf tenderness. SKIN: Warm to touch. Normal capillary refill. No rashes. No jaundice. NEUROLOGICAL: Flaccid on the left side. Bilateral upper extremities rigors. <Kathryn Araujo - Last Filed: 06/02/16 17:18> Heart Score/ECG Review #1 06/02/16 15:07 Reviewed and interpreted by Dr. Radha Farris IMPRESSION: Sinus tachycardia with a rate of 140 bpm. Poor R wave progression. No acute ST changes. <Kathryn Araujo - Last Filed: 06/02/16 17:18> ED Treatment Course - LABORATORY CBC & Chemistry Diagram: 06/02/16 15:23 06/02/16 15:23 <Radha Farris - Last Filed: 06/02/16 17:12> - LABORATORY CBC & Chemistry Diagram: 06/02/16 15:23 06/02/16 15:23 - RADIOLOGY Radiograph Interpretation: 06/02/16 15:37 EXAM: RAD/CHEST X-RAY PORTABLE IMPRESSION: Since 05/17/2016, there is no change of an adverse nature. Atelectasis at the right base resolved. There is a weak inspiration, prominent mediastinum and tracheal deviation to the right. There are prominent central markings. The angles are sharp and the soft tissues are intact there is a scoliosis. EXAM: CT/HEAD CT WITHOUT CONTRAST IMPRESSION: Prior study 05/10/2016 available for correlation Although it may be secondary to slight change in position is a questionable faint new region of slightly decreased attenuation in the region of the right internal capsule right periventricular region. An early infarct cannot be excluded There is no evidence of any intracerebral hemorrhage, mass lesion or midline shift. There is no evidence of an acute subdural hematoma. No fractures are identified. - Medications Given in the ED: ED Medications Discontinued Medications Generic Name Dose Route Start Last Admin Trade Name Kaykay PRN Reason Stop Dose Admin Acetaminophen 1,000 mg 06/02/16 14:31 06/02/16 14:45 Ofirmev Injection - IVPB 06/02/16 14:32 1,000 mg ONCE ONE Administration Levetiracetam 1,000 mg 06/02/16 14:32 06/02/16 14:20 Keppra Injection - IVPB 06/02/16 14:33 1,000 mg ONCE ONE Administration Lorazepam 4 mg 06/02/16 14:31 06/02/16 14:15 Ativan Injection - IVPUSH 06/02/16 14:32 4 mg ONCE ONE Administration <Kathryn Araujo - Last Filed: 06/02/16 17:18> Medical Decision Making - Medical Decision Making 06/02/16 14:50 85-year-old female with 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 Differential diagnosis includes but is not limited to: Status epilepticus, intracranial process, Buerger's, sepsis, pneumonia, UTI, dehydration, electrolyte abnormality, toxic/metabolic derangement. Plan: 1. CT head 2. EKG 3. Chest x-ray 4. Panculture 5. IV fluids for hydration 6. IV antibiotics 7. Tylenol for fever 8. Benzos and will load with Keppra 9. Observe and reevaluate 06/02/16 17:12 Addendum: CT head shows a questionable new hypodensity in the right internal capsule. Chest x-rays improved from prior. Labs are reviewed and are noted in the EMR. I have spoken into the neurologist conveyor installer who recommends that we continue giving the patient Keppra 500 mg twice a day IV for seizure prophylaxis. Also MRA MRI as an inpatient. Will admit the patient to a [facility] bed. The patient has been endorsed to Dr. Domingo. <Radha Farris - Last Filed: 06/02/16 17:12> - Medical Decision Making 06/02/16 16:40 A call was placed to patient's covering physician, Dr. Aiden Patrick, who covers for patients PMD, Dr. Maykel Coronado at [phone]. Informed by phone service that Dr. Nj Domingo covering. 06/02/16 16:49 A call was placed to Neurologist, Dr. Car Marrero to [phone]. Immediate response by Dr. Melanie Bray. Case was discussed. Accepts Case. 06/02/16 17:[address] Nj Domingo. Case was discussed. Accepts Case. <Kathryn Araujo - Last Filed: 06/02/16 17:18> *DC/Admit/Observation/Transfer - Discharge Dispostion Admit: Yes - Attestations Physician Attestion: 06/02/16 14:52 I, Dr. Radha Farris, attest that the scribes documentation that appears above has been prepared under my direction and personally reviewed by me in its entirety. I confirmed that the note above accurately reflects all work, treatment, procedures, and medical decision-making performed by me. <Radha Farris - Last Filed: 06/02/16 17:12> - Attestations Scribe Attestion: 06/02/16 15:08 Documentation prepared by Kathryn Araujo, acting as medical research assistant for Radha Farris MD. <Kathryn Araujo - Last Filed: 06/02/16 17:18> Diagnosis at time of Disposition: Altered mental status, Fever, Seizure, Sepsis - Discharge Dispostion Condition at time of disposition: Good - Referrals Referrals: Maykel Coronado [Primary Care Provider] -
[2016-06-02] MEDS ORDERED: ACETAMINOPHEN 1000 MG/100 ML VIAL (NON FORMULARY) IVPB ONE (14:31)
[2016-06-02] MEDS ORDERED: LORAZEPAM CARPU-JECT 2 MG/ML DISP.SYRIN IVPUSH ONE (14:31)
[2016-06-02] MEDS ORDERED: ACETAMINOPHEN INJECTION 100 ML IVPB ONE (14:42)
[2016-06-02] MEDS ORDERED: PIPERACILLIN/TAZOB 3.375 GM/50 ML PRE-DOCKED IV ONE (14:47)
[2016-06-02] MEDS ORDERED: VANCOMYCIN 1,000 MG in DEXTROSE 5%-WATER - 250 ML IVPB ONE (14:47)
[2016-06-02] MEDS ORDERED: VANCOMYCIN 1 GRAM (PRE-DOCKED) 250 ML IVPB ONE (15:07)
[2016-06-02] MEDS ORDERED: PIPERACILLIN/TAZOB 3.375 GM 50 ML IVPB ONE (15:07)
[2016-06-02 15:14] LABS: INR 1.91 (0.82-1.09); PROTHROMBIN TIME (PATIENT) 21.3 SEC (9.98-11.88)
[2016-06-02 15:16] LABS: ACTIVATED PTT 32.5 SECONDS (26.9-34.4)
[2016-06-02 15:22] LABS: VENOUS PH 7.38 (7.31-7.41)
[2016-06-02 15:23] LABS: VENOUS BLOOD GAS HCO3 11.3 meq/L (22-29)
[2016-06-02 15:34] LABS: BASOPHIL 0.5 % (0-2.0); EOSINOPHIL 0.1 % (0-4.5); MCH 27.4 pg (25.7-33.7); MCHC 32.7 g/dl (32.0-36.0); MEAN CELL VOLUME 83.8 fl (80-96); MEAN PLT VOLUME 7.3 fl (7.5-11.1); NEUTROPHILS 81.2 % (42.8-82.8); PLATELET COUNT 318 K/MM3 (134-434); RDW 14.5 % (11.6-15.6); WHITE BLOOD COUNT 12.3 K/mm3 (4.0-10.0)
[2016-06-02 15:51] LABS: URINE APPEARANCE CLEAR; URINE BILIRUBIN NEGATIVE (NEGATIVE); URINE COLOR YELLOW; URINE GLUCOSE (UA) NEGATIVE (NEGATIVE); URINE KETONE NEGATIVE (NEGATIVE); URINE LEUK ESTERASE NEGATIVE (NEGATIVE); URINE NITRITE NEGATIVE (NEGATIVE); URINE PROTEIN NEGATIVE (NEGATIVE); URINE UROBILINOGEN NEGATIVE E.U./dl (0.2-1.0)
[2016-06-02 16:02] LABS: ALBUMIN 2.4 g/dl (3.4-5.0); BILIRUBIN,TOTAL 0.4 mg/dL (0.2-1.0); TOT PROT 6.6 g/dl (6.4-8.2)
[2016-06-02 16:34] LABS: URINE BLOOD 1+ (NEGATIVE)
[2016-06-02 16:36] LABS: URINE BACTERIA RARE /hpf (NONE SEEN); URINE MUCUS RARE; URINE RBC 9 /hpf (0-3); URINE WBC <1 /hpf (3-5)
[2016-06-02 17:43] LABS: TROPONIN I < 0.02 ng/ml (0.00-0.05)
[2016-06-02] MEDS ORDERED: DOCUSATE SODIUM 100 MG CAPSULE (FP) PO PRN (18:27)
--- NOTE | 2016-06-02 21:28 | EKG ---
Test Reason : Blood Pressure : / mmHG Vent. Rate : 137 BPM Atrial Rate : 137 BPM P-R Int : 114 ms QRS Dur : 066 ms QT Int : 284 ms P-R-T Axes : 049 -30 051 degrees QTc Int : 428 ms POOR DATA QUALITY, INTERPRETATION MAY BE ADVERSELY AFFECTED SINUS TACHYCARDIA LEFT AXIS DEVIATION MODERATE VOLTAGE CRITERIA FOR LVH, MAY BE NORMAL VARIANT CANNOT RULE OUT SEPTAL INFARCT , AGE UNDETERMINED ABNORMAL ECG WHEN COMPARED WITH ECG OF 10-MAY-2016 07:50, VENT. RATE HAS INCREASED BY 47 BPM MINIMAL CRITERIA FOR SEPTAL INFARCT ARE NOW PRESENT Confirmed by KELSIE ROBISON MD ([id number]) on 06/02/2016 9:27:59 PM Referred By: Confirmed By:KELSIE ROBISON MD
[2016-06-02] MEDS ORDERED: ATORVASTATIN CA 20 MG TABLET (FP) PO SCH (22:00)
[2016-06-02] MEDS: URSODIOL 300 MG CAPSULE PO SCH (22:12)
[2016-06-03 06:46] LABS: BASOPHIL 0.7 % (0-2.0); EOSINOPHIL 0.4 % (0-4.5); MCHC 32.9 g/dl (32.0-36.0); MEAN PLT VOLUME 7.4 fl (7.5-11.1); NEUTROPHILS 78.2 % (42.8-82.8); PLATELET COUNT 301 K/MM3 (134-434); RDW 14.9 % (11.6-15.6); WHITE BLOOD COUNT 12.3 K/mm3 (4.0-10.0)
[2016-06-03] MEDS ORDERED: LEVOTHYROXINE NA 50 MCG TABLET (FP) PO SCH (07:00)
[2016-06-03 07:06] LABS: ALBUMIN 2.1 g/dl (3.4-5.0); ALK PHOS 177 U/L (45-117); ANION GAP 10 (8-16); BILIRUBIN,TOTAL 0.4 mg/dL (0.2-1.0); CO2 24 mmol/L (21-32); CREATININE 0.8 mg/dL (0.55-1.02); GLUCOSE,RANDOM 81 mg/dL (74-106); SGOT/AST 28 U/L (15-37); SGPT/ALT 27 U/L (12-78)
--- NOTE | 2016-06-03 08:32 | PN ---
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, Physician Chief Complaint: ID Full note dictated brought with fever 101 altered mental status Recent stroke Jam 2016 Possible seizure activity noted now per family . We saw her in Apr for fever as well with no obvious source found of infection. Currently arousable but nonverbal lethargic Jemimao and Tae given - Current Medication List Current Medications: Active Medications Amlodipine Besylate (Norvasc -) 10 mg PO DAILY [facility] Artificial Tears (Artificial Tears) 1 drop OU BID PRN PRN Reason: DRY EYES Atorvastatin Calcium (Lipitor -) 20 mg PO HS [facility] Last Admin: 06/02/16 22:12 Dose: Not Given Docusate Sodium (Colace -) 100 mg PO BID PRN PRN Reason: CONSTIPATION Lactobacillus Acidophilus (Bacid -) 1 tab PO DAILY [facility] Levetiracetam (Keppra Injection -) 500 mg IVPB BID [facility] Levothyroxine Sodium (Synthroid -) 75 mcg PO DAILY@0700 [facility] Sodium Chloride (Normal Saline -) 1,000 ml IV Q20M PRN PRN Reason: MAP<65mm Hg OR SBP <90 Last Admin: 06/02/16 15:43 Dose: 1,000 ml Ursodiol (Actigal -) 300 mg PO BID [facility] Last Admin: 06/02/16 22:12 Dose: Not Given - Objective Vital Signs: Vital Signs Temperature 98.7 F 06/03/16 05:05 Pulse Rate 114 H 06/03/16 07:32 Respiratory Rate 18 06/03/16 07:32 Blood Pressure 98/67 06/03/16 07:32 O2 Sat by Pulse Oximetry (%) 98 06/03/16 07:32 Constitutional: Yes: Well Nourished, No Distress, Other (Lethargic arousable) Neck: Yes: WNL, Supple, Tenderness Cardiovascular: Yes: WNL, Regular Rate and Rhythm. No: Bradycardia, Murmur Respiratory: Yes: WNL, Regular, CTA Bilaterally Gastrointestinal: Yes: WNL, Normal Bowel Sounds, Soft. No: Tenderness Edema: No Labs: CBC, BMP 06/03/16 06:00 06/03/16 06:00 INR, PTT INR 1.91 (0.82-1.09) H D 06/02/16 14:46 Problem List - Problems (1) Altered mental status Code(s): R41.82 - ALTERED MENTAL STATUS, UNSPECIFIED (2) Fever Code(s): R50.9 - FEVER, UNSPECIFIED (3) Seizure Code(s): R56.9 - UNSPECIFIED CONVULSIONS Assessment/Plan Microbiology 05/17/16 17:30 Blood - Peripheral Venous Blood Culture - Final NO GROWTH AFTER 5 DAYS INCUBATION 05/10/16 17:50 Blood - Peripheral Venous Blood Culture - Final NO GROWTH AFTER 5 DAYS INCUBATION 05/10/16 17:45 Blood - Peripheral Venous Blood Culture - Final NO GROWTH AFTER 5 DAYS INCUBATION Laboratory Tests 06/02/16 06/02/16 06/03/16 14:46 14:46 06:00 WBC 12.3 H RBC 3.88 Hgb 10.8 Plt Count 301 Neutrophils % 78.2 Lymphocytes % 10.1 D Monocytes % 10.6 H INR 1.91 H D BUN Creatinine Creat Clearance w eGFR Lactic Acid 1.010 AST ALT Alkaline Phosphatase 06/03/16 06:00 WBC RBC Hgb Plt Count Neutrophils % Lymphocytes % Monocytes % INR BUN 19 H Creatinine 0.8 Creat Clearance w eGFR > 60 Lactic Acid AST 28 ALT 27 Alkaline Phosphatase 177 H Assessment Fever unknown source Seizure possible Recent stroke Plan Cultures Empiric Ceftiaxone pending c/s Neuro evaluation Chun ANDREWS
[2016-06-03] MEDS: URSODIOL 300 MG CAPSULE PO SCH ×2 (09:57→22:00)
[2016-06-03] MEDS: amLODIPine BESYLATE 10 MG TABLET (FP) PO SCH (09:58)
[2016-06-03] MEDS: levETIRAcetam 500 MG/5 ML INJECTION VIAL IVPB SCH ×2 (09:58→21:59)
[2016-06-03] MEDS: ATORVASTATIN CA 20 MG TABLET (FP) PO SCH (09:58)
[2016-06-03] MEDS: LACTOBACILLUS ACIDOPHILUS 1 EACH TAB (FP) PO SCH (09:58)
--- NOTE | 2016-06-03 10:30 | CONS ---
DATE OF CONSULTATION: DATE OF DICTATION: 06/03/2016 This is an 86-year-old female from [facility], who I am asked to see for evaluation of fever. She was brought, accompanied by her family, with a past medical history of epilepsy and a recent stroke for which she was hospitalized at [facility] last month. She presented with complaints of altered mental status, noting that at baseline she is generally awake, alert and communicative, as per her family. EMS was called and found the patient to be tachycardiac with "right upper extremity stiffness." Involuntary muscle twitches had been intermittently noticed for several days. On arrival, she was tachycardiac in the 130s with a fever of 101.4. We had seen her for fever during her previous admission in April and found multiple negative cultures with no obvious source of infection with her workup including CAT scan imaging of the chest and abdomen. Currently, she is lethargic but arousable, but unable to intelligently answer any questions. PAST MEDICAL HISTORY: Includes seizure disorder, hypothyroidism, hyperlipidemia, recent CVA. MEDICATIONS: Levothyroxine, Actigall, amlodipine, atorvastatin. ALLERGIES: ASPIRIN, IODINE. SOCIAL HISTORY: assisted resident, never smoked with no history of alcohol abuse. FAMILY HISTORY: Unobtainable from the patient at this time. REVIEW OF SYSTEMS: Constitutional: Febrile, no chills. Respiratory: No cough, shortness of breath, dyspnea, wheezing. Cardiac: Absent chest pain, syncope, palpitations, positive tachycardia. Neurological: Seizure disorder with recent onset seizures. PHYSICAL EXAMINATION: Vital Signs: Temperature was 101.4, pulse 136, respirations 16, blood pressure 164/77, pulse oximetry 98%. General: She was lethargic but arousable but unable to answer questions. HEENT: Normocephalic, atraumatic. Pupils reactive to light. Neck: Supple, full range of motion. Lungs: Bilateral rhonchi with no rales or wheezing. Cardiac: Regular rhythm without murmur or gallop. Abdomen: Soft, nontender, not distended. No guarding, rebound, organomegaly. Extremities: No cyanosis, clubbing, or edema. LABORATORIES: The white count is 12.3 with a hemoglobin 10.5, platelets of 318. INR 1.9. BUN 19, creatinine 0.8, alkaline phosphatase 177. Urinalysis with 9 RBCs, 1 WBC. DIAGNOSTIC STUDIES: Chest x-ray is reviewed, shows no acute pathology. CT of the head shows questionable faint decreased attenuation in the region of the right periventricular region or right internal capsule. ASSESSMENT: An 86-year-old senior care resident with seizure disorder and recent acute right cerebral infarct in the distribution of middle cerebral artery, documented May 11, 2016. Presents now with onset of fever and tachycardia with what sounds like seizure activity noted per family. No obvious sources of infection at this time. She was given a dose of vancomycin and Zosyn from the ER attending. She has no fever currently with minimally elevated WBC and no obvious focus of infection. Blood cultures and urine culture have been sent. I will continue her on ceftriaxone for some empiric coverage pending blood culture results. Consideration might be given to stopping antibiotics if no source of infection found. LAY WAN M.D. [id number]
[2016-06-03 11:38] VITALS: BMI 24.4
[2016-06-03] MEDS ORDERED: ACETAMINOPHEN 650 MG/20.3 ML ORAL SOLUTION (CUPS) PO ONE (14:00)
[2016-06-03] MEDS ORDERED: ACETAMINOPHEN 650 MG/20.3 ML ORAL SOLUTION (CUPS) ONE (14:15)
--- NOTE | 2016-06-03 16:20 | HP ---
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) Cardiovascular: Yes: Hyperlipdemia Endocrine: Yes: Hypothyroidism - Smoking History Smoking history: Never smoked Have you smoked in the past 12 months: No - Alcohol/Substance Use Hx Alcohol Use: No Home Medications - Allergies Allergies/Adverse Reactions: Allergies Allergy/AdvReac Type Severity Reaction Status Date / Time aspirin Allergy Unknown Verified 05/10/16 07:41 iodine Allergy Unknown Verified 05/10/16 07:41 - Home Medications Home Medications: Ambulatory Orders Levothyroxine [Synthroid -] 75 mcg PO DAILY 05/10/16 Polyvinyl Alcohol [Artificial Tears] 1 drop OU BID PRN #0 drops 05/17/16 Lactobacillus Acidophilus [Bacid -] 1 tab PO DAILY tab 05/27/16 Ursodiol [Actigal -] 300 mg PO BID capsule 05/27/16 Amlodipine Besylate [Norvasc -] 10 mg PO DAILY 06/02/16 Atorvastatin Ca [Lipitor] 20 mg PO HS 06/02/16 Docusate Sodium 300 mg PO Q12H PRN 06/03/16 Review of Systems Findings/Remarks: UNABLE TO OBTAIN Physical Examination Vital Signs: Vital Signs Temperature 100.9 F H 06/03/16 12:15 Pulse Rate 114 H 06/03/16 10:50 Respiratory Rate 17 06/03/16 10:50 Blood Pressure 118/71 06/03/16 10:50 O2 Sat by Pulse Oximetry (%) 100 06/03/16 10:50 Findings/Remarks: HAD D/W FAMILY MEMBER BP UNCONTROLLED AT [facility] EKG ABNL PATIENT AT ADMISSION COULD NOT MOVE RUE & RLE -> NOW MOVING Constitutional: Yes: Calm Cardiovascular: Yes: Regular Rate and Rhythm, S1, S2 Respiratory: Yes: CTA Bilaterally Gastrointestinal: Yes: Normal Bowel Sounds, Soft Edema: No Labs: CBC, BMP 06/03/16 06:00 06/03/16 06:00 Imaging - Results Chest X-ray: Report Reviewed Cat Scan: Report Reviewed EKG: Report Reviewed Problem List - Problems (1) Altered mental status Code(s): R41.82 - ALTERED MENTAL STATUS, UNSPECIFIED (2) Fever Code(s): R50.9 - FEVER, UNSPECIFIED (3) Seizure Code(s): R56.9 - UNSPECIFIED CONVULSIONS (4) Sepsis Code(s): A41.9 - SEPSIS, UNSPECIFIED ORGANISM (5) CVA (cerebral vascular accident) Code(s): I63.9 - CEREBRAL INFARCTION, UNSPECIFIED (6) Hypothyroid Code(s): E03.9 - HYPOTHYROIDISM, UNSPECIFIED (7) HTN (hypertension) Code(s): I10 - ESSENTIAL (PRIMARY) HYPERTENSION Assessment/Plan The patient is a 85-year-old woman, accompanied by family, with a past medical history of epilepsy (not on any medications) hypothyroidism, hypocholesterolemia and CVA (April 2016) who presents to the emergency department via EMS for further evaluation of altered mental status. At baseline , the patient is awake, alert and communicative, as per family. EMS was activated when the patient was found to be tachycardic with noted right upper extremities stiffness. Patient/ family at bedside state that the patient has been experiencing RUE stiffness with associated RUE/RLE involuntary muscle twitches for the past 6 days. Family expresses concern, as patient recently had a CVA, last month, for which she is currently undergoing rehabilitation at [facility]. Upon arrival, patient was noted to have a rectal temperature measurement of 101.4 and a heart rate in the 130s. Allergies: Aspirin. Iodine Past Surgical History: None reported Social History: No tobacco, ETOH and recreational drug use. Primary Care Physician: Dr. Maykel Coronado [phone] (1) Altered mental status Code(s): R41.82 - ALTERED MENTAL STATUS, UNSPECIFIED 2/2 INFECTION? 2/2 SEIZURE? 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
[2016-06-03] MEDS: ACETAMINOPHEN 650 MG SUPP.RECT PR PRN (16:40)
[2016-06-03] MEDS: KETOROLAC TROMETHAMINE 30 MG/1 ML VIAL IM PRN (20:40)
--- NOTE | 2016-06-03 21:29 | CONSULT ---
Consult - text type - Consultation Consultation Note: NEUROLOGY CONSULTATION is greatly appreciated: This 86 yo RH woman with h/o hypothyroidism had 3 seizures in her 70's and 80's. Know to me from 05/11/16 admission with acute R MCA territory CVA and dense L hemiparesis. Now readmitted from [facility] with recurrent episodes of RIGHT sided stiffness followed by transient weakness. CT of head (reviewed): Old R MCA territory lucency. No new lesions. Temps to 101. WBC 12K Loaded with levetiracetam 1 gm IV Also given 4mg of Lorazepam IV MANISH: No bruits. Neck supple. Neg Kernigs. Cardona catheter NEURO: Still with eyes closed but now poorly responsive. No speech, follows no commands. Full EOM's to Doll's head No response to visual threat Right side decorticate posturing to sternal pressure. Left side still flacid. IMP: S/P Right CVA. Now "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 R/O infection Suggest: Continue levetiracetam 500 mg q12 hrs[address] Repeat CT or MRI of brain EEG (NB: If level of consciousness doesn't begin to improve she may require EEG monitoring for Non-convulsive status epilepticus). W/U for infection and Rx if indicated. Prognosis guarded at this juncture. Thank you very much, Car Marrero MD
[2016-06-04] MEDS: LEVOTHYROXINE NA 75 MCG TABLET (FP) PO SCH (06:50)
[2016-06-04 07:41] LABS: BASOPHIL 0.4 % (0-2.0); EOSINOPHIL 1.2 % (0-4.5); INR 1.28 (0.82-1.09); MCHC 33.1 g/dl (32.0-36.0); MEAN CELL VOLUME 84.6 fl (80-96); MEAN PLT VOLUME 7.7 fl (7.5-11.1); NEUTROPHILS 72.9 % (42.8-82.8); PLATELET COUNT 279 K/MM3 (134-434); PROTHROMBIN TIME (PATIENT) 14.2 SEC (9.98-11.88); RDW 14.9 % (11.6-15.6); WHITE BLOOD COUNT 10.7 K/mm3 (4.0-10.0)
[2016-06-04 08:01] LABS: ALBUMIN 1.9 g/dl (3.4-5.0); ALK PHOS 190 U/L (45-117); ANION GAP 11 (8-16); BILIRUBIN,TOTAL 0.4 mg/dL (0.2-1.0); CALCIUM 7.6 mg/dL (8.5-10.1); CO2 24 mmol/L (21-32); GLUCOSE,RANDOM 81 mg/dL (74-106); SGOT/AST 24 U/L (15-37); SGPT/ALT 23 U/L (12-78); TOT PROT 5.8 g/dl (6.4-8.2)
[2016-06-04 08:22] LABS: TROPONIN I < 0.02 ng/ml (0.00-0.05)
[2016-06-04] MEDS ORDERED: PT OWN MED DRAWER 7, Y5N ONE ×2 (11:24→21:08)
[2016-06-04] MEDS: URSODIOL 300 MG CAPSULE PO SCH ×2 (11:25→21:19)
[2016-06-04] MEDS: LACTOBACILLUS ACIDOPHILUS 1 EACH TAB (FP) PO SCH (11:26)
[2016-06-04] MEDS: ATORVASTATIN CA 20 MG TABLET (FP) PO SCH (11:26)
[2016-06-04] MEDS: levETIRAcetam 500 MG/5 ML INJECTION VIAL IVPB SCH ×2 (11:26→21:19)
[2016-06-04] MEDS: amLODIPine BESYLATE 10 MG TABLET (FP) PO SCH (11:26)
[2016-06-04] MEDS ORDERED: VANCOMYCIN 1 GRAM (PRE-DOCKED) 250 ML IVPB ONE (13:00)
--- NOTE | 2016-06-04 14:50 | CON.CARD ---
Consult Consult Specialty:: Cardiology Referred by:: Dr. 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 Patient was now admitted on from [facility] with reported AMS and right arm stiffness. Patient was found to be tachycardic which prompted cardiology consultation. Patient was noted to be febrile in ED with HR 120-130s and hypertensive with SBP 160s. ECG demonstrated sinus tachycardia with HR 137 bpm with LVH, LAD. Other than one recorded episode of hypertension on initial presentation, patient has been normotensive on current medical management. PMD: Dr. 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), Seizure (3 years ago) Cardio/Vascular: Yes: Hyperlipdemia Endocrine: Yes: Hypothyroidism - Alcohol/Substance Use Hx Alcohol Use: No History of Substance Use: reports: None - Smoking History Smoking history: Former smoker Have you smoked in the past 12 months: No - Social History Usual Living Arrangement: With Child Home Medications - Allergies Allergies/Adverse Reactions: Allergies Allergy/AdvReac Type Severity Reaction Status Date / Time aspirin Allergy Unknown Verified 05/10/16 07:41 iodine Allergy Unknown Verified 05/10/16 07:41 - Home Medications Home Medications: Ambulatory Orders Levothyroxine [Synthroid -] 75 mcg PO DAILY 05/10/16 Polyvinyl Alcohol [Artificial Tears] 1 drop OU BID PRN #0 drops 05/17/16 Lactobacillus Acidophilus [Bacid -] 1 tab PO DAILY tab 05/27/16 Ursodiol [Actigal -] 300 mg PO BID capsule 05/27/16 Amlodipine Besylate [Norvasc -] 10 mg PO DAILY 06/02/16 Atorvastatin Ca [Lipitor] 20 mg PO HS 06/02/16 Docusate Sodium 300 mg PO Q12H PRN 06/03/16 Vital Signs: Vital Signs Temperature 98.4 F 06/04/16 10:56 Pulse Rate 99 H 06/04/16 06:00 Respiratory Rate 20 06/04/16 06:00 Blood Pressure 97/51 06/04/16 06:00 O2 Sat by Pulse Oximetry (%) 100 06/04/16 09:00 - Other Data Labs, Other Data: CBC, BMP 06/04/16 05:35 06/04/16 05:35 INR, PTT INR 1.28 (0.82-1.09) H D 06/04/16 05:35 Troponin, BNP 06/04/16 06/04/16 05:35 05:35 Troponin I < 0.02 Cancelled Troponin, BNP 06/04/16 06/04/16 05:35 05:35 Troponin I < 0.02 Cancelled Echo: Report Reviewed (05/13/16 Echo: Normal LV size and systolic function. Impaired LV relaxation. Mild TR.) Imaging - Results Chest X-ray: Report Reviewed (06/02/16: No acute pulmonary process.), Image Reviewed Other: Report Reviewed (08/13/13 Dipyridamole Myoview: Mild apical ischemia. 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 Patient was now admitted on from [facility] with reported AMS and right arm stiffness. Cardiology consulted for tachycardia evaluation. Patient was found to be tachycardic on admission in setting of fever, with HR 120-130s and hypertensive with SBP 160s. However patient has been normotensive since admission on 06/02/16 on current medical management. ECG on 06/02/16 demonstrated sinus tachycardia with HR 137 bpm with LVH, LAD. Patient remains in sinus tachycardia this afternoon with HR 100s. Patient currently being treated for new onset seizures and was empirically being treated for possibel infection. RECS: Would not try to supress patient's tachycardia as this is likely reactive to underlying condition causing her initial presentation. Would check orthostatics. If positive, would give additional IV fluids. If patient should become hypertensive again during hospitalization, may start metoprolol for additional BP control. No further cardiac work-up is indicated. Further recs as per primary team/neurology/ID Will see prn. Call with questions.
--- NOTE | 2016-06-04 16:13 | PN ---
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 (short form) - Note 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: alert, family at bedside says she is back at baseline mental status no more fevers Vital Signs Period Temp Pulse Resp BP Sys/Ontiveros Pulse Ox Last 24 Hr 98.2 F-101.6 F 99-121 18-20 97-120/51-66 92-100 cor-rrr lungs decreased bs at bases abd soft,nt ext no edema left hemiparesis CBC, BMP 06/04/16 05:35 06/04/16 05:35 Microbiology 06/02/16 14:46 Blood - Peripheral Venous Blood Culture - Preliminary NO GROWTH OBTAINED AFTER 48 HOURS, INCUBATION TO CONTINUE FOR 3 DAYS. 06/02/16 14:46 Blood - Peripheral Venous Blood Culture - Preliminary Pending Organism 06/02/16 17:40 Nasopharyngeal Swab Respiratory Virus Panel - Preliminary 06/02/16 15:30 Urine - Urine - Catheterized Urine Culture - Final NO GROWTH OBTAINED 06/02/16 17:40 Nasopharyngeal Swab Influenza Types A,B Antigen (YUNIER) - Final 06/02/16 17:40 Nasopharyngeal Swab - Final a/p Fevers bacteremia- blood cultures repeated, vancomycin given, will f/u in am s/p CVA possible seizures- f/u EEG
--- NOTE | 2016-06-04 16:55 | PN ---
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, Physician Chief Complaint: AWAKE, MORE ALERT STILL HAS TRANSAMINITIS AND STATIN ON HOLD AT THIS TIME UNTIL FURTHER TESTING COMPLETE - Current Medication List Current Medications: Active Medications Acetaminophen (Tylenol Suppository -) 650 mg [place] Q6H PRN PRN Reason: FEVER OR PAIN Last Admin: 06/03/16 16:40 Dose: 650 mg Amlodipine Besylate (Norvasc -) 10 mg PO DAILY [facility] Last Admin: 06/04/16 11:26 Dose: 10 mg Artificial Tears (Artificial Tears) 1 drop OU BID PRN PRN Reason: DRY EYES Atorvastatin Calcium (Lipitor -) 20 mg PO DAILY [facility] Last Admin: 06/04/16 11:26 Dose: 20 mg Docusate Sodium (Colace -) 100 mg PO BID PRN PRN Reason: CONSTIPATION Ketorolac Tromethamine (Toradol Injection -) 30 mg IM Q12H PRN PRN Reason: PAIN Stop: 06/08/16 19:33 Last Admin: 06/03/16 20:40 Dose: 30 mg Lactobacillus Acidophilus (Bacid -) 1 tab PO DAILY [facility] Last Admin: 06/04/16 11:26 Dose: 1 tab Levetiracetam (Keppra Injection -) 500 mg IVPB BID [facility] Last Admin: 06/04/16 11:26 Dose: 500 mg Levothyroxine Sodium (Synthroid -) 75 mcg PO DAILY@0700 [facility] Last Admin: 06/04/16 06:50 Dose: 75 mcg Sodium Chloride (Normal Saline -) 1,000 ml IV Q20M PRN PRN Reason: MAP<65mm Hg OR SBP <90 Last Admin: 06/02/16 15:43 Dose: 1,000 ml Ursodiol (Actigal -) 300 mg PO BID [facility] Last Admin: 06/04/16 11:25 Dose: 300 mg - Objective Vital Signs: Vital Signs Temperature 98.5 F 06/04/16 14:30 Pulse Rate 114 H 06/04/16 14:30 Respiratory Rate 18 06/04/16 14:30 Blood Pressure 105/56 06/04/16 14:30 O2 Sat by Pulse Oximetry (%) 100 06/04/16 09:00 Constitutional: Yes: Mild Distress Eyes: Yes: WNL HENT: Yes: WNL Neck: Yes: WNL Cardiovascular: Yes: WNL Respiratory: Yes: WNL Gastrointestinal: Yes: WNL Genitourinary: Yes: Incontinence Musculoskeletal: Yes: Muscle Weakness Extremities: Yes: Internal Rotation (LEFT ARM) Edema: No Peripheral Pulses WNL: Yes Integumentary: Yes: WNL Wound/Incision: Yes: Clean/Dry Neurological: Yes: Pre-Existing Deficit, Weakness ...Motor Strength: LLE, RLE Psychiatric: Yes: Other Labs: CBC, BMP 06/04/16 05:35 06/04/16 05:35 INR, PTT INR 1.28 (0.82-1.09) H D 06/04/16 05:35 Problem List - Problems (1) Altered mental status Code(s): R41.82 - ALTERED MENTAL STATUS, UNSPECIFIED (2) Fever Code(s): R50.9 - FEVER, UNSPECIFIED (3) HTN (hypertension) Code(s): I10 - ESSENTIAL (PRIMARY) HYPERTENSION (4) Seizure Code(s): R56.9 - UNSPECIFIED CONVULSIONS (5) Sepsis Code(s): A41.9 - SEPSIS, UNSPECIFIED ORGANISM (6) Acute disorder of liver Code(s): K76.9 - LIVER DISEASE, UNSPECIFIED (7) CVA (cerebral vascular accident) Code(s): I63.9 - CEREBRAL INFARCTION, UNSPECIFIED (8) Elevated liver enzymes Code(s): R74.8 - ABNORMAL LEVELS OF OTHER SERUM ENZYMES (9) Hypothyroid Code(s): E03.9 - HYPOTHYROIDISM, UNSPECIFIED (10) UTI (urinary tract infection) Code(s): N39.0 - URINARY TRACT INFECTION, SITE NOT SPECIFIED Qualifiers: Urinary tract infection type: acute cystitis Hematuria presence: without hematuria Qualified Code(s): N30.00 - Acute cystitis without hematuria Assessment/Plan EEG FOR SEIZURE WORKUP ENCEPHALOPATHY IMPROVED MENTAL STATUS BETTER STATIN THERAPY ON HOLD AT THIS TIME DUE TO TRANSAMINITIS ASPIRIN ALLERGY, CAN NOT START DUE TO ANAPHYLAXIS ALLERGY PLAVIX TO RESTART ONCE WORKUP COMPLETE PT AND SNF
[2016-06-05] MEDS: ACETAMINOPHEN 650 MG SUPP.RECT PR PRN ×2 (00:49→16:44)
[2016-06-05] MEDS: LEVOTHYROXINE NA 75 MCG TABLET (FP) PO SCH (06:05)
[2016-06-05] MEDS ORDERED: PT OWN MED DRAWER 7, Y5N ONE ×2 (09:12→21:09)
[2016-06-05] MEDS: amLODIPine BESYLATE 10 MG TABLET (FP) PO SCH (09:22)
[2016-06-05] MEDS: URSODIOL 300 MG CAPSULE PO SCH ×2 (09:22→22:07)
[2016-06-05] MEDS: LACTOBACILLUS ACIDOPHILUS 1 EACH TAB (FP) PO SCH (09:22)
[2016-06-05] MEDS: levETIRAcetam 500 MG/5 ML INJECTION VIAL IVPB SCH (09:22)
[2016-06-05] MEDS: ATORVASTATIN CA 20 MG TABLET (FP) PO SCH (09:22)
--- NOTE | 2016-06-05 09:55 | PN ---
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, Physician Chief Complaint: AWAKE AND MUCH MORE ALERT +APPETITE - Current Medication List Current Medications: Active Medications Acetaminophen (Tylenol Suppository -) 650 mg [place] Q6H PRN PRN Reason: FEVER OR PAIN Last Admin: 06/05/16 00:49 Dose: 650 mg Amlodipine Besylate (Norvasc -) 10 mg PO DAILY [facility] Last Admin: 06/05/16 09:22 Dose: 10 mg Artificial Tears (Artificial Tears) 1 drop OU BID PRN PRN Reason: DRY EYES Atorvastatin Calcium (Lipitor -) 20 mg PO DAILY [facility] Last Admin: 06/05/16 09:22 Dose: 20 mg Docusate Sodium (Colace -) 100 mg PO BID PRN PRN Reason: CONSTIPATION Ketorolac Tromethamine (Toradol Injection -) 30 mg IM Q12H PRN PRN Reason: PAIN Stop: 06/08/16 19:33 Last Admin: 06/03/16 20:40 Dose: 30 mg Lactobacillus Acidophilus (Bacid -) 1 tab PO DAILY [facility] Last Admin: 06/05/16 09:22 Dose: 1 tab Levetiracetam (Keppra -) 500 mg PO BID [facility] Levothyroxine Sodium (Synthroid -) 75 mcg PO DAILY@0700 [facility] Last Admin: 06/05/16 06:05 Dose: 75 mcg Sodium Chloride (Normal Saline -) 1,000 ml IV Q20M PRN PRN Reason: MAP<65mm Hg OR SBP <90 Last Admin: 06/02/16 15:43 Dose: 1,000 ml Ursodiol (Actigal -) 300 mg PO BID [facility] Last Admin: 06/05/16 09:22 Dose: 300 mg - Objective Vital Signs: Vital Signs Temperature 98.5 F 06/05/16 05:15 Pulse Rate 112 H 06/05/16 05:15 Respiratory Rate 18 06/05/16 05:15 Blood Pressure 104/52 06/05/16 05:15 O2 Sat by Pulse Oximetry (%) 100 06/04/16 09:00 Constitutional: Yes: No Distress Eyes: Yes: WNL HENT: Yes: WNL Neck: Yes: WNL Cardiovascular: Yes: WNL Respiratory: Yes: WNL Gastrointestinal: Yes: WNL Genitourinary: Yes: Hernandez Present Musculoskeletal: Yes: Muscle Weakness Extremities: Yes: Other Edema: No Peripheral Pulses WNL: Yes Integumentary: Yes: WNL Wound/Incision: Yes: Clean/Dry Neurological: Yes: Pre-Existing Deficit, Seizure, Unsteady Gait, Weakness ...Motor Strength: RLE (MYOCLONUS TREMOR) Psychiatric: Yes: WNL, Other Labs: CBC, BMP 06/04/16 05:35 06/04/16 05:35 INR, PTT INR 1.28 (0.82-1.09) H D 06/04/16 05:35 Problem List - Problems (1) Altered mental status Code(s): R41.82 - ALTERED MENTAL STATUS, UNSPECIFIED (2) Fever Code(s): R50.9 - FEVER, UNSPECIFIED (3) HTN (hypertension) Code(s): I10 - ESSENTIAL (PRIMARY) HYPERTENSION (4) Seizure Code(s): R56.9 - UNSPECIFIED CONVULSIONS (5) Sepsis Code(s): A41.9 - SEPSIS, UNSPECIFIED ORGANISM (6) Acute disorder of liver Code(s): K76.9 - LIVER DISEASE, UNSPECIFIED (7) CVA (cerebral vascular accident) Code(s): I63.9 - CEREBRAL INFARCTION, UNSPECIFIED (8) Elevated liver enzymes Code(s): R74.8 - ABNORMAL LEVELS OF OTHER SERUM ENZYMES (9) Hypothyroid Code(s): E03.9 - HYPOTHYROIDISM, UNSPECIFIED (10) UTI (urinary tract infection) Code(s): N39.0 - URINARY TRACT INFECTION, SITE NOT SPECIFIED Qualifiers: Urinary tract infection type: acute cystitis Hematuria presence: without hematuria Qualified Code(s): N30.00 - Acute cystitis without hematuria Assessment/Plan EEG FOR SEIZURE WORKUP ENCEPHALOPATHY IMPROVED MENTAL STATUS BETTER STATIN THERAPY ON HOLD AT THIS TIME DUE TO TRANSAMINITIS ASPIRIN ALLERGY, CAN NOT START DUE TO ANAPHYLAXIS ALLERGY PLAVIX TO RESTART ONCE WORKUP COMPLETE DC HERNANDEZ AND MONITOR CHANGE TO PO KEPPRA PT AND SNF
[2016-06-05] MEDS: levETIRAcetam 500 MG TABLET (FP) PO SCH ×2 (11:52→22:06)
--- NOTE | 2016-06-05 12:29 | PN ---
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 (short form) - Note 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: alert,resting comfortably Vital Signs Period Temp Pulse Resp BP Sys/Ontiveros Pulse Ox Last 24 Hr 98.5 F-100 F 109-123 18-20 101-133/48-67 98 cor-rrr llungs clear abd soft,nt ext +hemiparesis CBC, BMP 06/04/16 05:35 06/04/16 05:35 Microbiology 06/02/16 14:46 Blood - Peripheral Venous Blood Culture - Preliminary Staphylococcus Coagulase Neg 06/02/16 14:46 Blood - Peripheral Venous Blood Culture - Preliminary NO GROWTH OBTAINED AFTER 48 HOURS, INCUBATION TO CONTINUE FOR 3 DAYS. 06/02/16 17:40 Nasopharyngeal Swab Respiratory Virus Panel - Preliminary 06/02/16 15:30 Urine - Urine - Catheterized Urine Culture - Final NO GROWTH OBTAINED 06/02/16 17:40 Nasopharyngeal Swab Influenza Types A,B Antigen (YUNIER) - Final 06/02/16 17:40 Nasopharyngeal Swab - Final a/p Fevers bacteremia- blood cultures repeated, vancomycin given, one bottle coag neg staph - no need to treat- contaminant s/p CVA possible seizures- f/u EEG observe off antibiotics
[2016-06-06] MEDS: LEVOTHYROXINE NA 75 MCG TABLET (FP) PO SCH (06:05)
[2016-06-06 07:45] LABS: MCH 27.8 pg (25.7-33.7); MCHC 32.6 g/dl (32.0-36.0); MEAN CELL VOLUME 85.2 fl (80-96); MEAN PLT VOLUME 8.3 fl (7.5-11.1); PLATELET COUNT 350 K/MM3 (134-434); RDW 15.1 % (11.6-15.6)
[2016-06-06 08:06] LABS: ALBUMIN 2.2 g/dl (3.4-5.0); ANION GAP 10 (8-16); CALCIUM 8.8 mg/dL (8.5-10.1); CO2 24 mmol/L (21-32); CREATININE 0.8 mg/dL (0.55-1.02); GLUCOSE,RANDOM 91 mg/dL (74-106); SGOT/AST 33 U/L (15-37)
[2016-06-06 08:12] LABS: ALK PHOS 242 U/L (45-117); BILIRUBIN,TOTAL 0.3 mg/dL (0.2-1.0); SGPT/ALT 30 U/L (12-78); TOT PROT 6.5 g/dl (6.4-8.2)
[2016-06-06] MEDS: ATORVASTATIN CA 20 MG TABLET (FP) PO SCH (11:28)
[2016-06-06] MEDS: levETIRAcetam 500 MG TABLET (FP) PO SCH ×2 (11:28→21:00)
[2016-06-06] MEDS: URSODIOL 300 MG CAPSULE PO SCH ×2 (11:28→21:00)
[2016-06-06] MEDS: LACTOBACILLUS ACIDOPHILUS 1 EACH TAB (FP) PO SCH (11:28)
[2016-06-06] MEDS: amLODIPine BESYLATE 10 MG TABLET (FP) PO SCH (11:29)
--- NOTE | 2016-06-06 19:04 | PN ---
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, Physician Chief Complaint: AWAKE, ALERT X 2, +APPETITE - Current Medication List Current Medications: Active Medications Acetaminophen (Tylenol Suppository -) 650 mg [place] Q6H PRN PRN Reason: FEVER OR PAIN Last Admin: 06/05/16 16:44 Dose: 650 mg Amlodipine Besylate (Norvasc -) 10 mg PO DAILY [facility] Last Admin: 06/06/16 11:29 Dose: 10 mg Artificial Tears (Artificial Tears) 1 drop OU BID PRN PRN Reason: DRY EYES Atorvastatin Calcium (Lipitor -) 20 mg PO DAILY [facility] Last Admin: 06/06/16 11:28 Dose: 20 mg Docusate Sodium (Colace -) 100 mg PO BID PRN PRN Reason: CONSTIPATION Ketorolac Tromethamine (Toradol Injection -) 30 mg IM Q12H PRN PRN Reason: PAIN Stop: 06/08/16 19:33 Last Admin: 06/03/16 20:40 Dose: 30 mg Lactobacillus Acidophilus (Bacid -) 1 tab PO DAILY [facility] Last Admin: 06/06/16 11:28 Dose: 1 tab Levetiracetam (Keppra -) 500 mg PO BID [facility] Last Admin: 06/06/16 11:28 Dose: 500 mg Levothyroxine Sodium (Synthroid -) 75 mcg PO DAILY@0700 [facility] Last Admin: 06/06/16 06:05 Dose: 75 mcg Sodium Chloride (Normal Saline -) 1,000 ml IV Q20M PRN PRN Reason: MAP<65mm Hg OR SBP <90 Last Admin: 06/02/16 15:43 Dose: 1,000 ml Ursodiol (Actigal -) 300 mg PO BID [facility] Last Admin: 06/06/16 11:28 Dose: 300 mg - Objective Vital Signs: Vital Signs Temperature 99.6 F 06/06/16 14:20 Pulse Rate 116 H 06/06/16 14:20 Respiratory Rate 18 06/06/16 14:20 Blood Pressure 108/62 06/06/16 14:20 O2 Sat by Pulse Oximetry (%) 97 06/06/16 09:00 Constitutional: Yes: Mild Distress Eyes: Yes: WNL HENT: Yes: WNL Neck: Yes: WNL Cardiovascular: Yes: WNL Respiratory: Yes: WNL Gastrointestinal: Yes: WNL Genitourinary: Yes: Incontinence Musculoskeletal: Yes: Muscle Weakness Extremities: Yes: WNL Edema: No Peripheral Pulses WNL: Yes Integumentary: Yes: WNL Wound/Incision: Yes: Clean/Dry Neurological: Yes: Confusion, Pre-Existing Deficit ...Motor Strength: LLE, RLE Psychiatric: Yes: Other Labs: CBC, BMP 06/06/16 05:35 06/06/16 05:35 INR, PTT INR 1.28 (0.82-1.09) H D 06/04/16 05:35 Problem List - Problems (1) Altered mental status Code(s): R41.82 - ALTERED MENTAL STATUS, UNSPECIFIED (2) Fever Code(s): R50.9 - FEVER, UNSPECIFIED (3) HTN (hypertension) Code(s): I10 - ESSENTIAL (PRIMARY) HYPERTENSION (4) Seizure Code(s): R56.9 - UNSPECIFIED CONVULSIONS (5) Sepsis Code(s): A41.9 - SEPSIS, UNSPECIFIED ORGANISM (6) Acute disorder of liver Code(s): K76.9 - LIVER DISEASE, UNSPECIFIED (7) CVA (cerebral vascular accident) Code(s): I63.9 - CEREBRAL INFARCTION, UNSPECIFIED (8) Elevated liver enzymes Code(s): R74.8 - ABNORMAL LEVELS OF OTHER SERUM ENZYMES (9) Hypothyroid Code(s): E03.9 - HYPOTHYROIDISM, UNSPECIFIED (10) UTI (urinary tract infection) Code(s): N39.0 - URINARY TRACT INFECTION, SITE NOT SPECIFIED Qualifiers: Urinary tract infection type: acute cystitis Hematuria presence: without hematuria Qualified Code(s): N30.00 - Acute cystitis without hematuria Assessment/Plan EEG FOR SEIZURE WORKUP ENCEPHALOPATHY IMPROVED MENTAL STATUS BETTER STATIN THERAPY ON HOLD AT THIS TIME DUE TO TRANSAMINITIS ASPIRIN ALLERGY, CAN NOT START DUE TO ANAPHYLAXIS ALLERGY PLAVIX TO RESTART ONCE WORKUP COMPLETE DC HERNANDEZ AND MONITOR CHANGE TO PO [facility] PT AND SNF DC PLANNING
[2016-06-06] MEDS ORDERED: PT OWN MED DRAWER 7, Y5N ONE (20:40)
[2016-06-07] MEDS ORDERED: PT OWN MED DRAWER 7, Y5N ONE ×3 (03:53→20:08)
[2016-06-07] MEDS: LEVOTHYROXINE NA 75 MCG TABLET (FP) PO SCH (05:59)
[2016-06-07] MEDS: ATORVASTATIN CA 20 MG TABLET (FP) PO SCH (09:49)
[2016-06-07] MEDS: URSODIOL 300 MG CAPSULE PO SCH ×2 (09:50→22:07)
[2016-06-07] MEDS: amLODIPine BESYLATE 10 MG TABLET (FP) PO SCH (09:50)
[2016-06-07] MEDS: LACTOBACILLUS ACIDOPHILUS 1 EACH TAB (FP) PO SCH (09:50)
[2016-06-07] MEDS: levETIRAcetam 500 MG TABLET (FP) PO SCH ×2 (09:50→22:07)
--- NOTE | 2016-06-07 09:54 | DS ---
Physical Examination Vital Signs: Vital Signs Temperature 97.7 F 06/07/16 06:00 Pulse Rate 108 H 06/07/16 06:00 Respiratory Rate 20 06/07/16 06:00 Blood Pressure 108/57 06/07/16 06:00 O2 Sat by Pulse Oximetry (%) 100 06/06/16 21:00 Constitutional: Yes: No Distress Eyes: Yes: WNL HENT: Yes: WNL Neck: Yes: WNL Cardiovascular: Yes: WNL Respiratory: Yes: WNL Gastrointestinal: Yes: WNL Renal/: Yes: WNL Musculoskeletal: Yes: Muscle Weakness Extremities: Yes: WNL Edema: No Peripheral Pulses WNL: Yes Integumentary: Yes: WNL Wound/Incision: Yes: Clean/Dry Neurological: Yes: Pre-Existing Deficit, Unsteady Gait, Weakness ...Motor Strength: LLE, RLE Psychiatric: Yes: Other Labs: CBC, BMP 06/06/16 05:35 06/06/16 05:35 Discharge Summary Reason For Visit: ALTERED MENTAL/FEVER/SEIZURES Current Active Problems Altered mental status (Acute) Fever (Acute) HTN (hypertension) (Acute) Seizure (Acute) Sepsis (Acute) Procedures: Principal: ct scan Other Procedures: labs/cx Hospital Course: admitted for altered mental status, cva, transaminitis, worked up, infectious disease and neurology eval . will need [place] as outpatient. hold statin terapy due to transaminitis. restart plavix as outpatient Condition: Good - Instructions Diet, Activity, Other Instructions: chopped Referrals: Maykel Coronado [Primary Care Provider] - Disposition: [facility] - Home Medications Comprehensive Discharge Medication List: Ambulatory Orders Levothyroxine [Synthroid -] 75 mcg PO DAILY 05/10/16 Polyvinyl Alcohol [Artificial Tears] 1 drop OU BID PRN #0 drops 05/17/16 Lactobacillus Acidophilus [Bacid -] 1 tab PO DAILY tab 05/27/16 Ursodiol [Actigal -] 300 mg PO BID capsule 05/27/16 Amlodipine Besylate [Norvasc -] 10 mg PO DAILY 06/02/16 Acetaminophen Suppository [Tylenol .Suppository -] 650 mg [place] Q6H PRN #0 supp.rect 06/07/16 Docusate Sodium [Colace -] 100 mg PO BID PRN #0 capsule 06/07/16 Levetiracetam [Keppra -] 500 mg PO BID tablet 06/07/16 Plavix 75mg daily
[2016-06-07] MEDS: KETOROLAC TROMETHAMINE 30 MG/1 ML VIAL IM PRN (14:16)
[2016-06-08] MEDS: LEVOTHYROXINE NA 75 MCG TABLET (FP) PO SCH (06:24)
[2016-06-08] MEDS ORDERED: PT OWN MED DRAWER 7, Y5N ONE (10:16)
[2016-06-08] MEDS: URSODIOL 300 MG CAPSULE PO SCH ×2 (10:33→23:01)
[2016-06-08] MEDS: LACTOBACILLUS ACIDOPHILUS 1 EACH TAB (FP) PO SCH (10:33)
[2016-06-08] MEDS: levETIRAcetam 500 MG TABLET (FP) PO SCH ×2 (10:34→23:01)
[2016-06-08] MEDS: amLODIPine BESYLATE 10 MG TABLET (FP) PO SCH (10:34)
[2016-06-08] MEDS: ATORVASTATIN CA 20 MG TABLET (FP) PO SCH (10:34)
--- NOTE | 2016-06-08 12:21 | PN ---
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 (short form) - Note 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: PATIENT SEEN AND EXAMINED FAMILY BEDSIDE AWAITING AUTHORIZATION Problem List - Problems (1) Altered mental status Code(s): R41.82 - ALTERED MENTAL STATUS, UNSPECIFIED (2) Fever Code(s): R50.9 - FEVER, UNSPECIFIED (3) HTN (hypertension) Code(s): I10 - ESSENTIAL (PRIMARY) HYPERTENSION (4) Seizure Code(s): R56.9 - UNSPECIFIED CONVULSIONS (5) Sepsis Code(s): A41.9 - SEPSIS, UNSPECIFIED ORGANISM (6) Acute disorder of liver Code(s): K76.9 - LIVER DISEASE, UNSPECIFIED (7) CVA (cerebral vascular accident) Code(s): I63.9 - CEREBRAL INFARCTION, UNSPECIFIED (8) Elevated liver enzymes Code(s): R74.8 - ABNORMAL LEVELS OF OTHER SERUM ENZYMES (9) Hypothyroid Code(s): E03.9 - HYPOTHYROIDISM, UNSPECIFIED (10) UTI (urinary tract infection) Code(s): N39.0 - URINARY TRACT INFECTION, SITE NOT SPECIFIED Qualifiers: Urinary tract infection type: acute cystitis Hematuria presence: without hematuria Qualified Code(s): N30.00 - Acute cystitis without hematuria
[2016-06-09] MEDS: LEVOTHYROXINE NA 75 MCG TABLET (FP) PO SCH (06:59)
[2016-06-09] MEDS: amLODIPine BESYLATE 10 MG TABLET (FP) PO SCH (09:57)
[2016-06-09] MEDS: LACTOBACILLUS ACIDOPHILUS 1 EACH TAB (FP) PO SCH (09:57)
[2016-06-09] MEDS: levETIRAcetam 500 MG TABLET (FP) PO SCH ×2 (09:57→21:00)
[2016-06-09] MEDS: ATORVASTATIN CA 20 MG TABLET (FP) PO SCH (09:57)
[2016-06-09] MEDS: URSODIOL 300 MG CAPSULE PO SCH ×2 (09:57→21:00)
--- NOTE | 2016-06-09 12:52 | PN ---
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, Physician Chief Complaint: AWAKE EATING LUNCH - Current Medication List Current Medications: Active Medications Acetaminophen (Tylenol Suppository -) 650 mg W[place] Q6H PRN PRN Reason: FEVER OR PAIN Last Admin: 06/05/16 16:44 Dose: 650 mg Amlodipine Besylate (Norvasc -) 10 mg PO DAILY [facility] Last Admin: 06/09/16 09:57 Dose: 10 mg Artificial Tears (Artificial Tears) 1 drop OU BID PRN PRN Reason: DRY EYES Atorvastatin Calcium (Lipitor -) 20 mg PO DAILY [facility] Last Admin: 06/09/16 09:57 Dose: 20 mg Docusate Sodium (Colace -) 100 mg PO BID PRN PRN Reason: CONSTIPATION Lactobacillus Acidophilus (Bacid -) 1 tab PO DAILY [facility] Last Admin: 06/09/16 09:57 Dose: 1 tab Levetiracetam (Keppra -) 500 mg PO BID [facility] Last Admin: 06/09/16 09:57 Dose: 500 mg Levothyroxine Sodium (Synthroid -) 75 mcg PO DAILY@0700 [facility] Last Admin: 06/09/16 06:59 Dose: 75 mcg Sodium Chloride (Normal Saline -) 1,000 ml IV Q20M PRN PRN Reason: MAP<65mm Hg OR SBP <90 Last Admin: 06/02/16 15:43 Dose: 1,000 ml Ursodiol (Actigal -) 300 mg PO BID [facility] Last Admin: 06/09/16 09:57 Dose: 300 mg - Objective Vital Signs: Vital Signs Temperature 98.0 F 06/09/16 10:00 Pulse Rate 119 H 06/09/16 10:00 Respiratory Rate 18 06/09/16 10:00 Blood Pressure 123/64 06/09/16 10:00 O2 Sat by Pulse Oximetry (%) 96 06/07/16 21:00 Constitutional: Yes: Mild Distress Eyes: Yes: WNL HENT: Yes: WNL Neck: Yes: WNL Cardiovascular: Yes: WNL Respiratory: Yes: WNL Gastrointestinal: Yes: WNL Genitourinary: Yes: Incontinence Musculoskeletal: Yes: Muscle Weakness Edema: No Peripheral Pulses WNL: Yes Integumentary: Yes: Other Wound/Incision: Yes: Other Neurological: Yes: Pre-Existing Deficit, Weakness ...Motor Strength: LUE, LLE Psychiatric: Yes: WNL Labs: CBC, BMP 06/06/16 05:35 06/06/16 05:35 INR, PTT INR 1.28 (0.82-1.09) H D 06/04/16 05:35 Problem List - Problems (1) Altered mental status Code(s): R41.82 - ALTERED MENTAL STATUS, UNSPECIFIED (2) Fever Code(s): R50.9 - FEVER, UNSPECIFIED (3) HTN (hypertension) Code(s): I10 - ESSENTIAL (PRIMARY) HYPERTENSION (4) Seizure Code(s): R56.9 - UNSPECIFIED CONVULSIONS (5) Sepsis Code(s): A41.9 - SEPSIS, UNSPECIFIED ORGANISM (6) Acute disorder of liver Code(s): K76.9 - LIVER DISEASE, UNSPECIFIED (7) CVA (cerebral vascular accident) Code(s): I63.9 - CEREBRAL INFARCTION, UNSPECIFIED (8) Elevated liver enzymes Code(s): R74.8 - ABNORMAL LEVELS OF OTHER SERUM ENZYMES (9) Hypothyroid Code(s): E03.9 - HYPOTHYROIDISM, UNSPECIFIED (10) UTI (urinary tract infection) Code(s): N39.0 - URINARY TRACT INFECTION, SITE NOT SPECIFIED Qualifiers: Urinary tract infection type: acute cystitis Hematuria presence: without hematuria Qualified Code(s): N30.00 - Acute cystitis without hematuria Assessment/Plan EEG FOR SEIZURE WORKUP ENCEPHALOPATHY IMPROVED MENTAL STATUS BETTER STATIN THERAPY ON HOLD AT THIS TIME DUE TO TRANSAMINITIS ASPIRIN ALLERGY, CAN NOT START DUE TO ANAPHYLAXIS ALLERGY PLAVIX TO RESTART ONCE WORKUP COMPLETE DC HERNANDEZ AND MONITOR CHANGE TO [facility] PT AND SNF DC PLANNING
[2016-06-10] MEDS: LEVOTHYROXINE NA 75 MCG TABLET (FP) PO SCH (06:39)
--- NOTE | 2016-06-10 07:55 | PN ---
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, Physician - Current Medication List Current Medications: Active Medications Acetaminophen (Tylenol Suppository -) 650 mg HI Q6H PRN PRN Reason: FEVER OR PAIN Last Admin: 06/05/16 16:44 Dose: 650 mg Amlodipine Besylate (Norvasc -) 10 mg PO DAILY [facility] Last Admin: 06/09/16 09:57 Dose: 10 mg Artificial Tears (Artificial Tears) 1 drop OU BID PRN PRN Reason: DRY EYES Atorvastatin Calcium (Lipitor -) 20 mg PO DAILY [facility] Last Admin: 06/09/16 09:57 Dose: 20 mg Docusate Sodium (Colace -) 100 mg PO BID PRN PRN Reason: CONSTIPATION Lactobacillus Acidophilus (Bacid -) 1 tab PO DAILY [facility] Last Admin: 06/09/16 09:57 Dose: 1 tab Levetiracetam (Keppra -) 500 mg PO BID [facility] Last Admin: 06/09/16 21:00 Dose: 500 mg Levothyroxine Sodium (Synthroid -) 75 mcg PO DAILY@0700 [facility] Last Admin: 06/10/16 06:39 Dose: 75 mcg Sodium Chloride (Normal Saline -) 1,000 ml IV Q20M PRN PRN Reason: MAP<65mm Hg OR SBP <90 Last Admin: 06/02/16 15:43 Dose: 1,000 ml Ursodiol (Actigal -) 300 mg PO BID [facility] Last Admin: 06/09/16 21:00 Dose: 300 mg - Objective Vital Signs: Vital Signs Temperature 98.4 F 06/10/16 05:59 Pulse Rate 118 H 06/10/16 05:59 Respiratory Rate 20 06/10/16 05:59 Blood Pressure 140/78 06/10/16 05:59 O2 Sat by Pulse Oximetry (%) 96 06/09/16 21:00 Labs: CBC, BMP 06/06/16 05:35 06/06/16 05:35 INR, PTT INR 1.28 (0.82-1.09) H D 06/04/16 05:35 Problem List - Problems (1) Altered mental status Code(s): R41.82 - ALTERED MENTAL STATUS, UNSPECIFIED (2) Fever Code(s): R50.9 - FEVER, UNSPECIFIED (3) Seizure Code(s): R56.9 - UNSPECIFIED CONVULSIONS (4) Sepsis Code(s): A41.9 - SEPSIS, UNSPECIFIED ORGANISM (5) CVA (cerebral vascular accident) Code(s): I63.9 - CEREBRAL INFARCTION, UNSPECIFIED (6) Hypothyroid Code(s): E03.9 - HYPOTHYROIDISM, UNSPECIFIED (7) HTN (hypertension) Code(s): I10 - ESSENTIAL (PRIMARY) HYPERTENSION Assessment/Plan (1) Altered mental status Code(s): R41.82 - ALTERED MENTAL STATUS, UNSPECIFIED (2) Fever Code(s): R50.9 - FEVER, UNSPECIFIED (3) HTN (hypertension) Code(s): I10 - ESSENTIAL (PRIMARY) HYPERTENSION (4) Seizure Code(s): R56.9 - UNSPECIFIED CONVULSIONS (5) Sepsis Code(s): A41.9 - SEPSIS, UNSPECIFIED ORGANISM (6) Acute disorder of liver Code(s): K76.9 - LIVER DISEASE, UNSPECIFIED (7) CVA (cerebral vascular accident) Code(s): I63.9 - CEREBRAL INFARCTION, UNSPECIFIED (8) Elevated liver enzymes Code(s): R74.8 - ABNORMAL LEVELS OF OTHER SERUM ENZYMES (9) Hypothyroid Code(s): E03.9 - HYPOTHYROIDISM, UNSPECIFIED (10) UTI (urinary tract infection) Code(s): N39.0 - URINARY TRACT INFECTION, SITE NOT SPECIFIED Qualifiers: Urinary tract infection type: acute cystitis Hematuria presence: without hematuria Qualified Code(s): N30.00 - Acute cystitis without hematuria Assessment/Plan EEG FOR SEIZURE WORKUP ENCEPHALOPATHY IMPROVED MENTAL STATUS BETTER STATIN THERAPY ON HOLD AT THIS TIME DUE TO TRANSAMINITIS ASPIRIN ALLERGY, CAN NOT START DUE TO ANAPHYLAXIS ALLERGY PLAVIX TO RESTART ONCE WORKUP COMPLETE -> NEURO RECONSULTED PER NEURO -> Now "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 DC HERNANDEZ AND MONITOR CHANGE TO [facility] DC PLANNING FLEXIBLE BABYSITTER FM
[2016-06-10] MEDS: LACTOBACILLUS ACIDOPHILUS 1 EACH TAB (FP) PO SCH (09:36)
[2016-06-10] MEDS: URSODIOL 300 MG CAPSULE PO SCH ×2 (09:36→22:00)
[2016-06-10] MEDS: levETIRAcetam 500 MG TABLET (FP) PO SCH ×2 (09:36→22:00)
[2016-06-10] MEDS: amLODIPine BESYLATE 10 MG TABLET (FP) PO SCH (09:36)
[2016-06-10] MEDS: ATORVASTATIN CA 20 MG TABLET (FP) PO SCH (09:36)
[2016-06-10] MEDS ORDERED: PT OWN MED DRAWER 7, Y5N ONE (10:10)
[2016-06-10] MEDS ORDERED: CLOPIDOGREL BISULFATE 75 MG TABLET (FP) ONE (12:16)
[2016-06-10] MEDS: CLOPIDOGREL BISULFATE 75 MG TABLET (FP) PO SCH (12:26)
[2016-06-10 14:14] LABS: TROPONIN I < 0.02 ng/ml (0.00-0.05)
[2016-06-10] MEDS: ARTIFICIAL TEARS (POLYVINYL ALCOHOL 1.4%) OPTH DROPS OU PRN (15:51)
--- NOTE | 2016-06-10 16:13 | EKG ---
Test Reason : Blood Pressure : / mmHG Vent. Rate : 112 BPM Atrial Rate : 112 BPM P-R Int : 116 ms QRS Dur : 074 ms QT Int : 326 ms P-R-T Axes : 041 -22 028 degrees QTc Int : 444 ms SINUS TACHYCARDIA VOLTAGE CRITERIA FOR LEFT VENTRICULAR HYPERTROPHY ABNORMAL ECG WHEN COMPARED WITH ECG OF 02-JUN-2016 14:23, VENT. RATE HAS DECREASED Confirmed by SAADIA TATE MD ([id number]) on 06/10/2016 4:13:14 PM Referred By: ANNALISE DALY Confirmed By:SAADIA TATE MD
[2016-06-11] MEDS: ACETAMINOPHEN 650 MG SUPP.RECT PR PRN (02:00)
[2016-06-11] MEDS: LEVOTHYROXINE NA 75 MCG TABLET (FP) PO SCH (05:59)
[2016-06-11 07:52] LABS: BASOPHIL 0.9 % (0-2.0); EOSINOPHIL 0.6 % (0-4.5); MCH 28.3 pg (25.7-33.7); MCHC 33.6 g/dl (32.0-36.0); MEAN CELL VOLUME 84.2 fl (80-96); MEAN PLT VOLUME 7.1 fl (7.5-11.1); PLATELET COUNT 434 K/MM3 (134-434); WHITE BLOOD COUNT 9.4 K/mm3 (4.0-10.0)
[2016-06-11 08:22] LABS: ALBUMIN 2.4 g/dl (3.4-5.0); ALK PHOS 196 U/L (45-117); ANION GAP 9 (8-16); BILIRUBIN,TOTAL 0.4 mg/dL (0.2-1.0); CALCIUM 8.9 mg/dL (8.5-10.1); CO2 27 mmol/L (21-32); CREATININE 0.8 mg/dL (0.55-1.02); GLUCOSE,RANDOM 91 mg/dL (74-106); SGOT/AST 30 U/L (15-37); SGPT/ALT 27 U/L (12-78); TOT PROT 6.9 g/dl (6.4-8.2)
[2016-06-11] MEDS: CLOPIDOGREL BISULFATE 75 MG TABLET (FP) PO SCH (09:52)
[2016-06-11] MEDS: ATORVASTATIN CA 20 MG TABLET (FP) PO SCH (09:52)
[2016-06-11] MEDS: LACTOBACILLUS ACIDOPHILUS 1 EACH TAB (FP) PO SCH (09:52)
[2016-06-11] MEDS: URSODIOL 300 MG CAPSULE PO SCH ×2 (09:52→22:07)
[2016-06-11] MEDS: amLODIPine BESYLATE 10 MG TABLET (FP) PO SCH (09:52)
[2016-06-11] MEDS: levETIRAcetam 500 MG TABLET (FP) PO SCH ×2 (11:23→22:07)
--- NOTE | 2016-06-11 14:37 | DS ---
Physical Examination Vital Signs: Vital Signs Temperature 99.2 F 06/11/16 14:00 Pulse Rate 112 H 06/11/16 14:00 Respiratory Rate 21 06/11/16 14:00 Blood Pressure 106/60 06/11/16 12:08 O2 Sat by Pulse Oximetry (%) 100 06/11/16 09:00 Constitutional: Yes: Mild Distress Eyes: Yes: WNL HENT: Yes: WNL Neck: Yes: WNL Cardiovascular: Yes: WNL Respiratory: Yes: WNL Gastrointestinal: Yes: WNL Renal/: Yes: WNL, Incontinence Musculoskeletal: Yes: Muscle Weakness Extremities: Yes: Other Edema: No Peripheral Pulses WNL: Yes Integumentary: Yes: Pressure Ulcer, Rash, Other Neurological: Yes: Confusion, Loss of Sensation, Pre-Existing Deficit, Unsteady Gait, Weakness ...Motor Strength: LLE, RLE Psychiatric: Yes: Other Labs: CBC, BMP 06/11/16 06:30 06/11/16 06:30 Discharge Summary Reason For Visit: ALTERED MENTAL/FEVER/SEIZURES Current Active Problems Altered mental status (Acute) Fever (Acute) HTN (hypertension) (Acute) Seizure (Acute) Sepsis (Acute) DEMENTIA CVA Procedures: Principal: CT HEAD Other Procedures: LABS/EKG/CULTURES Hospital Course: 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 NOT A CANDIDATE FOR ACUTE REHAB, AND HER INSURANCE DENIED PLACEMENT AT [facility]. WILL DC HOME WITH DME EQUIPMENT, HOSPITAL BED, WHEELCHAIR, SHOWER CHAIR, TOILET EXTENSION, COMMODE, AND 24 HOUR HOME CARE FOR WANDERING PREVENTION. Condition: Good - Instructions Diet, Activity, Other Instructions: chopped Referrals: Maykel Coronado [Primary Care Provider] - Disposition: VNS/HOME HEALTH CARE - Home Medications Comprehensive Discharge Medication List: Ambulatory Orders Levothyroxine [Synthroid -] 75 mcg PO DAILY 05/10/16 Polyvinyl Alcohol [Artificial Tears] 1 drop OU BID PRN #0 drops 05/17/16 Lactobacillus Acidophilus [Bacid -] 1 tab PO DAILY tab 05/27/16 Ursodiol [Actigal -] 300 mg PO BID capsule 05/27/16 Amlodipine Besylate [Norvasc -] 10 mg PO DAILY 06/02/16 Acetaminophen Suppository [Tylenol .Suppository -] 650 mg ND Q6H PRN #0 supp.rect 06/07/16 Docusate Sodium [Colace -] 100 mg PO BID PRN #0 capsule 06/07/16 Levetiracetam [Keppra -] 500 mg PO BID tablet 06/07/16
--- NOTE | 2016-06-11 14:45 | PN ---
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 (short form) - Note 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: ADDENDUM: LIGHT -WEIGHT INABILITY TO PROPEL IN A STANDARD WHEELCHAIR, BUT CAN PROPEL IN A LIGHTWEIGHT WHEELCHAIR. THE PATIENT WILL REQUIRE FREQUENT BODY POSITION CHANGES NOT FEASIBLE WITH A REGULAR BED TO PREVENT PRESSURE ULCERS, THE PATIENT'S HEAD MUST BE ELEVATED AT LEAST 30 DEGREES TO AID IN ASPIRATION DUE TO CHF, THE PATIENT WILL REQUIRE FREQUENT BODY POSITION NOT FEASIBLE WITH A REGULAR BED TO ALLEVIATE PAIN. Problem List - Problems (1) Altered mental status Code(s): R41.82 - ALTERED MENTAL STATUS, UNSPECIFIED (2) Fever Code(s): R50.9 - FEVER, UNSPECIFIED (3) HTN (hypertension) Code(s): I10 - ESSENTIAL (PRIMARY) HYPERTENSION (4) Seizure Code(s): R56.9 - UNSPECIFIED CONVULSIONS (5) Sepsis Code(s): A41.9 - SEPSIS, UNSPECIFIED ORGANISM (6) Acute disorder of liver Code(s): K76.9 - LIVER DISEASE, UNSPECIFIED (7) CVA (cerebral vascular accident) Code(s): I63.9 - CEREBRAL INFARCTION, UNSPECIFIED (8) Elevated liver enzymes Code(s): R74.8 - ABNORMAL LEVELS OF OTHER SERUM ENZYMES (9) Hypothyroid Code(s): E03.9 - HYPOTHYROIDISM, UNSPECIFIED (10) UTI (urinary tract infection) Code(s): N39.0 - URINARY TRACT INFECTION, SITE NOT SPECIFIED Qualifiers: Urinary tract infection type: acute cystitis Hematuria presence: without hematuria Qualified Code(s): N30.00 - Acute cystitis without hematuria
[2016-06-12] MEDS: LEVOTHYROXINE NA 75 MCG TABLET (FP) PO SCH (06:14)
[2016-06-12] MEDS: LACTOBACILLUS ACIDOPHILUS 1 EACH TAB (FP) PO SCH (09:48)
[2016-06-12] MEDS: levETIRAcetam 500 MG TABLET (FP) PO SCH ×2 (09:49→21:41)
[2016-06-12] MEDS: amLODIPine BESYLATE 10 MG TABLET (FP) PO SCH (09:49)
[2016-06-12] MEDS: ATORVASTATIN CA 20 MG TABLET (FP) PO SCH (09:49)
[2016-06-12] MEDS: URSODIOL 300 MG CAPSULE PO SCH ×2 (09:49→21:41)
[2016-06-12] MEDS: CLOPIDOGREL BISULFATE 75 MG TABLET (FP) PO SCH (09:50)
--- NOTE | 2016-06-12 10:32 | PN ---
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 (short form) - Note 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: ADDENDUM: LIGHT -WEIGHT INABILITY TO PROPEL IN A STANDARD WHEELCHAIR, BUT CAN PROPEL IN A LIGHTWEIGHT WHEELCHAIR. THE PATIENT WILL REQUIRE FREQUENT BODY POSITION CHANGES NOT FEASIBLE WITH A REGULAR BED TO PREVENT PRESSURE ULCERS, THE PATIENT'S HEAD MUST BE ELEVATED AT LEAST 30 DEGREES TO AID IN ASPIRATION DUE TO CHF, THE PATIENT WILL REQUIRE FREQUENT BODY POSITION NOT FEASIBLE WITH A REGULAR BED TO ALLEVIATE PAIN. ADDENDUM 06/12/16 PATIENT HAS AN OLD CVA FROM APRIL 2016 ADMISSION, ON THIS ADMISSION 06/02/16 SHE WAS ADMITTED FOR ACUTE MENTAL STATUS CHANGE FROM FEVER/SEPSIS, RULED OUT NEW CVA WITH CT SCAN AND NEUROLOGY CONSULT. WILL DC HOME TODAY WITH ASSISTED SERVICE. Problem List - Problems (1) Altered mental status Code(s): R41.82 - ALTERED MENTAL STATUS, UNSPECIFIED (2) Fever Code(s): R50.9 - FEVER, UNSPECIFIED (3) HTN (hypertension) Code(s): I10 - ESSENTIAL (PRIMARY) HYPERTENSION (4) Seizure Code(s): R56.9 - UNSPECIFIED CONVULSIONS (5) Sepsis Code(s): A41.9 - SEPSIS, UNSPECIFIED ORGANISM (6) Acute disorder of liver Code(s): K76.9 - LIVER DISEASE, UNSPECIFIED (7) CVA (cerebral vascular accident) Code(s): I63.9 - CEREBRAL INFARCTION, UNSPECIFIED (8) Elevated liver enzymes Code(s): R74.8 - ABNORMAL LEVELS OF OTHER SERUM ENZYMES (9) Hypothyroid Code(s): E03.9 - HYPOTHYROIDISM, UNSPECIFIED (10) UTI (urinary tract infection) Code(s): N39.0 - URINARY TRACT INFECTION, SITE NOT SPECIFIED Qualifiers: Urinary tract infection type: acute cystitis Hematuria presence: without hematuria Qualified Code(s): N30.00 - Acute cystitis without hematuria
[2016-06-12] MEDS: ACETAMINOPHEN 650 MG SUPP.RECT PR PRN (19:43)
[2016-06-13] MEDS: LEVOTHYROXINE NA 75 MCG TABLET (FP) PO SCH (05:59)
--- NOTE | 2016-06-13 09:28 | PN ---
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, Physician History of Present Illness: WITH FEVER - Current Medication List Current Medications: Active Medications Acetaminophen (Tylenol Suppository -) 650 mg AR Q6H PRN PRN Reason: FEVER OR PAIN Last Admin: 06/12/16 19:43 Dose: 650 mg Amlodipine Besylate (Norvasc -) 10 mg PO DAILY [facility] Last Admin: 06/12/16 09:49 Dose: 10 mg Artificial Tears (Artificial Tears) 1 drop OU BID PRN PRN Reason: DRY EYES Last Admin: 06/10/16 15:51 Dose: 1 drop Atorvastatin Calcium (Lipitor -) 20 mg PO DAILY [facility] Last Admin: 06/12/16 09:49 Dose: 20 mg Clopidogrel Bisulfate (Plavix -) 75 mg PO DAILY [facility] Last Admin: 06/12/16 09:50 Dose: 75 mg Docusate Sodium (Colace -) 100 mg PO BID PRN PRN Reason: CONSTIPATION Lactobacillus Acidophilus (Bacid -) 1 tab PO DAILY [facility] Last Admin: 06/12/16 09:48 Dose: 1 tab Levetiracetam (Keppra -) 500 mg PO BID [facility] Last Admin: 06/12/16 21:41 Dose: 500 mg Levothyroxine Sodium (Synthroid -) 75 mcg PO DAILY@0700 [facility] Last Admin: 06/13/16 05:59 Dose: 75 mcg Sodium Chloride (Normal Saline -) 1,000 ml IV Q20M PRN PRN Reason: MAP<65mm Hg OR SBP <90 Last Admin: 06/02/16 15:43 Dose: 1,000 ml Ursodiol (Actigal -) 300 mg PO BID [facility] Last Admin: 06/12/16 21:41 Dose: 300 mg - Objective Vital Signs: Vital Signs Temperature 99.2 F 06/13/16 06:00 Pulse Rate 108 H 06/13/16 06:00 Respiratory Rate 16 06/13/16 06:00 Blood Pressure 114/58 06/13/16 06:00 O2 Sat by Pulse Oximetry (%) 99 06/12/16 21:00 Cardiovascular: Yes: S1, S2 Respiratory: Yes: Regular, CTA Bilaterally Gastrointestinal: Yes: Normal Bowel Sounds, Soft Edema: No Labs: CBC, BMP 06/11/16 06:30 06/11/16 06:30 INR, PTT INR 1.28 (0.82-1.09) H D 06/04/16 05:35 Assessment/Plan 1) Altered mental status Code(s): R41.82 - ALTERED MENTAL STATUS, UNSPECIFIED 2/2 INFECTION? NEURO CONSULTED (2) Fever Code(s): R50.9 - FEVER, UNSPECIFIED ID F/U REPEAT TESTING (3) Seizure Code(s): R56.9 - UNSPECIFIED CONVULSIONS ON AED IV (4) Sepsis ABOVE Code(s): A41.9 - SEPSIS, UNSPECIFIED ORGANISM (5) CVA (cerebral vascular accident) Code(s): I63.9 - CEREBRAL INFARCTION, UNSPECIFIED H/O THIS ADMIT CTB ABNORMAL -> NEURO ON CASE (6) Hypothyroid Code(s): E03.9 - HYPOTHYROIDISM, UNSPECIFIED TSH WNL (7) HTN (hypertension) Code(s): I10 - ESSENTIAL (PRIMARY) HYPERTENSION Vital Signs Period Temp Pulse Resp BP Sys/Ontiveros Pulse Ox Last 24 Hr 99.0 F-101.7 F 68-117 16-22 114-128/58-70 99
[2016-06-13] MEDS: LACTOBACILLUS ACIDOPHILUS 1 EACH TAB (FP) PO SCH (10:01)
[2016-06-13] MEDS: levETIRAcetam 500 MG TABLET (FP) PO SCH ×2 (10:01→21:32)
[2016-06-13] MEDS: URSODIOL 300 MG CAPSULE PO SCH ×2 (10:01→21:29)
[2016-06-13] MEDS: ARTIFICIAL TEARS (POLYVINYL ALCOHOL 1.4%) OPTH DROPS OU PRN (10:02)
[2016-06-13] MEDS: CLOPIDOGREL BISULFATE 75 MG TABLET (FP) PO SCH (10:02)
[2016-06-13] MEDS: amLODIPine BESYLATE 10 MG TABLET (FP) PO SCH (10:02)
[2016-06-13] MEDS: ATORVASTATIN CA 20 MG TABLET (FP) PO SCH (10:02)
[2016-06-13 13:36] LABS: EOSINOPHIL 0.4 % (0-4.5); MCH 27.4 pg (25.7-33.7); MCHC 32.3 g/dl (32.0-36.0); MEAN CELL VOLUME 84.8 fl (80-96); MEAN PLT VOLUME 6.7 fl (7.5-11.1); NEUTROPHILS 78.6 % (42.8-82.8); PLATELET COUNT 438 K/MM3 (134-434); RDW 14.7 % (11.6-15.6); WHITE BLOOD COUNT 11.1 K/mm3 (4.0-10.0)
[2016-06-13 14:09] LABS: ALBUMIN 2.3 g/dl (3.4-5.0); CALCIUM 8.8 mg/dL (8.5-10.1)
[2016-06-13 14:12] LABS: BILIRUBIN,TOTAL 0.3 mg/dL (0.2-1.0); TOT PROT 7.1 g/dl (6.4-8.2)
--- NOTE | 2016-06-13 15:29 | PN ---
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, Physician Chief Complaint: ID Intermittent fevers no obvious source Nickie - Current Medication List Current Medications: Active Medications Acetaminophen (Tylenol Suppository -) 650 mg RI Q6H PRN PRN Reason: FEVER OR PAIN Last Admin: 06/12/16 19:43 Dose: 650 mg Amlodipine Besylate (Norvasc -) 10 mg PO DAILY [facility] Last Admin: 06/13/16 10:02 Dose: 10 mg Artificial Tears (Artificial Tears) 1 drop OU BID PRN PRN Reason: DRY EYES Last Admin: 06/13/16 10:02 Dose: 1 drop Atorvastatin Calcium (Lipitor -) 20 mg PO DAILY [facility] Last Admin: 06/13/16 10:02 Dose: 20 mg Clopidogrel Bisulfate (Plavix -) 75 mg PO DAILY [facility] Last Admin: 06/13/16 10:02 Dose: 75 mg Docusate Sodium (Colace -) 100 mg PO BID PRN PRN Reason: CONSTIPATION Lactobacillus Acidophilus (Bacid -) 1 tab PO DAILY [facility] Last Admin: 06/13/16 10:01 Dose: 1 tab Levetiracetam (Keppra -) 500 mg PO BID [facility] Last Admin: 06/13/16 10:01 Dose: 500 mg Levothyroxine Sodium (Synthroid -) 75 mcg PO DAILY@0700 [facility] Last Admin: 06/13/16 05:59 Dose: 75 mcg Sodium Chloride (Normal Saline -) 1,000 ml IV Q20M PRN PRN Reason: MAP<65mm Hg OR SBP <90 Last Admin: 06/02/16 15:43 Dose: 1,000 ml Ursodiol (Actigal -) 300 mg PO BID [facility] Last Admin: 06/13/16 10:01 Dose: 300 mg - Objective Vital Signs: Vital Signs Temperature 99.6 F 06/13/16 14:00 Pulse Rate 119 H 06/13/16 14:00 Respiratory Rate 18 06/13/16 14:00 Blood Pressure 117/64 06/13/16 14:00 O2 Sat by Pulse Oximetry (%) 99 06/12/16 21:00 Constitutional: Yes: Well Nourished, No Distress HENT: Yes: WNL, Atraumatic Neck: Yes: WNL, Supple Cardiovascular: Yes: Regular Rate and Rhythm, S1, S2. No: Murmur Respiratory: Yes: Regular, CTA Bilaterally Gastrointestinal: Yes: WNL, Normal Bowel Sounds, Soft. No: Splenomegaly, Tenderness Edema: No Labs: CBC, BMP 06/13/16 13:15 06/13/16 13:15 INR, PTT INR 1.28 (0.82-1.09) H D 06/04/16 05:35 Problem List - Problems (1) Altered mental status Code(s): R41.82 - ALTERED MENTAL STATUS, UNSPECIFIED (2) Fever Code(s): R50.9 - FEVER, UNSPECIFIED (3) Seizure Code(s): R56.9 - UNSPECIFIED CONVULSIONS Assessment/Plan Microbiology 06/04/16 13:35 Blood - Peripheral Venous Blood Culture - Final NO GROWTH AFTER 5 DAYS INCUBATION 06/04/16 13:05 Blood - Peripheral Venous Blood Culture - Final NO GROWTH AFTER 5 DAYS INCUBATION 06/02/16 17:40 Nasopharyngeal Swab Respiratory Virus Panel - Final 06/02/16 17:40 Nasopharyngeal Swab Influenza Types A,B Antigen (YUNIER) - Final 06/02/16 17:40 Nasopharyngeal Swab - Final 06/02/16 15:30 Urine - Urine - Catheterized Urine Culture - Final NO GROWTH OBTAINED 06/02/16 14:46 Blood - Peripheral Venous Blood Culture - Final Staphylococcus Epidermidis 06/02/16 14:46 Blood - Peripheral Venous Blood Culture - Final NO GROWTH AFTER 5 DAYS INCUBATION Laboratory Tests 06/02/16 06/06/16 06/13/16 15:30 05:35 13:15 WBC 11.1 H Hgb 10.3 L Hct 31.9 L Plt Count 438 H AST 33 D ALT 30 D Alkaline Phosphatase 242 H D Urine RBC 9 Urine WBC <1 06/13/16 13:15 WBC Hgb Hct Plt Count AST ALT Alkaline Phosphatase 193 H Urine RBC Urine WBC Assessment FUO Discussed with Dr Moura Consider the gallbladder as possible source Plan No antibiotics CRP ESR CT imaging abd pelvis Chest Quant gold LAZARO Mccollum MD
[2016-06-14] MEDS: LEVOTHYROXINE NA 75 MCG TABLET (FP) PO SCH (06:19)
--- NOTE | 2016-06-14 09:51 | PN ---
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, Physician History of Present Illness: WITH FEVER - Current Medication List Current Medications: Active Medications Acetaminophen (Tylenol Suppository -) 650 mg [place] Q6H PRN PRN Reason: FEVER OR PAIN Last Admin: 06/12/16 19:43 Dose: 650 mg Amlodipine Besylate (Norvasc -) 10 mg PO DAILY [facility] Last Admin: 06/13/16 10:02 Dose: 10 mg Artificial Tears (Artificial Tears) 1 drop OU BID PRN PRN Reason: DRY EYES Last Admin: 06/13/16 10:02 Dose: 1 drop Atorvastatin Calcium (Lipitor -) 20 mg PO DAILY [facility] Last Admin: 06/13/16 10:02 Dose: 20 mg Clopidogrel Bisulfate (Plavix -) 75 mg PO DAILY [facility] Last Admin: 06/13/16 10:02 Dose: 75 mg Docusate Sodium (Colace -) 100 mg PO BID PRN PRN Reason: CONSTIPATION Lactobacillus Acidophilus (Bacid -) 1 tab PO DAILY [facility] Last Admin: 06/13/16 10:01 Dose: 1 tab Levetiracetam (Keppra -) 500 mg PO BID [facility] Last Admin: 06/13/16 21:32 Dose: 500 mg Levothyroxine Sodium (Synthroid -) 75 mcg PO DAILY@0700 [facility] Last Admin: 06/14/16 06:19 Dose: 75 mcg Sodium Chloride (Normal Saline -) 1,000 ml IV Q20M PRN PRN Reason: MAP<65mm Hg OR SBP <90 Last Admin: 06/02/16 15:43 Dose: 1,000 ml Ursodiol (Actigal -) 300 mg PO BID [facility] Last Admin: 06/13/16 21:29 Dose: 300 mg - Objective Vital Signs: Vital Signs Temperature 100.3 F H 06/14/16 05:48 Pulse Rate 106 H 06/14/16 05:48 Respiratory Rate 20 06/14/16 05:48 Blood Pressure 119/59 06/14/16 05:48 O2 Sat by Pulse Oximetry (%) 99 06/13/16 21:00 Cardiovascular: Yes: Regular Rate and Rhythm Respiratory: Yes: Regular, CTA Bilaterally Gastrointestinal: Yes: Normal Bowel Sounds, Soft Labs: CBC, BMP 06/13/16 13:15 06/13/16 13:15 INR, PTT INR 1.28 (0.82-1.09) H D 06/04/16 05:35 Assessment/Plan 1) Altered mental status Code(s): R41.82 - ALTERED MENTAL STATUS, UNSPECIFIED 2/2 INFECTION? NEURO CONSULTED (2) Fever Code(s): R50.9 - FEVER, UNSPECIFIED ID F/U NOTED--FOR CT SCAN REPEAT TESTING (3) Seizure Code(s): R56.9 - UNSPECIFIED CONVULSIONS ON MEDS (4) Sepsis ABOVE Code(s): A41.9 - SEPSIS, UNSPECIFIED ORGANISM (5) CVA (cerebral vascular accident) Code(s): I63.9 - CEREBRAL INFARCTION, UNSPECIFIED H/O -- NOTED ON PREVIOUS ADMISSION--NOT NEW EVENT THIS ADMIT CTB ABNORMAL -> NEURO ON CASE (6) Hypothyroid Code(s): E03.9 - HYPOTHYROIDISM, UNSPECIFIED TSH WNL (7) HTN (hypertension) Code(s): I10 - ESSENTIAL (PRIMARY) HYPERTENSION Vital Signs Period Temp Pulse Resp BP Sys/Ontiveros Pulse Ox Last 24 Hr 99.0 F-101.7 F 68-117 16-22 114-128/58-70 99
[2016-06-14] MEDS: LACTOBACILLUS ACIDOPHILUS 1 EACH TAB (FP) PO SCH (09:59)
[2016-06-14] MEDS: CLOPIDOGREL BISULFATE 75 MG TABLET (FP) PO SCH (10:00)
[2016-06-14] MEDS: ATORVASTATIN CA 20 MG TABLET (FP) PO SCH (10:00)
[2016-06-14] MEDS: amLODIPine BESYLATE 10 MG TABLET (FP) PO SCH (10:00)
[2016-06-14] MEDS: URSODIOL 300 MG CAPSULE PO SCH ×2 (10:00→21:58)
[2016-06-14] MEDS: levETIRAcetam 500 MG TABLET (FP) PO SCH ×2 (11:44→21:58)
--- NOTE | 2016-06-14 14:33 | PN ---
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 (short form) - Note 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: ID OFF ANTIBIOTICS LOW GRADE FEVERS COMFORTABLE Selected Entries 06/14/16 06/14/16 05:48 14:00 Temperature 100.3 F H 98.0 F Pulse Rate 119 H Respiratory 21 Rate Laboratory Tests 06/13/16 06/13/16 06/13/16 13:15 13:15 15:30 WBC 11.1 H Hgb 10.3 L Hct 31.9 L Plt Count 438 H ESR BUN 31 H D Creatinine 1.0 D Creat Clearance w eGFR 52.33 Total Bilirubin 0.3 D ALT 29 Alkaline Phosphatase 193 H C-Reactive Protein 10.9 H 06/14/16 06:30 WBC Hgb Hct Plt Count ESR 125 H BUN Creatinine Creat Clearance w eGFR Total Bilirubin ALT Alkaline Phosphatase C-Reactive Protein Assesment FUO Workup in progress Elevated ESR Plan Quant gold CT abd pelvis in progress LAZARO latex ? Cource of steroids if no infection found Chun ANDREWS Problem List - Problems (1) Altered mental status Code(s): R41.82 - ALTERED MENTAL STATUS, UNSPECIFIED (2) Fever Code(s): R50.9 - FEVER, UNSPECIFIED (3) Seizure Code(s): R56.9 - UNSPECIFIED CONVULSIONS
[2016-06-15] MEDS: LEVOTHYROXINE NA 75 MCG TABLET (FP) PO SCH (06:50)
[2016-06-15] MEDS: ACETAMINOPHEN 650 MG SUPP.RECT PR PRN (09:22)
[2016-06-15] MEDS: ARTIFICIAL TEARS (POLYVINYL ALCOHOL 1.4%) OPTH DROPS OU PRN (09:23)
[2016-06-15] MEDS: LACTOBACILLUS ACIDOPHILUS 1 EACH TAB (FP) PO SCH (09:25)
[2016-06-15] MEDS: ATORVASTATIN CA 20 MG TABLET (FP) PO SCH (09:25)
[2016-06-15] MEDS: CLOPIDOGREL BISULFATE 75 MG TABLET (FP) PO SCH (09:25)
[2016-06-15] MEDS: URSODIOL 300 MG CAPSULE PO SCH ×2 (09:25→22:35)
[2016-06-15] MEDS: amLODIPine BESYLATE 10 MG TABLET (FP) PO SCH (09:25)
[2016-06-15] MEDS: levETIRAcetam 500 MG TABLET (FP) PO SCH ×2 (09:25→22:35)
--- NOTE | 2016-06-15 12:01 | PN ---
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, Physician Chief Complaint: FOLLOWS COMMANDS HAD D/W FAMILY -> MULTIPLE REQUESTS. MULTIPLE REQUESTED SUPPLIES FOR HOME - Current Medication List Current Medications: Active Medications Acetaminophen (Tylenol Suppository -) 650 mg [place] Q6H PRN PRN Reason: FEVER OR PAIN Last Admin: 06/15/16 09:22 Dose: 650 mg Amlodipine Besylate (Norvasc -) 10 mg PO DAILY [facility] Last Admin: 06/15/16 09:25 Dose: 10 mg Artificial Tears (Artificial Tears) 1 drop OU BID PRN PRN Reason: DRY EYES Last Admin: 06/15/16 09:23 Dose: 1 drop Atorvastatin Calcium (Lipitor -) 20 mg PO DAILY [facility] Last Admin: 06/15/16 09:25 Dose: 20 mg Clopidogrel Bisulfate (Plavix -) 75 mg PO DAILY [facility] Last Admin: 06/15/16 09:25 Dose: 75 mg Docusate Sodium (Colace -) 100 mg PO BID PRN PRN Reason: CONSTIPATION Last Admin: 06/15/16 09:24 Dose: 100 mg Lactobacillus Acidophilus (Bacid -) 1 tab PO DAILY [facility] Last Admin: 06/15/16 09:25 Dose: 1 tab Levetiracetam (Keppra -) 500 mg PO BID [facility] Last Admin: 06/15/16 09:25 Dose: 500 mg Levothyroxine Sodium (Synthroid -) 75 mcg PO DAILY@0700 [facility] Last Admin: 06/15/16 06:50 Dose: 75 mcg Sodium Chloride (Normal Saline -) 1,000 ml IV Q20M PRN PRN Reason: MAP<65mm Hg OR SBP <90 Last Admin: 06/02/16 15:43 Dose: 1,000 ml Ursodiol (Actigal -) 300 mg PO BID [facility] Last Admin: 06/15/16 09:25 Dose: 300 mg - Objective Vital Signs: Vital Signs Temperature 100 F H 06/15/16 08:00 Pulse Rate 111 H 06/15/16 08:00 Respiratory Rate 16 06/15/16 08:00 Blood Pressure 124/63 06/15/16 08:00 O2 Sat by Pulse Oximetry (%) 100 06/14/16 21:00 Constitutional: Yes: Calm Cardiovascular: Yes: Regular Rate and Rhythm, S1, S2 Respiratory: Yes: CTA Bilaterally Gastrointestinal: Yes: Normal Bowel Sounds, Soft Edema: No Labs: CBC, BMP 06/13/16 13:15 06/13/16 13:15 INR, PTT INR 1.28 (0.82-1.09) H D 06/04/16 05:35 Problem List - Problems (1) Altered mental status Code(s): R41.82 - ALTERED MENTAL STATUS, UNSPECIFIED (2) Fever Code(s): R50.9 - FEVER, UNSPECIFIED (3) Seizure Code(s): R56.9 - UNSPECIFIED CONVULSIONS (4) Sepsis Code(s): A41.9 - SEPSIS, UNSPECIFIED ORGANISM (5) CVA (cerebral vascular accident) Code(s): I63.9 - CEREBRAL INFARCTION, UNSPECIFIED (6) Hypothyroid Code(s): E03.9 - HYPOTHYROIDISM, UNSPECIFIED (7) HTN (hypertension) Code(s): I10 - ESSENTIAL (PRIMARY) HYPERTENSION Assessment/Plan 1) Altered mental status Code(s): R41.82 - ALTERED MENTAL STATUS, UNSPECIFIED 2/2 INFECTION? NEURO CONSULTED (2) Fever Code(s): R50.9 - FEVER, UNSPECIFIED ID F/U NOTED--FOR CT SCAN -> UNREMARKABLE REPEAT TESTING F/U TFT (3) Seizure Code(s): R56.9 - UNSPECIFIED CONVULSIONS ON MEDS (4) Sepsis ABOVE Code(s): A41.9 - SEPSIS, UNSPECIFIED ORGANISM (5) CVA (cerebral vascular accident) Code(s): I63.9 - CEREBRAL INFARCTION, UNSPECIFIED H/O -- NOTED ON PREVIOUS ADMISSION--NOT NEW EVENT THIS ADMIT CTB ABNORMAL -> NEURO ON CASE (6) Hypothyroid Code(s): E03.9 - HYPOTHYROIDISM, UNSPECIFIED TSH WNL (7) HTN (hypertension) Code(s): I10 - ESSENTIAL (PRIMARY) HYPERTENSION STENOCAPTIONER FM
[2016-06-15] MEDS ORDERED: PT OWN MED DRAWER 7, Y5N ONE ×2 (15:19→22:18)
[2016-06-16] MEDS: LEVOTHYROXINE NA 75 MCG TABLET (FP) PO SCH (06:59)
[2016-06-16 07:30] LABS: BASOPHIL 0.5 % (0-2.0); EOSINOPHIL 0.5 % (0-4.5); MCH 27.6 pg (25.7-33.7); MEAN CELL VOLUME 83.8 fl (80-96); NEUTROPHILS 69.4 % (42.8-82.8); PLATELET COUNT 434 K/MM3 (134-434); RDW 14.2 % (11.6-15.6); WHITE BLOOD COUNT 9.7 K/mm3 (4.0-10.0)
[2016-06-16 08:31] LABS: ALBUMIN 2.1 g/dl (3.4-5.0); ALK PHOS 215 U/L (45-117); ANION GAP 10 (8-16); BILIRUBIN,TOTAL 0.3 mg/dL (0.2-1.0); CALCIUM 8.4 mg/dL (8.5-10.1); CO2 27 mmol/L (21-32); CREATININE 0.7 mg/dL (0.55-1.02); GLUCOSE,RANDOM 108 mg/dL (74-106); SGOT/AST 25 U/L (15-37); SGPT/ALT 30 U/L (12-78); TOT PROT 6.6 g/dl (6.4-8.2)
[2016-06-16] MEDS ORDERED: PT OWN MED DRAWER 7, Y5N ONE (09:31)
[2016-06-16] MEDS: levETIRAcetam 500 MG TABLET (FP) PO SCH ×2 (09:33→22:14)
[2016-06-16] MEDS: CLOPIDOGREL BISULFATE 75 MG TABLET (FP) PO SCH (09:33)
[2016-06-16] MEDS: amLODIPine BESYLATE 10 MG TABLET (FP) PO SCH (09:33)
[2016-06-16] MEDS: BACITRACIN 30 GM TUBE TOPICAL OINTMENT TP SCH ×2 (09:33→22:38)
[2016-06-16] MEDS: ATORVASTATIN CA 20 MG TABLET (FP) PO SCH (09:33)
[2016-06-16] MEDS: LACTOBACILLUS ACIDOPHILUS 1 EACH TAB (FP) PO SCH (09:33)
[2016-06-16] MEDS: URSODIOL 300 MG CAPSULE PO SCH ×2 (09:33→22:14)
--- NOTE | 2016-06-16 09:44 | PN ---
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, Physician Chief Complaint: NO CHANGE - Current Medication List Current Medications: Active Medications Acetaminophen (Tylenol Suppository -) 650 mg ND Q6H PRN PRN Reason: FEVER OR PAIN Last Admin: 06/15/16 09:22 Dose: 650 mg Amlodipine Besylate (Norvasc -) 10 mg PO DAILY [facility] Last Admin: 06/16/16 09:33 Dose: 10 mg Artificial Tears (Artificial Tears) 1 drop OU BID PRN PRN Reason: DRY EYES Last Admin: 06/15/16 09:23 Dose: 1 drop Atorvastatin Calcium (Lipitor -) 20 mg PO DAILY [facility] Last Admin: 06/16/16 09:33 Dose: 20 mg Bacitracin (Bacitracin -) 1 applic TP BID [facility] Last Admin: 06/16/16 09:33 Dose: 1 applic Clopidogrel Bisulfate (Plavix -) 75 mg PO DAILY [facility] Last Admin: 06/16/16 09:33 Dose: 75 mg Docusate Sodium (Colace -) 100 mg PO BID PRN PRN Reason: CONSTIPATION Last Admin: 06/15/16 09:24 Dose: 100 mg Lactobacillus Acidophilus (Bacid -) 1 tab PO DAILY [facility] Last Admin: 06/16/16 09:33 Dose: 1 tab Levetiracetam (Keppra -) 500 mg PO BID [facility] Last Admin: 06/16/16 09:33 Dose: 500 mg Levothyroxine Sodium (Synthroid -) 75 mcg PO DAILY@0700 [facility] Last Admin: 06/16/16 06:59 Dose: 75 mcg Sodium Chloride (Normal Saline -) 1,000 ml IV Q20M PRN PRN Reason: MAP<65mm Hg OR SBP <90 Last Admin: 06/02/16 15:43 Dose: 1,000 ml Ursodiol (Actigal -) 300 mg PO BID [facility] Last Admin: 06/16/16 09:33 Dose: 300 mg - Objective Vital Signs: Vital Signs Temperature 98.7 F 06/16/16 08:00 Pulse Rate 110 H 06/16/16 08:00 Respiratory Rate 18 06/16/16 08:00 Blood Pressure 133/68 06/16/16 08:00 O2 Sat by Pulse Oximetry (%) 98 06/15/16 21:00 Cardiovascular: Yes: WNL Respiratory: Yes: WNL Gastrointestinal: Yes: WNL Edema: No Neurological: Yes: Alert, Oriented, Weakness Labs: CBC, BMP 06/16/16 06:00 06/16/16 06:00 INR, PTT INR 1.28 (0.82-1.09) H D 06/04/16 05:35 Problem List - Problems (1) Altered mental status Code(s): R41.82 - ALTERED MENTAL STATUS, UNSPECIFIED (2) Fever Code(s): R50.9 - FEVER, UNSPECIFIED (3) Seizure Code(s): R56.9 - UNSPECIFIED CONVULSIONS (4) Sepsis Code(s): A41.9 - SEPSIS, UNSPECIFIED ORGANISM (5) CVA (cerebral vascular accident) Code(s): I63.9 - CEREBRAL INFARCTION, UNSPECIFIED (6) Hypothyroid Code(s): E03.9 - HYPOTHYROIDISM, UNSPECIFIED (7) HTN (hypertension) Code(s): I10 - ESSENTIAL (PRIMARY) HYPERTENSION Assessment/Plan 1) Altered mental status Code(s): R41.82 - ALTERED MENTAL STATUS, UNSPECIFIED 2/2 INFECTION? NEURO CONSULTED (2) Fever Code(s): R50.9 - FEVER, UNSPECIFIED ID F/U NOTED--FOR CT SCAN -> UNREMARKABLE REPEAT TESTING F/U TFT FEVERS RETURNING WITHOUT ETIOLOGY - HEME TO R/O MALIGNANCY - RHEUM TO R/O AUTOIMMUNE (3) Seizure Code(s): R56.9 - UNSPECIFIED CONVULSIONS ON MEDS (4) Sepsis ABOVE Code(s): A41.9 - SEPSIS, UNSPECIFIED ORGANISM (5) CVA (cerebral vascular accident) Code(s): I63.9 - CEREBRAL INFARCTION, UNSPECIFIED H/O -- NOTED ON PREVIOUS ADMISSION--NOT NEW EVENT THIS ADMIT CTB ABNORMAL -> NEURO ON CASE (6) Hypothyroid Code(s): E03.9 - HYPOTHYROIDISM, UNSPECIFIED TSH WNL (7) HTN (hypertension) Code(s): I10 - ESSENTIAL (PRIMARY) HYPERTENSION 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
[2016-06-16] MEDS: ACETAMINOPHEN 650 MG SUPP.RECT PR PRN (17:06)
--- NOTE | 2016-06-16 22:19 | CONSULT ---
Consult Consult Specialty:: Rheumatology - History of Present Illness History of Present Illness: 85 year old female, with past medical history of epilepsy (not on any medications) hypothyroidism, hypercholesterolemia and CVA (April 2016) transferred from senior living with altered mental status, fever and tachycardia. Since admission she has had persistent fever, etiology to be determined, rule out connective tissue disease, As per the patient's family, few days prior to admission she had involuntary muscle twitches in the left arm, however she was is awake, alert and communicative. Since admission she has had only response to painful stimuli. On admission the recta temperature was 101.4 and a heart rate 130s. There is no vlinical evidence of arthritis or skin rash, however I need to contact her family. Since admission she had one blood culture with S. epidermidis ( probably contaminant) and multiple other blood and urine cultures negative, and nasopharyngeal swabs negative for influenza. A CT of the head was reported with faint new region of slightly decreased attenuation in the region of internal capsule and right periventricular region. A CT scan of chest and abdomen was essentially normal. On admission WVBC was 10.7 and today it was 9.7. ESR 125 and creatinine 10.9. Creatinine 0.7, transaminases normal and alkaline phosphatasw 215. Urinalysis had blood 1+ and it was negative for protein. Rheumatoid factor was positive and LAZARO is pending. 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), Seizure (3 years ago) Cardio/Vascular: Yes: Hyperlipdemia Endocrine: Yes: Hypothyroidism - Alcohol/Substance Use Hx Alcohol Use: No History of Substance Use: reports: None - Smoking History Smoking history: Former smoker Have you smoked in the past 12 months: No - Social History Usual Living Arrangement: With Child Home Medications - Allergies Allergies/Adverse Reactions: Allergies Allergy/AdvReac Type Severity Reaction Status Date / Time aspirin Allergy Unknown Verified 07/03/16 14:07 iodine Allergy Unknown Verified 07/03/16 14:07 - Home Medications Home Medications: Ambulatory Orders Clopidogrel Bisulfate [Plavix -] 75 mg PO DAILY 07/03/16 Levetiracetam [Keppra] 250 mg PO BID 07/03/16 Levothyroxine [Synthroid -] 50 mcg PO DAILY 07/03/16 Polyvinyl Alcohol/Povidone [Artificial Tears Drops] 15 ml OU BID 07/03/16 Amino Acids/Protein Hydrolys [Prosource No Carb Liquid Pkt] 30 ml PO BID@0800, 1730 #60 packet 07/10/16 Amlodipine Besylate [Norvasc -] 10 mg PO DAILY #30 tablet 07/10/16 Docusate Sodium [Colace -] 100 mg PO DAILY 07/17/16 Atenolol [Tenormin -] 25 mg PO DAILY tablet 07/25/16 Levofloxacin [Levaquin] 500 mg PO DAILY #14 tablet 07/25/16 Megestrol Acetate Oral Susp [Megace Oral Suspension -] 400 mg PO DAILY #30 mg Metronidazole [Flagyl -] 500 mg PO TID #42 tablet 07/25/16 Pantoprazole Sodium [Protonix -] 40 mg PO DAILY #30 mg 07/25/16 Picc Line Flush [Picc Line Flush -] 8 ml IVPUSH PRN PRN #0 ml 07/25/16 Piperacillin/Tazob 3.375 gm [Zosyn 3.375GM Ivpb (Pre-Docked)] 3.375 gm IVPB Q8H- IV #21 bag 07/25/16 Review of Systems Unable to obtain ROS, reason: Uneable to obtain ROS Physical Exam Vital Signs: Vital Signs Temperature 99 F 06/16/16 18:23 Pulse Rate 115 H 06/16/16 17:00 Respiratory Rate 18 06/16/16 20:16 Blood Pressure 124/63 06/16/16 17:00 O2 Sat by Pulse Oximetry (%) 97 06/16/16 20:16 Constitutional: Yes: Other (Responsive only to painful stimuli.) Eyes: Yes: WNL Cardiovascular: Yes: WNL Respiratory: Yes: WNL Gastrointestinal: Yes: WNL Musculoskeletal: Yes: Other (No active joints.) Labs: CBC, BMP 06/16/16 06:00 06/16/16 06:00 Laboratory Tests 06/02/16 06/13/16 06/14/16 15:30 15:30 06:30 ESR 125 H Calcium Total Bilirubin AST ALT Alkaline Phosphatase C-Reactive Protein 10.9 H Total Protein Albumin Urine Color Yellow Urine Appearance Clear Urine pH 5.0 Ur Specific Arbon 1.018 Urine Protein Negative Urine Glucose (UA) Negative Urine Ketones Negative Urine Blood 1+ H Urine Nitrite Negative Urine Bilirubin Negative Urine Urobilinogen Negative Ur Leukocyte Esterase Negative Urine RBC 9 Urine WBC <1 Rheumatoid Factor 06/14/16 06/16/16 16:40 06:00 ESR Calcium 8.4 L Total Bilirubin 0.3 AST 25 ALT 30 Alkaline Phosphatase 215 H C-Reactive Protein Total Protein 6.6 Albumin 2.1 L Urine Color Urine Appearance Urine pH Ur Specific Arbon Urine Protein Urine Glucose (UA) Urine Ketones Urine Blood Urine Nitrite Urine Bilirubin Urine Urobilinogen Ur Leukocyte Esterase Urine RBC Urine WBC Rheumatoid Factor < 10.0 Problem List - Problems (1) Fever Assessment/Plan: Fever and altered mental status probably related to new CVA. Elevated ESR and CRP. Urinary sediment is not indicative of a Based on CT of chest and abdomen , it is unlikely that she has vasculitis of aorta. Urinary sedimen is essentially normal. It is unlikely that she has lupus or other vasculitis involving the kidneys. Fever could be central. It is unlikely that she has lupus or other connective tissue disease. Plan: I will request UA, CH50 and ANCA pannel. I did not prescribe medications. Code(s): R50.9 - FEVER, UNSPECIFIED (2) CVA (cerebral vascular accident) Code(s): I63.9 - CEREBRAL INFARCTION, UNSPECIFIED Qualifiers: CVA mechanism: unspecified Qualified Code(s): I63.9 - Cerebral infarction, unspecified
[2016-06-17] MEDS: LEVOTHYROXINE NA 75 MCG TABLET (FP) PO SCH (06:02)
[2016-06-17 08:33] LABS: BASOPHIL 0.4 % (0-2.0); EOSINOPHIL 0.3 % (0-4.5); MCH 27.7 pg (25.7-33.7); MEAN CELL VOLUME 83.8 fl (80-96); MEAN PLT VOLUME 7.3 fl (7.5-11.1); NEUTROPHILS 76.6 % (42.8-82.8); PLATELET COUNT 470 K/MM3 (134-434); RDW 14.4 % (11.6-15.6); WHITE BLOOD COUNT 12.5 K/mm3 (4.0-10.0)
--- NOTE | 2016-06-17 08:47 | PN ---
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, Physician Chief Complaint: NO CHANGE - Current Medication List Current Medications: Active Medications Acetaminophen (Tylenol Suppository -) 650 mg AR Q6H PRN PRN Reason: FEVER OR PAIN Last Admin: 06/16/16 17:06 Dose: 650 mg Amlodipine Besylate (Norvasc -) 10 mg PO DAILY [facility] Last Admin: 06/16/16 09:33 Dose: 10 mg Artificial Tears (Artificial Tears) 1 drop OU BID PRN PRN Reason: DRY EYES Last Admin: 06/15/16 09:23 Dose: 1 drop Atorvastatin Calcium (Lipitor -) 20 mg PO DAILY [facility] Last Admin: 06/16/16 09:33 Dose: 20 mg Bacitracin (Bacitracin -) 1 applic TP BID [facility] Last Admin: 06/16/16 22:38 Dose: 1 applic Clopidogrel Bisulfate (Plavix -) 75 mg PO DAILY [facility] Last Admin: 06/16/16 09:33 Dose: 75 mg Docusate Sodium (Colace -) 100 mg PO BID PRN PRN Reason: CONSTIPATION Last Admin: 06/15/16 09:24 Dose: 100 mg Lactobacillus Acidophilus (Bacid -) 1 tab PO DAILY [facility] Last Admin: 06/16/16 09:33 Dose: 1 tab Levetiracetam (Keppra -) 500 mg PO BID [facility] Last Admin: 06/16/16 22:14 Dose: 500 mg Levothyroxine Sodium (Synthroid -) 75 mcg PO DAILY@0700 [facility] Last Admin: 06/17/16 06:02 Dose: 75 mcg Sodium Chloride (Normal Saline -) 1,000 ml IV Q20M PRN PRN Reason: MAP<65mm Hg OR SBP <90 Last Admin: 06/02/16 15:43 Dose: 1,000 ml Ursodiol (Actigal -) 300 mg PO BID [facility] Last Admin: 06/16/16 22:14 Dose: 300 mg - Objective Vital Signs: Vital Signs Temperature 99.6 F 06/17/16 06:00 Pulse Rate 110 H 06/17/16 06:00 Respiratory Rate 18 06/17/16 06:00 Blood Pressure 112/62 06/17/16 06:00 O2 Sat by Pulse Oximetry (%) 97 06/16/16 20:16 Constitutional: Yes: Calm Cardiovascular: Yes: WNL Respiratory: Yes: WNL Gastrointestinal: Yes: WNL Edema: No Neurological: Yes: Alert, Weakness Labs: CBC, BMP 06/17/16 07:00 INR, PTT INR 1.28 (0.82-1.09) H D 06/04/16 05:35 Problem List - Problems (1) Altered mental status Code(s): R41.82 - ALTERED MENTAL STATUS, UNSPECIFIED (2) Fever Code(s): R50.9 - FEVER, UNSPECIFIED (3) Seizure Code(s): R56.9 - UNSPECIFIED CONVULSIONS (4) Sepsis Code(s): A41.9 - SEPSIS, UNSPECIFIED ORGANISM (5) CVA (cerebral vascular accident) Code(s): I63.9 - CEREBRAL INFARCTION, UNSPECIFIED (6) Hypothyroid Code(s): E03.9 - HYPOTHYROIDISM, UNSPECIFIED (7) HTN (hypertension) Code(s): I10 - ESSENTIAL (PRIMARY) HYPERTENSION Assessment/Plan 1) Altered mental status Code(s): R41.82 - ALTERED MENTAL STATUS, UNSPECIFIED 2/2 INFECTION? NEURO ON CASE TSH WNL (2) Fever Code(s): R50.9 - FEVER, UNSPECIFIED ID F/U NOTED--FOR CT SCAN -> UNREMARKABLE APPRECIATE RHEUM CONSULT -> LOW SUSPICION OF CTD FEVERS RETURNING WITHOUT ETIOLOGY HEME CONSULT TO R/O MALIGNANCY PENDING (3) Seizure Code(s): R56.9 - UNSPECIFIED CONVULSIONS ON MEDS (4) Sepsis ABOVE Code(s): A41.9 - SEPSIS, UNSPECIFIED ORGANISM (5) CVA (cerebral vascular accident) Code(s): I63.9 - CEREBRAL INFARCTION, UNSPECIFIED H/O -- NOTED ON PREVIOUS ADMISSION--NOT NEW EVENT THIS ADMIT CTB ABNORMAL -> NEURO ON CASE (6) Hypothyroid Code(s): E03.9 - HYPOTHYROIDISM, UNSPECIFIED TSH WNL (7) HTN (hypertension) Code(s): I10 - ESSENTIAL (PRIMARY) 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
[2016-06-17 09:04] LABS: ALBUMIN 2.2 g/dl (3.4-5.0); ANION GAP 9 (8-16); CALCIUM 8.8 mg/dL (8.5-10.1); CO2 28 mmol/L (21-32); GLUCOSE,RANDOM 95 mg/dL (74-106)
[2016-06-17 09:08] LABS: ALK PHOS 209 U/L (45-117); BILIRUBIN,TOTAL 0.5 mg/dL (0.2-1.0); CREATININE 0.8 mg/dL (0.55-1.02); SGOT/AST 24 U/L (15-37); SGPT/ALT 28 U/L (12-78); TOT PROT 6.9 g/dl (6.4-8.2)
[2016-06-17] MEDS ORDERED: PT OWN MED DRAWER 7, Y5N ONE (10:49)
--- NOTE | 2016-06-17 11:07 | CONSULT ---
Consult Consult Specialty:: Oncology-hematology Referred by:: Dr. 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), Seizure (3 years ago) Cardio/Vascular: Yes: Hyperlipdemia Endocrine: Yes: Hypothyroidism - Alcohol/Substance Use Hx Alcohol Use: No History of Substance Use: reports: None - Smoking History Smoking history: Former smoker Have you smoked in the past 12 months: No - Social History Usual Living Arrangement: With Child Home Medications - Allergies Allergies/Adverse Reactions: Allergies Allergy/AdvReac Type Severity Reaction Status Date / Time aspirin Allergy Unknown Verified 05/10/16 07:41 iodine Allergy Unknown Verified 05/10/16 07:41 - Home Medications Home Medications: Ambulatory Orders Levothyroxine [Synthroid -] 75 mcg PO DAILY 05/10/16 Polyvinyl Alcohol [Artificial Tears] 1 drop OU BID PRN #0 drops 05/17/16 Lactobacillus Acidophilus [Bacid -] 1 tab PO DAILY tab 05/27/16 Ursodiol [Actigal -] 300 mg PO BID capsule 05/27/16 Amlodipine Besylate [Norvasc -] 10 mg PO DAILY 06/02/16 Acetaminophen Suppository [Tylenol .Suppository -] 650 mg CO Q6H PRN #0 supp.rect 06/07/16 Docusate Sodium [Colace -] 100 mg PO BID PRN #0 capsule 06/07/16 Levetiracetam [Keppra -] 500 mg PO BID tablet 06/07/16 Review of Systems - Review of Systems Constitutional: reports: Weakness Cardiovascular: denies: Chest Pain Respiratory: denies: SOB on Exertion Gastrointestinal: denies: Nausea, Vomiting Genitourinary: denies: Dysuria Breasts: reports: No Symptoms Reported Musculoskeletal: denies: Back Pain Neurological: reports: Seizure Endocrine: reports: No Symptoms Hematology/Lymphatic: reports: No Symptoms Psychiatric: reports: No Symptoms Physical Exam Vital Signs: Vital Signs Temperature 99.6 F 06/17/16 06:00 Pulse Rate 110 H 06/17/16 06:00 Respiratory Rate 18 06/17/16 06:00 Blood Pressure 112/62 06/17/16 06:00 O2 Sat by Pulse Oximetry (%) 97 06/16/16 20:16 Constitutional: Yes: Mild Distress Eyes: Yes: PERRL. No: Diplopia, Ptosis, Sclera Icterus HENT: Yes: Other (bite plate). No: Pharyngeal Erythema Neck: Yes: Supple. No: Tenderness, Thyromegaly Cardiovascular: Yes: Regular Rate and Rhythm Respiratory: Yes: Diminished Gastrointestinal: Yes: Normal Bowel Sounds, Soft. No: Hepatomegaly, Palpable Mass, Splenomegaly, Tenderness, Tenderness, Rebound Renal/: No: CVA Tenderness - Left Breast(s): Yes: WNL, Left, Right Musculoskeletal: No: Back Pain Extremities: Yes: WNL Edema: Yes Integumentary: Yes: WNL Neurological: Yes: Lethargy, Other (responsive to questions - but non verbal) Psychiatric: Yes: WNL Labs: CBC, BMP 06/17/16 07:00 06/17/16 07:00 Imaging - Results Cat Scan: Report Reviewed, Image Reviewed Assessment/Plan Elevated ESR, CRP, Change in mentation, seizures, stroke,and Unexplained fevers. CT of chest , abdomen, pelvis - without obvious evidence of malignancy in bones or other imaging. No obvious adenopathy or breast masses on exam. Screening tests by rheumatology to be done. May have central fevers. Can consider bone marrow aspirate and biopsy with cultures if work up continues to be non revealing.
[2016-06-17] MEDS: amLODIPine BESYLATE 10 MG TABLET (FP) PO SCH (11:23)
[2016-06-17] MEDS: CLOPIDOGREL BISULFATE 75 MG TABLET (FP) PO SCH (11:24)
[2016-06-17] MEDS: BACITRACIN 30 GM TUBE TOPICAL OINTMENT TP SCH ×2 (11:24→21:27)
[2016-06-17] MEDS: URSODIOL 300 MG CAPSULE PO SCH ×2 (11:24→21:26)
[2016-06-17] MEDS: LACTOBACILLUS ACIDOPHILUS 1 EACH TAB (FP) PO SCH (11:25)
[2016-06-17] MEDS: levETIRAcetam 500 MG TABLET (FP) PO SCH (11:25)
[2016-06-17] MEDS: ATORVASTATIN CA 20 MG TABLET (FP) PO SCH (11:28)
--- NOTE | 2016-06-17 15:53 | PN ---
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 (short form) - Note 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: alert,resting comfortably continued intermittent fevers Vital Signs Period Temp Pulse Resp BP Sys/Ontiveros Pulse Ox Last 24 Hr 98.5 F-101.1 F 107-115 18-18 111-124/59-63 97 cor-rrr lungs clear abd soft,nt ext left heel with tissue injury, no drainage, no erythema sacrum- stage 2 ulcer, clean CBC, BMP 06/17/16 07:00 06/17/16 07:00 Laboratory Tests 06/13/16 06/14/16 15:30 06:30 ESR 125 H C-Reactive Protein 10.[address] scans negative of c/a/p Microbiology 06/15/16 16:00 Buttock - Left Wound Culture - Preliminary Non Lactose Fermenting Gnb Lactose Fermenting Neg Bacilli Lactose Fermenting Neg Bacilli#2 Pending Organism Pending Organism#2 06/15/16 16:00 Urine - Urine - Catheterized Urine Culture - Final NO GROWTH OBTAINED 06/13/16 17:00 Blood - Peripheral Venous TB Test (QFT) (YUNIER) - Preliminary 06/04/16 13:35 Blood - Peripheral Venous Blood Culture - Final NO GROWTH AFTER 5 DAYS INCUBATION 06/04/16 13:05 Blood - Peripheral Venous Blood Culture - Final NO GROWTH AFTER 5 DAYS INCUBATION 06/02/16 14:46 Blood - Peripheral Venous Blood Culture - Final Staphylococcus Epidermidis 06/02/16 17:40 Nasopharyngeal Swab Respiratory Virus Panel - Final 06/02/16 14:46 Blood - Peripheral Venous Blood Culture - Final NO GROWTH AFTER 5 DAYS INCUBATION 06/02/16 15:30 Urine - Urine - Catheterized Urine Culture - Final NO GROWTH OBTAINED 06/02/16 17:40 Nasopharyngeal Swab Influenza Types A,B Antigen (YUNIER) - Final 06/02/16 17:40 Nasopharyngeal Swab - Final a/p FUO repeat cultures, rheum and oncology w/u ordered s/p CVA observe off antibiotics
[2016-06-17] MEDS: levETIRAcetam 250 MG TABLET (FP) PO SCH (21:26)
[2016-06-18] MEDS: LEVOTHYROXINE NA 75 MCG TABLET (FP) PO SCH (06:03)
[2016-06-18 09:04] LABS: ALBUMIN 2.3 g/dl (3.4-5.0); ANION GAP 10 (8-16); CALCIUM 8.7 mg/dL (8.5-10.1); CO2 27 mmol/L (21-32); GLUCOSE,RANDOM 110 mg/dL (74-106)
[2016-06-18 09:07] LABS: ALK PHOS 206 U/L (45-117); BILIRUBIN,TOTAL 0.3 mg/dL (0.2-1.0); CREATININE 0.8 mg/dL (0.55-1.02); LDH 285 U/L (84-246); SGOT/AST 27 U/L (15-37); SGPT/ALT 27 U/L (12-78); TOT PROT 7.1 g/dl (6.4-8.2)
[2016-06-18] MEDS: amLODIPine BESYLATE 10 MG TABLET (FP) PO SCH (10:12)
[2016-06-18] MEDS: ATORVASTATIN CA 20 MG TABLET (FP) PO SCH (10:12)
[2016-06-18] MEDS: LACTOBACILLUS ACIDOPHILUS 1 EACH TAB (FP) PO SCH (10:12)
[2016-06-18] MEDS: URSODIOL 300 MG CAPSULE PO SCH (10:12)
[2016-06-18] MEDS: levETIRAcetam 250 MG TABLET (FP) PO SCH (10:13)
[2016-06-18] MEDS: BACITRACIN 30 GM TUBE TOPICAL OINTMENT TP SCH (10:13)
[2016-06-18] MEDS: CLOPIDOGREL BISULFATE 75 MG TABLET (FP) PO SCH (10:13)
[2016-06-18 12:27] LABS: EOSINOPHIL 0.3 % (0-4.5); MCH 27.3 pg (25.7-33.7); MCHC 32.4 g/dl (32.0-36.0); MEAN CELL VOLUME 84.3 fl (80-96); MEAN PLT VOLUME 7.7 fl (7.5-11.1); NEUTROPHILS 79.7 % (42.8-82.8); PLATELET COUNT 491 K/MM3 (134-434); RDW 14.6 % (11.6-15.6); WHITE BLOOD COUNT 13.6 K/mm3 (4.0-10.0)
--- NOTE | 2016-06-18 13:38 | DS ---
Physical Examination Vital Signs: Vital Signs Temperature 98.2 F 06/18/16 09:00 Pulse Rate 107 H 06/18/16 09:00 Respiratory Rate 19 06/18/16 09:00 Blood Pressure 114/66 06/18/16 09:00 O2 Sat by Pulse Oximetry (%) 96 06/18/16 09:00 Findings/Remarks: FAMILY BEDSIDE, DISCHARGING HOME TODAY WITH DME SENT HOME ALREADY. Constitutional: Yes: No Distress Eyes: Yes: WNL HENT: Yes: WNL Neck: Yes: WNL Cardiovascular: Yes: WNL Respiratory: Yes: WNL Gastrointestinal: Yes: WNL Musculoskeletal: Yes: Muscle Weakness Extremities: Yes: Other Edema: No Peripheral Pulses WNL: Yes Integumentary: Yes: Skin Tear Wound/Incision: Yes: Dressing Dry and Intact Neurological: Yes: Confusion, Lethargy, Numbness, Paresthesia, Pre-Existing Deficit, Unsteady Gait, Weakness ...Motor Strength: LUE, LLE Psychiatric: Yes: Other Labs: CBC, BMP 06/18/16 07:00 06/18/16 07:00 Discharge Summary Reason For Visit: ALTERED MENTAL/FEVER/SEIZURES Current Active Problems Altered mental status (Acute) Fever (Acute) HTN (hypertension) (Acute) Seizure (Acute) Sepsis (Acute) OLD CVA Procedures: Principal: CT SCAN Other Procedures: LABS Hospital Course: PATIENT ADMITTED WITH ACUTE MS CHANGE, OLD CVA, ELEVATED LIVER FUNCTION (UNABLE TO TAKE STATINS), ADMITTED AND WORKED UP FOR CHRONIC FEVERS, 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 PATIENT NOT A CANDIDATE FOR SNF, SENDING HOME WITH DME AND OUTPATIENT PT. FOLLOW UP WITH PMD IN NEXT 1-2 WEEKS. ONCOLOGY WORKUP OUTPATIENT WITH DR YO. Condition: Fair - Instructions Diet, Activity, Other Instructions: chopped Referrals: Maykel Coronado [Primary Care Provider] - Disposition: VNS/HOME HEALTH CARE - Home Medications Comprehensive Discharge Medication List: Ambulatory Orders Levothyroxine [Synthroid -] 75 mcg PO DAILY 05/10/16 Polyvinyl Alcohol [Artificial Tears] 1 drop OU BID PRN #0 drops 05/17/16 Lactobacillus Acidophilus [Bacid -] 1 tab PO DAILY tab 05/27/16 Ursodiol [Actigal -] 300 mg PO BID capsule 05/27/16 Amlodipine Besylate [Norvasc -] 10 mg PO DAILY 06/02/16 Docusate Sodium [Colace -] 100 mg PO BID PRN #0 capsule 06/07/16 Acetaminophen Suppository [Tylenol .Suppository -] 650 mg CO Q6H PRN #60 supp.rect 06/18/16 Bacitracin - [Bacitracin Topical Ointment -] 1 applic TP BID #90 tube 06/18/16 Clopidogrel Bisulfate [Plavix -] 75 mg PO DAILY #30 tablet 06/18/16 Levetiracetam [Keppra -] 250 mg PO BID #60 tablet 06/18/16 Phenazopyridine HCl [Pyridium -] 100 mg PO TID 30 Days 06/18/16
--- NOTE | 2016-06-18 13:39 | PN ---
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 (short form) - Note 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: PATIENT WAS ADMITTED WITH MENTAL STATUS CHANGE AND AN OLD CVA. THIS IS NOT A NEW CVA ON THIS ADMISSION, THEREFOR NOT NEEDING A CVA WORKUP. PATIENT'S MENTAL STATUS CHANGE IS DEMENTIA FROM PREVIOUS CVA, WITH FEVER WORKUP. Problem List - Problems (1) Altered mental status Code(s): R41.82 - ALTERED MENTAL STATUS, UNSPECIFIED (2) Fever Code(s): R50.9 - FEVER, UNSPECIFIED (3) HTN (hypertension) Code(s): I10 - ESSENTIAL (PRIMARY) HYPERTENSION (4) Seizure Code(s): R56.9 - UNSPECIFIED CONVULSIONS (5) Sepsis Code(s): A41.9 - SEPSIS, UNSPECIFIED ORGANISM (6) Acute disorder of liver Code(s): K76.9 - LIVER DISEASE, UNSPECIFIED (7) CVA (cerebral vascular accident) Code(s): I63.9 - CEREBRAL INFARCTION, UNSPECIFIED (8) Elevated liver enzymes Code(s): R74.8 - ABNORMAL LEVELS OF OTHER SERUM ENZYMES (9) Hypothyroid Code(s): E03.9 - HYPOTHYROIDISM, UNSPECIFIED (10) UTI (urinary tract infection) Code(s): N39.0 - URINARY TRACT INFECTION, SITE NOT SPECIFIED Qualifiers: Qualified Code(s): N30.00 - Acute cystitis without hematuria
[2016-06-18 14:10] VITALS: BP 115/61; PULSE 114; TEMP 98.4
[2016-06-18] MEDS ORDERED: PHENAZOPYRIDINE HCL 100 MG TABLET (FP) PO SCH (15:00)
[2016-06-18] MEDS ORDERED: FLUCONAZOLE 100 MG TABLET (UD) PO ONE (15:00)
[2016-06-20 00:08] LABS: C-ANCA <1:20 titer (Neg:<1:20); MYELOPEROXIDASE ANTIBODY <9.0 U/mL (0.0-9.0); P-ANCA <1:20 titer (Neg:<1:20); PROTEINASE-3 ANTIBODY <3.5 U/mL (0.0-3.5)
[2016-06-20 00:08] LABS: A/G RATIO 0.6 (0.7-1.7); ALBUMIN 2.4 g/dL (2.9-4.4); ALPHA-1-GLOBULIN 0.4 g/dL (0.0-0.4); BETA GLOBULIN 1.4 g/dL (0.7-1.3); GAMMA GLOBULIN 1.5 g/dL (0.4-1.8); GLOBULIN, TOTAL 4.4 g/dL (2.2-3.9); M-SPIKE 0.5 g/dL (Not Observed); TOTAL PROTEIN 6.8 g/dL (6.0-8.5)
== END 2016-06-18 15:23 | disposition home health service (06) | DRG 871 ==
LOC: JER 14:05 → JERBED 17:13 → UNDOADMIN 17:26 → J4S 06-03 16:43 → J6S 06-07 20:24
PROVIDERS: ADMIT Family Medicine; ATTEND Family Medicine
PROC: 4A10X4Z Monitoring of Central Nervous Electrical Activity, External Approach (ICD-10-PCS; principal; 2016-06-04)
DX: A41.89 Other specified sepsis (principal); G93.40 Encephalopathy, unspecified; I69.354 Hemiplegia and hemiparesis following cerebral infarction affecting left non-dominant side; G40.802 Other epilepsy, not intractable, without status epilepticus; N39.0 Urinary tract infection, site not specified; L89.152 Pressure ulcer of sacral region, stage 2; L89.322 Pressure ulcer of left buttock, stage 2; E03.9 Hypothyroidism, unspecified; E78.00 Pure hypercholesterolemia, unspecified; I10 Essential (primary) hypertension; K76.9 Liver disease, unspecified; R74.8 Abnormal levels of other serum enzymes; F03.90 Unspecified dementia, unspecified severity, without behavioral disturbance, psychotic disturbance, mood disturbance, and anxiety
CPT/HCPCS: 36415; 70450-TC; 71010-TC; 71250-TC; 74150-TC; 80053; 81003; 81015; 82550; 82553; 82784; 82803; 82977; 83520; 83605; 83615; 83883; 84155; 84165; 84484; 85025; 85027; 85044; 85610; 85651; 85730; 86038; 86140; 86162; 86225; 86256; 86334; 86431; 86480; 86850; 86900; 86901; 87040; 87070; 87086; 87186; 87205; 87254; 87804; 93005; 93010; 94010; 95816; 97161-GP; 99285-25; Q9967

== ENCOUNTER 2016-06-21 17:24 | Inpatient (IN) | payer MEDICARE ==
[2016-06-21] MEDS ORDERED: SODIUM CHLORIDE 1,000 ML IV STA (17:28)
--- NOTE | 2016-06-21 17:35 | PDOC ---
History of Present Illness - General History Source: Family - History of Present Illness Initial Comments: 06/21/16 18:57 The patient is a 86 year old female with a significant past medical history of CVA (1 month ago), seizures and HLD who presents to the ED, via EMS, s/p altered mental status. 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 Patient was discharged from the hospital and admitted to [facility]. Patient stayed in [facility] for 4 days and was admitted back to the hospital secondary to having a seizure. Family states patient has difficulty moving her left side after the seizure. Patient was released from the hospital 4 days ago and discharged home. As per family, the patient is currently being treated for a scaral ulcer with discharge that she developed after being released from [facility]. Daughter notes the patient was at her mental baseline yesterday and was able to respond to questions (limited, can grunt, and open her eyes, nod her head). As per daughter, the patient had a fever this morning and had altered mental status. Family states the patient is not responding and is looking off into the distance. Around 1 pm earlier today, family states the patient had a witnessed seizure with shaking of her RUE. Allergies: IV Contrast <Nav Ayala - Last Filed: 06/21/16 18:57> <Miguel Moreira - Last Filed: 06/21/16 20:12> - General Stated Complaint: Altered Mental Status Time Seen by Provider: 06/21/16 17:27 NIH Stroke Scale - Last Known Well Date/Time & Onset Date Last Known Well: 06/20/16 Time Last Known Well: 20:00 - Initial Evaluation Level of consciousness: Alert Best gaze (horizontal eye movement): Normal (unable to perform NIHSS based on pts mentall status/condition) <Miguel Moreira - Last Filed: 06/21/16 20:12> Past History <Nav Ayala - Last Filed: 06/21/16 18:57> - Past Medical History CVA: Yes (L SIDE WEAKNESS) HTN: Yes Hypercholesterolemia: Yes Thyroid Disease: Yes (HYPO.) - Psycho/Social/Smoking Cessation Hx Anxiety: No Suicidal Ideation: No Smoking History: Former smoker Have you smoked in the past 12 months: No Hx Alcohol Use: No Drug/Substance Use Hx: No Substance Use Type: None Hx Substance Use Treatment: No <HarishMiguel - Last Filed: 06/21/16 20:12> - Past Medical History Allergies/Adverse Reactions: Allergies Allergy/AdvReac Type Severity Reaction Status Date / Time aspirin Allergy Unknown Verified 05/10/16 07:41 iodine Allergy Unknown Verified 05/10/16 07:41 Home Medications: Ambulatory Orders Levothyroxine [Synthroid -] 75 mcg PO DAILY 05/10/16 Polyvinyl Alcohol [Artificial Tears] 1 drop OU BID PRN #0 drops 05/17/16 Lactobacillus Acidophilus [Bacid -] 1 tab PO DAILY tab 05/27/16 Ursodiol [Actigal -] 300 mg PO BID capsule 05/27/16 Amlodipine Besylate [Norvasc -] 10 mg PO DAILY 06/02/16 Docusate Sodium [Colace -] 100 mg PO BID PRN #0 capsule 06/07/16 Acetaminophen Suppository [Tylenol .Suppository -] 650 mg [place] Q6H PRN #60 supp.rect 06/18/16 Bacitracin - [Bacitracin Topical Ointment -] 1 applic TP BID #90 tube 06/18/16 Clopidogrel Bisulfate [Plavix -] 75 mg PO DAILY #30 tablet 06/18/16 Levetiracetam [Keppra -] 250 mg PO BID #60 tablet 06/18/16 Phenazopyridine HCl [Pyridium -] 100 mg PO TID 30 Days 06/18/16 Review of Systems - Review of Systems Able to Perform ROS?: No Comments:: 06/21/16 18:57 Unable to obtain ROS secondary to patient's clinical condition. <Nav Ayala - Last Filed: 06/21/16 18:57> *Physical Exam - Vital Signs Last Vital Signs Temp Pulse Resp BP Pulse Ox 101.4 F H 131 H 18 133/74 100 06/21/16 17:24 06/21/16 17:24 06/21/16 17:24 06/21/16 17:24 06/21/16 17:24 - Physical Exam Comments: 06/21/16 18:57 GENERAL: The patient is awake, otherwise nonresponsive HEAD: Normocephalic, atraumatic. EYES: gazing straight ahead ENT: Moist mucous membranes. NECK: Normal range of motion, supple LUNGS: Breath sounds equal, clear to auscultation bilaterally. No wheezes, no rhonchi, no rales. HEART: tachycardic ABDOMEN: Soft, nontender, normoactive bowel sounds. EXTREMITIES: +cogwheel regidity of RUE NEUROLOGICAL: No facial assymetry, limited exam PSYCH:unable to asesss SKIN: hot to touch, 2nd degree sacral deciubitus ulcer approx 4x3cm <Nav Ayala - Last Filed: 06/21/16 18:57> Heart Score/ECG Review - ECG Impressions Comment:: 06/21/16 20:06 Twelve-lead EKG was performed and reviewed by me. There is normal sinus rhythm with a rate of [address] changes suggestive of acute ischemia Sinus tachycardia <Miguel Moreira - Last Filed: 06/21/16 20:12> ED Treatment Course - LABORATORY CBC & Chemistry Diagram: 06/21/16 18:00 06/21/16 18:00 - ADDITIONAL ORDERS Additional order review: 06/21/16 18:00 RBC 3.96 MCV 84.0 MCHC 31.9 L RDW 14.9 MPV 7.8 Neutrophils % 80.6 Lymphocytes % 11.3 Monocytes % 7.6 Eosinophils % 0.1 Basophils % 0.4 - Medications Given in the ED: ED Medications Discontinued Medications Generic Name Dose Route Start Last Admin Trade Name Freq PRN Reason Stop Dose Admin Sodium Chloride 1,000 mls @ 1,000 mls/hr 06/21/16 17:28 06/21/16 17:59 Normal Saline - IV 06/21/16 18:27 1,000 mls/hr ASDIR STA Administration <Nav Ayala - Last Filed: 06/21/16 18:57> - LABORATORY CBC & Chemistry Diagram: 06/21/16 18:00 06/21/16 18:00 - RADIOLOGY Radiology Studies Ordered: Category Date Time Status HEAD CT WITHOUT CONTRAST [CT] Stat CT Scan 06/21/16 17:27 Ordered CHEST X-RAY PORTABLE* [RAD] Stat Radiology 06/21/16 17:28 Ordered <Miguel Moreira - Last Filed: 06/21/16 20:12> Medical Decision Making - Medical Decision Making 06/21/16 19:36 86y F hx of multiple cvas presents with witnessed siezure and AMS since today. pt normally able to nod/shake head and can grunt out some answers, but since awakening today has been unable to. The pts exam here is limited as she is just staring off and not responding to verbal stimulus, she will winse to pain and withdraw slightly on LLE. pts ct shows evolving MCA infarct pt also notd to have fever here - ua suggestive of UTI pt given zosyn case dw dr. castorena who formerly admitted for [facility], but states he would like the admission to go to the hospoitalist will also notify dr. sinclair regarding infarct the pt is not a TPA cndidate as her symptoms started upon wakening this morning. ASA not given due to the patients aspirin allergy unable to perform NIHSS due to the pts limited mental status and bility to follow instructions A portion of this note was documented by scribe services under my direction. I have reviewed the details of the note, within reason, and agree with the documentation with the following case summary and management plan written by me CRITICAL CARE DOCUMENTATION: I spent ~35 minutes of Critical Care time, excluding separately billable procedures, involving high complexity decision making to assess, manipulate and support vital system function(s) to treat single or multiple vital organ system failure and/or to prevent further life threatening deterioration of the patient' s condition. 06/21/16 20:[address] siddiqi agreed with admission Case discussed in detail with admitting physician including history, physical exam and ancillary studies. Admitting physician has assumed care for the patient, will follow all pending diagnostics and will complete the evaluation and treatment. <Miguel Moreira - Last Filed: 06/21/16 20:12> *DC/Admit/Observation/Transfer - Attestations Scribe Attestion: 06/21/16 18:58 Documentation prepared by Nav Ayala, acting as medical coding specialist for Miguel Moreira MD <Nav Ayala - Last Filed: 06/21/16 18:57> - Discharge Dispostion Admit: Yes <Miguel Moreira - Last Filed: 06/21/16 20:12> Diagnosis at time of Disposition: UTI (urinary tract infection) Qualifiers: Urinary tract infection type: site unspecified Hematuria presence: with hematuria Qualified Code(s): N39.0 - Urinary tract infection, site not specified CVA (cerebral vascular accident) Qualifiers: CVA mechanism: unspecified Qualified Code(s): I63.9 - Cerebral infarction, unspecified Sepsis Qualifiers: Sepsis type: sepsis due to unspecified organism Qualified Code(s): A41.9 - Sepsis, unspecified organism - Discharge Dispostion Condition at time of disposition: Guarded - Referrals Referrals: Maykel Coronado [Primary Care Provider] -
[2016-06-21 18:00] VITALS: BMI 29.2
[2016-06-21] MEDS ORDERED: ACETAMINOPHEN 1000 MG/100 ML VIAL (NON FORMULARY) IVPB ONE (18:47)
[2016-06-21 18:53] LABS: BASOPHIL 0.4 % (0-2.0); EOSINOPHIL 0.1 % (0-4.5); MCH 26.8 pg (25.7-33.7); MCHC 31.9 g/dl (32.0-36.0); MEAN PLT VOLUME 7.8 fl (7.5-11.1); NEUTROPHILS 80.6 % (42.8-82.8); PLATELET COUNT 449 K/MM3 (134-434); RDW 14.9 % (11.6-15.6); WHITE BLOOD COUNT 14.3 K/mm3 (4.0-10.0)
[2016-06-21] MEDS ORDERED: ACETAMINOPHEN INJECTION 100 ML IVPB ONE (19:06)
[2016-06-21 19:07] LABS: URINE APPEARANCE CLOUDY; URINE BILIRUBIN NEGATIVE (NEGATIVE); URINE COLOR YELLOW; URINE GLUCOSE (UA) NEGATIVE (NEGATIVE); URINE KETONE NEGATIVE (NEGATIVE); URINE NITRITE NEGATIVE (NEGATIVE); URINE UROBILINOGEN NEGATIVE E.U./dl (0.2-1.0)
[2016-06-21 19:08] LABS: VENOUS PH 7.42 (7.32-7.42)
[2016-06-21 19:09] LABS: VENOUS BLOOD GAS HCO3 25.3 meq/L (19-25)
[2016-06-21 19:11] LABS: INR 1.14 (0.82-1.09); PROTHROMBIN TIME (PATIENT) 12.6 SEC (9.98-11.88)
[2016-06-21 19:12] LABS: URINE BLOOD 1+ (NEGATIVE); URINE LEUK ESTERASE 3+ (NEGATIVE); URINE PROTEIN 1+ (NEGATIVE)
[2016-06-21 19:14] LABS: ACTIVATED PTT 27.1 SECONDS (26.9-34.4)
[2016-06-21 19:14] LABS: URINE RBC 16 /hpf (0-3); URINE WBC 278 /hpf (3-5); YEAST FEW
[2016-06-21] MEDS ORDERED: PIPERACILLIN/TAZOB 4.5 GM/100 ML PRE-DOCKED IVPB ONE (19:17)
[2016-06-21] MEDS ORDERED: PIPERACILLIN/TAZOB 4.5 GM 100 ML IVPB ONE (19:26)
[2016-06-21 19:37] LABS: ALBUMIN 2.2 g/dl (3.4-5.0); ANION GAP 9 (8-16); BILIRUBIN,TOTAL 0.3 mg/dL (0.2-1.0); CALCIUM 8.6 mg/dL (8.5-10.1); CO2 28 mmol/L (21-32); CREATININE 0.8 mg/dL (0.55-1.02); GLUCOSE,RANDOM 105 mg/dL (74-106); SGOT/AST 29 U/L (15-37); SGPT/ALT 28 U/L (12-78); TOT PROT 7.1 g/dl (6.4-8.2)
[2016-06-21 19:40] LABS: ALK PHOS 200 U/L (45-117); TROPONIN I < 0.02 ng/ml (0.00-0.05)
--- NOTE | 2016-06-21 20:12 | PN ---
<Syeda Tate - Last Filed: 06/21/16 20:12> Teaching Attending Note Name of Resident: Filipe Rico <Kevon De Leon - Last Filed: 06/21/16 22:09> Teaching Attending Note ATTENDING PHYSICIAN STATEMENT I saw and evaluated the patient. I reviewed the resident's note and discussed the case with the resident. I agree with the resident's findings and plan as documented. SUBJECTIVE: The patient is a 86 year old female who presented to the ED, via EMS, s/p altered mental status. 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 Patient was discharged from the hospital and admitted to [facility]. Patient stayed in [facility] for 4 days and was admitted back to the hospital secondary to having a seizure. Family stated patient has difficulty moving her left side after the seizure. Patient was released from the hospital 4 days ago and discharged home. As per family, the patient is currently being treated for a sacral ulcer with discharge that she developed after being released from [facility]. Daughter noted the patient was at her mental baseline yesterday and was able to respond to questions (limited, can grunt, and open her eyes, nod her head). As per daughter, the patient had a fever this morning and had altered mental status. Family stated the patient is not responding and is looking off into the distance. Family stated that, around 1 pm earlier today the patient had a witnessed seizure with shaking of her RUE. Past Medical History: Epilepsy (not on any medications) hypothyroidism, hypocholesterolemia, and CVA (April 2016) OBJECTIVE: Vital Signs: Last Vital Signs Temp Pulse Resp BP Pulse Ox 101.4 F H 120 H 20 139/67 96 06/21/16 17:24 06/21/16 19:21 06/21/16 19:21 06/21/16 19:21 06/21/16 19:21 Physical Exam: GENERAL: Awake, (+) Non-verbal, minimal response to verbal commands , in no acute distress HEENT: (+) Tongue fasciculations. Pupils reactive, not following lights. Atraumatic. EOMI. Moist mucosa. No JVD LUNGS: No distress, speaks full sentences, clear to auscultation bilaterally HEART: Regular rate and rhythm, normal S1 and S2, no murmurs, rubs or gallops, peripheral pulses normal and equal bilaterally. ABDOMEN: Soft, nontender, normoactive bowel sounds. No guarding, no rebound. No masses BACK: (+) Sacral decubitus Ulcer 2cm x 3cm EXTREMITIES: (+) Left sided hemiplegia, Right side strength 3/5 . Normal inspection, Normal range of motion, no edema. No clubbing or cyanosis. NEUROLOGICAL: Cranial nerves II through XII grossly intact. Normal speech, normal gait, no focal sensorimotor deficits SKIN: Warm, Dry, normal turgor, no rashes or lesions noted. Labs: CBCD WBC 14.3 K/mm3 (4.0-10.0) H 06/21/16 18:00 RBC 3.96 M/mm3 (3.60-5.2) 06/21/16 18:00 Hgb 10.6 GM/dL (10.7-15.3) L 06/21/16 18:00 Hct 33.3 % (32.4-45.2) 06/21/16 18:00 MCV 84.0 fl (80-96) 06/21/16 18:00 MCHC 31.9 g/dl (32.0-36.0) L 06/21/16 18:00 RDW 14.9 % (11.6-15.6) 06/21/16 18:00 Plt Count 449 K/MM3 (134-434) H 06/21/16 18:00 MPV 7.8 fl (7.5-11.1) 06/21/16 18:00 CMP Sodium 141 mmol/L (136-145) 06/21/16 18:00 Potassium 4.7 mmol/L (3.5-5.1) 06/21/16 18:00 Chloride 104 mmol/L (98-107) 06/21/16 18:00 Carbon Dioxide 28 mmol/L (21-32) 06/21/16 18:00 Anion Gap 9 (8-16) 06/21/16 18:00 BUN 36 mg/dL (7-18) H 06/21/16 18:00 Creatinine 0.8 mg/dL (0.55-1.02) 06/21/16 18:00 Creat Clearance w eGFR > 60 (>60) 06/21/16 18:00 Calcium 8.6 mg/dL (8.5-10.1) 06/21/16 18:00 Total Bilirubin 0.3 mg/dL (0.2-1.0) 06/21/16 18:00 AST 29 U/L (15-37) 06/21/16 18:00 ALT 28 U/L (12-78) 06/21/16 18:00 Alkaline Phosphatase 200 U/L (45-117) H 06/21/16 18:00 Total Protein 7.1 g/dl (6.4-8.2) 06/21/16 18:00 Albumin 2.2 g/dl (3.4-5.0) L 06/21/16 18:00 Imagin. CXR Discussion: Since 06/02/2016, the cardiac silhouette remains within normal limits in size with mild unfolding of the aortic arch. There are mild perihilar increased lung markings. Mediastinum and visualized osseous structures appear intact with moderate dextroscoliosis of the thoracic spine and degenerative changes Impression: No significant interval change or acute cardiopulmonary disease is present. Interpreted and reviewed by radiologist Dr. Satinder Giles MD. 2. Head CT without contrast Discussion: Since 06/02/2016, there remains moderate atrophy, ventricular dilatation and chronic microvascular ischemic changes. Lucency again seen in the right frontal lobe, anteriorly as well as in the right basal ganglia consistent with evolving of previously described large acute/subacute infarct on prior MRI of the brain dated 05/11/2016. No mass lesion or intracranial hemorrhage is identified. The calvarium is intact. Partial opacification of the sphenoid sinus, posteriorly and minimal mucosal thickening in the ethmoid air cells. Partial opacification of the right mastoid air cells. Impression: Evolving right middle cerebral artery territory acute/subacute infarct involving the right basal ganglia. No mass lesion or intracranial hemorrhage is seen. Interpreted and reviewed by radiologist Dr. Satinder Giles MD. ASSESSMENT AND PLAN: CVA -IVF -Neuro Consult Dr. Marrero -Antibiotics -Stroke work up -Speech and swallow -PT consult and social work for placement -Advance directive discussed with family -No repeat Echo or Carotid as patient recently had studies done on prior admission Sepsis secondary to UTI -Ceftriaxone -Follow urine culture -Repeat CBC and CMP in AM HTN -Hold antihypertensives and contact physician if BP >180 systolic and >90 diastolic Hypothyroid -Continue home medications Admit to telemetry. Documentation prepared by Kevon Artuso, acting as medical planner for Dr. Syeda Tate MD.
--- NOTE | 2016-06-21 20:20 | HP ---
CHIEF COMPLAINT: Altered Mental Status. PCP: Dr. Coronado HISTORY OF PRESENT ILLNESS: 86 yo F with sign. PMHx of of CVA (1 month ago), seizures and HLD who presents to the ED, via EMS, s/p altered mental status. The patient had a CVA one month ago with residual left sided weakness, discharged to [facility]. After 4 days at SNF readmitted for new seizure activity. 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 Patient for discharged home from [facility] 4 days ago. As per family, the patient is currently being treated for a sacral ulcer with discharge that she developed after being released from [facility]. Daughter notes mental status change as patient was not responding to questioning, refusing to eat and blank stare. 101 fever today. Also of note daughter mentions new RLE tremor. ER course was notable for: (1)CT head shows evolving MCA infarct. (2)Not candidate for TPA (3)UA suggestive of UTI- cultures pending Recent Travel:Denies PAST MEDICAL HISTORY:CVA (1 month ago), seizures and HLD , h/o rheumatic fever as child PAST SURGICAL HISTORY: tubal ligation, tonsilectomy Social History: Smoking:Denies Alcohol:NO Drugs: NO Family History: Allergies aspirin Allergy (Unknown, Verified 05/10/16 07:41) iodine Allergy (Unknown, Verified 05/10/16 07:41) HOME MEDICATIONS: Home Medications Medication Instructions Recorded Levothyroxine [Synthroid -] 75 mcg PO DAILY 05/10/16 Polyvinyl Alcohol [Artificial 1 drop OU BID PRN #0 drops 05/17/16 Tears] Lactobacillus Acidophilus [Bacid -] 1 tab PO DAILY tab 05/27/16 Ursodiol [Actigal -] 300 mg PO BID capsule 05/27/16 Amlodipine Besylate [Norvasc -] 10 mg PO DAILY 06/02/16 Docusate Sodium [Colace -] 100 mg PO BID PRN #0 capsule 06/07/16 Acetaminophen Suppository [Tylenol 650 mg [place] Q6H PRN #60 supp.rect 06/18/16 .Suppository -] Bacitracin - [Bacitracin Topical 1 applic TP BID #90 tube 06/18/16 Ointment -] Clopidogrel Bisulfate [Plavix -] 75 mg PO DAILY #30 tablet 06/18/16 Levetiracetam [Keppra -] 250 mg PO BID #60 tablet 06/18/16 Phenazopyridine HCl [Pyridium -] 100 mg PO TID 30 Days 06/18/16 REVIEW OF SYSTEMS: difficult as patient is non-verbal but can nod head in response to questioning. CONSTITUTIONAL: (+) loss of appetite, Absent: fever, chills, diaphoresis, generalized weakness, malaise, weight change HEENT: Absent: rhinorrhea, nasal congestion, throat pain, throat swelling, difficulty swallowing, mouth swelling, ear pain, eye pain, visual changes CARDIOVASCULAR: Absent: chest pain, syncope, palpitations, irregular heart rate, lightheadedness , peripheral edema RESPIRATORY: Absent: cough, shortness of breath, dyspnea with exertion, orthopnea, wheezing, stridor, hemoptysis GASTROINTESTINAL: Absent: abdominal pain, abdominal distension, nausea, vomiting, diarrhea, constipation, melena, hematochezia GENITOURINARY: Absent: dysuria, frequency, urgency, hesitancy, hematuria, flank pain, genital pain MUSCULOSKELETAL: Absent: myalgia, arthralgia, joint swelling, back pain, neck pain SKIN: Absent: rash, itching, pallor HEMATOLOGIC/IMMUNOLOGIC: Absent: easy bleeding, easy bruising, lymphadenopathy, frequent infections ENDOCRINE: Absent: unexplained weight gain, unexplained weight loss, heat intolerance, cold intolerance NEUROLOGIC: (+)focal weakness or paresthesias,mental status changes,seizure? Absent: headache, dizziness, unsteady gait, , , bladder or bowel incontinence PSYCHIATRIC: Absent: anxiety, depression, suicidal or homicidal ideation, hallucinations. PHYSICAL EXAMINATION Vital Signs - 24 hr 06/21/16 06/21/16 06/21/16 17:24 19:08 19:21 Temperature 101.4 F H Pulse Rate 131 H Pulse Rate [ 121 H 120 H Right] Respiratory 18 20 20 Rate Blood Pressure 133/74 Blood Pressure 139/67 [Right] O2 Sat by Pulse 100 96 Oximetry (%) GENERAL: Awake, minimally responsive, in no acute distress. HEAD: Normal with no signs of trauma. EYES: Pupils equal, round and reactive to light, sclera anicteric, conjunctiva clear EARS, NOSE, THROAT: Ears normal, nares patent, oropharynx clear without exudates. tongue fasciculation. DRY mucous membranes. NECK: Normal range of motion, supple without lymphadenopathy, JVD, or masses. LUNGS: Breath sounds equal, clear to auscultation bilaterally. No wheezes, and no crackles. No accessory muscle use. HEART: Regular rate and rhythm, normal S1 and S2 without murmur, rub or gallop. ABDOMEN: Soft, nontender, not distended, normoactive bowel sounds, no guarding, no rebound, no masses. No hepatomegaly or splenomegaly. MUSCULOSKELETAL:3/5 strength of RUE and 2/5 RLE. 0/5 AMPARO/LLE;Left sided hemiplegia UPPER EXTREMITIES: 2+ pulses, warm, well-perfused. No cyanosis. No clubbing. No peripheral edema. LOWER EXTREMITIES: 1+ pulses, warm, . No calf tenderness. No peripheral edema. NEUROLOGICAL: non-verbal, follows simple commmands. gait not observed. PSYCHIATRIC: Flat mood and affect. SKIN: Warm, dry, normal turgor, 2x3cm sacral ulcer Laboratory Results - last 24 hr 06/21/16 06/21/16 06/21/16 18:00 18:00 18:00 WBC 14.3 H RBC 3.96 Hgb 10.6 L Hct 33.3 MCV 84.0 MCHC 31.9 L RDW 14.9 Plt Count 449 H MPV 7.8 Neutrophils % 80.6 Lymphocytes % 11.3 Monocytes % 7.6 Eosinophils % 0.1 Basophils % 0.4 INR 1.14 PTT (Actin FS) 27.1 VBG pH POC VBG pCO2 POC VBG pO2 Mixed VBG HCO3 Sodium 141 Potassium 4.7 Chloride 104 Carbon Dioxide 28 Anion Gap 9 BUN 36 H Creatinine 0.8 Creat Clearance w eGFR > 60 Random Glucose 105 Lactic Acid Calcium 8.6 Total Bilirubin 0.3 AST 29 ALT 28 Alkaline Phosphatase 200 H Creatine Kinase 79 Troponin I < 0.02 Total Protein 7.1 Albumin 2.2 L Urine Color Urine Appearance Urine pH Ur Specific [place] Urine Protein Urine Glucose (UA) Urine Ketones Urine Blood Urine Nitrite Urine Bilirubin Urine Urobilinogen Ur Leukocyte Esterase Urine RBC Urine WBC Urine Yeast Blood Type Antibody Screen 06/21/16 06/21/16 06/21/16 18:00 18:00 18:40 WBC RBC Hgb Hct MCV MCHC RDW Plt Count MPV Neutrophils % Lymphocytes % Monocytes % Eosinophils % Basophils % INR PTT (Actin FS) VBG pH POC VBG pCO2 POC VBG pO2 Mixed VBG HCO3 Sodium Potassium Chloride Carbon Dioxide Anion Gap BUN Creatinine Creat Clearance w eGFR Random Glucose Lactic Acid 1.410 Calcium Total Bilirubin AST ALT Alkaline Phosphatase Creatine Kinase Troponin I Total Protein Albumin Urine Color Yellow Urine Appearance Cloudy Urine pH 7.0 D Ur Specific [place] 1.014 Urine Protein 1+ H Urine Glucose (UA) Negative Urine Ketones Negative Urine Blood 1+ H Urine Nitrite Negative Urine Bilirubin Negative Urine Urobilinogen Negative Ur Leukocyte Esterase 3+ H Urine RBC 16 Urine WBC 278 Urine Yeast Few Blood Type A NEGATIVE Antibody Screen Negative 06/21/16 19:00 WBC RBC Hgb Hct MCV MCHC RDW Plt Count MPV Neutrophils % Lymphocytes % Monocytes % Eosinophils % Basophils % INR PTT (Actin FS) VBG pH 7.42 POC VBG pCO2 39.4 D POC VBG pO2 40.3 Mixed VBG HCO3 25.3 H Sodium Potassium Chloride Carbon Dioxide Anion Gap BUN Creatinine Creat Clearance w eGFR Random Glucose Lactic Acid Calcium Total Bilirubin AST ALT Alkaline Phosphatase Creatine Kinase Troponin I Total Protein Albumin Urine Color Urine Appearance Urine pH Ur Specific [place] Urine Protein Urine Glucose (UA) Urine Ketones Urine Blood Urine Nitrite Urine Bilirubin Urine Urobilinogen Ur Leukocyte Esterase Urine RBC Urine WBC Urine Yeast Blood Type Antibody Screen ASSESSMENT/PLAN: 86 yo F with sign. PMHx of of CVA (1 month ago), seizures and HLD admitted to telemetry for CVA and sepsis 2/2 UTI. Problem List - Problem (1) CVA (cerebral vascular accident) Assessment/Plan: * CT in ED shows evoloving MCA infarct. * Neuro consult Dr. Marrero. * Continue AC with Clopidogrel 75mg PO daily; not on ASA due to allergy but consider Aggrenox. * Neuro checks Q4h * Orthostatics Q12H * admitted to tele. * Echo last admission shows Normal LV size and systolic function. Impaired LV relaxation. Mild TR. NO vegetations or LA thrombus. * repeat CT head in AM (2) Sepsis Assessment/Plan: * UA shows suspected UTI * CXR unchanged from prior admission * UC and BC pending. * Given Zosyn x1 in ED * Dr. Mccollum consulted * repeat CBC in AM (3) UTI (urinary tract infection) Assessment/Plan: * Zosyn x1 * consulted ID. * UC pending. (4) HTN (hypertension) Assessment/Plan: * continue Amlodipine Besylate (Norvasc -) 10 mg PO DAILY * seen by Dr. Ring last admission * recommends addition of Metoprolol if HTN uncontrolled. * Echo last admission. (5) Hypothyroid Assessment/Plan: * continue synthroid 75mcg po daily (6) H/O partial seizures Assessment/Plan: * continue Keppra 250mg PO BID (7) Sacral decubitus ulcer Assessment/Plan: * daily wound care * turn patient Q2h. Visit type - Emergency Visit Emergency Visit: Yes ED Registration Date: 06/21/16 Care time: The patient presented to the Emergency Department on the above date and was hospitalized for further evaluation of their emergent condition. - New Patient This patient is new to me today: Yes Date on this admission: 06/22/16 - Critical Care Critical Care patient: No
[2016-06-21] MEDS ORDERED: DOCUSATE SODIUM 100 MG CAPSULE (FP) PO PRN (21:10)
[2016-06-21] MEDS ORDERED: ARTIFICIAL TEARS (POLYVINYL ALCOHOL 1.4%) OPTH DROPS OU PRN (21:10)
[2016-06-21] MEDS ORDERED: ACETAMINOPHEN 650 MG SUPP.RECT RC PRN (21:10)
[2016-06-21] MEDS ORDERED: morphine CARPU-JECT 2 MG/1 ML DISP.SYRIN IVPUSH PRN (21:12)
[2016-06-21] MEDS: SODIUM CHLORIDE 1,000 ML IV SCH (22:08)
[2016-06-21] MEDS: BACITRACIN 30 GM TUBE TOPICAL OINTMENT TP SCH (23:41)
[2016-06-21] MEDS: HEPARIN NA (PORCINE) 5,000 UNITS/ML 1ML VIAL SQ SCH (23:41)
[2016-06-21] MEDS: levETIRAcetam 250 MG TABLET (FP) PO SCH (23:41)
[2016-06-21] MEDS: URSODIOL 300 MG CAPSULE PO SCH (23:42)
[2016-06-22] MEDS ORDERED: PT OWN MED DRAWER 7, Y5N ONE ×2 (00:09→20:33)
[2016-06-22] MEDS: LEVOTHYROXINE NA 75 MCG TABLET (FP) PO SCH ×2 (06:20→06:27)
[2016-06-22 06:59] LABS: BASOPHIL 0.6 % (0-2.0); EOSINOPHIL 0.2 % (0-4.5); MCH 27.4 pg (25.7-33.7); MCHC 32.6 g/dl (32.0-36.0); MEAN CELL VOLUME 83.9 fl (80-96); MEAN PLT VOLUME 7.8 fl (7.5-11.1); NEUTROPHILS 76.3 % (42.8-82.8); PLATELET COUNT 341 K/MM3 (134-434); RDW 14.5 % (11.6-15.6); WHITE BLOOD COUNT 12.3 K/mm3 (4.0-10.0)
[2016-06-22 07:37] LABS: ALBUMIN 1.9 g/dl (3.4-5.0); ANION GAP 10 (8-16); BILIRUBIN,TOTAL 0.2 mg/dL (0.2-1.0); CALCIUM 7.9 mg/dL (8.5-10.1); CO2 25 mmol/L (21-32); CREATININE 0.6 mg/dL (0.55-1.02); GLUCOSE,RANDOM 96 mg/dL (74-106); MAGNESIUM 2.1 mg/dL (1.8-2.4); PHOSPHOROUS 2.7 mg/dL (2.5-4.9); SGOT/AST 23 U/L (15-37); SGPT/ALT 22 U/L (12-78); TOT PROT 6.1 g/dl (6.4-8.2)
[2016-06-22 08:02] LABS: ALK PHOS 167 U/L (45-117); TROPONIN I < 0.02 ng/ml (0.00-0.05)
[2016-06-22 08:52] LABS: ARTERIAL BLD GAS O2 SATURATION 99.2 % (90-98.9); ARTERIAL BLOOD GAS BASE EXCESS 0.6 meq/l (-2-2); ARTERIAL BLOOD GAS HCO3 23.6 meq/L (22-26); ARTERIAL BLOOD GAS pH 7.46 (7.35-7.45)
[2016-06-22 08:53] LABS: ALLENS TEST POSITIVE; ART PUNCT SITE RIGHT RADIAL; LPM/O2% 2L; PT. ON O2? YES; TYPE OF O2 N/C
[2016-06-22] MEDS: URSODIOL 300 MG CAPSULE PO SCH ×2 (10:04→21:29)
[2016-06-22] MEDS: LACTOBACILLUS ACIDOPHILUS 1 EACH TAB (FP) PO SCH (10:04)
[2016-06-22] MEDS: CLOPIDOGREL BISULFATE 75 MG TABLET (FP) PO SCH (10:04)
[2016-06-22] MEDS: amLODIPine BESYLATE 10 MG TABLET (FP) PO SCH (10:04)
[2016-06-22] MEDS: HEPARIN NA (PORCINE) 5,000 UNITS/ML 1ML VIAL SQ SCH ×2 (10:05→21:29)
[2016-06-22] MEDS: levETIRAcetam 250 MG TABLET (FP) PO SCH ×2 (10:05→21:29)
[2016-06-22] MEDS: BACITRACIN 30 GM TUBE TOPICAL OINTMENT TP SCH ×2 (10:15→21:31)
--- NOTE | 2016-06-22 10:25 | PN ---
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 (short form) - Note 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: ID Consult dictated 86 y/o female s/p recent stroke readmitted with altered mentation, fever + Pyuria UTI/ Possible sepsis secondary to UTI Possible stroke progression Possible FUO ( recent fever workup unrevealing) Check c/s , ESR/CRP Empiric zosyn
[2016-06-22] MEDS: PIPERACILLIN/TAZOB 3.375 GM 50 ML IVPB SCH ×2 (12:18→18:49)
[2016-06-22] MEDS ORDERED: VANCOMYCIN 1 GRAM (PRE-DOCKED) 1,000 MG/250 ML BAG IVPB ONE (16:15)
--- NOTE | 2016-06-22 16:56 | PN ---
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 (short form) - Note 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: currently asymptomatic. denies Cp, SOB,fever, chills, N/V/C/D Current Medications Generic Name Dose Route Start Last Admin Trade Name Freq PRN Reason Stop Dose Admin Acetaminophen 650 mg 06/21/16 21:10 06/22/16 13:54 Tylenol Suppository - RC 650 mg Q6H PRN Administration FEVER OR PAIN Amlodipine Besylate 10 mg 06/22/16 10:00 06/22/16 10:04 Norvasc - PO 10 mg DAILY ELENA Administration Artificial Tears 1 drop 06/21/16 21:10 Artificial Tears OU Q12H PRN DRY EYES Bacitracin 1 applic 06/21/16 22:00 06/22/16 10:15 Bacitracin - TP 1 applic BID ELENA Administration Clopidogrel Bisulfate 75 mg 06/22/16 10:00 06/22/16 10:04 Plavix - PO 75 mg DAILY ELENA Administration Docusate Sodium 100 mg 06/21/16 21:10 Colace - PO Q12H PRN CONSTIPATION Heparin Sodium (Porcine) 5,000 unit 06/21/16 22:00 06/22/16 10:05 Heparin - SQ 5,000 unit BID ELENA Administration Sodium Chloride 1,000 mls @ 42 mls/hr 06/21/16 21:15 06/21/16 22:08 Normal Saline - IV 42 mls/hr ASDIR ELENA Administration Piperacillin Sod/Tazobactam Sod 50 mls @ 100 mls/hr 06/22/16 11:45 06/22/16 12: 18 Zosyn 3.375gm Ivpb (Pre-Docked) IVPB 100 mls/hr Q8H-IV ELENA Administration Protocol Lactobacillus Acidophilus 1 tab 06/22/16 10:00 06/22/16 10:04 Bacid - PO 1 tab DAILY ELENA Administration Levetiracetam 250 mg 06/21/16 22:00 06/22/16 10:05 Keppra - PO 250 mg BID ELENA Administration Levothyroxine Sodium 75 mcg 06/22/16 07:00 06/22/16 06:27 Synthroid - PO Not Given DAILY@0700 ELENA Morphine Sulfate 1 mg 06/21/16 21:12 Morphine Injection - IVPUSH Q4H PRN PAIN Ursodiol 300 mg 06/21/16 22:00 06/22/16 10:04 Actigal - PO 300 mg BID ELENA Administration Last Vital Signs Temp Pulse Resp BP Pulse Ox 100.8 F H 100 H 18 113/58 100 06/22/16 15:00 06/22/16 15:00 06/22/16 15:00 06/22/16 15:00 06/22/16 10:00 General NAD A&o x1 (self) does nto follow commands CV S1 S2 tachycardic no murmur/rub/gallop Lungs CTA B/L no wheezing/rales/rhonchi Neuro unable to fully access, does not follow commands Skin stage III ulcer R buttock, good granulation tissue. CBCD WBC 12.3 K/mm3 (4.0-10.0) H 06/22/16 05:45 RBC 3.47 M/mm3 (3.60-5.2) L 06/22/16 05:45 Hgb 9.5 GM/dL (10.7-15.3) L D 06/22/16 05:45 Hct 29.1 % (32.4-45.2) L 06/22/16 05:45 MCV 83.9 fl (80-96) 06/22/16 05:45 MCHC 32.6 g/dl (32.0-36.0) 06/22/16 05:45 RDW 14.5 % (11.6-15.6) 06/22/16 05:45 Plt Count 341 K/MM3 (134-434) D 06/22/16 05:45 MPV 7.8 fl (7.5-11.1) 06/22/16 05:45 CMP Sodium 144 mmol/L (136-145) 06/22/16 05:45 Potassium 4.0 mmol/L (3.5-5.1) 06/22/16 05:45 Chloride 109 mmol/L (98-107) H 06/22/16 05:45 Carbon Dioxide 25 mmol/L (21-32) 06/22/16 05:45 Anion Gap 10 (8-16) 06/22/16 05:45 BUN 29 mg/dL (7-18) H 06/22/16 05:45 Creatinine 0.6 mg/dL (0.55-1.02) D 06/22/16 05:45 Creat Clearance w eGFR > 60 (>60) 06/22/16 05:45 Calcium 7.9 mg/dL (8.5-10.1) L 06/22/16 05:45 Total Bilirubin 0.2 mg/dL (0.2-1.0) D 06/22/16 05:45 AST 23 U/L (15-37) D 06/22/16 05:45 ALT 22 U/L (12-78) D 06/22/16 05:45 Alkaline Phosphatase 167 U/L (45-117) H 06/22/16 05:45 Total Protein 6.1 g/dl (6.4-8.2) L 06/22/16 05:45 Albumin 1.9 g/dl (3.4-5.0) L 06/22/16 05:45 Microbiology 06/21/16 18:00 Blood Culture - Preliminary Blood - Peripheral Venous Pending Organism A/P 86yo F with PMH seizure, hypothyroid with recent CVA with residual L sided weakness presented to the ER and was admited for further evaluation of their emergent condition 1. Acute metabolic encephalopathy- likely due to sepsis due to UTI and possible bacteremia. Bcx showing GPC in clusters. will give vanco 1g x1. started on zosyn in the ER. cont IVF as remains tachycardic. await final c&s. ID on board. cardiac markers neg x2. 2. CVA- CT head on presentation showing possible evolving CVA. repeat done today and awaiting official read. started on plavix last admission for secondary prevention. lipid panel done last month noted. echo last month noted. not tolerant of statin due to transaminitis and now held. no events on dealmaker. neuro called back to re-evaluate 3. Seizures- no seizure like activity noted. on keppra 4. Hypothyroid- TSH last month WNL. cont LT4 5. HTN- controlled. cont norvasc. 6. sacral ulcer- frequent turning. wound care 7. DVT ppx- SCD 8. case d/w family present at bedside. states that her normal mental status is that she recognizes family and responds to simple questioning. she can not follow commands and has been bedbound since the previous CVA. answered all questions. verbalized understanding Visit type - Emergency Visit Emergency Visit: Yes ED Registration Date: 06/21/16 Care time: The patient presented to the Emergency Department on the above date and was hospitalized for further evaluation of their emergent condition. - New Patient This patient is new to me today: Yes Date on this admission: 06/22/16 - Critical Care Critical Care patient: No - Discharge Referral Referred to [facility] Med P.C.: No
--- NOTE | 2016-06-22 19:20 | CONS ---
INFECTIOUS DISEASE CONSULTATION DATE OF CONSULTATION: DATE OF DICTATION: 06/22/2016 HISTORY OF PRESENT ILLNESS: Patient is an 86-year-old female evaluated for fever. History was obtained from the chart as she cannot give a history secondary to her mental status. The patient recently suffered a stroke and was hospitalized at [facility]. She was discharged to a skilled nursing; however, required re-admission after seizure activity. Patient was discharged on June 18, 2016 after a 2-week hospitalization. At home, patient was awake, responsive and conversant, but dysarthric. She developed an acute mental status change with decreased responsiveness and nonverbal state. Patient's family reports that she had a blank stare on her face. She was also noted to have fever. She was taken to the emergency room where a CAT scan of the head showed an evolving right CVA. She was also noted to have pyuria. Her course has been complicated by fever to 101.4. She is not responsive and unable to give any additional details. No reports of shaking chills, labored breathing, cough, sputum production, vomiting, diarrhea. She does have a sacral decubitus ulcer. Of note, the patient's recent hospital course was complicated by fever for which she underwent a fever workup, which was unrevealing. CAT scans of the chest, abdomen and pelvis were negative. She was noted to have an elevated sedimentation rate and C-reactive protein, and the possibility of a connective tissue disorder was entertained. PAST MEDICAL HISTORY: Positive for: 1. Stroke. 2. Seizure disorder. 3. Hypothyroidism. 4. Hyperlipidemia. ALLERGIES: 1. ASPIRIN 2. IODINE MEDICATIONS: 1. Tylenol. 2. Heparin. 3. Keppra. 4. Bacid. 5. Colace. 6. Actigall. 7. Norvasc. 8. Plavix. 9. Synthroid. SOCIAL HISTORY: She has had several recent hospitalizations. Has been in a skilled nursing and most recently at home. No active tobacco or alcohol use. SYSTEMS REVIEW: Neurologic: Positive for stroke and seizures. Cardiac: Negative chest pain and palpitations. Respiratory: Negative cough or sputum production. Gastrointestinal: Negative vomiting or diarrhea. Genitourinary: Positive for urinary tract infection. LABORATORY DATA: White count 14.3, hematocrit 29.1, platelet count 341, BUN 29, creatinine 0.6. Urinalysis: 278 white cells. RADIOGRAPHIC FINDINGS: Chest x-ray is rotated. No focal infiltrate noted. PHYSICAL EXAMINATION: General: She is not verbally responsive, is poorly responsive to noxious stimulus. Vital signs: Temperature 98.1, blood pressure 101/53, pulse 113, respirations 18 per minute. T-max 101.4. Neck: Neck is supple. Heart: Heart sounds S1, S2. Lungs: Diminished breath sounds bilaterally. Abdomen: Soft. No tenderness elicited. No mass, rebound or rigidity. Extremities: Positive for edema, positive sacral decubitus ulcer. IMPRESSION: An 86-year-old female status post recent stroke, re-admitted with altered mental status and fever. 1. Urinary tract infection/possible sepsis secondary to urinary tract infection. 2. Possible stroke progression. 3. Possible fever of unknown origin (recent fever workup unrevealing). RECOMMENDATIONS: 1. Will await blood and urine culture results 2. Obtain followup sedimentation rate, C-reactive protein. 3. Empiric antibiotic coverage with Zosyn 3.375 g IV piggyback every 8 hours. 4. Aspiration precautions. 5. Neurology followup. 6. Will follow. Thank you for the kind referral. DEMETRIUS BOWERS M.D. [id number]
--- NOTE | 2016-06-22 20:23 | CONSULT ---
Consult - text type - Consultation Consultation Note: NEUROLOGY CONSULTATION is greatly appreciated: This 86 yo RH woman with multiple medical problems is know to me from 2 recent [facility] admission in the last few months. 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 Readmitted from [place] with new onset of seizures, apparently well-controlled on levetiracetam 250 q 12 hrs. Returned to [place] 4 or 5 days ago but now returned with depressed level of consciousness, fever, leukocytosis and UTI (WBC >270). Tolerating pureed foods without difficulty. CT of head x 2 (both reviewed): Moderate, diffuse atrophy with well-demarcated R frontoparietal infarct. No change between the 2 studies. MANISH: Thin. Neck supple. No bruits. Cor Reg. Sacral decubitus. In diaper. Neuro: Lethargic but arousable. No speech. Follows no commands. R conjugate gaze deviation. Left field cut to threat (blinks quickly on right threat). Mild left facial Left flaccid hemiplegia. Withdraws right arm and leg to pinch. Extrapyramidal rest tremor Right foot. Depressed reflexes. Left Babinski. IMP: Severe Right cerebral dysfunction due to Right MCA-territory infarct. 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 Subacute worsening due to toxic-metabolic features (UTI). No suggestion of new or "progressing" CVA SUGGEST: Continue antibiotics and hydration. Wound care consult. Continue levetiracetam 250 mg BID (can use elixor). Thank you very much, Car Marrero MD
--- NOTE | 2016-06-22 21:06 | EKG ---
Test Reason : Blood Pressure : / mmHG Vent. Rate : 126 BPM Atrial Rate : 126 BPM P-R Int : 128 ms QRS Dur : 074 ms QT Int : 310 ms P-R-T Axes : 037 -28 046 degrees QTc Int : 448 ms POOR DATA QUALITY, INTERPRETATION MAY BE ADVERSELY AFFECTED SINUS TACHYCARDIA MODERATE VOLTAGE CRITERIA FOR LVH, MAY BE NORMAL VARIANT BORDERLINE ECG WHEN COMPARED WITH ECG OF 10-JUN-2016 12:39, NO SIGNIFICANT CHANGE WAS FOUND Confirmed by ELVA WEBBER MD ([id number]) on 06/22/2016 9:05:48 PM Referred By: Confirmed By:ELVA WEBBER MD
[2016-06-22] MEDS: SODIUM CHLORIDE 1,000 ML IV SCH (21:28)
[2016-06-23] MEDS: PIPERACILLIN/TAZOB 3.375 GM 50 ML IVPB SCH ×3 (01:08→18:15)
[2016-06-23] MEDS: LEVOTHYROXINE NA 75 MCG TABLET (FP) PO SCH (06:31)
[2016-06-23] MEDS ORDERED: PT OWN MED DRAWER 7, Y5N ONE ×3 (08:38→21:26)
[2016-06-23 09:22] LABS: BASOPHIL 0.8 % (0-2.0); EOSINOPHIL 0.7 % (0-4.5); MCH 27.5 pg (25.7-33.7); MCHC 32.6 g/dl (32.0-36.0); MEAN CELL VOLUME 84.4 fl (80-96); MEAN PLT VOLUME 7.9 fl (7.5-11.1); NEUTROPHILS 72.6 % (42.8-82.8); PLATELET COUNT 366 K/MM3 (134-434); RDW 14.4 % (11.6-15.6); WHITE BLOOD COUNT 9.5 K/mm3 (4.0-10.0)
--- NOTE | 2016-06-23 09:51 | PN ---
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 (short form) - Note 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: currently asymptomatic. denies Cp, SOB,fever, chills, N/V/C/D Current Medications Generic Name Dose Route Start Last Admin Trade Name Freq PRN Reason Stop Dose Admin Acetaminophen 650 mg 06/21/16 21:10 06/22/16 13:54 Tylenol Suppository - RC 650 mg Q6H PRN Administration FEVER OR PAIN Amlodipine Besylate 10 mg 06/22/16 10:00 06/22/16 10:04 Norvasc - PO 10 mg DAILY ELENA Administration Artificial Tears 1 drop 06/21/16 21:10 Artificial Tears OU Q12H PRN DRY EYES Bacitracin 1 applic 06/21/16 22:00 06/22/16 21:31 Bacitracin - TP 1 applic BID ELENA Administration Clopidogrel Bisulfate 75 mg 06/22/16 10:00 06/22/16 10:04 Plavix - PO 75 mg DAILY ELENA Administration Docusate Sodium 100 mg 06/21/16 21:10 Colace - PO Q12H PRN CONSTIPATION Heparin Sodium (Porcine) 5,000 unit 06/21/16 22:00 06/22/16 21:29 Heparin - SQ 5,000 unit BID ELENA Administration Sodium Chloride 1,000 mls @ 42 mls/hr 06/21/16 21:15 06/22/16 21:28 Normal Saline - IV 42 mls/hr ASDIR ELENA Administration Piperacillin Sod/Tazobactam Sod 50 mls @ 100 mls/hr 06/22/16 11:45 06/23/16 01: 08 Zosyn 3.375gm Ivpb (Pre-Docked) IVPB 100 mls/hr Q8H-IV ELENA Administration Protocol Lactobacillus Acidophilus 1 tab 06/22/16 10:00 06/22/16 10:04 Bacid - PO 1 tab DAILY ELENA Administration Levetiracetam 250 mg 06/21/16 22:00 06/22/16 21:29 Keppra - PO 250 mg BID ELENA Administration Levothyroxine Sodium 75 mcg 06/22/16 07:00 06/23/16 06:31 Synthroid - PO 75 mcg DAILY@0700 ELENA Administration Morphine Sulfate 1 mg 06/21/16 21:12 Morphine Injection - IVPUSH Q4H PRN PAIN Ursodiol 300 mg 06/21/16 22:00 06/22/16 21:29 Actigal - PO 300 mg BID ELENA Administration Last Vital Signs Temp Pulse Resp BP Pulse Ox 98.2 F 100 H 18 115/60 100 06/23/16 06:00 06/23/16 06:00 06/23/16 06:00 06/23/16 06:00 06/22/16 21:14 General NAD A&o x1 (self) does not follow commands, dysarthric speech, more alert today CV S1 S2 tachycardic no murmur/rub/gallop Lungs CTA B/L no wheezing/rales/rhonchi Extremities LUE swelling Neuro unable to fully access, does not follow commands strength 2/5 RUE, LUE/ LLE flaccid, CBCD WBC 9.5 K/mm3 (4.0-10.0) 06/23/16 09:12 RBC 3.49 M/mm3 (3.60-5.2) L 06/23/16 09:12 Hgb 9.6 GM/dL (10.7-15.3) L 06/23/16 09:12 Hct 29.5 % (32.4-45.2) L 06/23/16 09:12 MCV 84.4 fl (80-96) 06/23/16 09:12 MCHC 32.6 g/dl (32.0-36.0) 06/23/16 09:12 RDW 14.4 % (11.6-15.6) 06/23/16 09:12 Plt Count 366 K/MM3 (134-434) 06/23/16 09:12 MPV 7.9 fl (7.5-11.1) 06/23/16 09:12 CMP Sodium 144 mmol/L (136-145) 06/22/16 05:45 Potassium 4.0 mmol/L (3.5-5.1) 06/22/16 05:45 Chloride 109 mmol/L (98-107) H 06/22/16 05:45 Carbon Dioxide 25 mmol/L (21-32) 06/22/16 05:45 Anion Gap 10 (8-16) 06/22/16 05:45 BUN 29 mg/dL (7-18) H 06/22/16 05:45 Creatinine 0.6 mg/dL (0.55-1.02) D 06/22/16 05:45 Creat Clearance w eGFR > 60 (>60) 06/22/16 05:45 Calcium 7.9 mg/dL (8.5-10.1) L 06/22/16 05:45 Total Bilirubin 0.2 mg/dL (0.2-1.0) D 06/22/16 05:45 AST 23 U/L (15-37) D 06/22/16 05:45 ALT 22 U/L (12-78) D 06/22/16 05:45 Alkaline Phosphatase 167 U/L (45-117) H 06/22/16 05:45 Total Protein 6.1 g/dl (6.4-8.2) L 06/22/16 05:45 Albumin 1.9 g/dl (3.4-5.0) L 06/22/16 05:45 Microbiology 06/21/16 18:00 Blood - Peripheral Venous Blood Culture - Preliminary Staphylococcus Coagulase Neg 06/21/16 18:00 Blood - Peripheral Venous Blood Culture - Preliminary NO GROWTH OBTAINED AFTER 24 HOURS, INCUBATION TO CONTINUE FOR 4 DAYS. A/P 86yo F with PMH seizure, hypothyroid with recent CVA with residual L sided weakness presented to the ER and was admited for further evaluation of their emergent condition 1. Acute metabolic encephalopathy- likely due to sepsis due to UTI and possible bacteremia. received vanco x1 and zosyn day 2. Tm 100.8. leukocytosis normalized. will await final c&s. ID on board. d/c IVF 2. CVA-with parkinosonian tremor. repeat headCT with no changes. neuro exam appears to be similar as last admission. appreciate neuro input. will cont plavix/keppra. no events on tele monitor 4. LUE swelling- r/o DVT 5. HTN- controlled. cont norvasc. 6. sacral ulcer- frequent turning. wound care. maintain tobias to allow sacral ulcer healing 7. DVT ppx- SCD Visit type - Emergency Visit Emergency Visit: Yes ED Registration Date: 06/21/16 Care time: The patient presented to the Emergency Department on the above date and was hospitalized for further evaluation of their emergent condition. - New Patient This patient is new to me today: No - Critical Care Critical Care patient: No - Discharge Referral Referred to [facility] Med P.C.: No
[2016-06-23] MEDS: URSODIOL 300 MG CAPSULE PO SCH ×2 (10:14→21:28)
[2016-06-23] MEDS: LACTOBACILLUS ACIDOPHILUS 1 EACH TAB (FP) PO SCH (10:14)
[2016-06-23] MEDS: HEPARIN NA (PORCINE) 5,000 UNITS/ML 1ML VIAL SQ SCH ×2 (10:14→21:28)
[2016-06-23] MEDS: CLOPIDOGREL BISULFATE 75 MG TABLET (FP) PO SCH (10:14)
[2016-06-23] MEDS: levETIRAcetam 250 MG TABLET (FP) PO SCH ×2 (10:14→21:28)
[2016-06-23] MEDS: amLODIPine BESYLATE 10 MG TABLET (FP) PO SCH (10:14)
[2016-06-23] MEDS: BACITRACIN 30 GM TUBE TOPICAL OINTMENT TP SCH ×2 (13:42→21:28)
[2016-06-24] MEDS: PIPERACILLIN/TAZOB 3.375 GM 50 ML IVPB SCH ×3 (02:37→18:22)
[2016-06-24] MEDS: LEVOTHYROXINE NA 75 MCG TABLET (FP) PO SCH (06:47)
[2016-06-24] MEDS: levETIRAcetam 250 MG TABLET (FP) PO SCH ×2 (09:26→21:50)
[2016-06-24] MEDS: CLOPIDOGREL BISULFATE 75 MG TABLET (FP) PO SCH (09:26)
[2016-06-24] MEDS: LACTOBACILLUS ACIDOPHILUS 1 EACH TAB (FP) PO SCH (09:26)
[2016-06-24] MEDS: URSODIOL 300 MG CAPSULE PO SCH ×2 (09:26→21:50)
[2016-06-24] MEDS: BACITRACIN 30 GM TUBE TOPICAL OINTMENT TP SCH ×2 (09:27→21:51)
[2016-06-24] MEDS: amLODIPine BESYLATE 10 MG TABLET (FP) PO SCH (09:27)
[2016-06-24] MEDS: HEPARIN NA (PORCINE) 5,000 UNITS/ML 1ML VIAL SQ SCH ×2 (09:27→21:50)
--- NOTE | 2016-06-24 11:26 | CONSULT ---
Admitting History and Physical - Primary Care Physician PCP: Arti Belcher - Admission History of Present Illness: Per EMR: "86 yo F with sign. PMHx of of CVA (1 month ago), seizures and HLD admitted to telemetry for CVA and sepsis 2/2 UTI. 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: CVA (05/11/16 -> acute R MCA territory CVA and L hemiparesis), Seizure (3 years ago) Cardiovascular: Yes: Hyperlipdemia Endocrine: Yes: Hypothyroidism - Smoking History Smoking history: Former smoker Have you smoked in the past 12 months: No - Alcohol/Substance Use Hx Alcohol Use: No History of Substance Use: reports: None History - Admission Reason For Visit: URINARY TRACT INFECTION,SEPSIS - Diagnostics X-ray: Report Reviewed ((-)) Modified Barium Swallow: Report Reviewed (05/14/16 lethargic- puree/nectar) - General Mental Status: Awake and Alert (slow to respond), Flat Affect Attention: Distractible Ability to Follow Directions: Fair (delayed) Head/Neck Control: Needs Assist - Hearing Hearing: Normal Hearing Aide: No Speech Evaluation - Communication Primary Language: SWISS Communication: Yes: Within Normal Limits, Simple Responses (Veruy slow to respond. Articulation fairly precise. Limited verbal output.) - Speech Production Apraxia: Yes Able to Make Needs Known: Yes: Moderately Impaired Intelligibility: Yes: Mildly Impaired, Moderately Impaired - Speech Characteristics Voice Loudness: Mildly Soft/Quiet Voice Pitch: Yes: Normal Voice Phonatory-based Quality: Yes: Normal Speech Pattern: Impaired Nasal Resonance: Normal Articulation: Yes: Precise (fairly precise) Rate of Speech: Too Fast - Language/Auditory Comprehension Observation: Benefits from Slow Speech: Yes, Benefits from Repetiton: Yes - Swallow Evaluation/Bedside Assessment Current Nutritional Intake: Dysphagia Pureed, [place] Textured Liquids Oral Secretions: Yes: WFL Dentition: Yes: Adequate Lingual Movement: Normal, Symmetric Lingual Speed of Movement: Normal Lingual Movement Strgth Against Opposition: Normal Lingual Movement Characteristics: Normal Laryngeal Movement: Able to Palpate Labial Seal: WFL Oral Prep Time: WFL A-P Transit: WFL Pocketing: None Timing of Swallow: Delayed Coughing/Throat Clear: No Change in Voice: No Recommendations - Speech Evaluation, Impression/Plan Impression: More alert than last admission. Verbal. Very slow to respond. Often no response. Swallow seems mildly delayed but brisk. Overtly tolerated sips of water. Suspect that pt can tolerate diet upgrade. - Dysphagia Impressions/Plan Dysphagia Impressions: Ongoing Evaluation *Silent aspiration: cannot be R/O at bedside Recommendations: Modified Barium Swallow
--- NOTE | 2016-06-24 12:15 | PN ---
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, Physician History of Present Illness: Temps down- afebrile Awake but not verbally responsive Breathing non-labored Afebrile WBC improved Urine c/s NLF - Current Medication List Current Medications: Active Medications Acetaminophen (Tylenol Suppository -) 650 mg RC Q6H PRN PRN Reason: FEVER OR PAIN Last Admin: 06/22/16 13:54 Dose: 650 mg Amlodipine Besylate (Norvasc -) 10 mg PO DAILY [facility] Last Admin: 06/24/16 09:27 Dose: 10 mg Artificial Tears (Artificial Tears) 1 drop OU Q12H PRN PRN Reason: DRY EYES Bacitracin (Bacitracin -) 1 applic TP BID [facility] Last Admin: 06/24/16 09:27 Dose: 1 applic Clopidogrel Bisulfate (Plavix -) 75 mg PO DAILY [facility] Last Admin: 06/24/16 09:26 Dose: 75 mg Docusate Sodium (Colace -) 100 mg PO Q12H PRN PRN Reason: CONSTIPATION Heparin Sodium (Porcine) (Heparin -) 5,000 unit SQ BID [facility] Last Admin: 06/24/16 09:27 Dose: 5,000 unit Piperacillin Sod/Tazobactam Sod (Zosyn 3.375gm Ivpb (Pre-Docked)) 50 mls @ 100 mls/hr IVPB Q8H-IV ELENA PRN Reason: Protocol Last Admin: 06/24/16 09:26 Dose: 100 mls/hr Lactobacillus Acidophilus (Bacid -) 1 tab PO DAILY [facility] Last Admin: 06/24/16 09:26 Dose: 1 tab Levetiracetam (Keppra -) 250 mg PO BID [facility] Last Admin: 06/24/16 09:26 Dose: 250 mg Levothyroxine Sodium (Synthroid -) 75 mcg PO DAILY@0700 [facility] Last Admin: 06/24/16 06:47 Dose: 75 mcg Ursodiol (Actigal -) 300 mg PO BID [facility] Last Admin: 06/24/16 09:26 Dose: 300 mg - Objective Vital Signs: Vital Signs Temperature 98.2 F 06/24/16 05:56 Pulse Rate 103 H 06/24/16 11:50 Respiratory Rate 16 06/24/16 05:56 Blood Pressure 102/61 06/24/16 05:56 O2 Sat by Pulse Oximetry (%) 96 06/24/16 11:50 Constitutional: Yes: No Distress Eyes: Yes: Conjunctiva Clear Cardiovascular: Yes: Regular Rate and Rhythm, S1, S2 Respiratory: Yes: Diminished Gastrointestinal: Yes: Normal Bowel Sounds, Soft. No: Tenderness Edema: LLE: 1+, RLE: 1+ Labs: CBC, BMP 06/23/16 09:12 06/22/16 05:45 INR, PTT INR 1.14 (0.82-1.09) 06/21/16 18:00 Assessment/Plan UTI/possible sepsis secondary to UTI Possible aspiration pneumonia Fever/ leukocytosis-improved Await urine c/s Continue empiric zosyn
--- NOTE | 2016-06-24 14:57 | PN ---
Physical Exam: SUBJECTIVE: Patient seen and examined, lethargic but arousable, patient oriented to self only. Describes left hand pain. Responds to some questioning OBJECTIVE: Vital Signs Period Temp Pulse Resp BP Sys/Ontiveros Pulse Ox Last 24 Hr 98.2 F-98.8 F 103-108 16-18 102-122/61-69 96-100 GENERAL: The patient is awake, lethargic, oriented to self only. HEAD: Normal with no signs of trauma. EYES: PERRL, extraocular movements intact, sclera anicteric, conjunctiva clear. No ptosis. NECK: Trachea midline, full range of motion, supple. LUNGS: Breath sounds decreased, clear to auscultation bilaterally, no wheezes, no crackles, no accessory muscle use. HEART: Regular rate and rhythm, S1, S2 systolic murmur aoritc, rub or gallop. ABDOMEN: Soft, nontender, nondistended, normoactive bowel sounds, no guarding, no rebound, no hepatosplenomegaly, no masses. EXTREMITIES: 2+ pulses, warm, well-perfused, Left hand swelling NEUROLOGICAL: mild left sided facial droop. slowed speech Normal speech, gait not observed. left sided weakness PSYCH: Normal mood, normal affect. SKIN: Warm, dry, normal turgor, no rashes or lesions noted Active Medications Generic Name Dose Route Start Last Admin Trade Name Freq PRN Reason Stop Dose Admin Acetaminophen 650 mg 06/21/16 21:10 06/22/16 13:54 Tylenol Suppository - RC 650 mg Q6H PRN Administration FEVER OR PAIN Amlodipine Besylate 10 mg 06/22/16 10:00 06/24/16 09:27 Norvasc - PO 10 mg DAILY ELENA Administration Artificial Tears 1 drop 06/21/16 21:10 Artificial Tears OU Q12H PRN DRY EYES Bacitracin 1 applic 06/21/16 22:00 06/24/16 09:27 Bacitracin - TP 1 applic BID ELENA Administration Clopidogrel Bisulfate 75 mg 06/22/16 10:00 06/24/16 09:26 Plavix - PO 75 mg DAILY ELENA Administration Docusate Sodium 100 mg 06/21/16 21:10 Colace - PO Q12H PRN CONSTIPATION Heparin Sodium (Porcine) 5,000 unit 06/21/16 22:00 02/27/17 09:27 Heparin - SQ 5,000 unit BID ELENA Administration Piperacillin Sod/Tazobactam Sod 50 mls @ 100 mls/hr 06/22/16 11:45 06/24/16 09: 26 Zosyn 3.375gm Ivpb (Pre-Docked) IVPB 100 mls/hr Q8H-IV ELENA Administration Protocol Lactobacillus Acidophilus 1 tab 06/22/16 10:00 06/24/16 09:26 Bacid - PO 1 tab DAILY ELENA Administration Levetiracetam 250 mg 06/21/16 22:00 06/24/16 09:26 Keppra - PO 250 mg BID ELENA Administration Levothyroxine Sodium 75 mcg 06/22/16 07:00 06/24/16 06:47 Synthroid - PO 75 mcg DAILY@0700 ELENA Administration Ursodiol 300 mg 06/21/16 22:00 06/24/16 09:26 Actigal - PO 300 mg BID ELENA Administration Microbiology 06/21/16 18:00 Blood - Peripheral Venous Blood Culture - Preliminary Staphylococcus Coagulase Neg 06/21/16 18:00 Blood - Peripheral Venous Blood Culture - Preliminary NO GROWTH OBTAINED AFTER 48 HOURS, INCUBATION TO CONTINUE FOR 3 DAYS. 06/21/16 18:40 Urine - Urine Clean Catch Urine Culture - Preliminary Non Lactose Fermenting Gnb ASSESSMENT/PLAN: 86 year old female with PMHx seizures and recent CVA; right MCA infarct; presented with altered mental status and febrile. 1. Acute metabolic encephalopathy secondary to Sepsis secondary to UTI -lethargic; -cont hydration -IV zosyn 3.375 IVPB q8h 0seen by ginger garcia to asses swallow; rec modified barium swallow -CT of head :Moderate, diffuse atrophy with well-demarcated R frontoparietal infarct. No change between the 2 studies. 2. Sacral decubitus -wound care not infected; rotate q 2hrs 3. Hx of Right MCA infarct: cont plavix 75mg po daily 4. Seizure: -cont levetiracetam 250mg bid 5. Hypothyroid: -75mcg daily 6. Left hand swelling: -was there on previous admissions -duplex of left UE negative for DVT 7. Hypertension: -norvasc 10 po daily FEN: Fluids: NS 42,mlshr Electrolytes: wnl Diet: puree VTE : heparin Disposition: Cont IV antibiotics Problem List - Problems (1) CVA (cerebral vascular accident) Code(s): I63.9 - CEREBRAL INFARCTION, UNSPECIFIED Qualifiers: CVA mechanism: unspecified Qualified Code(s): I63.9 - Cerebral infarction, unspecified (2) H/O partial seizures Code(s): Z86.69 - PERSONAL HISTORY OF DIS OF THE NERVOUS SYS AND SENSE ORGANS (3) Sacral decubitus ulcer Code(s): L89.159 - PRESSURE ULCER OF SACRAL REGION, UNSPECIFIED STAGE Qualifiers: Pressure ulcer stage: stage III Qualified Code(s): L89.153 - Pressure ulcer of sacral region, stage 3 (4) Sepsis Code(s): A41.9 - SEPSIS, UNSPECIFIED ORGANISM Qualifiers: Sepsis type: sepsis due to unspecified organism Qualified Code(s): A41.9 - Sepsis, unspecified organism (5) UTI (urinary tract infection) Code(s): N39.0 - URINARY TRACT INFECTION, SITE NOT SPECIFIED Qualifiers: Urinary tract infection type: site unspecified Hematuria presence: with hematuria Qualified Code(s): N39.0 - Urinary tract infection, site not specified (6) Altered mental status Code(s): R41.82 - ALTERED MENTAL STATUS, UNSPECIFIED (7) HTN (hypertension) Code(s): I10 - ESSENTIAL (PRIMARY) HYPERTENSION Qualifiers: Hypertension type: essential hypertension Qualified Code(s): I10 - Essential (primary) hypertension (8) Hypothyroid Code(s): E03.9 - HYPOTHYROIDISM, UNSPECIFIED Qualifiers: Hypothyroidism type: acquired Qualified Code(s): E03.9 - Hypothyroidism, unspecified Visit type - Emergency Visit Emergency Visit: Yes ED Registration Date: 06/21/16 Care time: The patient presented to the Emergency Department on the above date and was hospitalized for further evaluation of their emergent condition. - New Patient This patient is new to me today: Yes Date on this admission: 06/24/16 - Critical Care Critical Care patient: No
--- NOTE | 2016-06-24 15:11 | PN ---
Teaching Attending Note Name of Resident: Andreia Wolff ATTENDING PHYSICIAN STATEMENT I saw and evaluated the patient. I reviewed the resident's note and discussed the case with the resident. I agree with the resident's findings and plan as documented. SUBJECTIVE:alert, currently asymptomatic OBJECTIVE: Last Vital Signs Temp Pulse Resp BP Pulse Ox 98.2 F 103 H 16 102/61 96 06/24/16 05:56 06/24/16 11:50 06/24/16 05:56 06/24/16 05:56 06/24/16 11:50 General NAD A&o x1 (self) CV S1 S2 tachycardic no murmur/rub/gallop Lungs CTA B/L no wheezing/rales/rhonchi Extremities LUE swelling Neuro unable to fully access, does not follow commands strength 2/5 RUE, LUE/ LLE flaccid, ASSESSMENT AND PLAN: 86yo F with PMH seizure, hypothyroid with recent CVA with residual L sided weakness presented to the ER and was admited for further evaluation of their emergent condition 1. Acute metabolic encephalopathy- likely due to sepsis due to UTI and possible bacteremia. mental status improved. afebrile 24H, zosyn day 3. will await final c&s. ID on board. 2. CVA-with parkinosonian tremor. no changes. no events on tele monitor can d/c now. will cont plavix/keppra. 4. LUE swelling-doppler pending 5. HTN- controlled. cont norvasc. 6. sacral ulcer- frequent turning. wound care. maintain tobias to allow sacral ulcer healing 7. DVT ppx- SCD 8. d/c planning once c&s result
[2016-06-24] MEDS ORDERED: PT OWN MED DRAWER 7, Y5N ONE (21:49)
[2016-06-25] MEDS: PIPERACILLIN/TAZOB 3.375 GM 50 ML IVPB SCH ×2 (02:07→09:41)
[2016-06-25] MEDS: LEVOTHYROXINE NA 75 MCG TABLET (FP) PO SCH (06:11)
[2016-06-25 07:00] LABS: BASOPHIL 0.7 % (0-2.0); EOSINOPHIL 1.8 % (0-4.5); MCH 27.4 pg (25.7-33.7); MCHC 32.8 g/dl (32.0-36.0); MEAN CELL VOLUME 83.4 fl (80-96); MEAN PLT VOLUME 7.5 fl (7.5-11.1); NEUTROPHILS 62.7 % (42.8-82.8); PLATELET COUNT 399 K/MM3 (134-434); RDW 14.4 % (11.6-15.6); WHITE BLOOD COUNT 7.5 K/mm3 (4.0-10.0)
[2016-06-25 07:19] LABS: ALBUMIN 1.9 g/dl (3.4-5.0); ANION GAP 9 (8-16); CALCIUM 8.3 mg/dL (8.5-10.1); CO2 26 mmol/L (21-32); CREATININE 0.6 mg/dL (0.55-1.02); GLUCOSE,RANDOM 92 mg/dL (74-106); SGOT/AST 28 U/L (15-37); SGPT/ALT 27 U/L (12-78)
[2016-06-25 07:21] LABS: ALK PHOS 200 U/L (45-117); BILIRUBIN,TOTAL 0.3 mg/dL (0.2-1.0); TOT PROT 6.3 g/dl (6.4-8.2)
[2016-06-25] MEDS: BACITRACIN 30 GM TUBE TOPICAL OINTMENT TP SCH ×2 (09:39→21:28)
[2016-06-25] MEDS: CLOPIDOGREL BISULFATE 75 MG TABLET (FP) PO SCH (09:39)
[2016-06-25] MEDS: LACTOBACILLUS ACIDOPHILUS 1 EACH TAB (FP) PO SCH (09:39)
[2016-06-25] MEDS: levETIRAcetam 250 MG TABLET (FP) PO SCH ×2 (09:39→21:29)
[2016-06-25] MEDS: amLODIPine BESYLATE 10 MG TABLET (FP) PO SCH (09:39)
[2016-06-25] MEDS: HEPARIN NA (PORCINE) 5,000 UNITS/ML 1ML VIAL SQ SCH ×2 (09:39→21:29)
[2016-06-25] MEDS: URSODIOL 300 MG CAPSULE PO SCH ×2 (09:45→21:29)
[2016-06-25] MEDS ORDERED: PT OWN MED DRAWER 7, Y5N ONE ×2 (09:45→21:29)
--- NOTE | 2016-06-25 10:39 | CONSULT ---
Consult - Past Medical History MORTGAGE ADVISOR: Yes: CVA (05/11/16 -> acute R MCA territory CVA and L hemiparesis), Seizure (3 years ago) Cardio/Vascular: Yes: Hyperlipdemia Endocrine: Yes: Hypothyroidism - Alcohol/Substance Use Hx Alcohol Use: No History of Substance Use: reports: None - Smoking History Smoking history: Former smoker Have you smoked in the past 12 months: No - Social History Usual Living Arrangement: With Child Home Medications - Allergies Allergies/Adverse Reactions: Allergies Allergy/AdvReac Type Severity Reaction Status Date / Time aspirin Allergy Unknown Verified 05/10/16 07:41 iodine Allergy Unknown Verified 05/10/16 07:41 - Home Medications Home Medications: Ambulatory Orders Levothyroxine [Synthroid -] 75 mcg PO DAILY 05/10/16 Polyvinyl Alcohol [Artificial Tears] 1 drop OU BID PRN #0 drops 05/17/16 Lactobacillus Acidophilus [Bacid -] 1 tab PO DAILY tab 05/27/16 Ursodiol [Actigal -] 300 mg PO BID capsule 05/27/16 Amlodipine Besylate [Norvasc -] 10 mg PO DAILY 06/02/16 Docusate Sodium [Colace -] 100 mg PO BID PRN #0 capsule 06/07/16 Acetaminophen Suppository [Tylenol .Suppository -] 650 mg MA Q6H PRN #60 supp.rect 06/18/16 Bacitracin - [Bacitracin Topical Ointment -] 1 applic TP BID #90 tube 06/18/16 Clopidogrel Bisulfate [Plavix -] 75 mg PO DAILY #30 tablet 06/18/16 Levetiracetam [Keppra -] 250 mg PO BID #60 tablet 06/18/16 Phenazopyridine HCl [Pyridium -] 100 mg PO TID 30 Days 06/18/16 Physical Exam Vital Signs: Vital Signs Temperature 97.5 F L 06/25/16 06:00 Pulse Rate 98 H 06/25/16 06:00 Respiratory Rate 18 06/25/16 06:00 Blood Pressure 101/59 06/25/16 06:00 O2 Sat by Pulse Oximetry (%) 98 06/24/16 21:00 Labs: CBC, BMP 06/25/16 05:35 06/25/16 05:35 Assessment/Plan Vascular Surgery The patient is a 86 year old female who presented to the ED, via EMS, s/p altered mental status. 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 Patient was discharged from the hospital and admitted to [facility]. Patient stayed in [facility] for 4 days and was admitted back to the hospital secondary to having a seizure. Family stated patient has difficulty moving her left side after the seizure. Patient was released from the hospital 4 days ago and discharged home. As per family, the patient is currently being treated for a sacral ulcer with discharge that she developed after being released from [facility]. Daughter noted the patient was at her mental baseline yesterday and was able to respond to questions (limited, can grunt, and open her eyes, nod her head). As per daughter, the patient had a fever this morning and had altered mental status. Family stated the patient is not responding and is looking off into the distance. Family stated that, around 1 pm earlier today the patient had a witnessed seizure with shaking of her RUE. Called to evaluate sacral ulcer. PE head - NC/AT Lung - CTA Heart - RRR abd - soft,nt,nd sacrum -- stage 3 ulcer . some slough A/P Stage 3 sacral ulcer some slough Santyl daily Turn and position. Jovan Shipley DO
--- NOTE | 2016-06-25 11:29 | PN ---
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, SUPPLEMENTAL MANAGER - Note 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: Selected Entries 06/22/16 06/22/16 06/23/16 09:17 23:10 02:00 Breakfast 75% Lunch Supper 75% Temperature 98.4 F 06/23/16 06/23/16 06/23/16 06:00 14:53 18:48 Breakfast Lunch Supper Temperature 98.2 F 98.4 F 98.3 F 06/23/16 06/23/16 06/24/16 20:59 22:54 02:17 Breakfast Lunch Supper 75% Temperature 98.3 F 98.8 F 06/24/16 06/24/16 06/24/16 05:56 14:22 16:45 Breakfast 100% Lunch 75% Supper Temperature 98.2 F 98.4 F 98.1 F 06/24/16 06/24/16 06/25/16 18:25 22:00 02:12 Breakfast Lunch Supper 100% Temperature 98.2 F 97.9 F 06/25/16 06/25/16 06:00 11:25 Breakfast 100% Lunch Supper Temperature 97.5 F L Diet not yet upgraded, per MBS. Tolerating baseline diet. Pt would benefit from continued swallowing rehab upon d/c.
--- NOTE | 2016-06-25 12:27 | PN ---
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, Physician History of Present Illness: More awake and alert Not conversant Afebrile WBC improved BC (-) Urine c/s Providencia - Current Medication List Current Medications: Active Medications Acetaminophen (Tylenol Suppository -) 650 mg RC Q6H PRN PRN Reason: FEVER OR PAIN Last Admin: 06/22/16 13:54 Dose: 650 mg Amlodipine Besylate (Norvasc -) 10 mg PO DAILY [facility] Last Admin: 06/25/16 09:39 Dose: 10 mg Artificial Tears (Artificial Tears) 1 drop OU Q12H PRN PRN Reason: DRY EYES Bacitracin (Bacitracin -) 1 applic TP BID [facility] Last Admin: 06/25/16 09:39 Dose: 1 applic Clopidogrel Bisulfate (Plavix -) 75 mg PO DAILY [facility] Last Admin: 06/25/16 09:39 Dose: 75 mg Collagenase (Santyl -) 1 applic TP DAILY ELENA Docusate Sodium (Colace -) 100 mg PO Q12H PRN PRN Reason: CONSTIPATION Heparin Sodium (Porcine) (Heparin -) 5,000 unit SQ BID [facility] Last Admin: 06/25/16 09:39 Dose: 5,000 unit Piperacillin Sod/Tazobactam Sod (Zosyn 3.375gm Ivpb (Pre-Docked)) 50 mls @ 100 mls/hr IVPB Q8H-IV ELENA PRN Reason: Protocol Last Admin: 06/25/16 09:41 Dose: 100 mls/hr Lactobacillus Acidophilus (Bacid -) 1 tab PO DAILY [facility] Last Admin: 06/25/16 09:39 Dose: 1 tab Levetiracetam (Keppra -) 250 mg PO BID [facility] Last Admin: 06/25/16 09:39 Dose: 250 mg Levothyroxine Sodium (Synthroid -) 75 mcg PO DAILY@0700 [facility] Last Admin: 06/25/16 06:11 Dose: 75 mcg Polyethylene Glycol (Miralax (For Daily Use) -) 17 gm PO DAILY [facility] Ursodiol (Actigal -) 300 mg PO BID [facility] Last Admin: 06/25/16 09:45 Dose: 300 mg - Objective Vital Signs: Vital Signs Temperature 98.1 F 06/25/16 10:00 Pulse Rate 98 H 06/25/16 10:00 Respiratory Rate 18 06/25/16 10:00 Blood Pressure 108/62 06/25/16 10:00 O2 Sat by Pulse Oximetry (%) 100 06/25/16 10:00 Constitutional: Yes: No Distress Eyes: Yes: Conjunctiva Clear Cardiovascular: Yes: Regular Rate and Rhythm, S1, S2 Respiratory: Yes: Diminished Gastrointestinal: Yes: Normal Bowel Sounds, Soft. No: Tenderness Labs: CBC, BMP 06/25/16 05:35 06/25/16 05:35 INR, PTT INR 1.14 (0.82-1.09) 06/21/16 18:00 Assessment/Plan UTI/possible sepsis secondary to UTI- Providencia Possible aspiration pneumonia Fever/ leukocytosis- resolved S/P CVA Substitute po levaquin 250mg qd x5d
[2016-06-25] MEDS: POLYETHYLENE GLYCOL 3350 119 GM BTL PO SCH (13:00)
[2016-06-25] MEDS ORDERED: LEVOFLOXACIN 250 MG TABLET (FP) PO SCH (14:15)
--- NOTE | 2016-06-25 14:34 | PN ---
Teaching Attending Note Name of Resident: Andreia Wolff ATTENDING PHYSICIAN STATEMENT I saw and evaluated the patient. I reviewed the resident's note and discussed the case with the resident. I agree with the resident's findings and plan as documented. SUBJECTIVE: seen and evaluated at the bedside OBJECTIVE: resting comfortably; stage 2 decub ulcer with no evidence of active infection ASSESSMENT AND PLAN: 86 yo F with sign. PMHx of of CVA (1 month ago), seizures and HLD admitted for sepsis due to UTI with metabolic encephalopathy UTI -afebrile and hemodynmically stabel -WBC trended down -urine culture grew providencia; now on levofloxacin after resident discussed case with ID attending -blood culture grew staph capitis in only one bottle so likely contaminant
--- NOTE | 2016-06-25 16:06 | DS ---
Physical Exam: SUBJECTIVE: Patient seen and examined, more awake and arousable today. Admits to some hand pain. Denies fever, chills, sob, cp, abdominal pain. OBJECTIVE: Vital Signs Period Temp Pulse Resp BP Sys/Ontiveros Pulse Ox Last 24 Hr 97.5 F-99 F 98-113 18-18 94-122/52-64 98-100 PHYSICAL EXAM GENERAL: The patient is awake, alert, and oriented to person and place, in no acute distress. HEAD: Normal with no signs of trauma. EYES: PERRL, extraocular movements intact, sclera anicteric, conjunctiva clear. NECK: Trachea midline, full range of motion, supple. LUNGS: Breath sounds equal, clear to auscultation bilaterally, no wheezes, no crackles, no accessory muscle use. HEART: Regular rate and rhythm, S1, S2 systolic murmur, rub or gallop. ABDOMEN: Soft, nontender, nondistended, normoactive bowel sounds, no guarding, no rebound, no hepatosplenomegaly, no masses. EXTREMITIES: 2+ pulses, warm, well-perfused, left hand and foot edema. NEUROLOGICAL: slowed speech, gait not observed. left hemiparesis; left facial droop PSYCH: Normal mood, normal affect. SKIN: Warm, dry, normal turgor, no rashes or lesions noted. Sacral decubitus ulcer; not infected, no erythema, stage III Current Medications Generic Name Dose Route Start Last Admin Trade Name Freq PRN Reason Stop Dose Admin Acetaminophen 650 mg 06/21/16 21:10 06/22/16 13:54 Tylenol Suppository - RC 650 mg Q6H PRN Administration FEVER OR PAIN Amlodipine Besylate 10 mg 06/22/16 10:00 06/25/16 09:39 Norvasc - PO 10 mg DAILY ELENA Administration Artificial Tears 1 drop 06/21/16 21:10 Artificial Tears OU Q12H PRN DRY EYES Bacitracin 1 applic 06/21/16 22:00 06/25/16 09:39 Bacitracin - TP 1 applic BID ELENA Administration Clopidogrel Bisulfate 75 mg 06/22/16 10:00 06/25/16 09:39 Plavix - PO 75 mg DAILY ELENA Administration Collagenase 1 applic 06/25/16 11:30 Santyl - TP DAILY ELENA Docusate Sodium 100 mg 06/21/16 21:10 Colace - PO Q12H PRN CONSTIPATION Heparin Sodium (Porcine) 5,000 unit 06/21/16 22:00 06/25/16 09:39 Heparin - SQ 5,000 unit BID ELENA Administration Lactobacillus Acidophilus 1 tab 06/22/16 10:00 06/25/16 09:39 Bacid - PO 1 tab DAILY ELENA Administration Levetiracetam 250 mg 06/21/16 22:00 06/25/16 09:39 Keppra - PO 250 mg BID ELENA Administration Levofloxacin 250 mg 06/25/16 14:15 Levaquin - PO DAILY@0600 ELENA Levothyroxine Sodium 75 mcg 06/22/16 07:00 06/25/16 06:11 Synthroid - PO 75 mcg DAILY@0700 ELENA Administration Polyethylene Glycol 17 gm 06/25/16 12:15 Miralax (For Daily Use) - PO DAILY ELENA Ursodiol 300 mg 06/21/16 22:00 06/25/16 09:45 Actigal - PO 300 mg BID ELENA Administration LABS Laboratory Results - last 24 hr 06/25/16 06/25/16 05:35 05:35 WBC 7.5 RBC 3.65 Hgb 10.0 L Hct 30.4 L MCV 83.4 MCHC 32.8 RDW 14.4 Plt Count 399 MPV 7.5 Neutrophils % 62.7 Lymphocytes % 25.2 D Monocytes % 9.6 Eosinophils % 1.8 D Basophils % 0.7 Sodium 141 Potassium 3.9 Chloride 106 Carbon Dioxide 26 Anion Gap 9 BUN 15 D Creatinine 0.6 Creat Clearance w eGFR > 60 Random Glucose 92 Calcium 8.3 L Total Bilirubin 0.3 D AST 28 D ALT 27 D Alkaline Phosphatase 200 H Total Protein 6.3 L Albumin 1.9 L Microbiology 06/21/16 18:00 Blood - Peripheral Venous Blood Culture - Final Staph Capitis Subsp Capitis 06/21/16 18:00 Blood - Peripheral Venous Blood Culture - Preliminary NO GROWTH OBTAINED AFTER 72 HOURS, INCUBATION TO CONTINUE FOR 2 DAYS. 06/21/16 18:40 Urine - Urine Clean Catch Urine Culture - Final Providencia Stuartii CT of head :Moderate, diffuse atrophy with well-demarcated R frontoparietal infarct. No change between the 2 studies. HOSPITAL COURSE: Date of Admission:06/21/16 Date of Discharge: 06/25/16 86 year old female with PMHx seizures (controlled)and CVA, right MCA infarct ( on plavix) presented with altered mental status and febrile. She was admitted for sepsis and acute metabolic encephalopathy, secondary to urinary tract infection. She was initially teated with zosyn and hydration, clinically improved. Culture and sensitivity, antibiotics changed to levoquin. Instructed to take 6 more days of Levaquin 250mg daily. CT head listed above, no changes from previous visit. Patient also has a stage three decubitus ulcer, seen by vascular,ordered santyl daily with position changes q 2hs. Left hand swelling was most likely due to poor venous return. Doppler was negative for thrombus. Hypertension controlled with norvasc 10mg daily. Diet puree. Medications listed above Minutes to complete discharge: 40 Discharge Summary Reason For Visit: URINARY TRACT INFECTION,SEPSIS Current Active Problems CVA (cerebral vascular accident) (Acute) H/O partial seizures (Acute) Sacral decubitus ulcer (Acute) Condition: Guarded - Instructions Diet, Activity, Other Instructions: Ms Beauchamp, you have been treated for a urinary tract infection. Your condition has greatly improved with antibiotics. Please continue to take 5 more days of Levaquin 250mg daily. If you experience any worsening of symptoms fever , chills, altered mental status, please return to the emergency room. Diet: puree diet Wound care: decubitus ulcer; continue with daily santyl and rotating position every two hours. Referrals: Maykel Coronado [Primary Care Provider] - 2 Weeks Disposition: CARE HOME FACILITY - Home Medications Comprehensive Discharge Medication List: Ambulatory Orders Levothyroxine [Synthroid -] 75 mcg PO DAILY 05/10/16 Polyvinyl Alcohol [Artificial Tears] 1 drop OU BID PRN #0 drops 05/17/16 Lactobacillus Acidophilus [Bacid -] 1 tab PO DAILY tab 05/27/16 Ursodiol [Actigal -] 300 mg PO BID capsule 05/27/16 Amlodipine Besylate [Norvasc -] 10 mg PO DAILY 06/02/16 Docusate Sodium [Colace -] 100 mg PO BID PRN #0 capsule 06/07/16 Acetaminophen Suppository [Tylenol .Suppository -] 650 mg NC Q6H PRN #60 supp.rect 06/18/16 Bacitracin - [Bacitracin Topical Ointment -] 1 applic TP BID #90 tube 06/18/16 Clopidogrel Bisulfate [Plavix -] 75 mg PO DAILY #30 tablet 06/18/16 Levetiracetam [Keppra -] 250 mg PO BID #60 tablet 06/18/16 Phenazopyridine HCl [Pyridium -] 100 mg PO TID 30 Days 06/18/16 Levofloxacin [Levaquin -] 250 mg PO DAILY #6 tablet 06/25/16 Problem List - Problems (1) CVA (cerebral vascular accident) Code(s): I63.9 - CEREBRAL INFARCTION, UNSPECIFIED Qualifiers: CVA mechanism: unspecified Qualified Code(s): I63.9 - Cerebral infarction, unspecified (2) H/O partial seizures Code(s): Z86.69 - PERSONAL HISTORY OF DIS OF THE NERVOUS SYS AND SENSE ORGANS (3) Sacral decubitus ulcer Code(s): L89.159 - PRESSURE ULCER OF SACRAL REGION, UNSPECIFIED STAGE Qualifiers: Pressure ulcer stage: stage III Qualified Code(s): L89.153 - Pressure ulcer of sacral region, stage 3 (4) Sepsis Code(s): A41.9 - SEPSIS, UNSPECIFIED ORGANISM Qualifiers: Sepsis type: sepsis due to unspecified organism Qualified Code(s): A41.9 - Sepsis, unspecified organism (5) UTI (urinary tract infection) Code(s): N39.0 - URINARY TRACT INFECTION, SITE NOT SPECIFIED Qualifiers: Urinary tract infection type: site unspecified Hematuria presence: with hematuria Qualified Code(s): N39.0 - Urinary tract infection, site not specified (6) Altered mental status Code(s): R41.82 - ALTERED MENTAL STATUS, UNSPECIFIED (7) HTN (hypertension) Code(s): I10 - ESSENTIAL (PRIMARY) HYPERTENSION Qualifiers: Hypertension type: essential hypertension Qualified Code(s): I10 - Essential (primary) hypertension (8) Hypothyroid Code(s): E03.9 - HYPOTHYROIDISM, UNSPECIFIED Qualifiers: Hypothyroidism type: acquired Qualified Code(s): E03.9 - Hypothyroidism, unspecified This patient is new to me today: No Emergency Visit: Yes ED Registration Date: 06/21/16 Care time: The patient presented to the Emergency Department on the above date and was hospitalized for further evaluation of their emergent condition. Critical Care patient: No - Discharge Referral Referred to [facility] Med P.C.: No
[2016-06-25] MEDS ORDERED: ACETAMINOPHEN 325 MG TABLET (FP) PO PRN (17:51)
[2016-06-25] MEDS: LEVOFLOXACIN 250 MG TABLET (FP) PO SCH (17:54)
[2016-06-25] MEDS: COLLAGENASE CLOSTRIDIUM HIST. 30 GRAMS TUBE TP SCH (17:57)
[2016-06-26] MEDS ORDERED: PT OWN MED DRAWER 7, Y5N ONE (04:56)
[2016-06-26] MEDS: LEVOFLOXACIN 250 MG TABLET (FP) PO SCH (06:38)
[2016-06-26] MEDS: LEVOTHYROXINE NA 75 MCG TABLET (FP) PO SCH (06:38)
[2016-06-26 09:37] VITALS: BP 114/60; PULSE 110; TEMP 98.4
[2016-06-26] MEDS: CLOPIDOGREL BISULFATE 75 MG TABLET (FP) PO SCH (09:38)
[2016-06-26] MEDS: levETIRAcetam 250 MG TABLET (FP) PO SCH (09:38)
[2016-06-26] MEDS: HEPARIN NA (PORCINE) 5,000 UNITS/ML 1ML VIAL SQ SCH (09:38)
[2016-06-26] MEDS: amLODIPine BESYLATE 10 MG TABLET (FP) PO SCH (09:38)
[2016-06-26] MEDS: URSODIOL 300 MG CAPSULE PO SCH (09:38)
[2016-06-26] MEDS: LACTOBACILLUS ACIDOPHILUS 1 EACH TAB (FP) PO SCH (09:38)
[2016-06-26] MEDS: BACITRACIN 30 GM TUBE TOPICAL OINTMENT TP SCH (09:39)
[2016-06-26] MEDS: COLLAGENASE CLOSTRIDIUM HIST. 30 GRAMS TUBE TP SCH (09:39)
[2016-06-26] MEDS: POLYETHYLENE GLYCOL 3350 119 GM BTL PO SCH (10:06)
== END 2016-06-26 10:31 | disposition home health service (06) | DRG 871 ==
LOC: JER 17:24 → JERBED 20:04 → J4S 22:04
PROVIDERS: ADMIT Internal Medicine; ATTEND Internal Medicine
DX: A41.9 Sepsis, unspecified organism (principal); G93.41 Metabolic encephalopathy; L89.153 Pressure ulcer of sacral region, stage 3; N39.0 Urinary tract infection, site not specified; G40.89 Other seizures; G81.04 Flaccid hemiplegia affecting left nondominant side; E78.5 Hyperlipidemia, unspecified; M79.89 Other specified soft tissue disorders; E03.9 Hypothyroidism, unspecified; I10 Essential (primary) hypertension; L89.322 Pressure ulcer of left buttock, stage 2; L89.312 Pressure ulcer of right buttock, stage 2
CPT/HCPCS: 36415; 36600; 70450-TC; 71010-TC; 74230-TC; 80053; 81003; 81015; 82550; 82607; 82803; 83036; 83605; 83735; 84100; 84484; 85025; 85610; 85651; 85730; 86140; 86850; 86900; 86901; 87040; 87086; 87186; 92611-GN; 93005; 93010; 93971; 97161-GP; 99285-25; J1644

== ENCOUNTER 2016-07-03 13:18 | Inpatient (IN) | payer MEDICARE, OTHER ==
--- NOTE | 2016-07-03 13:38 | PDOC ---
History of Present Illness - General History Source: Family, Old Records Exam Limitations: No Limitations <Radha Farris - Last Filed: 07/03/16 16:12> - History of Present Illness Initial Comments: 07/03/16 14:27 Patient is an 86 year old female with significant medical hx of CVA (residual left sided weakness), HTN, HLD and seizures who is presenting to the ED with two days of fever and decreased PO intake. The patient is accompanied by family members who provided history. They report that the patient had a fever of 100.6 yesterday with decreased PO intake. She's been lethargic and complaining of lower extremity pain. Denies nausea, vomiting, diarrhea, chest pain, shortness of breath. Surgical Hx: Tubal ligation, tonsillectomy <Bettina Ortez - Last Filed: 07/03/16 16:37> - General Stated Complaint: WEAKNESS Time Seen by Provider: 07/03/16 13:36 Past History - Past Medical History CVA: Yes (L SIDE WEAKNESS) HTN: Yes Hypercholesterolemia: Yes Seizures: Yes Thyroid Disease: Yes (hypothyroidism) - Psycho/Social/Smoking Cessation Hx Anxiety: No Suicidal Ideation: No Smoking History: Former smoker Have you smoked in the past 12 months: No Hx Alcohol Use: No Drug/Substance Use Hx: No Substance Use Type: None Hx Substance Use Treatment: No <Radha Farris - Last Filed: 07/03/16 16:12> <Bettina Ortez - Last Filed: 07/03/16 16:37> - Past Medical History Allergies/Adverse Reactions: Allergies Allergy/AdvReac Type Severity Reaction Status Date / Time aspirin Allergy Unknown Verified 07/03/16 14:07 iodine Allergy Unknown Verified 07/03/16 14:07 Home Medications: Ambulatory Orders Levothyroxine [Synthroid -] 75 mcg PO DAILY 05/10/16 Polyvinyl Alcohol [Artificial Tears] 1 drop OU BID PRN #0 drops 05/17/16 Lactobacillus Acidophilus [Bacid -] 1 tab PO DAILY tab 05/27/16 Ursodiol [Actigal -] 300 mg PO BID capsule 05/27/16 Amlodipine Besylate [Norvasc -] 10 mg PO DAILY 06/02/16 Docusate Sodium [Colace -] 100 mg PO BID PRN #0 capsule 06/07/16 Acetaminophen Suppository [Tylenol .Suppository -] 650 mg [place] Q6H PRN #60 supp.rect 06/18/16 Bacitracin - [Bacitracin Topical Ointment -] 1 applic TP BID #90 tube 06/18/16 Clopidogrel Bisulfate [Plavix -] 75 mg PO DAILY #30 tablet 06/18/16 Levetiracetam [Keppra -] 250 mg PO BID #60 tablet 06/18/16 Phenazopyridine HCl [Pyridium -] 100 mg PO TID 30 Days 06/18/16 Levofloxacin [Levaquin -] 250 mg PO DAILY #6 tablet 06/25/16 Levofloxacin [Levaquin -] 250 mg PO DAILY #6 tablet 06/26/16 Review of Systems - Review of Systems Comments:: 07/03/16 14:29 GENERAL/CONSTITUTIONAL: Fever, lethargic. No chills. HEAD, EYES, EARS, NOSE AND THROAT: No change in vision. No ear pain or discharge. No sore throat. CARDIOVASCULAR: No chest pain or shortness of breath. RESPIRATORY: No cough, wheezing, or hemoptysis. GASTROINTESTINAL: No nausea, vomiting, diarrhea or constipation. GENITOURINARY: No dysuria, frequency, or change in urination. MUSCULOSKELETAL: Lower extremity pain. No joint or muscle swelling. No neck or back pain. SKIN: No rash NEUROLOGIC: No headache, vertigo, loss of consciousness, or change in strength/ sensation. <Bettina Ortez - Last Filed: 07/03/16 16:37> *Physical Exam - Vital Signs Last Vital Signs Temp Pulse Resp BP Pulse Ox 100.4 F H 125 H 20 126/73 98 07/03/16 14:02 07/03/16 14:02 07/03/16 14:02 07/03/16 14:02 07/03/16 14:02 - Physical Exam Comments: 07/03/16 14:32 GENERAL: Not responding to verbal stimuli, lethargic, in no acute distress HEAD: No signs of trauma EYES: PERRLA, EOMI, sclera anicteric, conjunctiva clear ENT: Auricles normal inspection, hearing grossly normal, nares patent, oropharynx clear without exudates. Moist mucosa NECK: Normal ROM, supple, no lymphadenopathy, JVD, or masses LUNGS: Breath sounds equal, clear to auscultation bilaterally. No wheezes, and no crackles HEART: Regular rate and rhythm, normal S1 and S2, no murmurs, rubs or gallops ABDOMEN: Soft, nontender, normoactive bowel sounds. No guarding, no rebound. No masses EXTREMITIES: Normal range of motion, no edema. No clubbing or cyanosis. No cords, erythema, or tenderness NEUROLOGICAL: Not responsive. Flaccid on left side. Rigid tone to right upper extremities. SKIN: Stage II-III decubitus ulcer with fibrinous exudates. No purulent drainage , no surrounding erythema. Stage I pressure ulcer to bilateral heels. ENDOCRINE: No increased thirst. No abnormal weight change. HEMATOLOGIC/LYMPHATIC: No anemia, easy bleeding, or history of blood clots. ALLERGIC/IMMUNOLOGIC: No hives or skin allergy. <Bettina Ortez - Last Filed: 07/03/16 16:37> ED Treatment Course - LABORATORY CBC & Chemistry Diagram: 07/03/16 14:19 07/03/16 14:19 <Radha Farris - Last Filed: 07/03/16 16:12> - LABORATORY CBC & Chemistry Diagram: 07/03/16 14:19 07/03/16 14:19 - RADIOLOGY Radiograph Interpretation: 07/03/16 16:36 Chest X-Ray Impression: No acute cardiopulmonary disease is present. 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 Differential diagnosis includes but is not limited to: Postictal state/seizure activity, infection (UTI, pneumonia), electrolyte abnormality, dehydration, toxic/ metabolic derangement. Plan: 1. Labs 2. Lindquist culture 3. Urinewill change Cardona catheter 4. IV fluids for hydration 5. Will monitor closely for seizure activity 6. Antipyretics 7. IV antibiotics 8. Observe and reevaluate 07/03/16 16:12 Addendum: Labs were reviewed and are noted in the EMR. Her CXR is negative for acute pulmonary disease and urine is essentially negative for infection. Will admit for fever work-up and altered mental status. <Radha Farris - Last Filed: 07/03/16 16:12> *DC/Admit/Observation/Transfer - Attestations Physician Attestion: 07/03/16 14:21 I, Dr. Radha Farris, attest that the scribes documentation that appears above has been prepared under my direction and personally reviewed by me in its entirety. I confirmed that the note above accurately reflects all work, treatment, procedures, and medical decision-making performed by me. <Radha Farris - Last Filed: 07/03/16 16:12> - Attestations Scribe Attestion: 07/03/16 14:45 Documentation prepared by Bettina Ortez, acting as medical claims analyst for Radha Farris MD. <Bettina Ortez - Last Filed: 07/03/16 16:37> Diagnosis at time of Disposition: Fever, Altered mental status - Referrals Referrals: Maykel Coronado [Primary Care Provider] -
[2016-07-03] MEDS ORDERED: SODIUM CHLORIDE 1,000 ML IV STA (13:51)
[2016-07-03 14:07] VITALS: BMI 23.8
[2016-07-03 14:50] LABS: URINE APPEARANCE CLEAR; URINE BILIRUBIN NEGATIVE (NEGATIVE); URINE BLOOD 1+ (NEGATIVE); URINE COLOR YELLOW; URINE GLUCOSE (UA) NEGATIVE (NEGATIVE); URINE KETONE NEGATIVE (NEGATIVE); URINE LEUK ESTERASE NEGATIVE (NEGATIVE); URINE NITRITE NEGATIVE (NEGATIVE); URINE PROTEIN NEGATIVE (NEGATIVE); URINE UROBILINOGEN NEGATIVE E.U./dl (0.2-1.0)
[2016-07-03 14:58] LABS: BASOPHIL 0.4 % (0-2.0); EOSINOPHIL 0.1 % (0-4.5); MCH 26.8 pg (25.7-33.7); MCHC 31.8 g/dl (32.0-36.0); MEAN CELL VOLUME 84.4 fl (80-96); MEAN PLT VOLUME 7.3 fl (7.5-11.1); NEUTROPHILS 72.5 % (42.8-82.8); PLATELET COUNT 385 K/MM3 (134-434); RDW 15.6 % (11.6-15.6); WHITE BLOOD COUNT 11.6 K/mm3 (4.0-10.0)
[2016-07-03 15:01] LABS: GRANULAR CASTS 4 /lpf; URIC ACID CRYSTALS RARE /hpf (NONE SEEN); URINE MUCUS RARE; URINE RBC 1 /hpf (0-3); URINE WBC 2 /hpf (3-5)
[2016-07-03 15:13] LABS: ANION GAP 9 (8-16); BILIRUBIN,TOTAL 0.3 mg/dL (0.2-1.0); CALCIUM 8.5 mg/dL (8.5-10.1); CO2 27 mmol/L (21-32); CREATININE 0.6 mg/dL (0.55-1.02); GLUCOSE,RANDOM 97 mg/dL (74-106); SGOT/AST 32 U/L (15-37); SGPT/ALT 29 U/L (12-78); TOT PROT 6.6 g/dl (6.4-8.2)
[2016-07-03 15:15] LABS: ALK PHOS 197 U/L (45-117); TROPONIN I < 0.02 ng/ml (0.00-0.05)
[2016-07-03] MEDS ORDERED: VANCOMYCIN 1,000 MG in DEXTROSE 5%-WATER - 250 ML IVPB ONE (15:48)
[2016-07-03] MEDS ORDERED: PIPERACILLIN/TAZOB 3.375 GM/50 ML PRE-DOCKED IV ONE (15:48)
[2016-07-03] MEDS ORDERED: ACETAMINOPHEN 1000 MG/100 ML VIAL (NON FORMULARY) IVPB ONE (15:49)
[2016-07-03] MEDS ORDERED: ACETAMINOPHEN INJECTION 100 ML IVPB ONE (16:39)
[2016-07-03] MEDS ORDERED: PIPERACILLIN/TAZOB 3.375 GM 50 ML IVPB ONE (16:43)
[2016-07-03] MEDS ORDERED: VANCOMYCIN 1 GRAM (PRE-DOCKED) 250 ML IVPB ONE (17:19)
--- NOTE | 2016-07-03 18:21 | HP ---
PCP: Maykel Coronado CHIEF COMPLAINT: Fever HISTORY OF PRESENT ILLNESS: This is an 86-year-old woman who presents to the ER because of fever and shaking. She is non-verbal and unable to provide a history. As per her daughter, she has not been eating and has been drinking only small amounts for the last 2-3 days. She was admitted here 05/10-05/28 with encephalopathy secondary to UTI. Blood and urine cultures were negative and she was treated with Zosyn. She was discharged to [facility]. She was admitted again 06/03-06/18 with fevers and encephalopathy. It was thought that the fevers were from a sacral pressure ulcer. She was discharged home. She was admitted again on 06/21 with fever and change in mental status secondary to UTI and possible aspiration pneumonia. Urine culture grew Providencia. She was treated with Zosyn and discharged home on Levaquin on 06/26. PAST MEDICAL HISTORY CVA Seizure disorder Hyperlipidemia Hypertension Hypothyroidism Sacral pressure ulcer Rheumatic fever PAST SURGICAL HISTORY Bilateral tubal ligation Tonsillectomy Allergies aspirin Allergy (Unknown, Verified 07/03/16 14:07) iodine Allergy (Unknown, Verified 07/03/16 14:07) HOME MEDICATIONS 3 Medication Instructions Recorded Clopidogrel Bisulfate [Plavix -] 75 mg PO DAILY 07/03/16 Levetiracetam [Keppra] 250 mg PO BID 07/03/16 Levothyroxine [Synthroid -] 50 mcg PO DAILY 07/03/16 Polyvinyl Alcohol/Povidone 15 ml OU BID 07/03/16 [Artificial Tears Drops] Social History: Smoking: No Alcohol: No Drugs: No Recent Travel: No Family History: Unobtainable REVIEW OF SYSTEMS Unable to obtain PHYSICAL EXAMINATION Vital Signs - 24 hr 07/03/16 07/03/16 13:50 14:02 Temperature 100.4 F H 100.4 F H Pulse Rate 125 H Respiratory 20 Rate Blood Pressure 126/73 O2 Sat by Pulse 98 Oximetry (%) GENERAL: Awake, non-verbal, in no acute distress. HEAD: Normal with no signs of trauma. EYES: Pupils equal, round and reactive to light, sclerae anicteric, conjunctivae clear. EARS, NOSE, THROAT: Ears normal, nares patent, oropharynx clear without exudates. Dry mucous membranes. NECK: Normal range of motion, supple without lymphadenopathy, JVD, or masses. LUNGS: Breath sounds equal, clear to auscultation bilaterally. No wheezes, and no crackles. No accessory muscle use. HEART: Tachycardic, normal S1 and S2 without murmur, rub or gallop. ABDOMEN: Soft, not distended, normoactive bowel sounds, no hepatomegaly or splenomegaly. MUSCULOSKELETAL: Normal range of motion at all joints. No bony deformities. UPPER EXTREMITIES: 2+ pulses, warm, well-perfused. No cyanosis. No clubbing. Cap refill <2 seconds. No peripheral edema. LOWER EXTREMITIES: 1+ pulses, warm, well-perfused. No calf tenderness. No peripheral edema. NEUROLOGICAL: Unable to assess. PSYCHIATRIC: Unable to assess. SKIN: Warm, dry, poor turgor. Large stage III pressure ulcer of sacrum with small amount of purulent drainage. Deep tissue injury of left heel. Laboratory Results - last 24 hr 07/03/16 07/03/16 07/03/16 14:07 14:07 14:19 WBC 11.6 H D RBC 4.12 Hgb 11.0 Hct 34.8 MCV 84.4 MCHC 31.8 L RDW 15.6 Plt Count 385 MPV 7.3 L Neutrophils % 72.5 Lymphocytes % 16.9 D Monocytes % 10.1 Eosinophils % 0.1 D Basophils % 0.4 Sodium Potassium Chloride Carbon Dioxide Anion Gap BUN Creatinine Creat Clearance w eGFR Random Glucose Lactic Acid 1.479 Calcium Total Bilirubin AST ALT Alkaline Phosphatase Creatine Kinase CK-MB (CK-2) Troponin I Total Protein Albumin Lipase Urine Color Yellow Urine Appearance Clear Urine pH 5.0 D Ur Specific [facility] 1.019 Urine Protein Negative Urine Glucose (UA) Negative Urine Ketones Negative Urine Blood 1+ H Urine Nitrite Negative Urine Bilirubin Negative Urine Urobilinogen Negative Ur Leukocyte Esterase Negative Urine RBC 1 Urine WBC 2 Uric Acid Crystals Rare Granular Casts 4 Urine Mucus Rare 07/03/16 14:19 WBC RBC Hgb Hct MCV MCHC RDW Plt Count MPV Neutrophils % Lymphocytes % Monocytes % Eosinophils % Basophils % Sodium 138 Potassium 4.3 Chloride 102 Carbon Dioxide 27 Anion Gap 9 BUN 20 H D Creatinine 0.6 Creat Clearance w eGFR > 60 Random Glucose 97 Lactic Acid Calcium 8.5 Total Bilirubin 0.3 AST 32 ALT 29 Alkaline Phosphatase 197 H Creatine Kinase 268 H D CK-MB (CK-2) 2.804 Troponin I < 0.02 Total Protein 6.6 Albumin 2.0 L Lipase 256 Urine Color Urine Appearance Urine pH Ur Specific [facility] Urine Protein Urine Glucose (UA) Urine Ketones Urine Blood Urine Nitrite Urine Bilirubin Urine Urobilinogen Ur Leukocyte Esterase Urine RBC Urine WBC Uric Acid Crystals Granular Casts Urine Mucus Chest x-ray: No acute process. ASSESSMENT/PLAN: This is an 86-year-old woman with a history of HTN, hyperlipidemia, hypothyroidism, CVA with left hemiparesis, sacral pressure ulcer, seizure disorder, and multiple recent admissions for encephalopathy/fever/sepsis/UTI/ possible aspiration pneumonia. She returns today with fever, tachycardia. WBC is 11.6, lactic acid 1.479, BUN 20, creatinine 0.6. She is being admitted now for treatment of an emergent condition. 1. Sepsis - Source not clear - Possibly secondary to infected sacral pressure ulcer - Possibly secondary to aspiration pneumonia - Zosyn, Vancomycin given in ER - IV fluid - Repeat CXR in AM - ID consult - Follow-up blood, urine cultures 2. Dehydration - IV fluid - Monitor BUN, creatinine 3. Acute metabolic encephalopathy secondary to sepsis 4. Left hemiparesis secondary to recent CVA - Continue Plavix 5. Hypertension - Continue Norvasc 6. Hyperlipidemia - On no medication 7. Hypothyroidism - Continue Synthroid 8. Seizure disorder - Continue Keppra 9. Stage III pressure ulcer of sacrum and deep tissue injury of left heel - Wound care Problem List - Problem (1) Deep tissue injury Code(s): T14.8 - OTHER INJURY OF UNSPECIFIED BODY REGION (2) Dehydration Code(s): E86.0 - DEHYDRATION (3) Hemiparesis 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 Code(s): I69.354 - HEMIPLGA FOLLOWING CEREBRAL INFRC AFFECTING LEFT NONDOM SIDE (4) Hyperlipidemia Code(s): E78.5 - HYPERLIPIDEMIA, UNSPECIFIED (5) Sepsis Code(s): A41.9 - SEPSIS, UNSPECIFIED ORGANISM Qualifiers: Sepsis type: sepsis due to unspecified organism Qualified Code(s): A41.9 - Sepsis, unspecified organism Visit type - Emergency Visit Emergency Visit: Yes ED Registration Date: 07/03/16 Care time: The patient presented to the Emergency Department on the above date and was hospitalized for further evaluation of their emergent condition. - New Patient This patient is new to me today: Yes Date on this admission: 07/03/16 - Critical Care Critical Care patient: No
[2016-07-03] MEDS ORDERED: ONDANSETRON 4 MG/2 ML VIAL IVPB PRN (18:23)
[2016-07-03] MEDS ORDERED: ALBUTEROL SO4 0.083% IH SOL 2.5 MG/3 ML VIAL.NEB. NEB PRN (18:23)
[2016-07-03] MEDS: SODIUM CHLORIDE 1,000 ML IV SCH (20:07)
[2016-07-03] MEDS ORDERED: [UNRECOGNIZED DRUG - OTHER] OU SCH (22:00)
[2016-07-03] MEDS ORDERED: POVIDONE OU SCH (22:00)
[2016-07-03] MEDS ORDERED: POLYVINYL ALCOHOL OU SCH (22:00)
[2016-07-03] MEDS ORDERED: HEPARIN NA (PORCINE) 5,000 UNITS/ML 1ML VIAL ONE (22:30)
[2016-07-03] MEDS: levETIRAcetam 250 MG TABLET (FP) PO SCH (22:34)
[2016-07-03] MEDS: ARTIFICIAL TEARS (POLYVINYL ALCOHOL 1.4%) OPTH DROPS OU SCH (22:34)
[2016-07-03] MEDS: HEPARIN NA (PORCINE) 5,000 UNITS/ML 1ML VIAL SQ SCH (22:34)
[2016-07-04 07:05] LABS: BASOPHIL 0.3 % (0-2.0); EOSINOPHIL 0.1 % (0-4.5); MCH 27.4 pg (25.7-33.7); MEAN CELL VOLUME 83.1 fl (80-96); MEAN PLT VOLUME 7.2 fl (7.5-11.1); PLATELET COUNT 366 K/MM3 (134-434); RDW 15.6 % (11.6-15.6); WHITE BLOOD COUNT 11.2 K/mm3 (4.0-10.0)
[2016-07-04 07:28] LABS: CALCIUM 7.9 mg/dL (8.5-10.1)
[2016-07-04 07:29] LABS: CREATININE 0.4 mg/dL (0.55-1.02)
[2016-07-04] MEDS ORDERED: HEPARIN NA (PORCINE) 5,000 UNITS/ML 1ML VIAL ONE (07:46)
[2016-07-04] MEDS ORDERED: ACETAMINOPHEN 650 MG/20.3 ML ORAL SOLUTION (CUPS) ONE (07:46)
[2016-07-04] MEDS: HEPARIN NA (PORCINE) 5,000 UNITS/ML 1ML VIAL SQ SCH ×3 (07:52→22:22)
[2016-07-04] MEDS: ACETAMINOPHEN 325 MG TABLET (FP) PO PRN ×2 (07:52→17:46)
[2016-07-04] MEDS: ARTIFICIAL TEARS (POLYVINYL ALCOHOL 1.4%) OPTH DROPS OU SCH ×2 (09:36→22:23)
[2016-07-04] MEDS: levETIRAcetam 250 MG TABLET (FP) PO SCH ×2 (09:52→22:22)
[2016-07-04] MEDS: amLODIPine BESYLATE 10 MG TABLET (FP) PO SCH (09:52)
[2016-07-04] MEDS: CLOPIDOGREL BISULFATE 75 MG TABLET (FP) PO SCH ×2 (09:52→09:55)
[2016-07-04] MEDS: LEVOTHYROXINE NA 50 MCG TABLET (FP) PO SCH (09:52)
--- NOTE | 2016-07-04 10:49 | EKG ---
Test Reason : Blood Pressure : / mmHG Vent. Rate : 122 BPM Atrial Rate : 122 BPM P-R Int : 100 ms QRS Dur : 080 ms QT Int : 326 ms P-R-T Axes : 036 -23 056 degrees QTc Int : 464 ms POOR DATA QUALITY, INTERPRETATION MAY BE ADVERSELY AFFECTED SINUS TACHYCARDIA WITH SHORT SD MINIMAL VOLTAGE CRITERIA FOR LVH, MAY BE NORMAL VARIANT BORDERLINE ECG WHEN COMPARED WITH ECG OF 21-JUN-2016 17:21, NO SIGNIFICANT CHANGE WAS FOUND Confirmed by VERONIKA LEYVA MD ([id number]) on 07/04/2016 10:49:13 AM Referred By: Confirmed By:VERONIKA LEYVA MD
--- NOTE | 2016-07-04 12:40 | CONSULT ---
- Consultation REQUESTING PROVIDER: Derian RN INTEGRITY CONSULT REQUEST: CTSP for evaluation and management of a sacral wound. PCP:Audrey Menard HISTORY OF PRESENT ILLNESS: Sacral wound of unknown time a/t family in bed bound patient being cared for at home; wound has been txed w/Bacitracin; she was brought in b/o poor PO intake and PMHx: PSHx: Home Medications Medication Instructions Recorded Clopidogrel Bisulfate [Plavix -] 75 mg PO DAILY 07/03/16 Levetiracetam [Keppra] 250 mg PO BID 07/03/16 Levothyroxine [Synthroid -] 50 mcg PO DAILY 07/03/16 Polyvinyl Alcohol/Povidone 15 ml OU BID 07/03/16 [Artificial Tears Drops] Allergies Allergy/AdvReac Type Severity Reaction Status Date / Time aspirin Allergy Unknown Verified 07/03/16 14:07 iodine Allergy Unknown Verified 07/03/16 14:07 PHYSICAL EXAM: GENERAL: Lethargic and not oriented, in no acute distress. HEAD: Normal with no signs of trauma. NECK: Normal ROM, supple without lymphadenopathy, JVD, or masses. MUSCULOSKELETAL: ROM at all joints not assessed. No bony deformities or tenderness. No CVA tenderness. UPPER EXTREMITIES: 2+ pulses, warm, well-perfused. No cyanosis. Cap refill <2 seconds. No peripheral edema. LOWER EXTREMITIES: 2+ pulses, warm, well-perfused. No calf tenderness. No peripheral edema. NEUROLOGICAL: Speech, gait not observed. SKIN: Warm, dry, normal turgor, there is a Stage II sacral uler on either side of the gluteal cleft; L>R; no crepitus; no fluctuance; no exposed bone. Vital Signs Temperature 100 F H 07/04/16 07:35 Pulse Rate 110 H 07/04/16 07:35 Respiratory Rate 18 07/04/16 07:35 Blood Pressure 118/75 07/04/16 07:35 O2 Sat by Pulse Oximetry (%) 99 07/04/16 07:35 Lab Results WBC 11.2 K/mm3 (4.0-10.0) H 07/04/16 06:25 RBC 3.54 M/mm3 (3.60-5.2) L 07/04/16 06:25 Hgb 9.7 GM/dL (10.7-15.3) L D 07/04/16 06:25 Hct 29.4 % (32.4-45.2) L D 07/04/16 06:25 MCV 83.1 fl (80-96) 07/04/16 06:25 MCHC 33.0 g/dl (32.0-36.0) 07/04/16 06:25 RDW 15.6 % (11.6-15.6) 07/04/16 06:25 Plt Count 366 K/MM3 (134-434) 07/04/16 06:25 Sodium 140 mmol/L (136-145) 07/04/16 06:25 Potassium 3.9 mmol/L (3.5-5.1) 07/04/16 06:25 Chloride 106 mmol/L (98-107) 07/04/16 06:25 Carbon Dioxide 24 mmol/L (21-32) 07/04/16 06:25 Anion Gap 10 (8-16) 07/04/16 06:25 BUN 16 mg/dL (7-18) 07/04/16 06:25 Creatinine 0.4 mg/dL (0.55-1.02) L D 07/04/16 06:25 Random Glucose 103 mg/dL (74-106) 07/04/16 06:25 Calcium 7.9 mg/dL (8.5-10.1) L 07/04/16 06:25 IMP:Stage II sacral pressure ulcer PLAN: Frequent turning and sacral offloading; suggest trial of BID wound care with wound cleansing w/ NS and application of Santyl ointment; this may come to surgical debridement. Eric Pan MD FACS Visit type - Case Type Case Type: ED Admission - Emergency Emergency Visit: Yes ED Registration Date: 07/04/16 Care time: The patient presented to the Emergency Department on the above date and was hospitalized for further evaluation of their emergent condition. - New patient This patient is new to me today: Yes Date on this admission: 07/04/16 - Critical Care Critical Care patient: No
--- NOTE | 2016-07-04 13:12 | PN ---
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 (short form) - Note 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: ID consult dictated imp/reccd 86 year old female with recent right MCA CVA in April 2015, 2 admissions in May, one with seiZures and fever, the second with UTI, she has been treated for aspiration pneumonia as well she had a workup for FUO including chest/abd/pelvis ct 06/14 negative, and quant gold negative, she has elevated esr/crp as well she was seen by rheum in May and serology was negative now she is admitted from home with decreased po intake and lowgrade fever tobias was placed in ED cxray is negative she has a sacral ulcer stage 2 with skin breakdown but no drainage or bone exposure low grade fever- ?ulcer dehydration elevated esr/crp sacral ulcer continue zosyn until cultures are back surgery is following for decub care Problem List - Problems (1) Fever Code(s): R50.9 - FEVER, UNSPECIFIED (2) Dehydration Code(s): E86.0 - DEHYDRATION (3) Sacral decubitus ulcer Code(s): L89.159 - PRESSURE ULCER OF SACRAL REGION, UNSPECIFIED STAGE Qualifiers: Pressure ulcer stage: stage III Qualified Code(s): L89.153 - Pressure ulcer of sacral region, stage 3
[2016-07-04] MEDS: PIPERACILLIN/TAZOB 3.375 GM/50 ML PRE-DOCKED IVPB SCH ×2 (14:18→17:47)
[2016-07-04] MEDS: SODIUM CHLORIDE 1,000 ML IV SCH (14:21)
--- NOTE | 2016-07-04 15:28 | PN ---
Physical Exam: SUBJECTIVE: Patient seen and examined at bedside. OBJECTIVE: Vital Signs Period Temp Pulse Resp BP Sys/Ontiveros Pulse Ox Last 24 Hr 97.8 F-100 F 110-115 16-18 118-118/54-75 99 GENERAL: The patient is lethargic. Opened eyes to voice, followed commands, did not answer questions. HEAD: Normal with no signs of trauma. EYES: PERRL, extraocular movements intact, sclera anicteric, conjunctiva clear. No ptosis. LUNGS: Breath sounds equal, clear to auscultation bilaterally, no wheezes, no crackles, no accessory muscle use. HEART: Regular rate and rhythm, S1, S2 without murmur, rub or gallop. ABDOMEN: Soft, nontender, nondistended, normoactive bowel sounds, no guarding, no rebound, no hepatosplenomegaly, no masses. EXTREMITIES: 2+ pulses, warm, well-perfused, no edema. NEUROLOGICAL: Cranial nerves II through XII grossly intact. Normal speech, gait not observed. PSYCH: Normal mood, normal affect. SKIN: (1) Stage III pressure ulcer within the intergluteal fold 6.2cmL x 3.2cmW x 0.4cmD, yellow slough; (2) Stage II left buttock 0.5cm L x 1.7cm W x 0.1cmD with necrotic skin; THESE PRESSURE ULCERS WERE PRESENT ON ADMISSION Laboratory Results - last 24 hr 07/04/16 07/04/16 06:25 06:25 WBC 11.2 H RBC 3.54 L Hgb 9.7 L D Hct 29.4 L D MCV 83.1 MCHC 33.0 RDW 15.6 Plt Count 366 MPV 7.2 L Neutrophils % 77.0 Lymphocytes % 14.0 Monocytes % 8.6 Eosinophils % 0.1 Basophils % 0.3 Sodium 140 Potassium 3.9 Chloride 106 Carbon Dioxide 24 Anion Gap 10 BUN 16 Creatinine 0.4 L D Random Glucose 103 Calcium 7.9 L Active Medications Generic Name Dose Route Start Last Admin Trade Name Freq PRN Reason Stop Dose Admin Acetaminophen 650 mg 07/03/16 18:23 07/04/16 07:52 Tylenol - PO 650 mg Q4H PRN Administration FEVER OR PAIN Albuterol Sulfate 1 amp 07/03/16 18:23 Ventolin 0.083% Nebulizer Soln - NEB Q4H PRN SHORT OF BREATH/WHEEZING Amlodipine Besylate 10 mg 07/04/16 10:00 07/04/16 09:52 Norvasc - PO 10 mg DAILY ELENA Administration Artificial Tears 1 drop 07/03/16 22:00 07/04/16 09:36 Artificial Tears OU 1 drop BID ELENA Administration Clopidogrel Bisulfate 75 mg 07/04/16 10:00 07/04/16 09:55 Plavix - PO 75 mg DAILY ELENA Administration Heparin Sodium (Porcine) 5,000 unit 07/03/16 22:00 07/04/16 14:18 Heparin - SQ 5,000 unit TID ELENA Administration Sodium Chloride 1,000 mls @ 100 mls/hr 07/03/16 18:30 07/04/16 14:21 Normal Saline - IV 100 mls/hr ASDIR ELENA Administration Levetiracetam 250 mg 07/03/16 22:00 07/04/16 09:52 Keppra - PO 250 mg BID ELENA Administration Levothyroxine Sodium 50 mcg 07/04/16 07:00 07/04/16 09:52 Synthroid - PO 50 mcg DAILY@0700 ELENA Administration Ondansetron HCl 4 mg 07/03/16 18:23 Zofran Injection IVPB Q6H PRN NAUSEA Piperacillin Sod/Tazobactam Sod 3.375 gm 07/04/16 13:45 07/04/16 14:18 Zosyn 3.375gm Ivpb (Pre-Docked) IVPB 3.375 gm Q8H-IV ELENA Administration Protocol ASSESSMENT/PLAN 86 year-old woman with a PMH of R MCA CVA, seizure disorder, HTN, HLD, hypothyroidism, sacral pressure ulcers, and rheumatic fever. This is the patient 's fourth admission this year for fevers. Possible sepsis --febrile to 100.4, WBC 11.2k --sepsis possibly secondary to Stage III sacral ulcer, possibly aspiration pneumonia --CXR x 2 unremarkable --blood and urine cultures pending --continue empiric Zosyn (day #2) Stage III sacral pressure ulcer present on admission --collagenase daily --surgery following, possible debridement h/o CVA with seizure disorder --continue Keppra Hypertension --continue amlodipine Hyperlipidemia --not on statin Hypothyroidism --continue levothyroxine F/E/N Fluids: NS @ 100mL/hr Electrolytes: replete as indicated Nutrition: dysphagia puree with nectar thick liquids DVT prophylaxis: subq heparin Rehab PT evaluation Dispo: continues to require inpatient care. Full Code. Visit type - Emergency Visit Emergency Visit: Yes ED Registration Date: 07/04/16 Care time: The patient presented to the Emergency Department on the above date and was hospitalized for further evaluation of their emergent condition. - New Patient This patient is new to me today: Yes Date on this admission: 07/04/16 - Critical Care Critical Care patient: No
[2016-07-05] MEDS: PIPERACILLIN/TAZOB 3.375 GM/50 ML PRE-DOCKED IVPB SCH ×3 (01:54→17:34)
[2016-07-05] MEDS: SODIUM CHLORIDE 1,000 ML IV SCH ×2 (01:55→10:36)
[2016-07-05] MEDS: LEVOTHYROXINE NA 50 MCG TABLET (FP) PO SCH (06:30)
[2016-07-05] MEDS: HEPARIN NA (PORCINE) 5,000 UNITS/ML 1ML VIAL SQ SCH ×3 (06:30→22:07)
[2016-07-05 08:08] LABS: BASOPHIL 0.5 % (0-2.0); EOSINOPHIL 0.9 % (0-4.5); MCH 27.6 pg (25.7-33.7); MCHC 32.8 g/dl (32.0-36.0); MEAN PLT VOLUME 7.5 fl (7.5-11.1); PLATELET COUNT 349 K/MM3 (134-434); RDW 15.5 % (11.6-15.6); WHITE BLOOD COUNT 8.2 K/mm3 (4.0-10.0)
[2016-07-05 09:14] LABS: ALBUMIN 1.8 g/dl (3.4-5.0); ALK PHOS 163 U/L (45-117); ANION GAP 12 (8-16); BILIRUBIN,TOTAL 0.4 mg/dL (0.2-1.0); C-REACTIVE PROTEIN 17.5 MG/DL (0.00-0.3); CALCIUM 7.4 mg/dL (8.5-10.1); CO2 21 mmol/L (21-32); CREATININE 0.4 mg/dL (0.55-1.02); GLUCOSE,RANDOM 82 mg/dL (74-106); MAGNESIUM 1.9 mg/dL (1.8-2.4); SGOT/AST 27 U/L (15-37); SGPT/ALT 19 U/L (12-78); TOT PROT 5.4 g/dl (6.4-8.2)
--- NOTE | 2016-07-05 10:04 | PN ---
Physical Exam: SUBJECTIVE: Patient seen and examined at bedside. OBJECTIVE: Vital Signs Period Temp Pulse Resp BP Sys/Ontiveros Pulse Ox Last 24 Hr 97.8 F-98.2 F 100-122 16-18 108-118/54-60 98 GENERAL: The patient is still lethargic, answers questions with one word. HEAD: Normal with no signs of trauma. EYES: PERRL, extraocular movements intact, sclera anicteric, conjunctiva clear. No ptosis. LUNGS: Breath sounds equal, clear to auscultation bilaterally, no wheezes, no crackles, no accessory muscle use. HEART: Regular rate and rhythm, S1, S2 without murmur, rub or gallop. ABDOMEN: Soft, nontender, nondistended, normoactive bowel sounds, no guarding, no rebound, no hepatosplenomegaly, no masses. EXTREMITIES: 2+ pulses, warm, well-perfused, no edema. NEUROLOGICAL: Cranial nerves II through XII grossly intact. Normal speech, gait not observed. PSYCH: Normal mood, normal affect. SKIN: (1) Stage III pressure ulcer within the intergluteal fold 6.2cmL x 3.2cmW x 0.4cmD, yellow slough; (2) Stage II left buttock 0.5cm L x 1.7cm W x 0.1cmD with necrotic skin; these pressure ulcers present on admission Laboratory Results - last 24 hr 07/05/16 07/05/16 07/05/16 06:00 06:00 06:00 WBC 8.2 RBC 3.49 L Hgb 9.6 L Hct 29.3 L MCV 84.0 MCHC 32.8 RDW 15.5 Plt Count 349 MPV 7.5 Neutrophils % 68.0 Lymphocytes % 22.0 D Monocytes % 8.6 Eosinophils % 0.9 D Basophils % 0.5 ESR 62 H Sodium 143 Potassium 3.6 Chloride 110 H Carbon Dioxide 21 Anion Gap 12 BUN 12 D Creatinine 0.4 L Creat Clearance w eGFR > 60 Random Glucose 82 D Calcium 7.4 L Magnesium 1.9 Total Bilirubin 0.4 D AST 27 ALT 19 D Alkaline Phosphatase 163 H C-Reactive Protein 17.5 H D Total Protein 5.4 L Albumin 1.8 L Active Medications Generic Name Dose Route Start Last Admin Trade Name Freq PRN Reason Stop Dose Admin Acetaminophen 650 mg 07/03/16 18:23 07/04/16 17:46 Tylenol - PO 650 mg Q4H PRN Administration FEVER OR PAIN Albuterol Sulfate 1 amp 07/03/16 18:23 Ventolin 0.083% Nebulizer Soln - NEB Q4H PRN SHORT OF BREATH/WHEEZING Amlodipine Besylate 10 mg 07/04/16 10:00 07/04/16 09:52 Norvasc - PO 10 mg DAILY ELENA Administration Artificial Tears 1 drop 07/03/16 22:00 07/04/16 22:23 Artificial Tears OU 1 drop BID ELENA Administration Clopidogrel Bisulfate 75 mg 07/04/16 10:00 07/04/16 09:55 Plavix - PO 75 mg DAILY ELENA Administration Collagenase 1 applic 07/05/16 10:00 Santyl - TP DAILY ELENA Heparin Sodium (Porcine) 5,000 unit 07/03/16 22:00 07/05/16 06:30 Heparin - SQ 5,000 unit TID ELENA Administration Sodium Chloride 1,000 mls @ 100 mls/hr 07/03/16 18:30 07/05/16 01:55 Normal Saline - IV 100 mls/hr ASDIR ELENA Administration Levetiracetam 250 mg 07/03/16 22:00 07/04/16 22:22 Keppra - PO 250 mg BID ELENA Administration Levothyroxine Sodium 50 mcg 07/04/16 07:00 07/05/16 06:30 Synthroid - PO 50 mcg DAILY@0700 ELENA Administration Ondansetron HCl 4 mg 07/03/16 18:23 Zofran Injection IVPB Q6H PRN NAUSEA Piperacillin Sod/Tazobactam Sod 3.375 gm 07/04/16 13:45 07/05/16 01:54 Zosyn 3.375gm Ivpb (Pre-Docked) IVPB 3.375 gm Q8H-IV ELENA Administration Protocol ASSESSMENT/PLAN 86 year-old woman with a PMH of R MCA CVA, seizure disorder, HTN, HLD, hypothyroidism, sacral pressure ulcers, and rheumatic fever. This is the patient 's fourth admission this year for fevers. Infection secondary to Stage III sacral pressure ulcer present on admission Sepsis resolved --afebrile, leukocytosis resolved, still tachycardic, crp 17.5 will trend --cultures negative to date --collagenase daily --surgery following, possible debridement --continue empiric Zosyn (day #3) h/o CVA with seizure disorder --continue Keppra Hypertension --BP well-controlled --continue amlodipine Hyperlipidemia --not on statin Hypothyroidism --continue levothyroxine F/E/N Fluids: PO intake adequate Electrolytes: replete as indicated Nutrition: dysphagia puree with nectar thick liquids DVT prophylaxis: subq heparin Rehab PT evaluation Dispo: continues to require inpatient care. Full Code. Visit type - Emergency Visit Emergency Visit: Yes ED Registration Date: 07/04/16 Care time: The patient presented to the Emergency Department on the above date and was hospitalized for further evaluation of their emergent condition. - New Patient This patient is new to me today: No - Critical Care Critical Care patient: No
[2016-07-05] MEDS ORDERED: PT OWN MED DRAWER 7, Y5N ONE ×2 (10:21→14:50)
[2016-07-05] MEDS: CLOPIDOGREL BISULFATE 75 MG TABLET (FP) PO SCH (10:23)
[2016-07-05] MEDS: levETIRAcetam 250 MG TABLET (FP) PO SCH ×2 (10:23→22:07)
[2016-07-05] MEDS: amLODIPine BESYLATE 10 MG TABLET (FP) PO SCH (10:23)
--- NOTE | 2016-07-05 12:35 | PN ---
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 (short form) - Note 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: awakens easily no complaints ate breakfast per nursing Vital Signs Period Temp Pulse Resp BP Sys/Ontiveros Pulse Ox Last 24 Hr 97.8 F-98.2 F 100-122 16-18 108-118/54-60 98 cor-rrr lungs clear abd soft,nt ext no edema CBC, BMP 07/05/16 06:00 07/05/16 06:00 Microbiology 07/03/16 14:45 Blood - Peripheral Venous Blood Culture - Preliminary NO GROWTH OBTAINED AFTER 24 HOURS, INCUBATION TO CONTINUE FOR 4 DAYS. 07/03/16 14:45 Blood - Peripheral Venous Blood Culture - Preliminary NO GROWTH OBTAINED AFTER 24 HOURS, INCUBATION TO CONTINUE FOR 4 DAYS. 07/03/16 14:07 Urine - Urine Cardona Urine Culture - Final NO GROWTH OBTAINED cxray no infiltrate a/p low grade fevers- ?sacral ulcer continue zosyn f/u cultures s/p cva dehydration improved Problem List - Problems (1) Fever Code(s): R50.9 - FEVER, UNSPECIFIED (2) Dehydration Code(s): E86.0 - DEHYDRATION (3) Sacral decubitus ulcer Code(s): L89.159 - PRESSURE ULCER OF SACRAL REGION, UNSPECIFIED STAGE Qualifiers: Pressure ulcer stage: stage III Qualified Code(s): L89.153 - Pressure ulcer of sacral region, stage 3
--- NOTE | 2016-07-05 12:47 | CONS ---
DATE OF CONSULTATION: 07/04/2016 REQUESTING PHYSICIAN: The hospitalist service. HISTORY OF PRESENT ILLNESS: This is an 86-year-old woman who was originally admitted in April when she had an acute right MCA/CVA. This was followed by intermittent fever. She was treated for aspiration, [facility] She returned in early May with fever and what was felt to be possible seizures. She was seen by ID and Neurology and was treated with Keppra. She continued to have some intermittent fever during that admission for which she underwent a FUO workup. She had a sedimentation rate and CRP done that were noted to be elevated, the sedimentation rate of greater than 100. She had QuantiFERON Gold check, which was negative. She had multiple blood cultures that were really unremarkable, and she had CT scans of her chest, abdomen, and pelvis that were felt to be unremarkable. She was discharged back to the [facility]. Subsequently, she was readmitted the end of May with fever, and she was less responsive. She was found to have UTI with Providencia stuartii, and she was treated with antibiotics. She was ultimately discharged home, and she now is readmitted with low-grade fever and decreased oral intake for the last 2-3 days. She is currently awake. She is responsive, and she answers to her name. She is resting comfortably. ALLERGIES: She is allergic to ASPIRIN and IODINE. PAST MEDICAL HISTORY: Notable for CVA, seizure disorder, hyperlipidemia, hypertension, hypothyroidism. She has a stage 2 sacral ulcer. She also has a history of the recent Providencia UTI. She has a history of as well of hypothyroidism, hypocholesterolemia, and seizures, for which she is on Keppra. SURGICAL HISTORY: Notable for bilateral tubal ligation and tonsillectomy. MEDICATIONS: At home include Synthroid, artificial tears, Bacid, Actigall, Norvasc, Colace, bacitracin, Plavix, Keppra, Pyridium. She was discharged at the end of May on Levaquin, which she has completed. FAMILY HISTORY: Noncontributory. SOCIAL HISTORY: She lives at home with her family. REVIEW OF SYSTEMS: Per the family in the emergency room was notable for decreased oral intake and some low-grade fever. There was no nausea, vomiting, diarrhea, chest pain, or shortness of breath. PHYSICAL EXAMINATION: General: She is currently awake. She answers to her name. Vital signs: Temperature is 100, maximum temperature was 100.4, pulse 110, blood pressure 118/75, respiratory rate 18. She is saturating 99% on room air. HEENT: She is normocephalic. Her eyes are anicteric. 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 Heart: Regular rate and rhythm. Lungs: Clear to auscultation. Skin: She has no rash. Abdomen: Soft, nontender. She currently has a Cardona, which was placed in the emergency room. Extremities: Without edema. She has stage 2 sacral ulcer. There is no evidence of purulent drainage. LABORATORIES: Her white count is 11.2, hemoglobin is 9.7 (on admission was 11), platelets are 366. INR is 1.1. BUN 16, creatinine 0.4, alkaline phosphatase is 197. CK 268. Albumin is 2. Urinalysis is negative. Cultures are pending. SUMMARY: This is an 86-year-old woman with low-grade fever, dehydration, history of cerebrovascular accident, elevated sedimentation rate, C-reactive protein, and sacral ulcer. I would continue Zosyn until her blood cultures are back. Surgery is following for the decubitus care. Further recommendations to follow based on her clinical course. IRIS OMER M.D. [id number]
[2016-07-05] MEDS: ARTIFICIAL TEARS (POLYVINYL ALCOHOL 1.4%) OPTH DROPS OU SCH ×2 (14:28→22:07)
[2016-07-05] MEDS: COLLAGENASE CLOSTRIDIUM HIST. 30 GRAMS TUBE TP SCH (14:28)
[2016-07-06] MEDS: PIPERACILLIN/TAZOB 3.375 GM/50 ML PRE-DOCKED IVPB SCH ×2 (02:15→10:19)
[2016-07-06] MEDS: LEVOTHYROXINE NA 50 MCG TABLET (FP) PO SCH (06:20)
[2016-07-06] MEDS: HEPARIN NA (PORCINE) 5,000 UNITS/ML 1ML VIAL SQ SCH ×3 (06:20→21:47)
[2016-07-06 08:45] LABS: BASOPHIL 0.7 % (0-2.0); EOSINOPHIL 1.3 % (0-4.5); MCH 27.3 pg (25.7-33.7); MCHC 32.8 g/dl (32.0-36.0); MEAN CELL VOLUME 83.3 fl (80-96); MEAN PLT VOLUME 7.5 fl (7.5-11.1); NEUTROPHILS 57.6 % (42.8-82.8); PLATELET COUNT 368 K/MM3 (134-434); RDW 15.1 % (11.6-15.6); WHITE BLOOD COUNT 7.4 K/mm3 (4.0-10.0)
[2016-07-06 09:21] LABS: ALBUMIN 1.8 g/dl (3.4-5.0); ANION GAP 9 (8-16); CALCIUM 7.4 mg/dL (8.5-10.1); CO2 24 mmol/L (21-32); CREATININE 0.4 mg/dL (0.55-1.02); GLUCOSE,RANDOM 84 mg/dL (74-106); SGOT/AST 31 U/L (15-37); SGPT/ALT 22 U/L (12-78)
[2016-07-06 09:23] LABS: ALK PHOS 187 U/L (45-117); BILIRUBIN,TOTAL 0.3 mg/dL (0.2-1.0); TOT PROT 5.6 g/dl (6.4-8.2)
[2016-07-06] MEDS ORDERED: PT OWN MED DRAWER 7, Y5N ONE (10:16)
[2016-07-06] MEDS: amLODIPine BESYLATE 10 MG TABLET (FP) PO SCH (10:19)
[2016-07-06] MEDS: CLOPIDOGREL BISULFATE 75 MG TABLET (FP) PO SCH (10:19)
[2016-07-06] MEDS: levETIRAcetam 250 MG TABLET (FP) PO SCH ×2 (10:19→21:47)
[2016-07-06] MEDS: ARTIFICIAL TEARS (POLYVINYL ALCOHOL 1.4%) OPTH DROPS OU SCH ×2 (10:19→21:47)
[2016-07-06] MEDS: COLLAGENASE CLOSTRIDIUM HIST. 30 GRAMS TUBE TP SCH (10:21)
--- NOTE | 2016-07-06 14:35 | PN ---
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 (short form) - Note 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: ate well when fed by daughter urinary retention- tobias placed overnight more responsive Vital Signs Period Temp Pulse Resp BP Sys/Ontiveros Pulse Ox Last 24 Hr 98.2 F-99.3 F 100-116 16-20 105-129/50-69 96-100 cor-rrr lungs clear abd soft, nt ext no edema CBC, BMP 07/06/16 06:15 07/06/16 06:15 Microbiology 07/03/16 14:45 Blood - Peripheral Venous Blood Culture - Preliminary NO GROWTH OBTAINED AFTER 48 HOURS, INCUBATION TO CONTINUE FOR 3 DAYS. 07/03/16 14:45 Blood - Peripheral Venous Blood Culture - Preliminary NO GROWTH OBTAINED AFTER 48 HOURS, INCUBATION TO CONTINUE FOR 3 DAYS. 07/03/16 14:07 Urine - Urine Tobias Urine Culture - Final NO GROWTH OBTAINED a/p fevers resolved, cultures negative will d/c zosyn and observe sacral ulcer- management per surgery urinary retention s/p CVA Problem List - Problems (1) Fever Code(s): R50.9 - FEVER, UNSPECIFIED (2) Dehydration Code(s): E86.0 - DEHYDRATION (3) Sacral decubitus ulcer Code(s): L89.159 - PRESSURE ULCER OF SACRAL REGION, UNSPECIFIED STAGE Qualifiers: Pressure ulcer stage: stage III Qualified Code(s): L89.153 - Pressure ulcer of sacral region, stage 3
--- NOTE | 2016-07-06 16:07 | PN ---
Physical Exam: SUBJECTIVE: Patient seen and examined OBJECTIVE: Vital Signs Period Temp Pulse Resp BP Sys/Ontiveros Pulse Ox Last 24 Hr 98.5 F-99.3 F 101-116 18-20 106-129/59-69 96-100 GENERAL: The patient is still lethargic, answers questions with one word. HEAD: Normal with no signs of trauma. EYES: PERRL, extraocular movements intact, sclera anicteric, conjunctiva clear. No ptosis. LUNGS: Breath sounds equal, clear to auscultation bilaterally, no wheezes, no crackles, no accessory muscle use. HEART: Regular rate and rhythm, S1, S2 without murmur, rub or gallop. ABDOMEN: Soft, nontender, nondistended, normoactive bowel sounds, no guarding, no rebound, no hepatosplenomegaly, no masses. EXTREMITIES: 2+ pulses, warm, well-perfused, no edema. NEUROLOGICAL: Cranial nerves II through XII grossly intact. PSYCH: Normal mood, normal affect. SKIN: (1) Stage IV sacral pressure ulcer at intergluteal fold 4.0 cmL x 3.0cmW x1.0cmD, less slough, wound bed more visible, able to touch bone, has progressed from Stage III to Stage IV; (2) Stage II left buttock 5cmL x 7cmW x 0.1cm D, 50% necrotic skin, 50% deep red wound bed; (3) Stage II right buttock 1.5cmL x 1cm W x .1cm D, hard slough in wound bed; these pressure ulcers present on admission Laboratory Results - last 24 hr 07/06/16 07/06/16 06:15 06:15 WBC 7.4 RBC 3.43 L Hgb 9.4 L Hct 28.6 L MCV 83.3 MCHC 32.8 RDW 15.1 Plt Count 368 MPV 7.5 Neutrophils % 57.6 Lymphocytes % 32.5 D Monocytes % 7.9 Eosinophils % 1.3 Basophils % 0.7 Sodium 143 Potassium 3.4 L Chloride 110 H Carbon Dioxide 24 Anion Gap 9 BUN 8 D Creatinine 0.4 L Creat Clearance w eGFR > 60 Random Glucose 84 Calcium 7.4 L Total Bilirubin 0.3 D AST 31 ALT 22 Alkaline Phosphatase 187 H Total Protein 5.6 L Albumin 1.8 L Active Medications Generic Name Dose Route Start Last Admin Trade Name Freq PRN Reason Stop Dose Admin Acetaminophen 650 mg 07/03/16 18:23 07/04/16 17:46 Tylenol - PO 650 mg Q4H PRN Administration FEVER OR PAIN Albuterol Sulfate 1 amp 07/03/16 18:23 Ventolin 0.083% Nebulizer Soln - NEB Q4H PRN SHORT OF BREATH/WHEEZING Amlodipine Besylate 10 mg 07/04/16 10:00 07/06/16 10:19 Norvasc - PO 10 mg DAILY ELENA Administration Artificial Tears 1 drop 07/03/16 22:00 07/06/16 10:19 Artificial Tears OU 1 drop BID ELENA Administration Clopidogrel Bisulfate 75 mg 07/04/16 10:00 07/06/16 10:19 Plavix - PO 75 mg DAILY ELENA Administration Collagenase 1 applic 07/05/16 10:00 07/06/16 10:21 Santyl - TP 1 applic DAILY ELENA Administration Heparin Sodium (Porcine) 5,000 unit 07/03/16 22:00 07/06/16 14:05 Heparin - SQ 5,000 unit TID ELENA Administration Levetiracetam 250 mg 07/03/16 22:00 07/06/16 10:19 Keppra - PO 250 mg BID ELENA Administration Levothyroxine Sodium 50 mcg 07/04/16 07:00 07/06/16 06:20 Synthroid - PO 50 mcg DAILY@0700 ELENA Administration Ondansetron HCl 4 mg 07/03/16 18:23 Zofran Injection IVPB Q6H PRN NAUSEA ASSESSMENT/PLAN 86 year-old woman with a PMH of R MCA CVA, seizure disorder, HTN, HLD, hypothyroidism, sacral pressure ulcers, and rheumatic fever. This is the patient 's fourth admission this year for fevers. Infection secondary to Stage III sacral pressure ulcer present on admission Sepsis resolved --afebrile, leukocytosis resolved, still tachycardic but review of EMR shows patient this is patient's baseline; crp 17.5 will trend --cultures negative to date --collagenase daily--wounds are now better visualized, Stage III is really a Stage IV now that slough has been removed --surgery following, possible debridement --ID stopped antibiotics, will observe Urinary retention --patient was sent home on last discharge with a tobias which was never removed; family did not take patient to see a provider for this problem --tobias was changed on this admission; d/c'd tobias yesterday but patient did not void and new tobias placed --urology consult --US renal, bladder ordered h/o CVA with seizure disorder --continue Keppra Hypertension --BP well-controlled --continue amlodipine Hyperlipidemia --not on statin Hypothyroidism --continue levothyroxine F/E/N Fluids: PO intake adequate Electrolytes: replete as indicated Nutrition: dysphagia puree with nectar thick liquids DVT prophylaxis: subq heparin Rehab PT evaluation Dispo: continues to require inpatient care. Full Code. Visit type - Emergency Visit Emergency Visit: Yes ED Registration Date: 07/04/16 Care time: The patient presented to the Emergency Department on the above date and was hospitalized for further evaluation of their emergent condition. - New Patient This patient is new to me today: No - Critical Care Critical Care patient: No
[2016-07-07] MEDS: HEPARIN NA (PORCINE) 5,000 UNITS/ML 1ML VIAL SQ SCH ×3 (06:00→22:08)
[2016-07-07] MEDS: LEVOTHYROXINE NA 50 MCG TABLET (FP) PO SCH (07:00)
[2016-07-07 07:47] LABS: BASOPHIL 0.9 % (0-2.0); EOSINOPHIL 1.1 % (0-4.5); MCH 27.4 pg (25.7-33.7); MCHC 32.9 g/dl (32.0-36.0); MEAN CELL VOLUME 83.2 fl (80-96); MEAN PLT VOLUME 7.3 fl (7.5-11.1); NEUTROPHILS 56.6 % (42.8-82.8); PLATELET COUNT 374 K/MM3 (134-434); RDW 15.5 % (11.6-15.6); WHITE BLOOD COUNT 6.3 K/mm3 (4.0-10.0)
[2016-07-07 08:15] LABS: ALBUMIN 1.6 g/dl (3.4-5.0); ANION GAP 8 (8-16); CALCIUM 7.6 mg/dL (8.5-10.1); CO2 25 mmol/L (21-32); CREATININE 0.4 mg/dL (0.55-1.02); GLUCOSE,RANDOM 86 mg/dL (74-106); MAGNESIUM 1.6 mg/dL (1.8-2.4); SGOT/AST 38 U/L (15-37); SGPT/ALT 25 U/L (12-78)
[2016-07-07 08:19] LABS: ALK PHOS 174 U/L (45-117); BILIRUBIN,TOTAL 0.2 mg/dL (0.2-1.0); C-REACTIVE PROTEIN 8.7 MG/DL (0.00-0.3); TOT PROT 5.2 g/dl (6.4-8.2)
[2016-07-07] MEDS: ARTIFICIAL TEARS (POLYVINYL ALCOHOL 1.4%) OPTH DROPS OU SCH ×2 (09:12→22:08)
[2016-07-07] MEDS: amLODIPine BESYLATE 10 MG TABLET (FP) PO SCH (09:13)
[2016-07-07] MEDS: CLOPIDOGREL BISULFATE 75 MG TABLET (FP) PO SCH (09:13)
[2016-07-07] MEDS: levETIRAcetam 250 MG TABLET (FP) PO SCH ×2 (09:13→22:08)
[2016-07-07] MEDS ORDERED: MAGNESIUM SULF 50% (8.12 MEQ/2 ML-1 GM VIAL) IVPB ONE (11:03)
--- NOTE | 2016-07-07 11:04 | PN ---
Physical Exam: SUBJECTIVE: Patient seen and examined at bedside. Family members present. Continues to be somnolent, limited interaction with family which appears to be her baseline. OBJECTIVE: Vital Signs Period Temp Pulse Resp BP Sys/Ontiveros Pulse Ox Last 24 Hr 97.8 F-99.3 F 106-117 20-20 106-113/58-77 GENERAL: The patient is somnolent, opens eyes to voice command, answers questions with one word. Family indicates this is baseline. HEAD: Normal with no signs of trauma. EYES: PERRL, extraocular movements intact, sclera anicteric, conjunctiva clear. No ptosis. LUNGS: Breath sounds equal, clear to auscultation bilaterally, no wheezes, no crackles, no accessory muscle use. HEART: Regular rate and rhythm, S1, S2 without murmur, rub or gallop. ABDOMEN: Soft, nontender, nondistended, normoactive bowel sounds, no guarding, no rebound, no hepatosplenomegaly, no masses. EXTREMITIES: 2+ pulses, warm, well-perfused, no edema. NEUROLOGICAL: Cranial nerves II through XII grossly intact. PSYCH: Normal mood, normal affect. SKIN: (1) Stage IV sacral pressure ulcer at intergluteal fold 4.0 cmL x 3.0cmW x1.0cmD, less slough, wound bed more visible, able to touch bone, has progressed from Stage III to Stage IV; (2) Stage II left buttock 5cmL x 7cmW x 0.1cm D, 50% necrotic skin, 50% deep red wound bed; (3) Stage II right buttock 1.5cmL x 1cm W x .1cm D, hard slough in wound bed; these pressure ulcers present on admission Laboratory Results - last 24 hr 07/07/16 07/07/16 06:15 06:15 WBC 6.3 RBC 3.11 L Hgb 8.5 L Hct 25.9 L MCV 83.2 MCHC 32.9 RDW 15.5 Plt Count 374 MPV 7.3 L Neutrophils % 56.6 Lymphocytes % 31.3 Monocytes % 10.1 Eosinophils % 1.1 Basophils % 0.9 Sodium 144 Potassium 3.5 Chloride 111 H Carbon Dioxide 25 Anion Gap 8 BUN 6 L D Creatinine 0.4 L Creat Clearance w eGFR > 60 Random Glucose 86 Calcium 7.6 L Magnesium 1.6 L Total Bilirubin 0.2 D AST 38 H D ALT 25 Alkaline Phosphatase 174 H C-Reactive Protein 8.7 H D Total Protein 5.2 L Albumin 1.6 L Active Medications Generic Name Dose Route Start Last Admin Trade Name Freq PRN Reason Stop Dose Admin Acetaminophen 650 mg 07/03/16 18:23 07/04/16 17:46 Tylenol - PO 650 mg Q4H PRN Administration FEVER OR PAIN Albuterol Sulfate 1 amp 07/03/16 18:23 Ventolin 0.083% Nebulizer Soln - NEB Q4H PRN SHORT OF BREATH/WHEEZING Amlodipine Besylate 10 mg 07/04/16 10:00 07/07/16 09:13 Norvasc - PO 10 mg DAILY ELENA Administration Artificial Tears 1 drop 07/03/16 22:00 07/07/16 09:12 Artificial Tears OU 1 drop BID ELENA Administration Clopidogrel Bisulfate 75 mg 07/04/16 10:00 07/07/16 09:13 Plavix - PO 75 mg DAILY ELENA Administration Collagenase 1 applic 07/05/16 10:00 07/06/16 10:21 Santyl - TP 1 applic DAILY ELENA Administration Heparin Sodium (Porcine) 5,000 unit 07/03/16 22:00 07/07/16 06:00 Heparin - SQ 5,000 unit TID ELENA Administration Levetiracetam 250 mg 07/03/16 22:00 07/07/16 09:13 Keppra - PO 250 mg BID ELENA Administration Levothyroxine Sodium 50 mcg 07/04/16 07:00 07/07/16 07:00 Synthroid - PO 50 mcg DAILY@0700 ELENA Administration Magnesium Sulfate 2 gm 07/07/16 11:03 Magnesium Sulfate IVPB 07/07/16 11:04 ONCE ONE Ondansetron HCl 4 mg 07/03/16 18:23 Zofran Injection IVPB Q6H PRN NAUSEA ASSESSMENT/PLAN 86 year-old woman with a PMH of R MCA CVA, seizure disorder, HTN, HLD, hypothyroidism, sacral pressure ulcers, and rheumatic fever. This is the patient 's fourth admission this year for fevers. Infection secondary to Stage III sacral pressure ulcer present on admission Sepsis resolved --afebrile, leukocytosis resolved off antibiotics; crp 17.5 --> 8.7 --cultures negative to date --collagenase daily--wounds are now better visualized, Stage III is really a Stage IV now that slough has been removed --general surgery following, possible debridement --family wants plastics consult for possible flap procedure; should discuss with Dr. Pan/Dr. Forbes Urinary retention --patient was sent home on last discharge with a tobias which was never removed --tobias was changed on this admission; d/c'd tobias 07/05 but patient failed voiding trial; new tobias placed --urology consult today: likely best managed with chronic catheter in an effort to decrease recurring UTIs --US renal, bladder: no hydronephrosis; medical renal disease h/o CVA with left hemiparesis and associated seizure disorder --continue Keppra Hypertension --BP well-controlled --continue amlodipine Tachycardia --patient's baseline Hyperlipidemia --not on statin Hypothyroidism --continue levothyroxine F/E/N Fluids: PO intake adequate Electrolytes: replete as indicated Nutrition: dysphagia puree with nectar thick liquids DVT prophylaxis: subq heparin Rehab PT evaluation Dispo: continues to require inpatient care. Full Code. Visit type - Emergency Visit Emergency Visit: Yes ED Registration Date: 07/04/16 Care time: The patient presented to the Emergency Department on the above date and was hospitalized for further evaluation of their emergent condition. - New Patient This patient is new to me today: No - Critical Care Critical Care patient: No
--- NOTE | 2016-07-07 11:44 | CON.GU ---
Consult - History of Present Illness History of Present Illness: 86 yo female with recurrent uti, recently discharged with tobias for urinary retention. Now admitted with fever and shaking. Failed voiding trial yesterday. 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: CVA (05/11/16 -> acute R MCA territory CVA and L hemiparesis), Seizure (3 years ago) Cardio/Vascular: Yes: Hyperlipdemia ...: No Endocrine: Yes: Hypothyroidism - Alcohol/Substance Use Hx Alcohol Use: No History of Substance Use: reports: None - Smoking History Smoking history: Former smoker Have you smoked in the past 12 months: No - Social History Usual Living Arrangement: With Child Home Medications - Allergies Allergies/Adverse Reactions: Allergies Allergy/AdvReac Type Severity Reaction Status Date / Time aspirin Allergy Unknown Verified 07/03/16 14:07 iodine Allergy Unknown Verified 07/03/16 14:07 - Home Medications Home Medications: Ambulatory Orders Clopidogrel Bisulfate [Plavix -] 75 mg PO DAILY 07/03/16 Levetiracetam [Keppra] 250 mg PO BID 07/03/16 Levothyroxine [Synthroid -] 50 mcg PO DAILY 07/03/16 Polyvinyl Alcohol/Povidone [Artificial Tears Drops] 15 ml OU BID 07/03/16 Physical Exam- Vital Signs: Vital Signs Temperature 97.9 F 07/07/16 08:32 Pulse Rate 106 H 07/07/16 08:32 Respiratory Rate 20 07/07/16 08:32 Blood Pressure 106/68 07/07/16 08:32 O2 Sat by Pulse Oximetry (%) 95 07/07/16 09:00 Labs: CBC, BMP 07/07/16 06:15 07/07/16 06:15 Problem List - Problems (1) Urinary retention Assessment/Plan: await renal and bladder sono likely best managed with chronic catheter in an effort to decrease recurring symptomatic utis Code(s): R33.9 - RETENTION OF URINE, UNSPECIFIED
[2016-07-07] MEDS: COLLAGENASE CLOSTRIDIUM HIST. 30 GRAMS TUBE TP SCH (12:40)
[2016-07-07] MEDS: ACETAMINOPHEN 325 MG TABLET (FP) PO PRN (14:02)
[2016-07-08] MEDS: LEVOTHYROXINE NA 50 MCG TABLET (FP) PO SCH (06:39)
[2016-07-08] MEDS: HEPARIN NA (PORCINE) 5,000 UNITS/ML 1ML VIAL SQ SCH ×3 (06:39→21:08)
--- NOTE | 2016-07-08 09:38 | PN ---
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 (short form) - Note 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: Attending Surgeon Seen in f/u; wound care in progress w/Santyl O/E Wounds Stage II-III (R/L) over sacrum and intergluteal fold; no fluctuance. IMP:sacral wounds PLAN: Continue present tx.; will continue to re-evaluate; may come to debridement; do not believe this patient is a candidate for anything more than this given her # co-morbid conditions. Eric Pan MD FACS
[2016-07-08] MEDS: CLOPIDOGREL BISULFATE 75 MG TABLET (FP) PO SCH (10:24)
[2016-07-08] MEDS: ARTIFICIAL TEARS (POLYVINYL ALCOHOL 1.4%) OPTH DROPS OU SCH ×2 (10:24→21:08)
[2016-07-08] MEDS: levETIRAcetam 250 MG TABLET (FP) PO SCH ×2 (10:24→21:08)
[2016-07-08] MEDS: amLODIPine BESYLATE 10 MG TABLET (FP) PO SCH (10:24)
[2016-07-08] MEDS: COLLAGENASE CLOSTRIDIUM HIST. 30 GRAMS TUBE TP SCH (10:25)
[2016-07-08] MEDS ORDERED: PT OWN MED DRAWER 7, Y5N ONE ×2 (10:49→20:41)
--- NOTE | 2016-07-08 16:32 | PN ---
Physical Exam: SUBJECTIVE: Patient seen and examined. Lethargic, answers questions in a whisper and one word responses. In no acute distress. OBJECTIVE: Vital Signs Period Temp Pulse Resp BP Sys/Ontiveros Pulse Ox Last 24 Hr 98 F-99.6 F 96-112 18-20 101-121/54-63 95-97 GENERAL: The patient is somnolent, opens eyes to voice command, answers questions with one word. HEAD: Normal with no signs of trauma. EYES: PERRL, extraocular movements intact, sclera anicteric, conjunctiva clear. No ptosis. LUNGS: Breath sounds equal, clear to auscultation bilaterally, no wheezes, no crackles, no accessory muscle use. HEART: Regular rate and rhythm, S1, S2 without murmur, rub or gallop. ABDOMEN: Soft, nontender, nondistended, normoactive bowel sounds, no guarding, no rebound, no hepatosplenomegaly, no masses. EXTREMITIES: 2+ pulses, warm, well-perfused, no edema. NEUROLOGICAL: Cranial nerves II through XII grossly intact. PSYCH: Normal mood, normal affect. SKIN: Multiple pressure ulcers - all present on admission Active Medications Generic Name Dose Route Start Last Admin Trade Name Freq PRN Reason Stop Dose Admin Acetaminophen 650 mg 07/03/16 18:23 07/07/16 14:02 Tylenol - PO 650 mg Q4H PRN Administration FEVER OR PAIN Albuterol Sulfate 1 amp 07/03/16 18:23 Ventolin 0.083% Nebulizer Soln - NEB Q4H PRN SHORT OF BREATH/WHEEZING Amlodipine Besylate 10 mg 07/04/16 10:00 07/08/16 10:24 Norvasc - PO 10 mg DAILY ELENA Administration Artificial Tears 1 drop 07/03/16 22:00 07/08/16 10:24 Artificial Tears OU 1 drop BID ELENA Administration Clopidogrel Bisulfate 75 mg 07/04/16 10:00 07/08/16 10:24 Plavix - PO 75 mg DAILY ELENA Administration Collagenase 1 applic 07/05/16 10:00 07/08/16 10:25 Santyl - TP 1 applic DAILY ELENA Administration Heparin Sodium (Porcine) 5,000 unit 07/03/16 22:00 07/08/16 15:05 Heparin - SQ 5,000 unit TID ELENA Administration Levetiracetam 250 mg 07/03/16 22:00 07/08/16 10:24 Keppra - PO 250 mg BID ELENA Administration Levothyroxine Sodium 50 mcg 07/04/16 07:00 07/08/16 06:39 Synthroid - PO 50 mcg DAILY@0700 ELENA Administration Ondansetron HCl 4 mg 07/03/16 18:23 Zofran Injection IVPB Q6H PRN NAUSEA ASSESSMENT/PLAN: Patient is an 86 year old female with a significant past medical history of CVA , seizure disorder, HTN, HLD, hypothyroidism, sacral pressure ulcers, and rheumatic fever. She presents to the ED on 07/04/2016 with fevers and altered mental status. 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 Fluids: PO intake adequate Electrolytes: BMP in a.m. Nutrition: dysphagia puree with nectar thick liquids DVT prophylaxis: subq heparin Dispo: continues to require inpatient care. Full Code. Visit type - Emergency Visit Emergency Visit: Yes ED Registration Date: 07/04/16 Care time: The patient presented to the Emergency Department on the above date and was hospitalized for further evaluation of their emergent condition. - New Patient This patient is new to me today: Yes Date on this admission: 07/08/16 - Critical Care Critical Care patient: No - Discharge Referral Referred to [facility] Med P.C.: No
[2016-07-09] MEDS: HEPARIN NA (PORCINE) 5,000 UNITS/ML 1ML VIAL SQ SCH ×3 (06:09→22:24)
[2016-07-09] MEDS: LEVOTHYROXINE NA 50 MCG TABLET (FP) PO SCH (06:10)
[2016-07-09 07:57] LABS: BASOPHIL 0.8 % (0-2.0); EOSINOPHIL 1.6 % (0-4.5); MCH 27.6 pg (25.7-33.7); MCHC 32.9 g/dl (32.0-36.0); MEAN PLT VOLUME 7.1 fl (7.5-11.1); NEUTROPHILS 54.9 % (42.8-82.8); PLATELET COUNT 446 K/MM3 (134-434); RDW 15.9 % (11.6-15.6); WHITE BLOOD COUNT 6.5 K/mm3 (4.0-10.0)
[2016-07-09 08:28] LABS: ALBUMIN 1.9 g/dl (3.4-5.0); ANION GAP 9 (8-16); BILIRUBIN,TOTAL 0.2 mg/dL (0.2-1.0); CALCIUM 7.8 mg/dL (8.5-10.1); CO2 27 mmol/L (21-32); CREATININE 0.5 mg/dL (0.55-1.02); GLUCOSE,RANDOM 91 mg/dL (74-106); SGOT/AST 34 U/L (15-37); SGPT/ALT 29 U/L (12-78); TOT PROT 5.8 g/dl (6.4-8.2)
[2016-07-09 08:29] LABS: ALK PHOS 175 U/L (45-117)
[2016-07-09] MEDS ORDERED: POTASSIUM CHLORIDE 40 MEQ/30 ML UNIT DOSE CUP PO ONE (09:17)
[2016-07-09] MEDS: levETIRAcetam 250 MG TABLET (FP) PO SCH ×2 (09:57→22:24)
[2016-07-09] MEDS: ARTIFICIAL TEARS (POLYVINYL ALCOHOL 1.4%) OPTH DROPS OU SCH ×2 (09:57→22:23)
[2016-07-09] MEDS: COLLAGENASE CLOSTRIDIUM HIST. 30 GRAMS TUBE TP SCH (09:57)
[2016-07-09] MEDS: CLOPIDOGREL BISULFATE 75 MG TABLET (FP) PO SCH (09:57)
[2016-07-09] MEDS: amLODIPine BESYLATE 10 MG TABLET (FP) PO SCH (09:57)
--- NOTE | 2016-07-09 14:58 | PN ---
Physical Exam: SUBJECTIVE: Patient seen and examined. Lethargic, answers questions in a whisper and one word responses. In no acute distress. OBJECTIVE: Vital Signs Period Temp Pulse Resp BP Sys/Ontiveros Pulse Ox Last 24 Hr 98.6 F-100.2 F 72-115 18-20 111-119/54-70 95-97 GENERAL: The patient is somnolent, opens eyes to voice command, answers questions with one word. HEAD: Normal with no signs of trauma. EYES: PERRL, extraocular movements intact, sclera anicteric, conjunctiva clear. No ptosis. LUNGS: Breath sounds equal, clear to auscultation bilaterally, no wheezes, no crackles, no accessory muscle use. HEART: Regular rate and rhythm, S1, S2 without murmur, rub or gallop. ABDOMEN: Soft, nontender, nondistended, normoactive bowel sounds, no guarding, no rebound, no hepatosplenomegaly, no masses. EXTREMITIES: 2+ pulses, warm, well-perfused, no edema. NEUROLOGICAL: Cranial nerves II through XII grossly intact. PSYCH: Normal mood, normal affect. SKIN: Multiple pressure ulcers, largest one on sacrum which is a stage 4. all wounds present on admission Laboratory Results - last 24 hr 07/09/16 07/09/16 06:30 06:30 WBC 6.5 RBC 3.51 L Hgb 9.7 L D Hct 29.5 L MCV 84.0 MCHC 32.9 RDW 15.9 H Plt Count 446 H MPV 7.1 L Neutrophils % 54.9 Lymphocytes % 32.2 Monocytes % 10.5 H Eosinophils % 1.6 Basophils % 0.8 Sodium 143 Potassium 3.4 L Chloride 107 Carbon Dioxide 27 Anion Gap 9 BUN 8 D Creatinine 0.5 L D Creat Clearance w eGFR > 60 Random Glucose 91 Calcium 7.8 L Total Bilirubin 0.2 AST 34 ALT 29 Alkaline Phosphatase 175 H Total Protein 5.8 L Albumin 1.9 L Active Medications Generic Name Dose Route Start Last Admin Trade Name Freq PRN Reason Stop Dose Admin Acetaminophen 650 mg 07/03/16 18:23 07/07/16 14:02 Tylenol - PO 650 mg Q4H PRN Administration FEVER OR PAIN Amino Acids 30 ml 07/09/16 17:30 Prosource No Carb Liquid Pkt PO BID@0800,1730 ELENA Amlodipine Besylate 10 mg 07/04/16 10:00 07/09/16 09:57 Norvasc - PO 10 mg DAILY ELENA Administration Artificial Tears 1 drop 07/03/16 22:00 07/09/16 09:57 Artificial Tears OU 1 drop BID ELENA Administration Clopidogrel Bisulfate 75 mg 07/04/16 10:00 07/09/16 09:57 Plavix - PO 75 mg DAILY ELENA Administration Collagenase 1 applic 07/05/16 10:00 07/09/16 09:57 Santyl - TP 1 applic DAILY ELENA Administration Heparin Sodium (Porcine) 5,000 unit 07/03/16 22:00 07/09/16 13:41 Heparin - SQ 5,000 unit TID ELENA Administration Levetiracetam 250 mg 07/03/16 22:00 07/09/16 09:57 Keppra - PO 250 mg BID ELENA Administration Levothyroxine Sodium 50 mcg 07/04/16 07:00 07/09/16 06:10 Synthroid - PO 50 mcg DAILY@0700 ELENA Administration Ondansetron HCl 4 mg 07/03/16 18:23 Zofran Injection IVPB Q6H PRN NAUSEA ASSESSMENT/PLAN: Patient is an 86 year old female with a significant past medical history of CVA , seizure disorder, HTN, HLD, hypothyroidism, sacral pressure ulcers, and rheumatic fever. She presents to the ED on 07/04/2016 with fevers and altered mental status. 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 Fluids: PO intake adequate Electrolytes: hypokalemia given 40meq of Kdur x 1 Nutrition: dysphasia puree with nectar thick liquids DVT prophylaxis: subq heparin Dispo: continues to require inpatient care. Full Code. Visit type - Emergency Visit Emergency Visit: Yes ED Registration Date: 07/04/16 Care time: The patient presented to the Emergency Department on the above date and was hospitalized for further evaluation of their emergent condition. - New Patient This patient is new to me today: No - Critical Care Critical Care patient: No - Discharge Referral Referred to [facility] Med P.C.: No
[2016-07-09] MEDS: AMINO ACIDS/PROTEIN HYDROLYS 30 ML LIQUID.PKT PO SCH (17:19)
[2016-07-10] MEDS: LEVOTHYROXINE NA 50 MCG TABLET (FP) PO SCH (06:15)
[2016-07-10] MEDS: HEPARIN NA (PORCINE) 5,000 UNITS/ML 1ML VIAL SQ SCH ×2 (06:16→13:51)
[2016-07-10] MEDS ORDERED: PT OWN MED DRAWER 7, Y5N ONE ×2 (06:18→10:36)
[2016-07-10 08:05] LABS: BASOPHIL 0.6 % (0-2.0); EOSINOPHIL 0.8 % (0-4.5); MCH 26.8 pg (25.7-33.7); MCHC 32.2 g/dl (32.0-36.0); MEAN CELL VOLUME 83.3 fl (80-96); MEAN PLT VOLUME 7.2 fl (7.5-11.1); NEUTROPHILS 55.6 % (42.8-82.8); PLATELET COUNT 452 K/MM3 (134-434); RDW 15.8 % (11.6-15.6); WHITE BLOOD COUNT 7.8 K/mm3 (4.0-10.0)
[2016-07-10 08:35] LABS: ALBUMIN 1.9 g/dl (3.4-5.0); ANION GAP 5 (8-16); CALCIUM 8.3 mg/dL (8.5-10.1); CO2 28 mmol/L (21-32); GLUCOSE,RANDOM 92 mg/dL (74-106); MAGNESIUM 1.7 mg/dL (1.8-2.4)
[2016-07-10 08:39] LABS: ALK PHOS 174 U/L (45-117); BILIRUBIN,TOTAL 0.2 mg/dL (0.2-1.0); CREATININE 0.4 mg/dL (0.55-1.02); SGOT/AST 43 U/L (15-37); SGPT/ALT 38 U/L (12-78); TOT PROT 5.8 g/dl (6.4-8.2)
[2016-07-10] MEDS: AMINO ACIDS/PROTEIN HYDROLYS 30 ML LIQUID.PKT PO SCH (10:17)
[2016-07-10] MEDS: CLOPIDOGREL BISULFATE 75 MG TABLET (FP) PO SCH (10:17)
[2016-07-10] MEDS: amLODIPine BESYLATE 10 MG TABLET (FP) PO SCH (10:17)
[2016-07-10] MEDS: levETIRAcetam 250 MG TABLET (FP) PO SCH (10:17)
[2016-07-10] MEDS: COLLAGENASE CLOSTRIDIUM HIST. 30 GRAMS TUBE TP SCH (10:18)
[2016-07-10] MEDS: ARTIFICIAL TEARS (POLYVINYL ALCOHOL 1.4%) OPTH DROPS OU SCH (10:18)
--- NOTE | 2016-07-10 10:19 | PN ---
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, Physician History of Present Illness: Hosp day # 7 Awake, responsive Low grade temp noted WBC WNL Cultures , CXR negative Off antibiotics for the past 4 days - Current Medication List Current Medications: Active Medications Acetaminophen (Tylenol -) 650 mg PO Q4H PRN PRN Reason: FEVER OR PAIN Last Admin: 07/07/16 14:02 Dose: 650 mg Amino Acids (Prosource No Carb Liquid Pkt) 30 ml PO BID@0800,1730 [facility] Last Admin: 07/09/16 17:19 Dose: 30 ml Amlodipine Besylate (Norvasc -) 10 mg PO DAILY [facility] Last Admin: 07/09/16 09:57 Dose: 10 mg Artificial Tears (Artificial Tears) 1 drop OU BID [facility] Last Admin: 07/09/16 22:23 Dose: 1 drop Clopidogrel Bisulfate (Plavix -) 75 mg PO DAILY [facility] Last Admin: 07/09/16 09:57 Dose: 75 mg Collagenase (Santyl -) 1 applic TP DAILY [facility] Last Admin: 07/09/16 09:57 Dose: 1 applic Heparin Sodium (Porcine) (Heparin -) 5,000 unit SQ TID [facility] Last Admin: 07/10/16 06:16 Dose: 5,000 unit Levetiracetam (Keppra -) 250 mg PO BID [facility] Last Admin: 07/09/16 22:24 Dose: 250 mg Levothyroxine Sodium (Synthroid -) 50 mcg PO DAILY@0700 [facility] Last Admin: 07/10/16 06:15 Dose: 50 mcg Ondansetron HCl (Zofran Injection) 4 mg IVPB Q6H PRN PRN Reason: NAUSEA - Objective Vital Signs: Vital Signs Temperature 99.1 F 07/10/16 09:00 Pulse Rate 116 H 07/10/16 09:00 Respiratory Rate 18 07/10/16 09:00 Blood Pressure 102/53 07/10/16 09:00 O2 Sat by Pulse Oximetry (%) 95 07/09/16 21:00 Constitutional: Yes: No Distress Eyes: Yes: Conjunctiva Clear Cardiovascular: Yes: Regular Rate and Rhythm, S1, S2 Respiratory: Yes: CTA Bilaterally Gastrointestinal: Yes: Normal Bowel Sounds, Soft. No: Tenderness Edema: No Integumentary: Yes: Other (+ buttock decubiti- + black eschar L buttock, granulation tissue R buttock. No purulence or foul odor) Labs: CBC, BMP 07/10/16 06:10 07/10/16 06:10 Assessment/Plan Low grade temps S/P CVA Decubitus ulcer Observe off antibiotics; No objection to discharge Decubitus care per surgery
--- NOTE | 2016-07-10 13:45 | DS ---
Physical Exam: SUBJECTIVE: Patient seen and examined. She appears to be at her baseline. Cleared by ID for discharge As per surgery, no wound debridement needed at this time. Discharge home with tobias with close PCP follow up. OBJECTIVE: Vital Signs Period Temp Pulse Resp BP Sys/Ontiveros Pulse Ox Last 24 Hr 99.1 F-100.0 F 104-116 18-20 102-126/46-66 95 PHYSICAL EXAM GENERAL: The patient is somnolent, opens eyes to voice command, answers questions with one word. HEAD: Normal with no signs of trauma. EYES: PERRL, extraocular movements intact, sclera anicteric, conjunctiva clear. No ptosis. LUNGS: Breath sounds equal, clear to auscultation bilaterally, no wheezes, no crackles, no accessory muscle use. HEART: Regular rate and rhythm, S1, S2 without murmur, rub or gallop. ABDOMEN: Soft, nontender, nondistended, normoactive bowel sounds, no guarding, no rebound, no hepatosplenomegaly, no masses. EXTREMITIES: 2+ pulses, warm, well-perfused, no edema. NEUROLOGICAL: Cranial nerves II through XII grossly intact. PSYCH: Normal mood, normal affect. SKIN: Multiple pressure ulcers, largest one on sacrum which is a stage 4. all wounds present on admission LABS Laboratory Results - last 24 hr 07/10/16 07/10/16 06:10 06:10 WBC 7.8 RBC 3.44 L Hgb 9.2 L Hct 28.7 L MCV 83.3 MCHC 32.2 RDW 15.8 H Plt Count 452 H MPV 7.2 L Neutrophils % 55.6 Lymphocytes % 31.2 Monocytes % 11.8 H Eosinophils % 0.8 Basophils % 0.6 Sodium 141 Potassium 4.0 Chloride 108 H Carbon Dioxide 28 Anion Gap 5 L BUN 11 D Creatinine 0.4 L Creat Clearance w eGFR > 60 Random Glucose 92 Calcium 8.3 L Magnesium 1.7 L Total Bilirubin 0.2 AST 43 H D ALT 38 D Alkaline Phosphatase 174 H Total Protein 5.8 L Albumin 1.9 L HOSPITAL COURSE: Date of Admission:07/04/16 Date of Discharge: 07/10/16 ASSESSMENT/PLAN: Patient is an 86 year old female with a significant past medical history of CVA , seizure disorder, HTN, HLD, hypothyroidism, sacral pressure ulcers, and rheumatic fever. She presents to the ED on 07/04/2016 with fevers and altered mental status. 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 Full Code. Minutes to complete discharge: 45 Discharge Summary Reason For Visit: FEVER ALTERED MENTAL STATUS Current Active Problems Altered mental status (Acute) Deep tissue injury (Acute) Dehydration (Acute) Fever (Acute) Sepsis (Acute) Urinary retention (Acute) CVA (cerebral vascular accident) (Chronic) H/O partial seizures (Chronic) HTN (hypertension) (Chronic) Hemiparesis 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 ( Chronic) Hyperlipidemia (Chronic) Hypothyroid (Chronic) Sacral decubitus ulcer (Chronic) Condition: Fair - Instructions Diet, Activity, Other Instructions: Discharge home with tobias catheter Follow up with your PCP within 3 - 5 days after discharge. Please continue Prostat twice per day as it will help wound healing. Referrals: Maykel Coronado [Primary Care Provider] - Disposition: HOME - Home Medications Comprehensive Discharge Medication List: Ambulatory Orders Clopidogrel Bisulfate [Plavix -] 75 mg PO DAILY 07/03/16 Levetiracetam [Keppra] 250 mg PO BID 07/03/16 Levothyroxine [Synthroid -] 50 mcg PO DAILY 07/03/16 Polyvinyl Alcohol/Povidone [Artificial Tears Drops] 15 ml OU BID 07/03/16 Amino Acids/Protein Hydrolys [Prosource No Carb Liquid Pkt] 30 ml PO BID@0800, 1730 #60 packet 07/10/16 Amlodipine Besylate [Norvasc -] 10 mg PO DAILY #30 tablet 07/10/16 Collagenase Clostridium Hist. [Santyl -] 1 applic TP DAILY #1 tube 07/10/16 This patient is new to me today: No Emergency Visit: Yes ED Registration Date: 07/04/16 Care time: The patient presented to the Emergency Department on the above date and was hospitalized for further evaluation of their emergent condition. Critical Care patient: No - Discharge Referral Referred to [facility] Med P.C.: No
[2016-07-10 13:50] VITALS: BP 107/53; PULSE 115; TEMP 99.3
--- NOTE | 2016-07-10 13:57 | PN ---
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 (short form) - Note 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: Pt seen and examined today. Vital Signs Period Temp Pulse Resp BP Sys/Ontiveros Pulse Ox Last 24 Hr 99.1 F-100.0 F 104-116 18-20 102-126/46-66 95 GEN: Alert Sacral region: pt with stage 2/3 decubitus. Soft eschar approx 3x5cm. Non- boggy. No fluctuance or drainage noted. Santyl at wound base covered with optifoam dressing. CBC, BMP 07/10/16 06:10 07/10/16 06:10 Problem List - Problems (1) Sacral decubitus ulcer Assessment/Plan: stage 2/3 D/w Dr. Pan, no need for surgical debridment at this time. Continue local wound care with santyl/optifoam. Frequent repositioning plan for discharge today Code(s): L89.159 - PRESSURE ULCER OF SACRAL REGION, UNSPECIFIED STAGE Qualifiers: Pressure ulcer stage: stage 3 Qualified Code(s): L89.153 - Pressure ulcer of sacral region, stage 3
== END 2016-07-10 18:11 | disposition home or self-care (01) | DRG 871 ==
LOC: JER 13:18 → JERBED 07-04 06:10 → J8W 07-04 12:03
PROVIDERS: ADMIT Internal Medicine; ATTEND Nurse Practitioner Family
DX: A41.9 Sepsis, unspecified organism (principal); L89.153 Pressure ulcer of sacral region, stage 3; G93.41 Metabolic encephalopathy; I69.354 Hemiplegia and hemiparesis following cerebral infarction affecting left non-dominant side; N39.0 Urinary tract infection, site not specified; E86.0 Dehydration; I10 Essential (primary) hypertension; E78.5 Hyperlipidemia, unspecified; E03.9 Hypothyroidism, unspecified; G40.909 Epilepsy, unspecified, not intractable, without status epilepticus; R33.9 Retention of urine, unspecified; R00.0 Tachycardia, unspecified; R41.82 Altered mental status, unspecified; D72.829 Elevated white blood cell count, unspecified
CPT/HCPCS: 36415; 71010-TC; 76775-TC; 76856-TC; 80048; 80053; 81003; 81015; 82550; 82553; 83605; 83690; 83735; 84484; 85025; 85651; 86140; 87040; 87086; 93005; 93010; 97161-GP; 99285-25; J1644

== ENCOUNTER 2016-07-17 13:18 | Inpatient (IN) | payer MEDICARE, OTHER ==
--- NOTE | 2016-07-17 13:37 | PDOC ---
History of Present Illness <Bienvenido Aranda - Last Filed: 07/17/16 15:25> - History of Present Illness Initial Comments: 07/17/16 14:35 The patient is an 86 year old female with a past medical hx of CVA (residual left sided weakness), HTN, HLD and seizures who presents to the ED via EMS for evaluation of tachycardia and decreased PO intake. The patient is accompanied by family at bedside. The family reports she has been very weak and has decreased urine output as well. The patient was admitted here on 07/04/16 for sepsis and multiple bed sores and was discharged home one week ago. The patient lives at home with a visiting nurse. The family deny any diarrhea, vomiting, fever, chills, shortness of breath <Frieda Sheth - Last Filed: 07/17/16 15:41> - General Chief Complaint: Wound Infection Stated Complaint: WEAKNESS Time Seen by Provider: 07/17/16 13:36 Past History - Past Medical History CVA: Yes (L SIDE WEAKNESS) Disorders: (UTI) HTN: Yes Hypercholesterolemia: Yes Seizures: Yes Thyroid Disease: Yes (hypothyroidism) - Immunization History Immunization Up to Date: Yes - Psycho/Social/Smoking Cessation Hx Anxiety: No Suicidal Ideation: No Smoking History: Former smoker Have you smoked in the past 12 months: No Information on smoking cessation initiated: No Hx Alcohol Use: No Drug/Substance Use Hx: No Substance Use Type: None Hx Substance Use Treatment: No <Bienvenido Aranda - Last Filed: 07/17/16 15:25> <Frieda Sheth - Last Filed: 07/17/16 15:41> - Past Medical History Allergies/Adverse Reactions: Allergies Allergy/AdvReac Type Severity Reaction Status Date / Time aspirin Allergy Unknown Verified 07/03/16 14:07 iodine Allergy Unknown Verified 07/03/16 14:07 Home Medications: Ambulatory Orders Clopidogrel Bisulfate [Plavix -] 75 mg PO DAILY 07/03/16 Levetiracetam [Keppra] 250 mg PO BID 07/03/16 Levothyroxine [Synthroid -] 50 mcg PO DAILY 07/03/16 Polyvinyl Alcohol/Povidone [Artificial Tears Drops] 15 ml OU BID 07/03/16 Amino Acids/Protein Hydrolys [Prosource No Carb Liquid Pkt] 30 ml PO BID@0800, 1730 #60 packet 07/10/16 Amlodipine Besylate [Norvasc -] 10 mg PO DAILY #30 tablet 07/10/16 Collagenase Clostridium Hist. [Santyl -] 1 applic TP DAILY #1 tube 07/10/16 Docusate Sodium [Colace -] 100 mg PO DAILY 07/17/16 Review of Systems - Review of Systems Able to Perform ROS?: Yes Comments:: 07/17/16 14:36 GENERAL/CONSTITUTIONAL: +Decreased PO intake. No fever or chills. No weakness. HEAD, EYES, EARS, NOSE AND THROAT: No change in vision. No ear pain or discharge. No sore throat. CARDIOVASCULAR: +Tachycardia No chest pain or shortness of breath. RESPIRATORY: No cough, wheezing, or hemoptysis. GASTROINTESTINAL: No nausea, vomiting, diarrhea or constipation. GENITOURINARY: +Decreased urine output No dysuria, frequency MUSCULOSKELETAL: No joint or muscle swelling or pain. No neck or back pain. SKIN: +Bed sores on back. No rash NEUROLOGIC: No headache, vertigo, loss of consciousness, or change in strength/ sensation. ENDOCRINE: No increased thirst. No abnormal weight change. HEMATOLOGIC/LYMPHATIC: No anemia, easy bleeding, or history of blood clots. ALLERGIC/IMMUNOLOGIC: No hives or skin allergy. <Frieda Sheth - Last Filed: 07/17/16 15:41> *Physical Exam - Vital Signs Last Vital Signs Temp Pulse Resp BP Pulse Ox 97.9 F 129 H 22 112/62 99 07/17/16 13:34 07/17/16 13:34 07/17/16 13:34 07/17/16 13:34 07/17/16 13:34 <Bienvenido Aranda - Last Filed: 07/17/16 15:25> - Vital Signs Last Vital Signs Temp Pulse Resp BP Pulse Ox 97.9 F 129 H 22 112/62 99 07/17/16 13:34 07/17/16 13:34 07/17/16 13:34 07/17/16 13:34 07/17/16 13:34 - Physical Exam Comments: 07/17/16 14:36 GENERAL: +Somnolent, awake, not responding to commands, in no acute distress HEAD: No signs of trauma EYES: PERRLA, EOMI, sclera anicteric, conjunctiva clear ENT: Auricles normal inspection, hearing grossly normal, nares patent, oropharynx clear without exudates. Moist mucosa NECK: Normal ROM, supple, no lymphadenopathy, JVD, or masses LUNGS: Breath sounds equal, clear to auscultation bilaterally. No wheezes, and no crackles HEART: +Tachycardia, regula rhythm, normal S1 and S2, no murmurs, rubs or gallops ABDOMEN: Soft, nontender, normoactive bowel sounds. No guarding, no rebound. No masses EXTREMITIES: Normal range of motion, no edema. No clubbing or cyanosis. No cords, erythema, or tenderness NEUROLOGICAL: Not responding to commands SKIN: Stage II-III decubitus ulcer with fibrinous exudates. No purulent drainage , no surrounding erythema. Stage I pressure ulcer to bilateral heels <Frieda Sheth - Last Filed: 07/17/16 15:41> Heart Score/ECG Review - ECG Impressions Comment:: 07/17/16 15:15 EKG performed at 15:02 Sinus tachycardia at a rate of 126 bpm left axis deviation minimum voltage criteria for LVH septal infarct, age undetermined <Frieda Sheth - Last Filed: 07/17/16 15:41> ED Treatment Course - LABORATORY CBC & Chemistry Diagram: 07/17/16 13:56 07/17/16 13:56 <Bienvenido Aranda - Last Filed: 07/17/16 15:25> - LABORATORY CBC & Chemistry Diagram: 07/17/16 13:56 07/17/16 13:56 - ADDITIONAL ORDERS Additional order review: Laboratory Results 07/17/16 14:10 VBG pH 7.45 H POC VBG pCO2 39.4 POC VBG pO2 30.3 D Mixed VBG HCO3 26.7 H - RADIOLOGY Radiograph Interpretation: 07/17/16 15:41 Chest XRAY Since 07/07/2016 at 0828 hours again noted is a weak inspiration, scoliosis with convexity to the right, prominent knob, prominent kavon and large heart. An acute process is not seen. The angles are sharp and the soft tissues are intact. There are some degenerative changes. Impression : Scoliosis. Weak inspiration. Large heart. No acute pathology. Reported By: Alexx Cervantes MD 07/17/16 [id number] <Frieda Sheth - Last Filed: 07/17/16 15:41> Medical Decision Making - Medical Decision Making 07/17/16 15:37 The patient is an 86 year old female with a past medical hx of CVA (residual left sided weakness), HTN, HLD and seizures who presents to the ED via EMS for evaluation of tachycardia and decreased PO intake. The plan is to order labs, CXR, EKG. Discussed the patients case with Dr. Mo who agrees to admit the patient. The plan for admission was discussed with the family who agree with the plan. All questions answered. <Frieda Sheth - Last Filed: 07/17/16 15:41> *DC/Admit/Observation/Transfer - Discharge Dispostion Admit: Yes - Attestations Physician Attestion: 07/17/16 13:37 I, Dr. Bienvenido Aranda, attest that this document has been prepared under my direction and personally reviewed by me in its entirety. I further attest, that it accurately reflects all work, treatment, procedures and medical decision -making performed by me. <Bienvenido Aranda - Last Filed: 07/17/16 15:25> - Attestations Scribe Attestion: 07/17/16 14:35 Documentation prepared by Frieda Shteh, acting as director global medical affairs for Bienvenido Aranda MD/DO. <Fridea Sheth - Last Filed: 07/17/16 15:41> Diagnosis at time of Disposition: Cellulitis and abscess of buttock - Discharge Dispostion Condition at time of disposition: Unchanged/Unknown - Referrals Referrals: Maykel Coronado [Primary Care Provider] -
[2016-07-17] MEDS ORDERED: SODIUM CHLORIDE 1,000 ML IV STA (13:55)
[2016-07-17 14:21] LABS: VENOUS BLOOD GAS HCO3 26.7 meq/L (19-25)
[2016-07-17 14:32] LABS: VENOUS PH 7.45 (7.32-7.42)
[2016-07-17 14:46] LABS: BASOPHIL 0.9 % (0-2.0); EOSINOPHIL 0.1 % (0-4.5); MCH 26.9 pg (25.7-33.7); MCHC 32.6 g/dl (32.0-36.0); MEAN CELL VOLUME 82.6 fl (80-96); MEAN PLT VOLUME 7.5 fl (7.5-11.1); NEUTROPHILS 73.8 % (42.8-82.8); PLATELET COUNT 589 K/MM3 (134-434); RDW 15.9 % (11.6-15.6); WHITE BLOOD COUNT 12.9 K/mm3 (4.0-10.0)
[2016-07-17 14:59] LABS: INR 1.18 (0.82-1.09)
[2016-07-17 15:01] LABS: ACTIVATED PTT 27.9 SECONDS (26.9-34.4)
[2016-07-17 15:20] LABS: URINE APPEARANCE CLOUDY; URINE BILIRUBIN NEGATIVE (NEGATIVE); URINE COLOR YELLOW; URINE GLUCOSE (UA) NEGATIVE (NEGATIVE); URINE KETONE NEGATIVE (NEGATIVE); URINE NITRITE NEGATIVE (NEGATIVE); URINE PROTEIN NEGATIVE (NEGATIVE); URINE UROBILINOGEN NEGATIVE E.U./dl (0.2-1.0)
[2016-07-17 15:23] LABS: ALBUMIN 2.1 g/dl (3.4-5.0); ANION GAP 10 (8-16); BILIRUBIN,TOTAL 0.5 mg/dL (0.2-1.0); CALCIUM 8.7 mg/dL (8.5-10.1); CO2 26 mmol/L (21-32); CREATININE 0.6 mg/dL (0.55-1.02); GLUCOSE,RANDOM 96 mg/dL (74-106); SGPT/ALT 21 U/L (12-78)
[2016-07-17 15:25] LABS: ALK PHOS 197 U/L (45-117); TROPONIN I < 0.02 ng/ml (0.00-0.05)
[2016-07-17 15:28] LABS: URINE BLOOD 1+ (NEGATIVE); URINE LEUK ESTERASE 2+ (NEGATIVE)
[2016-07-17 15:30] LABS: SGOT/AST 52 U/L (15-37)
[2016-07-17 16:01] LABS: URINE MUCUS RARE; URINE RBC 5 /hpf (0-3); URINE WBC 46 /hpf (3-5); YEAST MANY
[2016-07-17] MEDS ORDERED: ACETAMINOPHEN INJECTION 100 ML IVPB ONE (16:05)
--- NOTE | 2016-07-17 16:13 | HP ---
PCP: Maykel Coronado CHIEF COMPLAINT: Fever HISTORY OF PRESENT ILLNESS: This is an 86-year-old woman who presents to the ER because of decreased oral intake and fever. She is non-verbal and unable to provide a history. She had been admitted here 05/10-05/28 with encephalopathy secondary to UTI. Blood and urine cultures were negative, she was treated with Zosyn, and she was discharged to [place]. She was admitted again 06/03-06/18 with fevers and encephalopathy possibly from a sacral pressure ulcer. She was discharged home. She was admitted again on 06/21 with fever and change in mental status secondary to UTI and possible aspiration pneumonia. Urine culture grew Providencia. She was treated with Zosyn and discharged home on Levaquin on 06/26. She was readmitted 07/03-07/10 with sepsis possibly secondary to the sacral pressure ulcer. Blood and urine cultures were negative. She was treated with Zosyn. Wound care with Santyl was recommended. Since returning home 1 week ago, she has had poor oral intake. She has had decreased urine output in her Cardona catheter. Yesterday she had a fever to 101. This morning, the visiting nurse called EMS. PAST MEDICAL HISTORY CVA Seizure disorder Hyperlipidemia Hypertension Hypothyroidism Sacral pressure ulcer Rheumatic fever PAST SURGICAL HISTORY Bilateral tubal ligation Tonsillectomy Allergies aspirin Allergy (Unknown, Verified 07/03/16 14:07) iodine Allergy (Unknown, Verified 07/03/16 14:07) HOME MEDICATIONS 3 Medication Instructions Recorded Clopidogrel Bisulfate [Plavix -] 75 mg PO DAILY 07/03/16 Levetiracetam [Keppra] 250 mg PO BID 07/03/16 Levothyroxine [Synthroid -] 50 mcg PO DAILY 07/03/16 Polyvinyl Alcohol/Povidone 15 ml OU BID 07/03/16 [Artificial Tears Drops] Amino Acids/Protein Hydrolys 30 ml PO BID@0800,1730 #60 packet 07/10/16 [Prosource No Carb Liquid Pkt] Amlodipine Besylate [Norvasc -] 10 mg PO DAILY #30 tablet 07/10/16 Collagenase Clostridium Hist. 1 applic TP DAILY #1 tube 07/10/16 [Santyl -] Docusate Sodium [Colace -] 100 mg PO DAILY 07/17/16 Social History: Smoking: No Alcohol: No Drugs: No Recent Travel: No Family History: Non-contributory REVIEW OF SYSTEMS Unable to obtain PHYSICAL EXAMINATION Vital Signs - 24 hr 07/17/16 13:34 Temperature 97.9 F Pulse Rate 129 H Respiratory 22 Rate Blood Pressure 112/62 O2 Sat by Pulse 99 Oximetry (%) GENERAL: Awake, non-verbal, in no acute distress. HEAD: Normal with no signs of trauma. EYES: Pupils equal, round and reactive to light, sclerae anicteric, conjunctivae clear. EARS, NOSE, THROAT: Ears normal, nares patent, oropharynx clear without exudates. Dry mucous membranes. NECK: Normal range of motion, supple without lymphadenopathy, JVD, or masses. LUNGS: Breath sounds equal, clear to auscultation bilaterally. No wheezes, and no crackles. No accessory muscle use. HEART: Tachycardic, normal S1 and S2 without murmur, rub or gallop. ABDOMEN: Soft, not distended, normoactive bowel sounds, no hepatomegaly or splenomegaly. MUSCULOSKELETAL: Normal range of motion at all joints. No bony deformities. UPPER EXTREMITIES: 2+ pulses, warm, well-perfused. No cyanosis. No clubbing. Cap refill <2 seconds. No peripheral edema. LOWER EXTREMITIES: 1+ pulses, warm, well-perfused. No calf tenderness. No peripheral edema. NEUROLOGICAL: Unable to assess. PSYCHIATRIC: Unable to assess. SKIN: Warm, dry, poor turgor. Stage IV pressure ulcer of sacrum with no drainage. Stage II pressure ulcer of right buttock with no drainage. Unstageable pressure ulcer of left buttock with eschar and no drainage. Deep tissue injury of left heel. Laboratory Results - last 24 hr 07/17/16 07/17/16 07/17/16 13:56 13:56 13:56 WBC 12.9 H D RBC 4.05 Hgb 10.9 D Hct 33.5 D MCV 82.6 MCHC 32.6 RDW 15.9 H Plt Count 589 H D MPV 7.5 Neutrophils % 73.8 D Lymphocytes % 17.4 D Monocytes % 7.8 Eosinophils % 0.1 D Basophils % 0.9 INR 1.18 H PTT (Actin FS) 27.9 VBG pH POC VBG pCO2 POC VBG pO2 Mixed VBG HCO3 Sodium Potassium Chloride Carbon Dioxide Anion Gap BUN Creatinine Creat Clearance w eGFR Random Glucose Lactic Acid Calcium Total Bilirubin AST ALT Alkaline Phosphatase Creatine Kinase CK-MB (CK-2) Troponin I Total Protein Albumin Urine Color Yellow Urine Appearance Cloudy Urine pH 6.0 Ur Specific [place] 1.013 Urine Protein Negative Urine Glucose (UA) Negative Urine Ketones Negative Urine Blood 1+ H Urine Nitrite Negative Urine Bilirubin Negative Urine Urobilinogen Negative Ur Leukocyte Esterase 2+ H Urine RBC 5 Urine WBC 46 Urine Mucus Rare Urine Yeast Many 07/17/16 07/17/16 07/17/16 13:56 13:56 14:10 WBC RBC Hgb Hct MCV MCHC RDW Plt Count MPV Neutrophils % Lymphocytes % Monocytes % Eosinophils % Basophils % INR PTT (Actin FS) VBG pH 7.45 H POC VBG pCO2 39.4 POC VBG pO2 30.3 D Mixed VBG HCO3 26.7 H Sodium 137 Potassium 5.0 D Chloride 101 Carbon Dioxide 26 Anion Gap 10 BUN 14 D Creatinine 0.6 D Creat Clearance w eGFR > 60 Random Glucose 96 Lactic Acid 1.159 Calcium 8.7 Total Bilirubin 0.5 D AST 52 H D ALT 21 D Alkaline Phosphatase 197 H Creatine Kinase 394 H D CK-MB (CK-2) 4.146 H Troponin I < 0.02 Total Protein 7.0 D Albumin 2.1 L Urine Color Urine Appearance Urine pH Ur Specific [place] Urine Protein Urine Glucose (UA) Urine Ketones Urine Blood Urine Nitrite Urine Bilirubin Urine Urobilinogen Ur Leukocyte Esterase Urine RBC Urine WBC Urine Mucus Urine Yeast Chest x-ray: Scoliosis, cardiomegaly. Home Medications Medication Instructions Recorded Clopidogrel Bisulfate [Plavix -] 75 mg PO DAILY 07/03/16 Levetiracetam [Keppra] 250 mg PO BID 07/03/16 Levothyroxine [Synthroid -] 50 mcg PO DAILY 07/03/16 Polyvinyl Alcohol/Povidone 15 ml OU BID 07/03/16 [Artificial Tears Drops] Amino Acids/Protein Hydrolys 30 ml PO BID@0800,1730 #60 packet 07/10/16 [Prosource No Carb Liquid Pkt] Amlodipine Besylate [Norvasc -] 10 mg PO DAILY #30 tablet 07/10/16 Collagenase Clostridium Hist. 1 applic TP DAILY #1 tube 07/10/16 [Santyl -] Docusate Sodium [Colace -] 100 mg PO DAILY 07/17/16 ASSESSMENT/PLAN: This is an 86-year-old woman with a history of HTN, hyperlipidemia, hypothyroidism, CVA with left hemiparesis, sacral and buttock pressure ulcers, seizure disorder, and multiple recent admissions for encephalopathy/fever/sepsis /UTI/possible aspiration pneumonia, who returns today with fever, tachycardia, poor oral intake and decreased urine output. WBC is 12.9, lactic acid 1.159, BUN 14, creatinine 0.6. Urinalysis shows 1+ blood, 2+ leukocyte esterase, 46 WBC , many yeast. She is being admitted now for treatment of an emergent condition. 1. Sepsis secondary to UTI and possible infected pressure ulcer - Start Zosyn - IV fluid - ID, surgery consults - Follow-up blood, urine cultures 2. Dehydration - IV fluid - Monitor BUN, creatinine 3. Acute metabolic encephalopathy secondary to sepsis 4. Stage IV pressure ulcer of sacrum, stage II pressure ulcer of right buttock, unstageable pressure ulcer of left buttock with eschar - Continue local wound care - Continue Santyl - Since there has been no improvement with conservative treatment with Santyl , will get general surgery consult for possible surgical debridement 5. Left hemiparesis secondary to recent CVA - Continue Plavix 6. Hypertension - Continue Norvasc 7. Hyperlipidemia - On no medication 8. Hypothyroidism - Continue Synthroid 9. Seizure disorder - Continue Kera Problem List - Problem (1) UTI (urinary tract infection) Code(s): N39.0 - URINARY TRACT INFECTION, SITE NOT SPECIFIED Qualifiers: Urinary tract infection type: site unspecified Hematuria presence: with hematuria Qualified Code(s): N39.0 - Urinary tract infection, site not specified (2) Altered mental status Code(s): R41.82 - ALTERED MENTAL STATUS, UNSPECIFIED (3) Dehydration Code(s): E86.0 - DEHYDRATION (4) Fever Code(s): R50.9 - FEVER, UNSPECIFIED (5) Sepsis Code(s): A41.9 - SEPSIS, UNSPECIFIED ORGANISM Qualifiers: Sepsis type: sepsis due to unspecified organism Qualified Code(s): A41.9 - Sepsis, unspecified organism (6) H/O partial seizures Code(s): Z86.69 - PERSONAL HISTORY OF DIS OF THE NERVOUS SYS AND SENSE ORGANS (7) HTN (hypertension) Code(s): I10 - ESSENTIAL (PRIMARY) HYPERTENSION Qualifiers: Hypertension type: essential hypertension Qualified Code(s): I10 - Essential (primary) hypertension (8) Hemiparesis 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 Code(s): I69.354 - HEMIPLGA FOLLOWING CEREBRAL INFRC AFFECTING LEFT NONDOM SIDE (9) Hyperlipidemia Code(s): E78.5 - HYPERLIPIDEMIA, UNSPECIFIED (10) Hypothyroid Code(s): E03.9 - HYPOTHYROIDISM, UNSPECIFIED Qualifiers: Hypothyroidism type: acquired Qualified Code(s): E03.9 - Hypothyroidism, unspecified (11) Sacral decubitus ulcer Code(s): L89.159 - PRESSURE ULCER OF SACRAL REGION, UNSPECIFIED STAGE Qualifiers: Pressure ulcer stage: stage 3 Qualified Code(s): L89.153 - Pressure ulcer of sacral region, stage 3
[2016-07-17] MEDS ORDERED: ONDANSETRON 4 MG/2 ML VIAL IVPB PRN (16:22)
[2016-07-17] MEDS ORDERED: PIPERACILLIN/TAZOB 3.375 GM 50 ML IVPB ONE ×2 (16:36→17:25)
[2016-07-17] MEDS ORDERED: ACETAMINOPHEN 1000 MG/100 ML VIAL (NON FORMULARY) IVPB ONE (16:41)
--- NOTE | 2016-07-17 16:50 | CONSULT ---
- Consultation REQUESTING PROVIDER: Eric Pan - General Surgery CONSULT REQUEST: We have been asked to surgically evaluate this patient for sacral ulcer. PCP: Margarito Mo MD HPI: Called to yoseph 86yo female with PMHx noted below. Well known to surgical service as we were consulted during her last visit 07/04/16 for sacral wound. Patient is bed bound. We opted for a more conservative approach at the time and patient discharged with daily wound care instructions for santyl dressing changes. Presents to the ED via EMS for evaluation of tachycardia and decreased PO intake. The patient is accompanied by family at bedside. The family reports she has been very weak and has decreased urine output as well. The patient lives at home with a visiting nurse. Denies n/v, chills, diaphoresis. PMHx: CVA (05/2016 with residual left sided weakness), seizures and HLD , h/o rheumatic fever as child, HTN, UTI, Hypothyroidism PSHx: tubal ligation, tonsilectomy HOME MEDS 3 Clopidogrel Bisulfate [Plavix -] 75 mg PO DAILY 07/03/16 Levetiracetam [Keppra] 250 mg PO BID 07/03/16 Levothyroxine [Synthroid -] 50 mcg PO DAILY 07/03/16 Polyvinyl Alcohol/Povidone 15 ml OU BID 07/03/16 [Artificial Tears Drops] Amino Acids/Protein Hydrolys 30 ml PO BID@0800,1730 #60 packet 07/10/16 [Prosource No Carb Liquid Pkt] Amlodipine Besylate [Norvasc -] 10 mg PO DAILY #30 tablet 07/10/16 Collagenase Clostridium Hist. 1 applic TP DAILY #1 tube 07/10/16 [Santyl -] Docusate Sodium [Colace -] 100 mg PO DAILY 07/17/16 Allergies 3 aspirin Allergy Unknown Verified 07/03/16 14:07 iodine Allergy Unknown Verified 07/03/16 14:07 ROS: Considered negative except for what's contained in HPI. PE: GENERAL: Awake, alert, in no acute distress. HEAD: NC. NT. EYES: anicteric, conjunctiva clear. NECK: Normal ROM, supple without lymphadenopathy, JVD, or masses. LUNGS: CTA b/l anteriorly HEART: Tachycardic rate of 128 ABDOMEN: Soft, NT. ND. +BS x4 SKIN: Right glute: Stage 2 clean, ~ 3 x 3.6 cm Coccyx: Stage 4: bone exposed, ~ 5.3 x 3 cm Left Glute: Unstageable due to eschar, ~ 7 x 7 cm. No bogginess. No fluctuance. No foul odor Last Vital Signs Temp Pulse Resp BP Pulse Ox 97.9 F 129 H 22 112/62 99 07/17/16 13:34 07/17/16 13:34 07/17/16 13:34 07/17/16 13:34 07/17/16 13:34 Blood Type Blood Type A NEGATIVE 07/17/16 13:56 CBC, BMP 07/17/16 13:56 07/17/16 13:56 Troponin, BNP 07/17/16 13:56 Troponin I < 0.02 Urine Urine Color Yellow 07/17/16 13:56 Urine Appearance Cloudy 07/17/16 13:56 Urine pH 6.0 (5.0-8.0) 07/17/16 13:56 Ur Specific [place] 1.013 (1.001-1.035) 07/17/16 13:56 Urine Protein Negative (NEGATIVE) 07/17/16 13:56 Urine Glucose (UA) Negative (NEGATIVE) 07/17/16 13:56 Urine Ketones Negative (NEGATIVE) 07/17/16 13:56 Urine Blood 1+ (NEGATIVE) H 07/17/16 13:56 Urine Nitrite Negative (NEGATIVE) 07/17/16 13:56 Urine Bilirubin Negative (NEGATIVE) 07/17/16 13:56 Ur Leukocyte Esterase 2+ (NEGATIVE) H 07/17/16 13:56 Urine RBC 5 /hpf (0-3) 07/17/16 13:56 Urine WBC 46 /hpf (3-5) 07/17/16 13:56 Urine Mucus Rare 07/17/16 13:56 A/P Patient w/ sacral and gluteal ulcers. Attempt at pharmocologic debridement hasn't worked for the ulcer to her left glute. She has persistent leukocytosis. Could it be from her urine? We recommend the followin. Based on failed treatment with santyl, we now believe she could benefit from debridement as we are unable to determine the tissue viability below the eschar. 2. Recommend MRI to r/o osteo to sacrum 3. ID Consult for persistent leukocytosis 4. Medical optimization / clearance 5. Urine culture/sensitivity 6. Above plan discussed with Dr. Pan and agrees. Visit type - Case Type Case Type: ED Admission - Emergency Emergency Visit: Yes ED Registration Date: 07/17/16 Care time: The patient presented to the Emergency Department on the above date and was hospitalized for further evaluation of their emergent condition. - New patient This patient is new to me today: Yes Date on this admission: 07/17/16
[2016-07-17] MEDS: SODIUM CHLORIDE 1,000 ML IV SCH (17:25)
[2016-07-17 18:31] VITALS: BMI 23.0
[2016-07-17] MEDS: AMINO ACIDS/PROTEIN HYDROLYS 30 ML LIQUID.PKT PO SCH (18:57)
[2016-07-17] MEDS ORDERED: PT OWN MED DRAWER 7, Y5N ONE (21:35)
[2016-07-17] MEDS: ACETAMINOPHEN 325 MG TABLET (FP) PO PRN (22:17)
[2016-07-17] MEDS: HEPARIN NA (PORCINE) 5,000 UNITS/ML 1ML VIAL SQ SCH (22:18)
[2016-07-17] MEDS: levETIRAcetam 250 MG TABLET (FP) PO SCH (22:18)
[2016-07-17] MEDS: ARTIFICIAL TEARS (POLYVINYL ALCOHOL 1.4%) OPTH DROPS OU SCH (22:18)
[2016-07-18] MEDS: PIPERACILLIN/TAZOB 3.375 GM/50 ML PRE-DOCKED IVPB SCH ×3 (02:26→18:42)
[2016-07-18] MEDS: LEVOTHYROXINE NA 50 MCG TABLET (FP) PO SCH (06:31)
[2016-07-18 07:37] LABS: BASOPHIL 0.9 % (0-2.0); EOSINOPHIL 0.5 % (0-4.5); MCH 27.1 pg (25.7-33.7); MCHC 32.9 g/dl (32.0-36.0); MEAN CELL VOLUME 82.3 fl (80-96); MEAN PLT VOLUME 7.3 fl (7.5-11.1); NEUTROPHILS 70.2 % (42.8-82.8); PLATELET COUNT 449 K/MM3 (134-434); RDW 15.9 % (11.6-15.6); WHITE BLOOD COUNT 9.7 K/mm3 (4.0-10.0)
[2016-07-18 08:09] LABS: CALCIUM 7.6 mg/dL (8.5-10.1)
[2016-07-18 08:10] LABS: CREATININE 0.4 mg/dL (0.55-1.02)
[2016-07-18] MEDS: AMINO ACIDS/PROTEIN HYDROLYS 30 ML LIQUID.PKT PO SCH ×2 (08:47→17:15)
[2016-07-18] MEDS ORDERED: PT OWN MED DRAWER 7, Y5N ONE ×2 (09:43→21:28)
[2016-07-18] MEDS: CLOPIDOGREL BISULFATE 75 MG TABLET (FP) PO SCH (09:44)
[2016-07-18] MEDS: HEPARIN NA (PORCINE) 5,000 UNITS/ML 1ML VIAL SQ SCH ×2 (09:44→21:25)
[2016-07-18] MEDS: DOCUSATE SODIUM 100 MG CAPSULE (FP) PO SCH (09:44)
[2016-07-18] MEDS: amLODIPine BESYLATE 10 MG TABLET (FP) PO SCH (09:44)
[2016-07-18] MEDS: levETIRAcetam 250 MG TABLET (FP) PO SCH ×2 (09:44→21:25)
[2016-07-18] MEDS: ARTIFICIAL TEARS (POLYVINYL ALCOHOL 1.4%) OPTH DROPS OU SCH ×2 (09:45→22:56)
[2016-07-18] MEDS ORDERED: ATENOLOL 25 MG TABLET (FP) PO ONE (11:11)
--- NOTE | 2016-07-18 12:19 | PN ---
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 (short form) - Note 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: Surgery-Dr. Pan Patient seen and examined with Dr. Pan. Last Vital Signs Temp Pulse Resp BP Pulse Ox 98.5 F 108 H 20 114/59 96 07/18/16 09:10 07/18/16 09:10 07/18/16 09:10 07/18/16 09:10 07/18/16 09:00 CBC, BMP 07/18/16 06:20 07/18/16 06:20 Exam: Gen: NAD Skin: sacral and gluteal ulcers with necrotic tissue, areas on right glute ( stage 2, approx. 3 x 3.6 cm), area on coccyx (stage 4, bone exposed, approx 5.3 x 3 cm), and left glute (unstageable with eschar, approx 7 x 7 cm). Areas without fluctuance or foul odor. Problem List - Problems (1) Sacral decubitus ulcer Assessment/Plan: Patient seen and discussed with Dr. Pan Plan for OR Friday for debridement medical clearance/optimization NPO after midnight Friday night Dr. Pan to discuss with patient's family Code(s): L89.159 - PRESSURE ULCER OF SACRAL REGION, UNSPECIFIED STAGE Qualifiers: Pressure ulcer stage: stage 3 Qualified Code(s): L89.153 - Pressure ulcer of sacral region, stage 3
[2016-07-18] MEDS: COLLAGENASE CLOSTRIDIUM HIST. 30 GRAMS TUBE TP SCH (13:30)
--- NOTE | 2016-07-18 16:45 | PN ---
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 (short form) - Note 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: ID Consult dictated 86 year old female s/p CVA readmitted from home with anorexia, weakness, decreased urine output, and fever. +Large sacral decubitus ulcer, pyuria Possible sepsis secondary to sacral decubitus v. UTI CVA Pending c/s empiric zosyn + stat dose vancomycin
--- NOTE | 2016-07-18 17:12 | EKG ---
Test Reason : Blood Pressure : / mmHG Vent. Rate : 126 BPM Atrial Rate : 126 BPM P-R Int : 130 ms QRS Dur : 078 ms QT Int : 324 ms P-R-T Axes : 052 -40 061 degrees QTc Int : 469 ms POOR DATA QUALITY, INTERPRETATION MAY BE ADVERSELY AFFECTED SINUS TACHYCARDIA LEFT AXIS DEVIATION MINIMAL VOLTAGE CRITERIA FOR LVH, MAY BE NORMAL VARIANT SEPTAL INFARCT , AGE UNDETERMINED ABNORMAL ECG WHEN COMPARED WITH ECG OF 03-JUL-2016 13:31, SEPTAL INFARCT IS NOW PRESENT Confirmed by VERONIKA LEYVA MD ([id number]) on 07/18/2016 5:12:03 PM Referred By: Confirmed By:VERONIKA LEYVA MD
[2016-07-18] MEDS ORDERED: VANCOMYCIN 1 GRAM (PRE-DOCKED) 250 ML IVPB ONE (17:15)
--- NOTE | 2016-07-18 17:48 | PN ---
Physical Exam: SUBJECTIVE: Patient seen and examined. She appears lethargic. Daughter and grandson at the bedside and were able to provide the history. States that they noticed that patient became lethargic and stopped eating at home and noted that she was less responsive. OBJECTIVE: Tobias with cloudy urine Patient is able to answer yes or no questions but her speech is very limited which is her baseline from previous admission Remains tachycardic, started on atenolol 25mg, made family aware Vital Signs Period Temp Pulse Resp BP Sys/Ontiveros Pulse Ox Last 24 Hr 98.0 F-98.9 F 99-124 20-22 103-116/53-64 96-96 GENERAL: The patient is somnolent, opens eyes to voice command, answers questions with one word. HEAD: Normal with no signs of trauma. EYES: PERRL, extraocular movements intact, sclera anicteric, conjunctiva clear. No ptosis. LUNGS: Breath sounds equal, clear to auscultation bilaterally, no wheezes, no crackles, no accessory muscle use. HEART: Tachycardic in the 110s. ABDOMEN: Soft, nontender, nondistended, normoactive bowel sounds, no guarding, no rebound, no hepatosplenomegaly, no masses. EXTREMITIES: 2+ pulses, warm, well-perfused, no edema. NEUROLOGICAL: Cranial nerves II through XII grossly intact. PSYCH: Normal mood, normal affect. SKIN: Multiple pressure ulcers, largest one on sacrum which is a stage 4 - for debridement by surgery all wounds present on admission Laboratory Results - last 24 hr 07/18/16 07/18/16 06:20 06:20 WBC 9.7 RBC 3.26 L Hgb 8.8 L D Hct 26.8 L D MCV 82.3 MCHC 32.9 RDW 15.9 H Plt Count 449 H D MPV 7.3 L Neutrophils % 70.2 Lymphocytes % 20.3 Monocytes % 8.1 Eosinophils % 0.5 D Basophils % 0.9 Sodium 142 Potassium 3.9 D Chloride 109 H Carbon Dioxide 23 Anion Gap 10 BUN 11 D Creatinine 0.4 L D Random Glucose 86 Calcium 7.6 L Active Medications Generic Name Dose Route Start Last Admin Trade Name Freq PRN Reason Stop Dose Admin Acetaminophen 650 mg 07/17/16 16:22 07/17/16 22:17 Tylenol - PO 650 mg Q4H PRN Administration FEVER OR PAIN Amino Acids 30 ml 07/17/16 17:30 07/18/16 08:47 Prosource No Carb Liquid Pkt PO 30 ml BID@0800,1730 ELENA Administration Amlodipine Besylate 10 mg 07/18/16 10:00 07/18/16 09:44 Norvasc - PO 10 mg DAILY ELENA Administration Artificial Tears 2 drop 07/17/16 22:00 07/18/16 09:45 Artificial Tears OU 2 drop BID ELENA Administration Atenolol 25 mg 07/19/16 10:00 Tenormin - PO DAILY ELENA Clopidogrel Bisulfate 75 mg 07/18/16 10:00 07/18/16 09:44 Plavix - PO 75 mg DAILY ELENA Administration Collagenase 1 applic 07/18/16 10:00 07/18/16 13:30 Santyl - TP 1 applic DAILY ELENA Administration Docusate Sodium 100 mg 07/18/16 10:00 07/18/16 09:44 Colace - PO 100 mg DAILY ELENA Administration Heparin Sodium (Porcine) 5,000 unit 07/17/16 22:00 07/18/16 09:44 Heparin - SQ 5,000 unit BID ELENA Administration Sodium Chloride 1,000 mls @ 75 mls/hr 07/17/16 16:30 07/17/16 17:25 Normal Saline - IV 75 mls/hr ASDIR ELENA Administration Vancomycin HCl 250 mls @ 166.667 mls/hr 07/18/16 17:15 Vancomycin (Pre-Docked) IVPB 07/18/16 18:44 ONCE ONE Levetiracetam 250 mg 07/17/16 22:00 07/18/16 09:44 Keppra - PO 250 mg BID ELENA Administration Levothyroxine Sodium 50 mcg 07/18/16 07:00 07/18/16 06:31 Synthroid - PO 50 mcg DAILY@0700 ELENA Administration Ondansetron HCl 4 mg 07/17/16 16:22 Zofran Injection IVPB Q6H PRN NAUSEA Piperacillin Sod/Tazobactam Sod 3.375 gm 07/18/16 02:00 07/18/16 09:45 Zosyn 3.375gm Ivpb (Pre-Docked) IVPB 3.375 gm Q8H-IV ELENA Administration Protocol ASSESSMENT/PLAN: Patient is an 86 year old female with a significant past medical history of CVA , seizure disorder, HTN, HLD, hypothyroidism, sacral pressure ulcers, and rheumatic fever. She presents to the ED on 07/04/2016 with fevers and altered mental status. Patient was most recently here between 07/04/2016 to 07/10/2016 for fever and altered mental status. ID Sepsis - likely due to multiple pressure ulcers and/or UTI - previously here for sepsis Assessment/Plan: Met sepsis criteria on admission, Tmax 100.4F, WBC 12>9.7 On Zosyn q8 started on 07/18/2016 Leukocytosis now resolved adequate urine output via tobias catheter, tobias cath to be changed today Blood cults no growth to date, urine cultures pending General surgery evaluated: to debride wound likely on Friday On prostat BID, turn and position q2 avoid worsening pressure ulcers ID following GI: Urinary Retention with recurrent UTIs Assessment/Plan: To be discharged with tobias catheter - will be changed today BUN/Creatinine stable, continue Tobias catheter Neurology: History of CVA with with left hemiparesis and associated seizure disorder Assessment/Plan: On Keppra 250mg PO BID No reported seizures when pt was home Continue seizure precautions Cardiology: Hypertension/Tachycardia: Assessment/Plan: On Norvasc 10mg daily, added atenolol 25mg daily and may increase to BID if not improving Cardiology consult for persistent tachycardia and preop clearance Monitor vitals F.E.N. Fluids: poor PO intake: NS @ 75cc/hr Electrolytes: monitor BMP Nutrition: Pureed diet/aspiration precautions/total feed Prophylaxis: DVT: heparin BID GI: colace, protonix Disposition: Requires inpatient hospitalization. Full Code. Visit type - Emergency Visit Emergency Visit: Yes ED Registration Date: 07/17/16 Care time: The patient presented to the Emergency Department on the above date and was hospitalized for further evaluation of their emergent condition. - New Patient This patient is new to me today: Yes Date on this admission: 07/19/16 - Critical Care Critical Care patient: No - Discharge Referral Referred to [facility] No
--- NOTE | 2016-07-18 17:52 | CONS ---
DATE OF CONSULTATION: DATE OF DICTATION: 07/18/2016 INFECTIOUS DISEASE CONSULTATION HISTORY OF PRESENT ILLNESS: The patient is an 86-year-old female with a history of stroke evaluated for sepsis. Patient has had multiple recent hospital admissions for sepsis over the past several months. She suffered a CVA last year and since has been hospitalized with sepsis secondary to UTI, pneumonia, and sacral decubitus ulcer. She was recently discharged on July 10, 2016, after treatment for sepsis. She resides at home, is cared for by family members and visiting nurse. She was noted to be less responsive with anorexia, generalized weakness, decreased urine output. According to the family she developed fever 101 prior to admission. She presented to the emergency room where she was found to be weak and tachycardic, hypotensive. White blood cell count was elevated 12.9. She does not offer any complaints, no reports of labored breathing, cough, sputum production, vomiting, diarrhea, or grossly purulent urine. PAST MEDICAL HISTORY: Positive for stroke, with left hemiplegia, hypertension, hyperlipidemia, seizure disorder, hypothyroidism, decubitus ulcers. PAST SURGICAL HISTORY: Status post tubal ligation and tonsillectomy. ALLERGIES: ASPIRIN and IODINE. MEDICATION: Plavix, Keppra, Synthroid, Norvasc, Colace. SOCIAL HISTORY: Lives at home, cared for by family members and visiting nurse services. Former smoker. SYSTEMS REVIEW: Neurologic: Positive for stroke. Cardiac: Negative chest pain or palpitations. Respiratory: Negative cough or sputum production. Gastrointestinal: Negative vomiting or diarrhea. Genitourinary: As per HPI. LABORATORY DATA: White count on admission 12.9, presently 9.7. Hematocrit 26.8, platelet count 449. BUN 11, creatinine 0.4. Urinalysis 48 white cells. Chest x-ray shows some increased markings at the right base. Previous wound cultures have grown mixed organisms. PHYSICAL EXAMINATION: General: The patient is lethargic but arousable. Vital signs: Temperature 98.1, blood pressure 103/60, pulse 99 regular, respirations 20 per minute. HEENT: Sclerae anicteric. Cardiovascular: Heart sounds S1, S2. Respiratory: Lungs clear. Abdomen: Soft. No tenderness elicited. No mass, rebound, or rigidity. Extremities: Positive for edema. Large sacral decubitus ulcer is present with black eschar. It is deep with exposed bone. No foul odor or purulent drainage. IMPRESSION: An 86-year-old female status post stroke, admitted from home with anorexia, weakness, decreased urine output, and fever. Has a large sacral decubitus ulcer and noted to have pyuria. 1. Possible sepsis secondary to sacral decubitus versus urinary tract infection. 2. Stroke. Pending sepsis workup, empiric antibiotic coverage with Zosyn and stat dose vancomycin. Surgical evaluation for debridement of decubitus ulcer. Discussed with family members present at the time of examination. Thank you for the kind referral. DEMETRIUS BOWERS M.D. [id number]
[2016-07-18] MEDS: SODIUM CHLORIDE 1,000 ML IV SCH (21:20)
[2016-07-18] MEDS: ACETAMINOPHEN 325 MG TABLET (FP) PO PRN (21:28)
[2016-07-19] MEDS: PIPERACILLIN/TAZOB 3.375 GM/50 ML PRE-DOCKED IVPB SCH ×3 (01:25→17:20)
[2016-07-19] MEDS: LEVOTHYROXINE NA 50 MCG TABLET (FP) PO SCH (06:13)
[2016-07-19] MEDS ORDERED: PT OWN MED DRAWER 7, Y5N ONE ×3 (06:31→17:06)
[2016-07-19 07:45] LABS: BASOPHIL 0.8 % (0-2.0); EOSINOPHIL 0.3 % (0-4.5); MCH 27.6 pg (25.7-33.7); MCHC 33.4 g/dl (32.0-36.0); MEAN CELL VOLUME 82.7 fl (80-96); MEAN PLT VOLUME 7.1 fl (7.5-11.1); NEUTROPHILS 69.9 % (42.8-82.8); PLATELET COUNT 483 K/MM3 (134-434); RDW 16.2 % (11.6-15.6); WHITE BLOOD COUNT 10.4 K/mm3 (4.0-10.0)
[2016-07-19 07:47] LABS: ALBUMIN 1.8 g/dl (3.4-5.0); ALK PHOS 164 U/L (45-117); ANION GAP 8 (8-16); BILIRUBIN,TOTAL 0.4 mg/dL (0.2-1.0); CALCIUM 7.6 mg/dL (8.5-10.1); CO2 25 mmol/L (21-32); CREATININE 0.5 mg/dL (0.55-1.02); GLUCOSE,RANDOM 93 mg/dL (74-106); SGOT/AST 18 U/L (15-37); SGPT/ALT 15 U/L (12-78); TOT PROT 5.7 g/dl (6.4-8.2)
[2016-07-19] MEDS: AMINO ACIDS/PROTEIN HYDROLYS 30 ML LIQUID.PKT PO SCH ×2 (09:40→17:20)
[2016-07-19] MEDS: CLOPIDOGREL BISULFATE 75 MG TABLET (FP) PO SCH (09:40)
[2016-07-19] MEDS: DOCUSATE SODIUM 100 MG CAPSULE (FP) PO SCH (09:40)
[2016-07-19] MEDS: ATENOLOL 25 MG TABLET (FP) PO SCH (09:40)
[2016-07-19] MEDS: HEPARIN NA (PORCINE) 5,000 UNITS/ML 1ML VIAL SQ SCH ×2 (09:40→22:03)
[2016-07-19] MEDS: levETIRAcetam 250 MG TABLET (FP) PO SCH ×2 (09:40→22:03)
[2016-07-19] MEDS: amLODIPine BESYLATE 10 MG TABLET (FP) PO SCH (09:40)
[2016-07-19] MEDS: PANTOPRAZOLE 40 MG TABLET (FP) PO SCH (09:40)
[2016-07-19] MEDS: ARTIFICIAL TEARS (POLYVINYL ALCOHOL 1.4%) OPTH DROPS OU SCH ×2 (09:40→22:03)
[2016-07-19] MEDS: COLLAGENASE CLOSTRIDIUM HIST. 30 GRAMS TUBE TP SCH (09:40)
--- NOTE | 2016-07-19 12:35 | PN ---
Physical Exam: SUBJECTIVE: Patient seen and examined. Pt asleep during exam OBJECTIVE: Febrile overnight, re-cultured by night team, tmax 100.9 remains tachycardic despite atenolol 25mg but likely secondary to fevers - monitor cardiology consulted for pre op clearance/tachycardia Spoke to family (daughter, son in law and grandson) and they are in agreement with Friday's scheduled debridement, daughter to be here Friday a.m. to sign consent. Vital Signs Period Temp Pulse Resp BP Sys/Ontiveros Pulse Ox Last 24 Hr 98.1 F-101.5 F 95-110 18-22 93-132/46-68 96-96 GENERAL: The patient is somnolent, opens eyes to voice command, more lethargic today HEAD: Normal with no signs of trauma. EYES: PERRL, extraocular movements intact, sclera anicteric, conjunctiva clear. No ptosis. LUNGS: Breath sounds equal, clear to auscultation bilaterally, no wheezes, no crackles, no accessory muscle use. HEART: Tachycardic in the 110s. ABDOMEN: Soft, nontender, nondistended, normoactive bowel sounds, no guarding, no rebound, no hepatosplenomegaly, no masses. EXTREMITIES: 2+ pulses, warm, well-perfused, no edema. NEUROLOGICAL: Cranial nerves II through XII grossly intact. PSYCH: Normal mood, normal affect. 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 3 x 3.6 cm), area on coccyx (stage 4, bone exposed, approx 5.3 x 3 cm), and left glute (unstageable with eschar, approx 7 x 7 cm)" Laboratory Results - last 24 hr 07/18/16 07/19/16 07/19/16 21:40 06:10 06:10 WBC 10.4 H RBC 3.40 L Hgb 9.4 L Hct 28.1 L MCV 82.7 MCHC 33.4 RDW 16.2 H Plt Count 483 H MPV 7.1 L Neutrophils % 69.9 Lymphocytes % 22.1 Monocytes % 6.9 Eosinophils % 0.3 Basophils % 0.8 Sodium 144 Potassium 3.5 Chloride 111 H Carbon Dioxide 25 Anion Gap 8 BUN 15 D Creatinine 0.5 L D Creat Clearance w eGFR > 60 Random Glucose 93 Lactic Acid 0.932 Calcium 7.6 L Total Bilirubin 0.4 AST 18 D ALT 15 D Alkaline Phosphatase 164 H Total Protein 5.7 L Albumin 1.8 L Active Medications Generic Name Dose Route Start Last Admin Trade Name Freq PRN Reason Stop Dose Admin Acetaminophen 650 mg 07/17/16 16:22 07/18/16 21:28 Tylenol - PO 650 mg Q4H PRN Administration FEVER OR PAIN Amino Acids 30 ml 07/17/16 17:30 07/19/16 09:40 Prosource No Carb Liquid Pkt PO 30 ml BID@0800,1730 ELENA Administration Amlodipine Besylate 10 mg 07/18/16 10:00 07/19/16 09:40 Norvasc - PO 10 mg DAILY ELENA Administration Artificial Tears 2 drop 07/17/16 22:00 07/19/16 09:40 Artificial Tears OU 2 drop BID ELENA Administration Atenolol 25 mg 07/19/16 10:00 07/19/16 09:40 Tenormin - PO 25 mg DAILY ELENA Administration Clopidogrel Bisulfate 75 mg 07/18/16 10:00 07/19/16 09:40 Plavix - PO 75 mg DAILY ELENA Administration Collagenase 1 applic 07/18/16 10:00 07/19/16 09:40 Santyl - TP 1 applic DAILY ELENA Administration Docusate Sodium 100 mg 07/18/16 10:00 07/19/16 09:40 Colace - PO 100 mg DAILY ELENA Administration Heparin Sodium (Porcine) 5,000 unit 07/17/16 22:00 07/19/16 09:40 Heparin - SQ 5,000 unit BID ELENA Administration Sodium Chloride 1,000 mls @ 75 mls/hr 07/17/16 16:30 07/18/16 21:20 Normal Saline - IV 75 mls/hr ASDIR ELENA Administration Levetiracetam 250 mg 07/17/16 22:00 07/19/16 09:40 Keppra - PO 250 mg BID ELENA Administration Levothyroxine Sodium 50 mcg 07/18/16 07:00 07/19/16 06:13 Synthroid - PO 50 mcg DAILY@0700 ELENA Administration Ondansetron HCl 4 mg 07/17/16 16:22 Zofran Injection IVPB Q6H PRN NAUSEA Pantoprazole Sodium 40 mg 07/19/16 10:00 07/19/16 09:40 Protonix - PO 40 mg DAILY ELENA Administration Piperacillin Sod/Tazobactam Sod 3.375 gm 07/18/16 02:00 07/19/16 09:41 Zosyn 3.375gm Ivpb (Pre-Docked) IVPB 3.375 gm Q8H-IV ELENA Administration Protocol ASSESSMENT/PLAN: Patient is an 86 year old female with a significant past medical history of CVA , seizure disorder, HTN, HLD, hypothyroidism, sacral pressure ulcers, and rheumatic fever. She presents to the ED on 07/04/2016 with fevers and altered mental status. Patient was most recently here between 07/04/2016 to 07/10/2016 for fever and altered mental status. ID Sepsis - likely due to multiple pressure ulcers and/or UTI - previously here for sepsis on last admission Assessment/Plan: Met sepsis criteria on admission, Tmax 100.4F, WBC 12 On Zosyn q8 started on 07/18/2016, was given Vanco yesterday by ID WBC bumped up again, febrile overnight, re-cultured adequate urine output via tobias catheter, tobias cath changed yesterday Blood cults no growth to date, urine cultures with yeast like organism General surgery evaluated: to debride wound likely on Friday On prostat BID, turn and position q2 avoid worsening pressure ulcers ID following GI: Urinary Retention with recurrent UTIs Assessment/Plan: Home tobias catheter secondary to prolonged immobility, incontinence and pressure ulcers- tobias cath changed yesterday BUN/Creatinine stable, continue Tobias catheter Neurology: History of CVA with with left hemiparesis and associated seizure disorder Assessment/Plan: On Keppra 250mg PO BID No reported seizures Continue seizure precautions Cardiology: Hypertension/Tachycardia: Assessment/Plan: On Norvasc 10mg daily, added atenolol 25mg daily yesterday Tahycardia persistent, but also febrile. Will continue Atenolol daily, and may increase to BID if not improving Cardiology consult for persistent tachycardia and preop clearance Monitor vitals F.E.N. Fluids: poor PO intake: Will change IVF to d5 ns @ 75/cc/hr Electrolytes: monitor BMP Nutrition: Pureed diet/aspiration precautions/total feed/added Ensures pudding with meals NPO midnight Friday for surgical debridement. Prophylaxis: DVT: heparin BID GI: colace, protonix Disposition: Requires inpatient hospitalization. Full Code. Visit type - Emergency Visit Emergency Visit: Yes ED Registration Date: 07/17/16 Care time: The patient presented to the Emergency Department on the above date and was hospitalized for further evaluation of their emergent condition. - New Patient This patient is new to me today: No - Critical Care Critical Care patient: No - Discharge Referral Referred to [facility] No
[2016-07-19 13:24] LABS: THYROID STIMULATING HORMONE 2.71 uIU/ml (0.358-3.74)
[2016-07-19] MEDS: SODIUM CHLORIDE 1,000 ML IV SCH (13:40)
--- NOTE | 2016-07-19 14:01 | CON.CARD ---
Cardiology Consult (text) - Consultation Consultation Note: Cc: pre-op clearane 86 yo with h/o HTN/HL ( meds?), prior Rt MCA infarct with left hemiparesis (on plavix), seizures on keppra and hypothyroid who presents with tachycardia and poor po intake. Family notes worsening of sacral ulcer. Increasing lethargy. + fevers. denies cp, sob, orthopnea, pnd, le edema, palps, dizziness denies n/v/d, chills/sweats, rashes, headache, cough, congestion. History limited, patient with little communication. Family providing additional history. No diabetes. family states a number of years ago there was concern for CAD but she declined cardiac catheterization. Family states she also declined stress testing a few years later. family states she is no longer ambulatory. PMD: Dr. Maykel Coronado pmhx/pshx: per hpi (obtained from ambulance record) fam hx: sister with chf social hx: former smoker, no etoh or illicits ros: per hpi Ambulatory Orders Clopidogrel Bisulfate [Plavix -] 75 mg PO DAILY 07/03/16 Levetiracetam [Keppra] 250 mg PO BID 07/03/16 Levothyroxine [Synthroid -] 50 mcg PO DAILY 07/03/16 Polyvinyl Alcohol/Povidone [Artificial Tears Drops] 15 ml OU BID 07/03/16 Amino Acids/Protein Hydrolys [Prosource No Carb Liquid Pkt] 30 ml PO BID@0800, 1730 #60 packet 07/10/16 Amlodipine Besylate [Norvasc -] 10 mg PO DAILY #30 tablet 07/10/16 Collagenase Clostridium Hist. [Santyl -] 1 applic TP DAILY #1 tube 07/10/16 Docusate Sodium [Colace -] 100 mg PO DAILY 07/17/16 Current Medications Acetaminophen (Tylenol -) 650 mg PO Q4H PRN PRN Reason: FEVER OR PAIN Last Admin: 07/18/16 21:28 Dose: 650 mg Amino Acids (Prosource No Carb Liquid Pkt) 30 ml PO BID@0800,1730 [facility] Last Admin: 07/19/16 09:40 Dose: 30 ml Amlodipine Besylate (Norvasc -) 10 mg PO DAILY [facility] Last Admin: 03/24/17 09:40 Dose: 10 mg Artificial Tears (Artificial Tears) 2 drop OU BID [facility] Last Admin: 07/19/16 09:40 Dose: 2 drop Atenolol (Tenormin -) 25 mg PO DAILY [facility] Last Admin: 07/19/16 09:40 Dose: 25 mg Clopidogrel Bisulfate (Plavix -) 75 mg PO DAILY [facility] Last Admin: 07/19/16 09:40 Dose: 75 mg Collagenase (Santyl -) 1 applic TP DAILY [facility] Last Admin: 07/19/16 09:40 Dose: 1 applic Docusate Sodium (Colace -) 100 mg PO DAILY [facility] Last Admin: 07/19/16 09:40 Dose: 100 mg Heparin Sodium (Porcine) (Heparin -) 5,000 unit SQ BID [facility] Last Admin: 07/19/16 09:40 Dose: 5,000 unit Sodium Chloride (Normal Saline -) 1,000 mls @ 75 mls/hr IV ASDIR [facility] Last Admin: 07/19/16 13:40 Dose: 75 mls/hr Levetiracetam (Keppra -) 250 mg PO BID [facility] Last Admin: 07/19/16 09:40 Dose: 250 mg Levothyroxine Sodium (Synthroid -) 50 mcg PO DAILY@0700 [facility] Last Admin: 07/19/16 06:13 Dose: 50 mcg Ondansetron HCl (Zofran Injection) 4 mg IVPB Q6H PRN PRN Reason: NAUSEA Pantoprazole Sodium (Protonix -) 40 mg PO DAILY [facility] Last Admin: 07/19/16 09:40 Dose: 40 mg Piperacillin Sod/Tazobactam Sod (Zosyn 3.375gm Ivpb (Pre-Docked)) 3.375 gm IVPB Q8H-IV [facility] PRN Reason: Protocol Last Admin: 07/19/16 09:41 Dose: 3.375 gm Vital Signs - 24 hr 07/18/16 07/18/16 07/18/16 14:06 20:55 20:58 Temperature 98.1 F 98.5 F Pulse Rate 99 H 95 H Respiratory 20 20 Rate Blood Pressure 103/60 117/51 O2 Sat by Pulse 96 Oximetry (%) 07/18/16 07/18/16 07/18/16 21:29 22:44 22:58 Temperature 101.5 F H 100.9 F H Pulse Rate 102 H 105 H Respiratory 22 20 Rate Blood Pressure 93/51 96/49 O2 Sat by Pulse Oximetry (%) 07/19/16 07/19/16 07/19/16 00:50 05:43 08:25 Temperature 98.6 F 99.4 F 98.9 F Pulse Rate 102 H 110 H 101 H Respiratory 18 18 22 Rate Blood Pressure 108/50 132/46 126/68 O2 Sat by Pulse Oximetry (%) 07/19/16 07/19/16 08:28 13:51 Temperature 100.1 F H Pulse Rate 98 H Respiratory 22 Rate Blood Pressure 107/65 O2 Sat by Pulse 96 Oximetry (%) Intake & Output 07/17/16 07/18/16 07/19/16 07/20/16 07:59 07:59 07:59 07:59 Intake Total 400 2925 825 Output Total 600 1100 300 Balance -200 1825 525 Weight 118 lb NAD, calm, lethargic + calor to skin jvd flat, neck supple ctab, nl effort rrr nl s1,s2 no m/r/g + bs soft nt nd ext without e/c/c diminished dp/pt no carotid bruits unable to assess orientation no jaundice, diaphoresis CBC, BMP 07/19/16 06:10 07/19/16 06:10 Laboratory Tests 07/17/16 07/19/16 13:56 06:10 Total Bilirubin 0.4 AST 18 D ALT 15 D Alkaline Phosphatase 164 H Troponin I < 0.02 Albumin 1.8 L TSH 2.71 D EKG: Sinus tach, LAD. LVH. Poor r wave progression, no acute ischemic changes CXR: no acute infiltrates. by my review, interstitial markings --> possible chronic pulmonary disease. 86 yo with h/o HTN/HL ( meds?), prior Rt MCA infarct with left hemiparesis (on plavix), seizures on keppra and hypothyroid who presents with tachycardia and poor po intake. Pre-op clearance - plan for surgical debridement of sacral ulcer. No active CV issues. no further testing required prior to surgery. H/o cva, possible CAD?. Based on RCRI of 2 and poor functional status patient has intermediate risk of bisi- operative cardiovascular events. > 30 min spent counseling family. HTN - bp running low. Would hold amlodipine for now. would con't atenolol prior MCA infarct - con't plavix, - statin at discretion of neurology
[2016-07-19] MEDS: DEXTROSE 5%-NORMAL SALINE 1,000 ML IV SCH (17:20)
[2016-07-19] MEDS ORDERED: ACETAMINOPHEN 1000 MG/100 ML VIAL (NON FORMULARY) IVPB ONE (18:30)
[2016-07-20] MEDS: PIPERACILLIN/TAZOB 3.375 GM/50 ML PRE-DOCKED IVPB SCH ×3 (02:44→17:21)
[2016-07-20] MEDS: LEVOTHYROXINE NA 50 MCG TABLET (FP) PO SCH (06:03)
[2016-07-20] MEDS: DEXTROSE 5%-NORMAL SALINE 1,000 ML IV SCH ×2 (06:07→17:18)
[2016-07-20 07:56] LABS: MCHC 32.7 g/dl (32.0-36.0); MEAN CELL VOLUME 82.7 fl (80-96); PLATELET COUNT 470 K/MM3 (134-434); RDW 16.1 % (11.6-15.6); WHITE BLOOD COUNT 8.7 K/mm3 (4.0-10.0)
[2016-07-20] MEDS: AMINO ACIDS/PROTEIN HYDROLYS 30 ML LIQUID.PKT PO SCH ×2 (08:18→17:18)
[2016-07-20 08:29] LABS: ALBUMIN 1.7 g/dl (3.4-5.0); ANION GAP 9 (8-16); CALCIUM 7.5 mg/dL (8.5-10.1); CO2 25 mmol/L (21-32); GLUCOSE,RANDOM 128 mg/dL (74-106)
[2016-07-20 08:33] LABS: ALK PHOS 159 U/L (45-117); BILIRUBIN,TOTAL 0.3 mg/dL (0.2-1.0); CREATININE 0.5 mg/dL (0.55-1.02); SGOT/AST 20 U/L (15-37); SGPT/ALT 15 U/L (12-78); TOT PROT 5.3 g/dl (6.4-8.2)
--- NOTE | 2016-07-20 09:32 | PN ---
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, Physician History of Present Illness: Awake, not verbally responsive Afebrile Temp spike 101.2 noted WBC WNL BC (-) Urine c/s YLO - Current Medication List Current Medications: Active Medications Acetaminophen (Tylenol -) 650 mg PO Q4H PRN PRN Reason: FEVER OR PAIN Last Admin: 07/18/16 21:28 Dose: 650 mg Amino Acids (Prosource No Carb Liquid Pkt) 30 ml PO BID@0800,1730 [facility] Last Admin: 07/20/16 08:18 Dose: 30 ml Artificial Tears (Artificial Tears) 2 drop OU BID [facility] Last Admin: 07/19/16 22:03 Dose: 2 drop Atenolol (Tenormin -) 25 mg PO DAILY [facility] Last Admin: 07/19/16 09:40 Dose: 25 mg Clopidogrel Bisulfate (Plavix -) 75 mg PO DAILY [facility] Last Admin: 07/19/16 09:40 Dose: 75 mg Collagenase (Santyl -) 1 applic TP DAILY [facility] Last Admin: 07/19/16 09:40 Dose: 1 applic Docusate Sodium (Colace -) 100 mg PO DAILY [facility] Last Admin: 07/19/16 09:40 Dose: 100 mg Heparin Sodium (Porcine) (Heparin -) 5,000 unit SQ BID [facility] Last Admin: 07/19/16 22:03 Dose: 5,000 unit Dextrose/Sodium Chloride (D5-Ns -) 1,000 mls @ 100 mls/hr IV ASDIR [facility] Last Admin: 07/20/16 06:07 Dose: 100 mls/hr Levetiracetam (Keppra -) 250 mg PO BID [facility] Last Admin: 07/19/16 22:03 Dose: 250 mg Levothyroxine Sodium (Synthroid -) 50 mcg PO DAILY@0700 [facility] Last Admin: 07/20/16 06:03 Dose: 50 mcg Ondansetron HCl (Zofran Injection) 4 mg IVPB Q6H PRN PRN Reason: NAUSEA Pantoprazole Sodium (Protonix -) 40 mg PO DAILY [facility] Last Admin: 07/19/16 09:40 Dose: 40 mg Piperacillin Sod/Tazobactam Sod (Zosyn 3.375gm Ivpb (Pre-Docked)) 3.375 gm IVPB Q8H-IV ELENA PRN Reason: Protocol Last Admin: 07/20/16 02:44 Dose: 3.375 gm - Objective Vital Signs: Vital Signs Temperature 97.7 F 07/20/16 06:00 Pulse Rate 94 H 07/20/16 06:00 Respiratory Rate 16 07/20/16 06:00 Blood Pressure 115/61 07/20/16 06:00 O2 Sat by Pulse Oximetry (%) 99 07/19/16 22:00 Constitutional: Yes: No Distress Eyes: Yes: Conjunctiva Clear Cardiovascular: Yes: Regular Rate and Rhythm, S1, S2 Respiratory: Yes: Diminished Gastrointestinal: Yes: Normal Bowel Sounds, Soft. No: Tenderness Edema: Yes Labs: CBC, BMP 07/20/16 05:35 07/20/16 05:35 INR, PTT INR 1.18 (0.82-1.09) H 07/17/16 13:56 Assessment/Plan Fever, likely secondary to decubitus focus Yeast in urine = contaminant S/P CVA Continue zosyn For decubitus debridement in OR Mon
[2016-07-20] MEDS: levETIRAcetam 250 MG TABLET (FP) PO SCH ×2 (10:01→22:38)
[2016-07-20] MEDS: ATENOLOL 25 MG TABLET (FP) PO SCH (10:01)
[2016-07-20] MEDS: HEPARIN NA (PORCINE) 5,000 UNITS/ML 1ML VIAL SQ SCH ×2 (10:01→22:39)
[2016-07-20] MEDS: CLOPIDOGREL BISULFATE 75 MG TABLET (FP) PO SCH (10:01)
[2016-07-20] MEDS: PANTOPRAZOLE 40 MG TABLET (FP) PO SCH (10:01)
[2016-07-20] MEDS: DOCUSATE SODIUM 100 MG CAPSULE (FP) PO SCH (10:01)
[2016-07-20] MEDS: COLLAGENASE CLOSTRIDIUM HIST. 30 GRAMS TUBE TP SCH (10:02)
[2016-07-20] MEDS: ARTIFICIAL TEARS (POLYVINYL ALCOHOL 1.4%) OPTH DROPS OU SCH ×2 (10:05→22:38)
[2016-07-20] MEDS ORDERED: PT OWN MED DRAWER 7, Y5N ONE (10:05)
[2016-07-20 10:25] LABS: PLATELET COMMENT2 NO CLOTTING DETECTED; PLATELET COMMENT3 FEW LARGE PLTS; PLATELET ESTIMATE SLT INCREASED (NORMAL); SMUDGE CELLS FEW
[2016-07-20 10:26] LABS: ANISOCYTOSIS 2+; HYPOCHROMIA 1+; POIKILOCYTOSIS 2+; POLYCHROMASIA 1+
[2016-07-20] MEDS: KCL 10 MEQ IVPB 100 ML IVPB SCH ×2 (11:28→13:09)
--- NOTE | 2016-07-20 11:38 | PN ---
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 (short form) - Note 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: Subjective: The patient is minimally verbal, opens eyes to verbal stimulation. Tmax 101.2 Current Medications Generic Name Dose Route Start Last Admin Trade Name Freq PRN Reason Stop Dose Admin Acetaminophen 650 mg 07/17/16 16:22 07/18/16 21:28 Tylenol - PO 650 mg Q4H PRN Administration FEVER OR PAIN Amino Acids 30 ml 07/17/16 17:30 07/20/16 08:18 Prosource No Carb Liquid Pkt PO 30 ml BID@0800,1730 ELENA Administration Artificial Tears 2 drop 07/17/16 22:00 07/20/16 10:05 Artificial Tears OU 2 drop BID ELENA Administration Atenolol 25 mg 07/19/16 10:00 07/20/16 10:01 Tenormin - PO 25 mg DAILY ELENA Administration Clopidogrel Bisulfate 75 mg 07/18/16 10:00 07/20/16 10:01 Plavix - PO 75 mg DAILY ELENA Administration Collagenase 1 applic 07/18/16 10:00 07/20/16 10:02 Santyl - TP 1 applic DAILY ELENA Administration Docusate Sodium 100 mg 07/18/16 10:00 07/20/16 10:01 Colace - PO 100 mg DAILY ELENA Administration Heparin Sodium (Porcine) 5,000 unit 07/17/16 22:00 07/20/16 10:01 Heparin - SQ 5,000 unit BID ELENA Administration Dextrose/Sodium Chloride 1,000 mls @ 100 mls/hr 07/19/16 16:45 07/20/16 06:07 D5-Ns - IV 100 mls/hr ASDIR ELENA Administration Potassium Chloride 100 mls @ 100 mls/hr 07/20/16 11:15 Potassium Chloride 10 Meq Premix Ivpb - IVPB 07/20/16 13:14 Q60M ELENA Levetiracetam 250 mg 07/17/16 22:00 07/20/16 10:01 Keppra - PO 250 mg BID ELENA Administration Levothyroxine Sodium 50 mcg 07/18/16 07:00 07/20/16 06:03 Synthroid - PO 50 mcg DAILY@0700 ELENA Administration Ondansetron HCl 4 mg 07/17/16 16:22 Zofran Injection IVPB Q6H PRN NAUSEA Pantoprazole Sodium 40 mg 07/19/16 10:00 07/20/16 10:01 Protonix - PO 40 mg DAILY ELENA Administration Piperacillin Sod/Tazobactam Sod 3.375 gm 07/18/16 02:00 07/20/16 10:01 Zosyn 3.375gm Ivpb (Pre-Docked) IVPB 3.375 gm Q8H-IV ELENA Administration Protocol Objective: Vital Signs Period Temp Pulse Resp BP Sys/Ontiveros Pulse Ox Last 24 Hr 97.7 F-101.2 F 94-102 16-20 89-116/49-65 99 Physical Exam: General: NAD, minimally verbal, opens eye to verbal stimulation Lungs: CTA bilaterally Heart: tachycardia Abd: soft, non-tender, non-distended. Normoactive bowel sounds Ext: Deep tissue injury to left heel Skin: Dressing to sacrum and buttock, c/d/i Neuro: Unable to assess CN, patient non-verbal CBCD WBC 8.7 K/mm3 (4.0-10.0) 07/20/16 05:35 RBC 3.55 M/mm3 (3.60-5.2) L 07/20/16 05:35 Hgb 9.6 GM/dL (10.7-15.3) L 07/20/16 05:35 Hct 29.3 % (32.4-45.2) L 07/20/16 05:35 MCV 82.7 fl (80-96) 07/20/16 05:35 MCHC 32.7 g/dl (32.0-36.0) 07/20/16 05:35 RDW 16.1 % (11.6-15.6) H 07/20/16 05:35 Plt Count 470 K/MM3 (134-434) H 07/20/16 05:35 MPV 7.0 fl (7.5-11.1) L 07/20/16 05:35 CMP Sodium 145 mmol/L (136-145) 07/20/16 05:35 Potassium 3.4 mmol/L (3.5-5.1) L 07/20/16 05:35 Chloride 111 mmol/L (98-107) H 07/20/16 05:35 Carbon Dioxide 25 mmol/L (21-32) 07/20/16 05:35 Anion Gap 9 (8-16) 07/20/16 05:35 BUN 10 mg/dL (7-18) D 07/20/16 05:35 Creatinine 0.5 mg/dL (0.55-1.02) L 07/20/16 05:35 Creat Clearance w eGFR > 60 (>60) 07/20/16 05:35 Random Glucose 128 mg/dL (74-106) H D 07/20/16 05:35 Calcium 7.5 mg/dL (8.5-10.1) L 07/20/16 05:35 Total Bilirubin 0.3 mg/dL (0.2-1.0) D 07/20/16 05:35 AST 20 U/L (15-37) 07/20/16 05:35 ALT 15 U/L (12-78) 07/20/16 05:35 Alkaline Phosphatase 159 U/L (45-117) H 07/20/16 05:35 Total Protein 5.3 g/dl (6.4-8.2) L 07/20/16 05:35 Albumin 1.7 g/dl (3.4-5.0) L 07/20/16 05:35 CARDIAC ENZYMES Creatine Kinase 394 IU/L (26-192) H D 07/17/16 13:56 Troponin I < 0.02 ng/ml (0.00-0.05) 07/17/16 13:56 Microbiology 07/18/16 22:03 Blood - Peripheral Venous Blood Culture - Preliminary NO GROWTH OBTAINED AFTER 24 HOURS, INCUBATION TO CONTINUE FOR 4 DAYS. 07/18/16 21:40 Blood - Peripheral Venous Blood Culture - Preliminary NO GROWTH OBTAINED AFTER 24 HOURS, INCUBATION TO CONTINUE FOR 4 DAYS. 07/17/16 14:00 Blood - Peripheral Venous Blood Culture - Preliminary NO GROWTH OBTAINED AFTER 48 HOURS, INCUBATION TO CONTINUE FOR 3 DAYS. 07/17/16 14:02 Blood - Peripheral Venous Blood Culture - Preliminary NO GROWTH OBTAINED AFTER 48 HOURS, INCUBATION TO CONTINUE FOR 3 DAYS. 07/17/16 13:56 Urine - Urine Cardona Urine Culture - Final Yeast Like Organism Assessment: This is an 86 year old female with PMHx of HTN, hyperlipidemia, hypothyroidism, CVA with left hemiparesis, sacral and buttock pressure ulcers, seizure disorder, multiple recent admissions for encephalopathy/fever/sepsis/UTI /possible aspiration pneumonia, who presented to the ED with fever, tachycardia , poor oral intake and decreased urine output. Plan: 1) ID: Sepsis 2/2 decubitus ulcer - Continue Zosyn - Tmax 101.2 - Urine culture with yeast, contamination per ID - Blood culture with NGTD - Appreciate ID consult 2) Integumentary: stage IV coccyx - For OR debridement on Friday - NPO after midnight - Pre-op clearance per cards - Appreciate surgery consult 3) Cardiology: HTN - Continue atenolol - Appreciate cardiology consult 4) Neuro: prior MCA infarct - Continue Plavix Seizure disorder - Continue Keppra 5) Endocrine: Hypothyroidism - Continue Synthroid 6) F/E/N: - Pureed diet - Hypokalemia: replete - Monitor electrolytes - IV fluids 7) Prophylaxis: - Heparin 5,000u sq bid, hold prior to surgery 8) Dispo: - Requires continued inpatient care CODE STATUS: FULL CODE Visit type - Emergency Visit Emergency Visit: Yes ED Registration Date: 07/17/16 Care time: The patient presented to the Emergency Department on the above date and was hospitalized for further evaluation of their emergent condition. - New Patient This patient is new to me today: Yes Date on this admission: 07/20/16 - Critical Care Critical Care patient: No
[2016-07-21] MEDS: PIPERACILLIN/TAZOB 3.375 GM/50 ML PRE-DOCKED IVPB SCH ×3 (02:36→17:05)
[2016-07-21] MEDS: DEXTROSE 5%-NORMAL SALINE 1,000 ML IV SCH (02:36)
[2016-07-21] MEDS: LEVOTHYROXINE NA 50 MCG TABLET (FP) PO SCH (06:26)
[2016-07-21 08:13] LABS: BASOPHIL 0.9 % (0-2.0); MCH 26.8 pg (25.7-33.7); MCHC 32.4 g/dl (32.0-36.0); MEAN CELL VOLUME 82.7 fl (80-96); MEAN PLT VOLUME 7.2 fl (7.5-11.1); NEUTROPHILS 60.6 % (42.8-82.8); PLATELET COUNT 495 K/MM3 (134-434); RDW 15.8 % (11.6-15.6); WHITE BLOOD COUNT 8.5 K/mm3 (4.0-10.0)
[2016-07-21] MEDS ORDERED: PT OWN MED DRAWER 7, Y5N ONE (08:26)
[2016-07-21] MEDS: AMINO ACIDS/PROTEIN HYDROLYS 30 ML LIQUID.PKT PO SCH ×2 (08:37→17:04)
[2016-07-21 08:45] LABS: ALBUMIN 1.7 g/dl (3.4-5.0); ALK PHOS 160 U/L (45-117); ANION GAP 9 (8-16); BILIRUBIN,TOTAL 0.2 mg/dL (0.2-1.0); CALCIUM 7.3 mg/dL (8.5-10.1); CO2 24 mmol/L (21-32); CREATININE 0.5 mg/dL (0.55-1.02); GLUCOSE,RANDOM 113 mg/dL (74-106); SGOT/AST 26 U/L (15-37); SGPT/ALT 21 U/L (12-78); TOT PROT 5.7 g/dl (6.4-8.2)
--- NOTE | 2016-07-21 09:01 | PN ---
Physical Exam: SUBJECTIVE: Patient seen and examined. Responds with facial movements to daughter's inquiries. OBJECTIVE: Vital Signs Period Temp Pulse Resp BP Sys/Ontiveros Pulse Ox Last 24 Hr 97.6 F-98.8 F 88-102 18-20 101-116/50-65 98 GENERAL: The patient is awake, opens eyes to command. Makes facial movements in response to questions. Nonverbal. HEAD: Normal with no signs of trauma. EYES: PERRL, sclera anicteric, conjunctiva clear. No ptosis. LUNGS: Breath sounds equal, clear to auscultation bilaterally, no wheezes, no crackles, no accessory muscle use. HEART: Regular rate and rhythm, S1, S2 without murmur, rub or gallop. ABDOMEN: Soft, nontender, nondistended, normoactive bowel sounds, no guarding, no rebound EXTREMITIES: 2+ pulses, warm, well-perfused LEFT HAND AND RIGHT FOOT: 2+ edema NEUROLOGICAL: Left side flaccid SKIN: Stage IV sacral wounds #1 Sacum left of intergluteal fold: 7cmL x 10cmW x surface; heavy slough #2 Sacrum right of intergluteal fold: 4cmL x 10cmW x surface; heavy slough These wounds are contiguous Laboratory Results - last 24 hr 07/20/16 07/21/16 07/21/16 05:35 06:45 06:45 WBC 8.5 RBC 3.51 L Hgb 9.4 L Hct 29.0 L MCV 82.7 MCHC 32.4 RDW 15.8 H Plt Count 495 H MPV 7.2 L Neutrophils % 72.0 60.6 Lymphocytes % 15.0 D 29.4 D Monocytes % 7.0 8.1 Eosinophils % 1.0 D Basophils % 0.9 Band Neutrophils 6.0 Smudge Cells Few Platelet Estimate Slt increased Platelet Comment No clotting detected Polychromasia 1+ Hypochromic-Microcytic 1+ Poikilocytosis 2+ Anisocytosis 2+ Sodium 144 Potassium 3.6 Chloride 111 H Carbon Dioxide 24 Anion Gap 9 BUN 9 Creatinine 0.5 L Creat Clearance w eGFR > 60 Random Glucose 113 H Calcium 7.3 L Total Bilirubin 0.2 D AST 26 D ALT 21 D Alkaline Phosphatase 160 H Total Protein 5.7 L Albumin 1.7 L Active Medications Generic Name Dose Route Start Last Admin Trade Name Freq PRN Reason Stop Dose Admin Acetaminophen 650 mg 07/17/16 16:22 07/18/16 21:28 Tylenol - PO 650 mg Q4H PRN Administration FEVER OR PAIN Amino Acids 30 ml 07/17/16 17:30 07/21/16 08:37 Prosource No Carb Liquid Pkt PO 30 ml BID@0800,1730 ELENA Administration Artificial Tears 2 drop 07/17/16 22:00 07/20/16 22:38 Artificial Tears OU 2 drop BID ELENA Administration Atenolol 25 mg 07/19/16 10:00 07/20/16 10:01 Tenormin - PO 25 mg DAILY ELENA Administration Clopidogrel Bisulfate 75 mg 07/18/16 10:00 07/20/16 10:01 Plavix - PO 75 mg DAILY ELENA Administration Collagenase 1 applic 07/18/16 10:00 07/20/16 10:02 Santyl - TP 1 applic DAILY ELENA Administration Docusate Sodium 100 mg 07/18/16 10:00 07/20/16 10:01 Colace - PO 100 mg DAILY ELENA Administration Heparin Sodium (Porcine) 5,000 unit 07/17/16 22:00 07/20/16 22:39 Heparin - SQ 07/21/16 23:00 5,000 unit BID ELENA Administration Dextrose/Sodium Chloride 1,000 mls @ 100 mls/hr 07/19/16 16:45 07/21/16 02:36 D5-Ns - IV 100 mls/hr ASDIR ELENA Administration Levetiracetam 250 mg 07/17/16 22:00 07/20/16 22:38 Keppra - PO 250 mg BID ELENA Administration Levothyroxine Sodium 50 mcg 07/18/16 07:00 07/21/16 06:26 Synthroid - PO 50 mcg DAILY@0700 ELENA Administration Ondansetron HCl 4 mg 07/17/16 16:22 Zofran Injection IVPB Q6H PRN NAUSEA Pantoprazole Sodium 40 mg 07/19/16 10:00 07/20/16 10:01 Protonix - PO 40 mg DAILY ELENA Administration Piperacillin Sod/Tazobactam Sod 3.375 gm 07/18/16 02:00 07/21/16 02:36 Zosyn 3.375gm Ivpb (Pre-Docked) IVPB 3.375 gm Q8H-IV ELENA Administration Protocol ASSESSMENT/PLAN 86 year-old woman with a PMH of HTN, HLD, right MCA CVA, seizure disorder, hypothyroidism, chronic sacral pressure ulcers, and chronic urinary retention, and recurrent UTIs. This is the patient's fifth admission this year for fevers. Infection secondary to sacral pressure ulcers present on admission --afebrile 36 hours, no leukocytosis --on previous admission, this wound was visualized by me and was Stage IV with visible bone; heavy slough now covers the area --scheduled for OR debridement tomorrow --continue Zosyn (day #4) --continue daily collagenase, Prosource Urinary retention --chronic catheter placement Pyuria --in setting of chronic tobias and recurrent UTIs --urine culture positive for yeast only --on Zosyn for sacral wounds h/o CVA with left hemiparesis and associated seizure disorder --continue Keppra, Plavix Hypertension --BP well-controlled --continue atenolol Hyperlipidemia --not on statin Hypothyroidism --continue levothyroxine F/E/N Fluids: PO intake adequate Electrolytes: replete as indicated Nutrition: dysphagia puree with nectar thick liquids DVT prophylaxis: subq heparin Dispo: continues to require inpatient care. Full Code. Visit type - Emergency Visit Emergency Visit: Yes ED Registration Date: 07/17/16 Care time: The patient presented to the Emergency Department on the above date and was hospitalized for further evaluation of their emergent condition. - New Patient This patient is new to me today: No - Critical Care Critical Care patient: No
[2016-07-21] MEDS: ARTIFICIAL TEARS (POLYVINYL ALCOHOL 1.4%) OPTH DROPS OU SCH ×2 (09:07→21:09)
[2016-07-21] MEDS: DOCUSATE SODIUM 100 MG CAPSULE (FP) PO SCH (09:07)
[2016-07-21] MEDS: PANTOPRAZOLE 40 MG TABLET (FP) PO SCH (09:12)
[2016-07-21] MEDS: ATENOLOL 25 MG TABLET (FP) PO SCH (09:12)
[2016-07-21] MEDS: HEPARIN NA (PORCINE) 5,000 UNITS/ML 1ML VIAL SQ SCH ×2 (09:12→21:09)
[2016-07-21] MEDS: levETIRAcetam 250 MG TABLET (FP) PO SCH ×2 (09:13→21:09)
[2016-07-21] MEDS: CLOPIDOGREL BISULFATE 75 MG TABLET (FP) PO SCH (09:13)
[2016-07-21] MEDS: COLLAGENASE CLOSTRIDIUM HIST. 30 GRAMS TUBE TP SCH (09:14)
--- NOTE | 2016-07-21 10:24 | SPA.PREOP ---
- PRE-OP NOTE Dx: Sacral ulcer Planned Procedure: Debridement Surgeon: Dr. Eric Pan Consent: Dr. Pan to discuss with family prior to OR. Last Vital Signs Temp Pulse Resp BP Pulse Ox 98.0 F 96 H 18 116/65 98 07/21/16 08:01 07/21/16 08:01 07/21/16 08:01 07/21/16 08:01 07/20/16 22:00 Lab Results WBC 8.5 K/mm3 (4.0-10.0) 07/21/16 06:45 RBC 3.51 M/mm3 (3.60-5.2) L 07/21/16 06:45 Hgb 9.4 GM/dL (10.7-15.3) L 07/21/16 06:45 Hct 29.0 % (32.4-45.2) L 07/21/16 06:45 MCV 82.7 fl (80-96) 07/21/16 06:45 MCHC 32.4 g/dl (32.0-36.0) 07/21/16 06:45 RDW 15.8 % (11.6-15.6) H 07/21/16 06:45 Plt Count 495 K/MM3 (134-434) H 07/21/16 06:45 Sodium 144 mmol/L (136-145) 07/21/16 06:45 Potassium 3.6 mmol/L (3.5-5.1) 07/21/16 06:45 Chloride 111 mmol/L (98-107) H 07/21/16 06:45 Carbon Dioxide 24 mmol/L (21-32) 07/21/16 06:45 Anion Gap 9 (8-16) 07/21/16 06:45 BUN 9 mg/dL (7-18) 07/21/16 06:45 Creatinine 0.5 mg/dL (0.55-1.02) L 07/21/16 06:45 Random Glucose 113 mg/dL (74-106) H 07/21/16 06:45 Calcium 7.3 mg/dL (8.5-10.1) L 07/21/16 06:45 Blood Type A NEGATIVE 07/17/16 13:56 Antibody Screen Negative 07/17/16 13:56 INR 1.18 (0.82-1.09) H 07/17/16 13:56 - ASSESSMENT/PLAN 1. Make NPO after midnight except po meds 2. GI/DVT PPX 3. Medical optimization / clearance Spoke with hospitalist on Friday,family will be available Friday morning to discuss debridement with Dr. Pan. Problem List - Problems (1) Sacral decubitus ulcer Code(s): L89.159 - PRESSURE ULCER OF SACRAL REGION, UNSPECIFIED STAGE Qualifiers: Pressure ulcer stage: stage 3 Qualified Code(s): L89.153 - Pressure ulcer of sacral region, stage 3 Visit type - Case Type Case Type: ED Admission
[2016-07-22] MEDS: PIPERACILLIN/TAZOB 3.375 GM/50 ML PRE-DOCKED IVPB SCH ×3 (02:36→17:56)
[2016-07-22] MEDS: LEVOTHYROXINE NA 50 MCG TABLET (FP) PO SCH (06:16)
[2016-07-22] MEDS: AMINO ACIDS/PROTEIN HYDROLYS 30 ML LIQUID.PKT PO SCH ×4 (08:12→18:50)
[2016-07-22] MEDS: levETIRAcetam 250 MG TABLET (FP) PO SCH ×2 (09:24→23:07)
[2016-07-22] MEDS: CLOPIDOGREL BISULFATE 75 MG TABLET (FP) PO SCH (09:25)
[2016-07-22] MEDS: ATENOLOL 25 MG TABLET (FP) PO SCH ×2 (09:25→10:57)
[2016-07-22] MEDS: PANTOPRAZOLE 40 MG TABLET (FP) PO SCH (09:25)
--- NOTE | 2016-07-22 09:46 | PN ---
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, Physician - Current Medication List Current Medications: Active Medications Acetaminophen (Tylenol -) 650 mg PO Q4H PRN PRN Reason: FEVER OR PAIN Last Admin: 07/18/16 21:28 Dose: 650 mg Amino Acids (Prosource No Carb Liquid Pkt) 30 ml PO BID@0800,1730 [facility] Last Admin: 07/22/16 09:00 Dose: Not Given Artificial Tears (Artificial Tears) 2 drop OU BID [facility] Last Admin: 07/21/16 21:09 Dose: 2 drop Atenolol (Tenormin -) 25 mg PO DAILY [facility] Last Admin: 07/22/16 09:25 Dose: Not Given Clopidogrel Bisulfate (Plavix -) 75 mg PO DAILY [facility] Last Admin: 07/22/16 09:25 Dose: Not Given Collagenase (Santyl -) 1 applic TP DAILY [facility] Last Admin: 07/21/16 09:14 Dose: 1 applic Levetiracetam (Keppra -) 250 mg PO BID [facility] Last Admin: 07/22/16 09:24 Dose: Not Given Levothyroxine Sodium (Synthroid -) 50 mcg PO DAILY@0700 [facility] Last Admin: 07/22/16 06:16 Dose: 50 mcg Ondansetron HCl (Zofran Injection) 4 mg IVPB Q6H PRN PRN Reason: NAUSEA Pantoprazole Sodium (Protonix -) 40 mg PO DAILY [facility] Last Admin: 07/22/16 09:25 Dose: Not Given Piperacillin Sod/Tazobactam Sod (Zosyn 3.375gm Ivpb (Pre-Docked)) 3.375 gm IVPB Q8H-IV ELENA PRN Reason: Protocol Last Admin: 07/22/16 09:34 Dose: 3.375 gm - Objective Vital Signs: Vital Signs Temperature 98.9 F 07/22/16 03:00 Pulse Rate 98 H 07/22/16 08:09 Respiratory Rate 20 07/22/16 08:09 Blood Pressure 126/62 07/22/16 08:09 O2 Sat by Pulse Oximetry (%) 95 07/21/16 21:00 Labs: CBC, BMP 07/21/16 06:45 07/21/16 06:45 INR, PTT INR 1.18 (0.82-1.09) H 07/17/16 13:56 Assessment/Plan EKG: Sinus tach, LAD. LVH. Poor r wave progression, no acute ischemic changes CXR: no acute infiltrates. by my review, interstitial markings --> possible chronic pulmonary disease. 86 yo with h/o HTN/HL ( meds?), prior Rt MCA infarct with left hemiparesis (on plavix), seizures on keppra and hypothyroid who presents with tachycardia and poor po intake. sacral decub with underlying spine osteo: -discussion underway btw surgery and family for debridement -plavix held (07/22) in anticipation of need for surgery -RCRI of 2 and poor functional statu--intermediate risk of bisi-operative cardiovascular events -given no s/sx of active CV dz, no further testing is warranted HTN - amlodipine held for low-range bps - on atenolol (from home) - bp stable--monitor trend prior MCA infarct - on plavix from before--holding for probable debridement of decub ulcer - o/w no change to prior tx plan
[2016-07-22 10:19] LABS: BASOPHIL 0.5 % (0-2.0); EOSINOPHIL 0.4 % (0-4.5); MCH 26.1 pg (25.7-33.7); MCHC 31.8 g/dl (32.0-36.0); MEAN CELL VOLUME 82.1 fl (80-96); MEAN PLT VOLUME 6.9 fl (7.5-11.1); NEUTROPHILS 60.2 % (42.8-82.8); PLATELET COUNT 498 K/MM3 (134-434); RDW 16.2 % (11.6-15.6); WHITE BLOOD COUNT 8.4 K/mm3 (4.0-10.0)
[2016-07-22] MEDS: COLLAGENASE CLOSTRIDIUM HIST. 30 GRAMS TUBE TP SCH (10:20)
[2016-07-22 10:36] LABS: ALBUMIN 1.8 g/dl (3.4-5.0); ANION GAP 9 (8-16); BILIRUBIN,TOTAL 0.3 mg/dL (0.2-1.0); CALCIUM 7.8 mg/dL (8.5-10.1); CO2 25 mmol/L (21-32); CREATININE 0.4 mg/dL (0.55-1.02); GLUCOSE,RANDOM 82 mg/dL (74-106); SGOT/AST 24 U/L (15-37); SGPT/ALT 20 U/L (12-78); TOT PROT 5.5 g/dl (6.4-8.2)
[2016-07-22 10:37] LABS: ALK PHOS 167 U/L (45-117)
[2016-07-22] MEDS: KCL 10 MEQ IVPB 100 ML IVPB SCH ×2 (11:17→15:28)
[2016-07-22] MEDS: ARTIFICIAL TEARS (POLYVINYL ALCOHOL 1.4%) OPTH DROPS OU SCH ×2 (11:25→23:07)
[2016-07-22] MEDS ORDERED: PT OWN MED DRAWER 7, Y5N ONE ×2 (11:29→20:41)
[2016-07-22] MEDS ORDERED: MIDAZOLAM HCL 2 MG/2 ML SINGLE DOSE VIAL ONE (12:24)
[2016-07-22] MEDS ORDERED: PROPOFOL 20 ML ONE (12:24)
--- NOTE | 2016-07-22 12:59 | PN ---
Physical Exam: SUBJECTIVE: Patient seen and examined. More awake today, family in room. OBJECTIVE: MRI of sacrum shows early osteo: will address need for possible continued iv antbx with ID (iv antbx vs PO?) MRI report given to family at their request. For debridement today Spoke to family about plan of care tmax 99.8 Vital Signs Period Temp Pulse Resp BP Sys/Ontiveros Pulse Ox Last 24 Hr 98.4 F-98.9 F 93-105 18-20 107-148/55-70 95 GENERAL: More awake today, non verbal during exam HEAD: Normal with no signs of trauma. EYES: PERRL, extraocular movements intact, sclera anicteric, conjunctiva clear. No ptosis. LUNGS: Breath sounds equal, clear to auscultation bilaterally, no wheezes, no crackles, no accessory muscle use. HEART: Heart rate 90s. ABDOMEN: Soft, nontender, nondistended, normoactive bowel sounds, no guarding, no rebound, no hepatosplenomegaly, no masses. EXTREMITIES: 2+ pulses, warm, well-perfused, +1 pitting edema on left hand NEUROLOGICAL: left sided ld. s/p cva PSYCH: non verbal SKIN: Multiple pressure ulcers, largest one on sacrum which is a stage 4 - for debridement by surgery all wounds present on admission As per surgery notes wounds are as follows: "sacral and gluteal ulcers with necrotic tissue, areas on right glute (stage 2, approx. 3 x 3.6 cm), area on coccyx (stage 4, bone exposed, approx 5.3 x 3 cm), and left glute (unstageable with eschar, approx 7 x 7 cm)" Laboratory Results - last 24 hr 07/22/16 07/22/16 07/22/16 07:00 09:38 09:38 WBC 8.4 RBC 3.62 Hgb 9.5 L Hct 29.7 L MCV 82.1 MCHC 31.8 L RDW 16.2 H Plt Count 498 H MPV 6.9 L Neutrophils % 60.2 Lymphocytes % 29.9 Monocytes % 9.0 Eosinophils % 0.4 Basophils % 0.5 Sodium 144 Potassium 3.4 L Chloride 110 H Carbon Dioxide 25 Anion Gap 9 BUN 11 D Creatinine 0.4 L Creat Clearance w eGFR > 60 Random Glucose 82 D Calcium 7.8 L Total Bilirubin 0.3 D AST 24 ALT 20 Alkaline Phosphatase 167 H Total Protein 5.5 L Albumin 1.8 L Blood Type A NEGATIVE Antibody Screen Negative Active Medications Generic Name Dose Route Start Last Admin Trade Name Kaykay PRN Reason Stop Dose Admin Acetaminophen 650 mg 07/17/16 16:22 07/18/16 21:28 Tylenol - PO 650 mg Q4H PRN Administration FEVER OR PAIN Amino Acids 30 ml 07/17/16 17:30 07/22/16 09:00 Prosource No Carb Liquid Pkt PO Not Given BID@0800,1730 ELENA Artificial Tears 2 drop 07/17/16 22:00 07/22/16 11:25 Artificial Tears OU 2 drop BID ELENA Administration Atenolol 25 mg 07/19/16 10:00 07/22/16 10:57 Tenormin - PO 25 mg DAILY ELENA Administration Collagenase 1 applic 07/18/16 10:00 07/22/16 10:20 Santyl - TP Not Given DAILY ELENA Potassium Chloride 100 mls @ 100 mls/hr 07/22/16 11:35 07/22/16 11:17 Potassium Chloride 10 Meq Premix Ivpb - IVPB 07/22/16 13:34 100 mls/hr Q60M ELENA Administration Levetiracetam 250 mg 07/17/16 22:00 07/22/16 09:24 Keppra - PO Not Given BID ELENA Levothyroxine Sodium 50 mcg 07/18/16 07:00 07/22/16 06:16 Synthroid - PO 50 mcg DAILY@0700 ELENA Administration Ondansetron HCl 4 mg 07/17/16 16:22 Zofran Injection IVPB Q6H PRN NAUSEA Pantoprazole Sodium 40 mg 07/19/16 10:00 07/22/16 09:25 Protonix - PO Not Given DAILY ELENA Piperacillin Sod/Tazobactam Sod 3.375 gm 07/18/16 02:00 07/22/16 09:34 Zosyn 3.375gm Ivpb (Pre-Docked) IVPB 3.375 gm Q8H-IV ELENA Administration Protocol ASSESSMENT/PLAN: Patient is an 86 year old female with a significant past medical history of CVA , seizure disorder, HTN, HLD, hypothyroidism, sacral pressure ulcers, and rheumatic fever. She presents to the ED on 07/04/2016 with fevers and altered mental status. Patient was most recently here between 07/04/2016 to 07/10/2016 for fever and altered mental status. 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 Tmax 99.8F, Blood cultures negative, urine cultures with yeast like organism adequate urine output via tobias catheter For debridement of unsteagable pressure ulcer of sacrum On prostat BID, turn and position q2 avoid worsening pressure ulcers ID following GI: Urinary Retention with recurrent UTIs Assessment/Plan: Home tobias catheter secondary to prolonged immobility, incontinence and pressure ulcers BUN/Creatinine stable, continue Tobias catheter Neurology: History of CVA with with left hemiparesis and associated seizure disorder Assessment/Plan: On Keppra 250mg PO BID No reported seizures since admission Continue seizure precautions Cardiology: Hypertension/Tachycardia: Assessment/Plan: Norvasc 10mg daily on hold secondary to hypotension On atenolol 25mg daily for tachycardia Monitor vitals F.E.N. Fluids: tolerating PO, Ensure with meals Electrolytes: hypokalemia: 3.4: repleted with 2 K riders Nutrition: Pureed diet/aspiration precautions/total feed/added Ensures pudding with meals Prophylaxis: DVT: heparin on hold or surgery GI: colace, protonix Disposition: Requires inpatient hospitalization. Full Code. Visit type - Emergency Visit Emergency Visit: Yes ED Registration Date: 07/17/16 Care time: The patient presented to the Emergency Department on the above date and was hospitalized for further evaluation of their emergent condition. - New Patient This patient is new to me today: No - Critical Care Critical Care patient: No - Discharge Referral Referred to [facility] Med P.C.: No
--- NOTE | 2016-07-22 13:44 | OP ---
Operative Note - Note: Operative Date: 07/22/16 Pre-Operative Diagnosis: unstageable sacral decubitus ulcer Operation: excisional debridement unstageable sacral decubitus ulcer. Findings: eschar and non viable fat/fascia and muscle. Surgeon: Eric Pan Anesthesiologist/FARM [employer]CH[employer] APPRENTICE: Fabián Wooten Anesthesia: General Specimens Removed: nonviable eschar/fat/fascia/muscle Estimated Blood Loss (mls): 25 Instrument used (Debridements only): scalpel/cautery/currette
[2016-07-22] MEDS ORDERED: ONDANSETRON 4 MG/2 ML VIAL IVPB PRN (13:57)
[2016-07-22] MEDS: LACTATED RINGERS SOLUTION 1,000 ML IV SCH (15:28)
--- NOTE | 2016-07-22 16:59 | PN ---
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 (short form) - Note 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: Cc: pre-op clearane S: s/p surgery. per report, no complications. patient appears comfortable. ROS limited, patient with minimal communication. Current Medications Acetaminophen (Tylenol -) 650 mg PO Q4H PRN PRN Reason: FEVER OR PAIN Amino Acids (Prosource No Carb Liquid Pkt) 30 ml PO BID@0800,1730 [facility] Artificial Tears (Artificial Tears) 2 drop OU BID [facility] Atenolol (Tenormin -) 25 mg PO DAILY [facility] Collagenase (Santyl -) 1 applic TP DAILY [facility] Fentanyl (Sublimaze Injection -) 25 mcg IVPUSH [id number] PRN PRN Reason: PAIN Stop: 07/25/16 13:45 Lactated Ringer's (Lactated Ringers Solution) 1,000 mls @ 75 mls/hr IV ASDIR ELENA Stop: 07/23/16 07:00 Last Admin: 07/22/16 15:28 Dose: 75 mls/hr Levetiracetam (Keppra -) 250 mg PO BID [facility] Levothyroxine Sodium (Synthroid -) 50 mcg PO DAILY@0700 [facility] Ondansetron HCl (Zofran Injection) 4 mg IVPB Q6H PRN PRN Reason: NAUSEA Pantoprazole Sodium (Protonix -) 40 mg PO DAILY [facility] Piperacillin Sod/Tazobactam Sod (Zosyn 3.375gm Ivpb (Pre-Docked)) 3.375 gm IVPB Q8H-IV ELENA PRN Reason: Protocol Vital Signs - 24 hr 07/21/16 07/22/16 07/22/16 21:00 03:00 08:09 Temperature 98.4 F 98.9 F Pulse Rate 105 H 100 H 98 H Respiratory 18 20 20 Rate Blood Pressure 107/61 148/70 126/62 O2 Sat by Pulse 95 Oximetry (%) 07/22/16 07/22/16 07/22/16 09:00 13:40 13:55 Temperature 99.4 F Pulse Rate 89 86 Respiratory 18 20 18 Rate Blood Pressure 141/77 125/75 O2 Sat by Pulse 100 100 99 Oximetry (%) 07/22/16 07/22/16 07/22/16 14:10 14:25 14:40 Temperature Pulse Rate 88 84 82 Respiratory 18 18 16 Rate Blood Pressure 127/71 134/62 121/65 O2 Sat by Pulse 99 99 98 Oximetry (%) 07/22/16 07/22/16 14:55 16:02 Temperature 98.0 F 97.7 F Pulse Rate 82 84 Respiratory 16 19 Rate Blood Pressure 121/66 115/61 O2 Sat by Pulse Oximetry (%) Intake & Output 07/20/16 07/21/16 07/22/16 07/23/16 07:59 07:59 07:59 07:59 Intake Total 3225 2800 450 300 Output Total 1900 2000 1350 950 Balance 1325 800 -900 -650 NAD, calm, awake jvd flat, neck supple ctab, poor effort rrr nl s1,s2 no m/r/g + bs soft nt nd ext without e/c/c diminished dp/pt no carotid bruits unable to assess orientation no jaundice, diaphoresis CBC, BMP 07/22/16 09:38 07/22/16 09:38 Laboratory Tests 07/22/16 09:38 Total Bilirubin 0.3 D AST 24 ALT 20 Alkaline Phosphatase 167 H Albumin 1.8 L EKG: Sinus tach, LAD. LVH. Poor r wave progression, no acute ischemic changes CXR: no acute infiltrates. by my review, interstitial markings --> possible chronic pulmonary disease. 86 yo with h/o HTN/HL ( meds?), prior Rt MCA infarct with left hemiparesis (on plavix), seizures on keppra and hypothyroid who presents with tachycardia and poor po intake. Pre-op clearance - No active CV issues. no further testing recommended prior to surgery. H/o cva , possible CAD?. RCRI of 2 with poor functional status, patient estimated to have an intermediate risk for bisi-operative cardiovascular events. - s/p surgical debridement of sacral ulcer today 07/22. No complications. HR/ bp well controlled. Caution with IVF. Keep HOB elevated. Monitor oxygen saturation. electrolyte repletion. HTN - holding amlodipine. con't atenolol prior MCA infarct - resume plavix. - statin at discretion of neurology
[2016-07-22] MEDS: POTASSIUM CHLORIDE 40 MEQ/30 ML UNIT DOSE CUP PO ONE ×2 (17:19→18:51)
[2016-07-22] MEDS: ACETAMINOPHEN 325 MG TABLET (FP) PO PRN (18:10)
[2016-07-23] MEDS: LACTATED RINGERS SOLUTION 1,000 ML IV SCH (01:41)
[2016-07-23] MEDS: PIPERACILLIN/TAZOB 3.375 GM/50 ML PRE-DOCKED IVPB SCH ×3 (01:42→18:00)
[2016-07-23] MEDS: LEVOTHYROXINE NA 50 MCG TABLET (FP) PO SCH (06:04)
[2016-07-23] MEDS ORDERED: PT OWN MED DRAWER 7, Y5N ONE ×3 (06:53→20:34)
[2016-07-23 07:55] LABS: BASOPHIL 0.5 % (0-2.0); EOSINOPHIL 0.8 % (0-4.5); MCH 26.6 pg (25.7-33.7); MCHC 32.1 g/dl (32.0-36.0); MEAN CELL VOLUME 82.6 fl (80-96); NEUTROPHILS 61.6 % (42.8-82.8); PLATELET COUNT 446 K/MM3 (134-434); RDW 16.2 % (11.6-15.6); WHITE BLOOD COUNT 9.4 K/mm3 (4.0-10.0)
--- NOTE | 2016-07-23 08:09 | PN ---
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, Physician Chief Complaint: Pt resting comfortably, pain controlled, no GA complaints. - Current Medication List Current Medications: Active Medications Acetaminophen (Tylenol -) 650 mg PO Q4H PRN PRN Reason: FEVER OR PAIN Last Admin: 07/22/16 18:10 Dose: 650 mg Amino Acids (Prosource No Carb Liquid Pkt) 30 ml PO BID@0800,1730 [facility] Last Admin: 07/22/16 18:50 Dose: Not Given Artificial Tears (Artificial Tears) 2 drop OU BID [facility] Last Admin: 07/22/16 23:07 Dose: Not Given Atenolol (Tenormin -) 25 mg PO DAILY [facility] Collagenase (Santyl -) 1 applic TP DAILY [facility] Fentanyl (Sublimaze Injection -) 25 mcg IVPUSH [id number] PRN PRN Reason: PAIN Stop: 07/25/16 13:45 Levetiracetam (Keppra -) 250 mg PO BID [facility] Last Admin: 07/22/16 23:07 Dose: Not Given Levothyroxine Sodium (Synthroid -) 50 mcg PO DAILY@0700 [facility] Last Admin: 07/23/16 06:04 Dose: Not Given Ondansetron HCl (Zofran Injection) 4 mg IVPB Q6H PRN PRN Reason: NAUSEA Pantoprazole Sodium (Protonix -) 40 mg PO DAILY [facility] Piperacillin Sod/Tazobactam Sod (Zosyn 3.375gm Ivpb (Pre-Docked)) 3.375 gm IVPB Q8H-IV ELENA PRN Reason: Protocol Last Admin: 07/23/16 01:42 Dose: 3.375 gm - Objective Vital Signs: Vital Signs Temperature 99.2 F 07/23/16 06:00 Pulse Rate 102 H 07/23/16 06:00 Respiratory Rate 18 07/23/16 06:00 Blood Pressure 136/72 07/23/16 06:00 O2 Sat by Pulse Oximetry (%) 94 L 07/23/16 05:00 Constitutional: Yes: Well Nourished, No Distress, Calm Neurological: Yes: WNL, Alert, Oriented Labs: CBC, BMP 07/23/16 07:00 INR, PTT INR 1.18 (0.82-1.09) H 07/17/16 13:56 Assessment/Plan POD#1 s/p incision and Debridement of sacral decubitus ulcer. Doing well. D/C from anesthesia care.
[2016-07-23] MEDS: AMINO ACIDS/PROTEIN HYDROLYS 30 ML LIQUID.PKT PO SCH ×2 (08:58→17:37)
[2016-07-23 09:19] LABS: ALBUMIN 1.7 g/dl (3.4-5.0); ALK PHOS 154 U/L (45-117); ANION GAP 10 (8-16); BILIRUBIN,TOTAL 0.3 mg/dL (0.2-1.0); CALCIUM 7.8 mg/dL (8.5-10.1); CO2 23 mmol/L (21-32); CREATININE 0.4 mg/dL (0.55-1.02); GLUCOSE,RANDOM 78 mg/dL (74-106); SGOT/AST 22 U/L (15-37); SGPT/ALT 19 U/L (12-78); TOT PROT 5.4 g/dl (6.4-8.2)
[2016-07-23] MEDS: ATENOLOL 25 MG TABLET (FP) PO SCH (10:28)
[2016-07-23] MEDS: levETIRAcetam 250 MG TABLET (FP) PO SCH ×2 (10:28→21:27)
[2016-07-23] MEDS: PANTOPRAZOLE 40 MG TABLET (FP) PO SCH (10:28)
[2016-07-23] MEDS: ENOXAPARIN NA (PORCINE) 40 MG/0.4 ML DISP.SYRIN SQ SCH (10:49)
[2016-07-23] MEDS: ARTIFICIAL TEARS (POLYVINYL ALCOHOL 1.4%) OPTH DROPS OU SCH ×2 (11:11→21:27)
--- NOTE | 2016-07-23 12:05 | PN ---
Physical Exam: SUBJECTIVE: Patient seen and examined. Appears to be at her baseline. OBJECTIVE: POD#1 pt is s/p sacral wound debridement with Dr. Pan yesterday Wound dressing c/d/i Poor appetite, spoke with steam conditioning operator, kyle ordered d/c planning once cleared by surgery with wound care orders PICC line ordered for continued IV therapy as per ID notes Vital Signs Period Temp Pulse Resp BP Sys/Ontiveros Pulse Ox Last 24 Hr 97.7 F-99.4 F 78-102 14-20 106-141/61-77 5-100 GENERAL: More awake today, non verbal during exam HEAD: Normal with no signs of trauma. EYES: PERRL, extraocular movements intact, sclera anicteric, conjunctiva clear. No ptosis. LUNGS: Breath sounds equal, clear to auscultation bilaterally, no wheezes, no crackles, no accessory muscle use. HEART: Heart rate 90s. ABDOMEN: Soft, nontender, nondistended, normoactive bowel sounds, no guarding, no rebound, no hepatosplenomegaly, no masses. EXTREMITIES: 2+ pulses, warm, well-perfused, +1 pitting edema on left hand NEUROLOGICAL: left sided ld. 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 Laboratory Results - last 24 hr 07/23/16 07/23/16 07:00 07:00 WBC 9.4 RBC 3.31 L Hgb 8.8 L Hct 27.4 L MCV 82.6 MCHC 32.1 RDW 16.2 H Plt Count 446 H MPV 7.0 L Neutrophils % 61.6 Lymphocytes % 27.9 Monocytes % 9.2 Eosinophils % 0.8 D Basophils % 0.5 Sodium 143 Potassium 3.9 Chloride 110 H Carbon Dioxide 23 Anion Gap 10 BUN 8 D Creatinine 0.4 L Creat Clearance w eGFR > 60 Random Glucose 78 Calcium 7.8 L Total Bilirubin 0.3 AST 22 ALT 19 Alkaline Phosphatase 154 H Total Protein 5.4 L Albumin 1.7 L Active Medications Generic Name Dose Route Start Last Admin Trade Name Freq PRN Reason Stop Dose Admin Acetaminophen 650 mg 07/22/16 13:57 07/22/16 18:10 Tylenol - PO 650 mg Q4H PRN Administration FEVER OR PAIN Amino Acids 30 ml 03/27/17 17:30 07/23/16 08:58 Prosource No Carb Liquid Pkt PO Not Given BID@0800,1730 ELENA Artificial Tears 2 drop 07/22/16 22:00 07/23/16 11:11 Artificial Tears OU 2 drop BID ELENA Administration Atenolol 25 mg 07/23/16 10:00 07/23/16 10:28 Tenormin - PO 25 mg DAILY ELENA Administration Collagenase 1 applic 07/23/16 10:00 Santyl - TP DAILY ELENA Enoxaparin Sodium 40 mg 07/23/16 10:00 07/23/16 10:49 Lovenox - SQ 40 mg DAILY ELENA Administration Fentanyl 25 mcg 07/22/16 13:44 Sublimaze Injection - IVPUSH 07/25/16 13:45 [id number] PRN PAIN Levetiracetam 250 mg 07/22/16 22:00 07/23/16 10:28 Keppra - PO 250 mg BID ELENA Administration Levothyroxine Sodium 50 mcg 07/23/16 07:00 07/23/16 06:04 Synthroid - PO Not Given DAILY@0700 [facility] Megestrol Acetate 400 mg 07/23/16 11:45 Megace Oral Suspension - PO DAILY [facility] Ondansetron HCl 4 mg 07/22/16 13:57 Zofran Injection IVPB Q6H PRN NAUSEA Pantoprazole Sodium 40 mg 07/23/16 10:00 07/23/16 10:28 Protonix - PO 40 mg DAILY ELENA Administration Piperacillin Sod/Tazobactam Sod 3.375 gm 07/22/16 18:00 07/23/16 10:50 Zosyn 3.375gm Ivpb (Pre-Docked) IVPB 3.375 gm Q8H-IV ELENA Administration Protocol ASSESSMENT/PLAN: Patient is an 86 year old female with a significant past medical history of CVA , seizure disorder, HTN, HLD, hypothyroidism, sacral pressure ulcers, and rheumatic fever. She presents to the ED on 07/04/2016 with fevers and altered mental status. Patient was most recently here between 07/04/2016 to 07/10/2016 for fever and altered mental status. She had a surgical debridement of her stage 4 sacral wound. POD #1. Imagin07/21/2016 Lumbar Spine MRI: early osteomylitis involving the distal and post aspect of the sacrum r/t overlying decubitus ID Sepsis - likely due to multiple pressure ulcers - previously here for sepsis on last admission - resolved Assessment/Plan: Met sepsis criteria on admission, Tmax 100.4F, WBC 12 now with improvement afebrile since 07/19 WBC within normal limits On Zosyn q8 started on 07/18/2016 and will continue x 1 week as per ID Blood cultures negative, urine cultures with yeast like organism adequate urine output via tobias catheter On prostat BID, turn and position q2 avoid worsening pressure ulcers Will need PICC line for continued IV therapy pending surgical clearance for d/c GI: Urinary Retention with recurrent UTIs - resolved Assessment/Plan: Home tobias catheter secondary to prolonged immobility, incontinence and pressure ulcers BUN/Creatinine stable, continue Tobias catheter Neurology: 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 Fluids: tolerating PO, Ensure with meals Electrolytes: hypokalemia: resolved Nutrition: Pureed diet/aspiration precautions/total feed/added Ensures pudding with meals/megace Prophylaxis: DVT: Lovenox 40mg daily GI: colace, protonix Visit type - Emergency Visit Emergency Visit: Yes ED Registration Date: 07/17/16 Care time: The patient presented to the Emergency Department on the above date and was hospitalized for further evaluation of their emergent condition. - New Patient This patient is new to me today: No - Critical Care Critical Care patient: No - Discharge Referral Referred to [facility] Med [facility] No
--- NOTE | 2016-07-23 12:37 | PN ---
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, Physician History of Present Illness: Awake, non verbal S/P debridement of sacral decubitus no cultures sent An MRI was ordered and shows early osteomyelitis of sacrum - Current Medication List Current Medications: Active Medications Acetaminophen (Tylenol -) 650 mg PO Q4H PRN PRN Reason: FEVER OR PAIN Last Admin: 07/22/16 18:10 Dose: 650 mg Amino Acids (Prosource No Carb Liquid Pkt) 30 ml PO BID@0800,1730 [facility] Last Admin: 07/23/16 08:58 Dose: Not Given Artificial Tears (Artificial Tears) 2 drop OU BID [facility] Last Admin: 07/23/16 11:11 Dose: 2 drop Atenolol (Tenormin -) 25 mg PO DAILY [facility] Last Admin: 07/23/16 10:28 Dose: 25 mg Collagenase (Santyl -) 1 applic TP DAILY [facility] Enoxaparin Sodium (Lovenox -) 40 mg SQ DAILY [facility] Last Admin: 07/23/16 10:49 Dose: 40 mg Fentanyl (Sublimaze Injection -) 25 mcg IVPUSH [id number] PRN PRN Reason: PAIN Stop: 07/25/16 13:45 Levetiracetam (Keppra -) 250 mg PO BID [facility] Last Admin: 07/23/16 10:28 Dose: 250 mg Levothyroxine Sodium (Synthroid -) 50 mcg PO DAILY@0700 [facility] Last Admin: 07/23/16 06:04 Dose: Not Given Megestrol Acetate (Megace Oral Suspension -) 400 mg PO DAILY [facility] Ondansetron HCl (Zofran Injection) 4 mg IVPB Q6H PRN PRN Reason: NAUSEA Pantoprazole Sodium (Protonix -) 40 mg PO DAILY [facility] Last Admin: 07/23/16 10:28 Dose: 40 mg Piperacillin Sod/Tazobactam Sod (Zosyn 3.375gm Ivpb (Pre-Docked)) 3.375 gm IVPB Q8H-IV ELENA PRN Reason: Protocol Last Admin: 07/23/16 10:50 Dose: 3.375 gm - Objective Vital Signs: Vital Signs Temperature 98.3 F 07/23/16 10:00 Pulse Rate 102 H 07/23/16 10:00 Respiratory Rate 14 07/23/16 10:00 Blood Pressure 132/64 07/23/16 10:00 O2 Sat by Pulse Oximetry (%) 95 07/23/16 09:00 Constitutional: Yes: No Distress Eyes: Yes: Conjunctiva Clear Cardiovascular: Yes: Regular Rate and Rhythm, S1, S2 Respiratory: Yes: CTA Bilaterally Gastrointestinal: Yes: Normal Bowel Sounds, Soft. 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
[2016-07-23] MEDS ORDERED: PICC LINE 8 ML FLUSH PROTOCOL IVPUSH PRN (13:00)
[2016-07-23] MEDS: COLLAGENASE CLOSTRIDIUM HIST. 30 GRAMS TUBE TP SCH (13:15)
[2016-07-23] MEDS: MEGESTROL ACETATE 400 MG/10 ML UNIT DOSE CUP PO SCH ×2 (13:43→13:45)
--- NOTE | 2016-07-23 14:04 | PATH ---
Surgical Pathology Report Patient Name: [facility]. Rec. #: [id number] /Age/Gender: 1930 (Age: 86) / F Account: [id number] Location: [address] [place] [address]/[facility] Taken: 07/21/2016 Received: 07/22/2016 Reported: 07/23/2016 Physicians: Margarito Mo M.D. Specimen(s) Received DEBRIDEMENT TISSUESACRAL DECUBITUS Clinical History Decubitus ulcer of sacral region Final Diagnosis SKIN AND SOFT TISSUE, SACRUM, DEBRIDEMENT: GANGRENOUS NECROSIS. Electronically Signed Maykel Gonzalez M.D. Gross Description Received in formalin labeled "debrided tissue sacral ulcer," is a 10.5 x 10.5 x 3.5 cm aggregate of multiple green-black, gangrenous portions of skin and necrotic soft tissue. Production Control Coordinator sections are submitted in one cassette. /07/22/2016 saudi/07/22/2016
[2016-07-23] MEDS: ACETAMINOPHEN 325 MG TABLET (FP) PO PRN (18:00)
[2016-07-24] MEDS: PIPERACILLIN/TAZOB 3.375 GM/50 ML PRE-DOCKED IVPB SCH ×3 (01:27→17:29)
[2016-07-24] MEDS: LEVOTHYROXINE NA 50 MCG TABLET (FP) PO SCH (06:22)
[2016-07-24 07:30] LABS: BASOPHIL 0.4 % (0-2.0); EOSINOPHIL 0.6 % (0-4.5); MCH 26.7 pg (25.7-33.7); MCHC 32.3 g/dl (32.0-36.0); MEAN CELL VOLUME 82.8 fl (80-96); MEAN PLT VOLUME 6.8 fl (7.5-11.1); NEUTROPHILS 63.9 % (42.8-82.8); PLATELET COUNT 466 K/MM3 (134-434); RDW 16.5 % (11.6-15.6); WHITE BLOOD COUNT 10.4 K/mm3 (4.0-10.0)
[2016-07-24 08:11] LABS: SGOT/AST 18 U/L (15-37)
[2016-07-24 08:18] LABS: ALBUMIN 1.8 g/dl (3.4-5.0); ALK PHOS 148 U/L (45-117); ANION GAP 10 (8-16); BILIRUBIN,TOTAL 0.3 mg/dL (0.2-1.0); C-REACTIVE PROTEIN 12.9 MG/DL (0.00-0.3); CO2 26 mmol/L (21-32); CREATININE 0.5 mg/dL (0.55-1.02); GLUCOSE,RANDOM 86 mg/dL (74-106); SGPT/ALT 15 U/L (12-78); TOT PROT 5.6 g/dl (6.4-8.2)
--- NOTE | 2016-07-24 08:53 | PN ---
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 (short form) - Note 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: Surgery- Dr. Pan Patient seen and examined. Last Vital Signs Temp Pulse Resp BP Pulse Ox 98.9 F 98 H 20 115/56 96 07/24/16 05:52 07/24/16 05:52 07/24/16 05:52 07/24/16 05:52 07/24/16 05:00 Exam: Gen: NAD Sacrum: s/p debridement, without bleeding or drainage, wet to dry dressing replaced Problem List - Problems (1) Sacral decubitus ulcer Assessment/Plan: POD#2 s/p excisional debridement unstageable sacral decubitus ulcer Wet to dry dressing replaced on rounds Wound vac ordered to be placed today COntinue abx Code(s): L89.159 - PRESSURE ULCER OF SACRAL REGION, UNSPECIFIED STAGE Qualifiers: Pressure ulcer stage: stage 3 Qualified Code(s): L89.153 - Pressure ulcer of sacral region, stage 3
[2016-07-24] MEDS: AMINO ACIDS/PROTEIN HYDROLYS 30 ML LIQUID.PKT PO SCH ×2 (10:15→17:30)
[2016-07-24] MEDS: ARTIFICIAL TEARS (POLYVINYL ALCOHOL 1.4%) OPTH DROPS OU SCH ×2 (10:16→21:37)
[2016-07-24] MEDS: levETIRAcetam 250 MG TABLET (FP) PO SCH ×2 (10:16→21:37)
[2016-07-24] MEDS: MEGESTROL ACETATE 400 MG/10 ML UNIT DOSE CUP PO SCH (10:17)
[2016-07-24] MEDS: ENOXAPARIN NA (PORCINE) 40 MG/0.4 ML DISP.SYRIN SQ SCH (10:17)
[2016-07-24] MEDS: PANTOPRAZOLE 40 MG TABLET (FP) PO SCH (10:17)
[2016-07-24] MEDS: COLLAGENASE CLOSTRIDIUM HIST. 30 GRAMS TUBE TP SCH (10:18)
[2016-07-24] MEDS: ATENOLOL 25 MG TABLET (FP) PO SCH (10:21)
--- NOTE | 2016-07-24 11:05 | PN ---
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 (short form) - Note 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: S: s/p decube debridement. per report, no complications. patient appears comfortable. ROS limited, patient with minimal communication. Current Medications Generic Name Dose Route Start Last Admin Trade Name Freq PRN Reason Stop Dose Admin Acetaminophen 650 mg 07/22/16 13:57 07/23/16 18:00 Tylenol - PO 650 mg Q4H PRN Administration FEVER OR PAIN Amino Acids 30 ml 07/22/16 17:30 07/24/16 10:15 Prosource No Carb Liquid Pkt PO 30 ml BID@0800,1730 ELENA Administration Artificial Tears 2 drop 07/22/16 22:00 07/24/16 10:16 Artificial Tears OU 2 drop BID ELENA Administration Atenolol 25 mg 07/23/16 10:00 07/24/16 10:21 Tenormin - PO 25 mg DAILY ELENA Administration Collagenase 1 applic 07/23/16 10:00 07/24/16 10:18 Santyl - TP Not Given DAILY ELENA Enoxaparin Sodium 40 mg 07/23/16 10:00 07/24/16 10:17 Lovenox - SQ 40 mg DAILY ELENA Administration Fentanyl 25 mcg 07/22/16 13:44 Sublimaze Injection - IVPUSH 07/25/16 13:45 [id number] PRN PAIN IV Flush 8 ml 07/23/16 13:00 Picc Line Flush IVPUSH PRN PRN Protocol Levetiracetam 250 mg 07/22/16 22:00 07/24/16 10:16 Keppra - PO 250 mg BID ELENA Administration Levothyroxine Sodium 50 mcg 07/23/16 07:00 07/24/16 06:22 Synthroid - PO 50 mcg DAILY@0700 ELENA Administration Megestrol Acetate 400 mg 07/23/16 11:45 07/24/16 10:17 Megace Oral Suspension - PO 400 mg DAILY ELENA Administration Ondansetron HCl 4 mg 07/22/16 13:57 Zofran Injection IVPB Q6H PRN NAUSEA Pantoprazole Sodium 40 mg 07/23/16 10:00 07/24/16 10:17 Protonix - PO 40 mg DAILY ELENA Administration Piperacillin Sod/Tazobactam Sod 3.375 gm 07/22/16 18:00 07/24/16 01:27 Zosyn 3.375gm Ivpb (Pre-Docked) IVPB 3.375 gm Q8H-IV ELENA Administration Protocol Vital Signs Period Temp Pulse Resp BP Sys/Ontiveros Pulse Ox Last 24 Hr 98.3 F-98.9 F 86-98 20-20 115/56 95-96 NAD, calm, awake jvd flat, neck supple ctab, poor effort rrr nl s1,s2 no m/r/g + bs soft nd ext without e/c/c unable to assess orientation no jaundice, diaphoresis CBC, BMP 07/24/16 06:00 07/24/16 06:35 EKG: Sinus tach, LAD. LVH. Poor r wave progression, no acute ischemic changes CXR: no acute infiltrates. by my review, interstitial markings --> possible chronic pulmonary disease. a/p: 86 yo with h/o HTN/HL ( meds?), prior Rt MCA infarct with left hemiparesis (on plavix), seizures on keppra and hypothyroid who presents with tachycardia and poor po intake. Pre-op clearance - now s/p surgical debridement of sacral ulcer 07/22. No complications. HR/bp remain well controlled. Caution with IVF. HTN - holding amlodipine. bp controlled with atenolol. prior MCA infarct - resume plavix. - consider statin
[2016-07-24] MEDS ORDERED: oxyCODONE HCL 5 MG TABLET PO PRN (11:12)
[2016-07-24] MEDS: ACETAMINOPHEN 325 MG TABLET (FP) PO PRN (11:58)
--- NOTE | 2016-07-24 16:01 | OP ---
DATE OF OPERATION: 07/22/2016 PREOPERATIVE DIAGNOSIS: Unstageable sacral decubitus ulcer. POSTOPERATIVE DIAGNOSIS: Unstageable sacral decubitus ulcer. PROCEDURE: Excisional debridement of sacral decubitus ulcer. SURGEON: Eric Pan MD ANESTHESIA: General. OPERATIVE FINDINGS: There was an unstageable sacral decubitus with an overlying eschar and nonviable skin, subcutaneous fat, muscle and fascia over the sacrum and laterally on either side of the sacrum. The rest of the findings were unremarkable. PROCEDURE: The patient was placed on the operating room table in supine position, and after the induction of general endotracheal anesthesia, she was turned into the left lateral decubitus position. The area over the sacral decubitus and surrounding area was prepped with Betadine and draped in sterile fashion. Using a scalpel, excisional debridement was carried out of all nonviable skin, subcutaneous fat, fascia and muscle down to the periosteum of the sacrum. The excised tissue was sent for pathological examination, as well as the initial eschar which had been sharply excised. Excision was carried down to active bleeding in all tissues, and then hemostasis was secured with the electrocautery. The wound was copiously irrigated with sterile saline, hemostasis verified again, and then the wound dressed with saline-soaked 4 x 4's combined with sterile dressings. The patient was then aroused from general anesthesia, and transferred to the postanesthesia care unit, in stable condition, awake, and alert. ESTIMATED BLOOD LOSS: 20 mL. REPLACEMENTS: Crystalloid. DRAINS: None. SPECIMENS: Nonviable skin, subcutaneous tissue, fascia and muscle to Pathology. I, Eric Pan, was physically present in the operating room from the time the patient was placed on the operating room table until she was transferred to the postanesthesia care unit in my accompaniment. MD GISELLE Mendoza/[id number]
[2016-07-24] MEDS ORDERED: PT OWN MED DRAWER 7, Y5N ONE ×2 (17:05→21:17)
--- NOTE | 2016-07-24 17:49 | PN ---
Physical Exam: SUBJECTIVE: Patient seen and examined OBJECTIVE: Vital Signs Period Temp Pulse Resp BP Sys/Ontiveros Pulse Ox Last 24 Hr 98.3 F-98.9 F 86-98 20-20 101-115/56-58 90-96 GENERAL: The patient is awake, opens eyes to command. Makes facial movements in response to questions. Nonverbal. HEAD: Normal with no signs of trauma. EYES: PERRL, sclera anicteric, conjunctiva clear. No ptosis. LUNGS: Breath sounds equal, clear to auscultation bilaterally, no wheezes, no crackles, no accessory muscle use. HEART: Regular rate and rhythm, S1, S2 without murmur, rub or gallop. ABDOMEN: Soft, nontender, nondistended, normoactive bowel sounds, no guarding, no rebound EXTREMITIES: 2+ pulses, warm, well-perfused LEFT HAND AND RIGHT FOOT: 2+ edema NEUROLOGICAL: Left side flaccid SKIN: Stage IV sacral wounds Surgical dressing in place, c/d/i; wounds not visualized Laboratory Results - last 24 hr 07/24/16 07/24/16 07/24/16 06:00 06:35 06:35 WBC 10.4 H RBC 3.12 L Hgb 8.3 L Hct 25.9 L MCV 82.8 MCHC 32.3 RDW 16.5 H Plt Count 466 H MPV 6.8 L Neutrophils % 63.9 Lymphocytes % 26.0 Monocytes % 9.1 Eosinophils % 0.6 Basophils % 0.4 ESR 75 H Sodium 144 Potassium 3.5 Chloride 108 H Carbon Dioxide 26 Anion Gap 10 BUN 7 Creatinine 0.5 L D Creat Clearance w eGFR > 60 Random Glucose 86 Calcium 8.0 L Total Bilirubin 0.3 AST 18 ALT 15 D Alkaline Phosphatase 148 H C-Reactive Protein 12.9 H D Total Protein 5.6 L Albumin 1.8 L Active Medications Generic Name Dose Route Start Last Admin Trade Name Freq PRN Reason Stop Dose Admin Acetaminophen 650 mg 07/22/16 13:57 07/24/16 11:58 Tylenol - PO 650 mg Q4H PRN Administration FEVER OR PAIN Amino Acids 30 ml 07/22/16 17:30 07/24/16 17:30 Prosource No Carb Liquid Pkt PO 30 ml BID@0800,1730 ELENA Administration Artificial Tears 2 drop 07/22/16 22:00 07/24/16 10:16 Artificial Tears OU 2 drop BID ELENA Administration Atenolol 25 mg 07/23/16 10:00 07/24/16 10:21 Tenormin - PO 25 mg DAILY ELENA Administration Collagenase 1 applic 07/23/16 10:00 07/24/16 10:18 Santyl - TP Not Given DAILY ELENA Enoxaparin Sodium 40 mg 07/23/16 10:00 07/24/16 10:17 Lovenox - SQ 40 mg DAILY ELENA Administration Fentanyl 25 mcg 07/22/16 13:44 Sublimaze Injection - IVPUSH 07/25/16 13:45 [id number] PRN PAIN IV Flush 8 ml 07/23/16 13:00 Picc Line Flush IVPUSH PRN PRN Protocol Levetiracetam 250 mg 07/22/16 22:00 07/24/16 10:16 Keppra - PO 250 mg BID ELENA Administration Levothyroxine Sodium 50 mcg 07/23/16 07:00 07/24/16 06:22 Synthroid - PO 50 mcg DAILY@0700 ELENA Administration Megestrol Acetate 400 mg 07/23/16 11:45 07/24/16 10:17 Megace Oral Suspension - PO 400 mg DAILY ELENA Administration Ondansetron HCl 4 mg 07/22/16 13:57 Zofran Injection IVPB Q6H PRN NAUSEA Oxycodone HCl 5 mg 07/24/16 11:12 07/24/16 12:00 Roxicodone - PO 5 mg Q6H PRN Administration PAIN Pantoprazole Sodium 40 mg 07/23/16 10:00 07/24/16 10:17 Protonix - PO 40 mg DAILY ELENA Administration Piperacillin Sod/Tazobactam Sod 3.375 gm 07/22/16 18:00 07/24/16 17:29 Zosyn 3.375gm Ivpb (Pre-Docked) IVPB 3.375 gm Q8H-IV ELENA Administration Protocol ASSESSMENT/PLAN 86 year-old woman with a PMH of HTN, HLD, right MCA CVA, seizure disorder, hypothyroidism, chronic sacral pressure ulcers, and chronic urinary retention, and recurrent UTIs. This is the patient's fifth admission this year for fevers. Infection secondary to sacral pressure ulcers s/p excisional debridement of sacral decubitus ulcer 07/22 Osteomyelitis of the sacrum --afebrile, no leukocytosis --blood cultures negative; intraoperative culture not sent --continue Zosyn (day #8); will need PICC line for 7 days of treatment followed by PO levaquin/flagyl --continue daily collagenase, Prosource Urinary retention --chronic catheter placement Pyuria --in setting of chronic tobias and recurrent UTIs --urine culture positive for yeast only, contaminant --on Zosyn for sacral wounds h/o CVA with left hemiparesis and associated seizure disorder --continue Keppra, Plavix Hypertension --BP well-controlled --continue atenolol Hyperlipidemia --not on statin Hypothyroidism --continue levothyroxine F/E/N Fluids: PO intake adequate Electrolytes: replete as indicated Nutrition: dysphagia puree with nectar thick liquids DVT prophylaxis: subq heparin Dispo: continues to require inpatient care. Full Code. Will need SNF placement. Visit type - Emergency Visit Emergency Visit: Yes ED Registration Date: 07/17/16 Care time: The patient presented to the Emergency Department on the above date and was hospitalized for further evaluation of their emergent condition. - New Patient This patient is new to me today: No - Critical Care Critical Care patient: No
[2016-07-25] MEDS: PIPERACILLIN/TAZOB 3.375 GM/50 ML PRE-DOCKED IVPB SCH ×3 (01:22→16:35)
[2016-07-25] MEDS: LEVOTHYROXINE NA 50 MCG TABLET (FP) PO SCH (06:04)
[2016-07-25 07:56] LABS: BASOPHIL 0.5 % (0-2.0); EOSINOPHIL 0.7 % (0-4.5); MCH 26.5 pg (25.7-33.7); MEAN CELL VOLUME 82.8 fl (80-96); MEAN PLT VOLUME 6.8 fl (7.5-11.1); NEUTROPHILS 67.3 % (42.8-82.8); PLATELET COUNT 546 K/MM3 (134-434); RDW 16.7 % (11.6-15.6); WHITE BLOOD COUNT 12.4 K/mm3 (4.0-10.0)
[2016-07-25] MEDS: AMINO ACIDS/PROTEIN HYDROLYS 30 ML LIQUID.PKT PO SCH (08:31)
[2016-07-25 08:47] LABS: ALBUMIN 1.9 g/dl (3.4-5.0); ALK PHOS 155 U/L (45-117); ANION GAP 12 (8-16); BILIRUBIN,TOTAL 0.3 mg/dL (0.2-1.0); CALCIUM 8.2 mg/dL (8.5-10.1); CO2 25 mmol/L (21-32); CREATININE 0.5 mg/dL (0.55-1.02); GLUCOSE,RANDOM 86 mg/dL (74-106); MAGNESIUM 1.7 mg/dL (1.8-2.4); SGOT/AST 16 U/L (15-37); SGPT/ALT 16 U/L (12-78); TOT PROT 5.9 g/dl (6.4-8.2)
[2016-07-25] MEDS ORDERED: PT OWN MED DRAWER 7, Y5N ONE (09:08)
[2016-07-25] MEDS: MEGESTROL ACETATE 400 MG/10 ML UNIT DOSE CUP PO SCH (09:26)
[2016-07-25] MEDS: COLLAGENASE CLOSTRIDIUM HIST. 30 GRAMS TUBE TP SCH (09:26)
[2016-07-25] MEDS: ARTIFICIAL TEARS (POLYVINYL ALCOHOL 1.4%) OPTH DROPS OU SCH (09:26)
[2016-07-25] MEDS: PANTOPRAZOLE 40 MG TABLET (FP) PO SCH (09:26)
[2016-07-25] MEDS: levETIRAcetam 250 MG TABLET (FP) PO SCH (09:26)
[2016-07-25] MEDS: ATENOLOL 25 MG TABLET (FP) PO SCH (09:26)
--- NOTE | 2016-07-25 09:47 | PN ---
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 (short form) - Note 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: Attending Surgeon POD # 3 Wound care in progress; no VAC non communicative VSS low grade temp. wound-open and partially granulating;remainder w/ some non viable tissue IMP:Sacral decubitus Stage III PLAN: Continue present tx.; prognosis poor for this wound given early osteo on the sacrum. Eric Pan MD FACS
[2016-07-25] MEDS: ENOXAPARIN NA (PORCINE) 40 MG/0.4 ML DISP.SYRIN SQ SCH (10:00)
--- NOTE | 2016-07-25 10:29 | DS ---
Physical Exam: SUBJECTIVE: Patient seen and examined. OBJECTIVE: Vital Signs Period Temp Pulse Resp BP Sys/Ontiveros Pulse Ox Last 24 Hr 98.1 F-100.2 F 86-102 18-20 101-149/52-82 94-96 PHYSICAL EXAM GENERAL: The patient is awake, opens eyes to command. Makes facial movements in response to questions. Nonverbal. HEAD: Normal with no signs of trauma. EYES: PERRL, sclera anicteric, conjunctiva clear. No ptosis. LUNGS: Breath sounds equal, clear to auscultation bilaterally, no wheezes, no crackles, no accessory muscle use. HEART: Regular rate and rhythm, S1, S2 without murmur, rub or gallop. ABDOMEN: Soft, nontender, nondistended, normoactive bowel sounds, no guarding, no rebound EXTREMITIES: 2+ pulses, warm, well-perfused LEFT HAND AND RIGHT FOOT: 2+ edema NEUROLOGICAL: Left side flaccid SKIN: Stage IV sacral wounds Surgical dressing in place, c/d/i; wounds not visualized LABS Laboratory Results - last 24 hr 07/24/16 07/25/16 07/25/16 06:35 06:50 06:50 WBC 12.4 H RBC 3.29 L Hgb 8.7 L Hct 27.3 L MCV 82.8 MCHC 32.0 RDW 16.7 H Plt Count 546 H MPV 6.8 L Neutrophils % 67.3 Lymphocytes % 22.4 Monocytes % 9.1 Eosinophils % 0.7 Basophils % 0.5 ESR 75 H Sodium 142 Potassium 3.6 Chloride 105 Carbon Dioxide 25 Anion Gap 12 BUN 12 D Creatinine 0.5 L Creat Clearance w eGFR > 60 Random Glucose 86 Calcium 8.2 L Magnesium 1.7 L Total Bilirubin 0.3 AST 16 ALT 16 Alkaline Phosphatase 155 H Total Protein 5.9 L Albumin 1.9 L HOSPITAL COURSE: Date of Admission:07/17/16 Date of Discharge: 07/25/16 86 year-old woman with a PMH of HTN, HLD, right MCA CVA, seizure disorder, hypothyroidism, chronic sacral pressure ulcers, and chronic urinary retention, and recurrent UTIs. This is the patient's fifth admission this year for fevers. Infection secondary to sacral pressure ulcers s/p excisional debridement of sacral decubitus ulcer 07/22/16 Osteomyelitis of the sacrum --afebrile, no leukocytosis --blood cultures negative; intraoperative culture not sent --treated with Zosyn x 8 days; PICC line placed for an additional 7 days of treatment followed by PO levaquin and flagyl x 14 days --continued daily collagenase, Prosource Urinary retention --chronic catheter placement Pyuria --in setting of chronic tobias and recurrent UTIs --urine culture positive for yeast only, contaminant --on Zosyn for sacral wounds h/o CVA with left hemiparesis and associated seizure disorder --continued Keppra, Plavix Hypertension --BP well-controlled --continue atenolol Hyperlipidemia --not on statin Hypothyroidism --continued levothyroxine Minutes to complete discharge: 35 Discharge Summary Reason For Visit: DECUBITUS ULCER OF SACRAL REGION Current Active Problems Altered mental status (Acute) Dehydration (Acute) Fever (Acute) Sepsis (Acute) UTI (urinary tract infection) (Acute) CVA (cerebral vascular accident) (Chronic) H/O partial seizures (Chronic) HTN (hypertension) (Chronic) Hemiparesis 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 ( Chronic) Hyperlipidemia (Chronic) Hypothyroid (Chronic) Sacral decubitus ulcer (Chronic) Condition: Improved - Instructions Diet, Activity, Other Instructions: Patient has a PICC line. She should receive Zosyn as prescribed for one week ( 21 doses). Starting on 08/02/16, after the completion of Zosyn, the patient should receive PO levaquin and metronidazole as prescribed for two weeks. Wound care: daily wet to dry dressings Referrals: Maykel Coronado [Primary Care Provider] - Disposition: HALF-WAY FACILITY - Home Medications Comprehensive Discharge Medication List: Ambulatory Orders Clopidogrel Bisulfate [Plavix -] 75 mg PO DAILY 07/03/16 Levetiracetam [Keppra] 250 mg PO BID 07/03/16 Levothyroxine [Synthroid -] 50 mcg PO DAILY 07/03/16 Polyvinyl Alcohol/Povidone [Artificial Tears Drops] 15 ml OU BID 07/03/16 Amino Acids/Protein Hydrolys [Prosource No Carb Liquid Pkt] 30 ml PO BID@0800, 1730 #60 packet 07/10/16 Amlodipine Besylate [Norvasc -] 10 mg PO DAILY #30 tablet 07/10/16 Docusate Sodium [Colace -] 100 mg PO DAILY 07/17/16 Atenolol [Tenormin -] 25 mg PO DAILY tablet 07/25/16 Levofloxacin [Levaquin] 500 mg PO DAILY #14 tablet 07/25/16 Megestrol Acetate Oral Susp [Megace Oral Suspension -] 400 mg PO DAILY #30 mg Metronidazole [Flagyl -] 500 mg PO TID #42 tablet 07/25/16 Pantoprazole Sodium [Protonix -] 40 mg PO DAILY #30 mg 07/25/16 Picc Line Flush [Picc Line Flush -] 8 ml IVPUSH PRN PRN #0 ml 07/25/16 Piperacillin/Tazob 3.375 gm [Zosyn 3.375GM Ivpb (Pre-Docked)] 3.375 gm IVPB Q8H- IV #21 bag 07/25/16 This patient is new to me today: No Emergency Visit: Yes ED Registration Date: 07/17/16 Care time: The patient presented to the Emergency Department on the above date and was hospitalized for further evaluation of their emergent condition. Critical Care patient: No - Discharge Referral Referred to [facility] No
--- NOTE | 2016-07-25 10:38 | PN ---
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 (short form) - Note 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: S: patient appears comfortable. ROS limited, patient with minimal communication. no overnight events Current Medications Generic Name Dose Route Start Last Admin Trade Name Freq PRN Reason Stop Dose Admin Acetaminophen 650 mg 07/22/16 13:57 07/24/16 11:58 Tylenol - PO 650 mg Q4H PRN Administration FEVER OR PAIN Amino Acids 30 ml 07/22/16 17:30 07/25/16 08:31 Prosource No Carb Liquid Pkt PO 30 ml BID@0800,1730 ELENA Administration Artificial Tears 2 drop 07/22/16 22:00 07/25/16 09:26 Artificial Tears OU 2 drop BID ELENA Administration Atenolol 25 mg 07/23/16 10:00 07/25/16 09:26 Tenormin - PO 25 mg DAILY ELENA Administration Collagenase 1 applic 07/23/16 10:00 07/25/16 09:26 Santyl - TP Not Given DAILY ELENA Enoxaparin Sodium 40 mg 07/23/16 10:00 07/24/16 10:17 Lovenox - SQ 40 mg DAILY ELENA Administration Fentanyl 25 mcg 07/22/16 13:44 Sublimaze Injection - IVPUSH 07/25/16 13:45 [id number] PRN PAIN IV Flush 8 ml 07/23/16 13:00 Picc Line Flush IVPUSH PRN PRN Protocol Levetiracetam 250 mg 07/22/16 22:00 07/25/16 09:26 Keppra - PO 250 mg BID ELENA Administration Levothyroxine Sodium 50 mcg 07/23/16 07:00 07/25/16 06:04 Synthroid - PO 50 mcg DAILY@0700 ELENA Administration Megestrol Acetate 400 mg 07/23/16 11:45 07/25/16 09:26 Megace Oral Suspension - PO 400 mg DAILY ELENA Administration Ondansetron HCl 4 mg 07/22/16 13:57 Zofran Injection IVPB Q6H PRN NAUSEA Oxycodone HCl 5 mg 07/24/16 11:12 07/24/16 12:00 Roxicodone - PO 5 mg Q6H PRN Administration PAIN Pantoprazole Sodium 40 mg 07/23/16 10:00 07/25/16 09:26 Protonix - PO 40 mg DAILY ELENA Administration Piperacillin Sod/Tazobactam Sod 3.375 gm 07/22/16 18:00 07/25/16 09:25 Zosyn 3.375gm Ivpb (Pre-Docked) IVPB 3.375 gm Q8H-IV ELENA Administration Protocol Vital Signs Period Temp Pulse Resp BP Sys/Ontiveros Pulse Ox Last 24 Hr 98.1 F-100.2 F 86-102 18-20 101-149/52-82 94-96 NAD, calm, awake jvd flat, neck supple ctab, poor effort rrr nl s1,s2 no m/r/g + bs soft nd ext without e/c/c unable to assess orientation no jaundice, diaphoresis CBC, BMP 07/25/16 06:50 07/25/16 06:50 EKG: Sinus tach, LAD. LVH. Poor r wave progression, no acute ischemic changes CXR: no acute infiltrates. by my review, interstitial markings --> possible chronic pulmonary disease. a/p: 86 yo with h/o HTN/HL ( meds?), prior Rt MCA infarct with left hemiparesis (on plavix), seizures on keppra and hypothyroid who presents with tachycardia and poor po intake. Pre-op clearance - now s/p surgical debridement of sacral ulcer 07/22. No complications. HR/bp remain well controlled post op. HTN - have been holding amlodipine and bp remains controlled with atenolol, would cont with just atenolol for now prior MCA infarct - resume plavix. - consider statin - bp control
[2016-07-25 15:04] VITALS: PULSE 101
[2016-07-25 18:20] VITALS: BP 162/72; TEMP 98
== END 2016-07-25 18:59 | DRG 853 ==
LOC: JER 13:18 → JERBED 15:26 → J6S 17:45
PROVIDERS: ADMIT Internal Medicine; ATTEND Nurse Practitioner Acute Care
PROC: 0KBP0ZZ Excision of Left Hip Muscle, Open Approach (ICD-10-PCS; principal; 2016-07-22 12:00)
PROC: 02HV33Z Insertion of Infusion Device into Superior Vena Cava, Percutaneous Approach (ICD-10-PCS; 2016-07-25)
PROC: B518ZZA Fluoroscopy of Superior Vena Cava, Guidance (ICD-10-PCS; 2016-07-25)
DX: A41.9 Sepsis, unspecified organism (principal); G93.41 Metabolic encephalopathy; N39.0 Urinary tract infection, site not specified; M46.28 Osteomyelitis of vertebra, sacral and sacrococcygeal region; L03.317 Cellulitis of buttock; I69.354 Hemiplegia and hemiparesis following cerebral infarction affecting left non-dominant side; E78.00 Pure hypercholesterolemia, unspecified; E03.9 Hypothyroidism, unspecified; Z87.891 Personal history of nicotine dependence; M41.9 Scoliosis, unspecified; Z86.73 Personal history of transient ischemic attack (TIA), and cerebral infarction without residual deficits; L89.312 Pressure ulcer of right buttock, stage 2; L89.320 Pressure ulcer of left buttock, unstageable; R63.0 Anorexia; Z68.23 Body mass index [BMI] 23.0-23.9, adult
CPT/HCPCS: 36415; 36569; 71010-TC; 72148-TC; 77001-TC; 80048; 80053; 81003; 81015; 82550; 82553; 82803; 83605; 83735; 84443; 84484; 85025; 85610; 85651; 85730; 86140; 86850; 86900; 86901; 87040; 87077; 87086; 88304-TC; 93005; 93010; 94760; 97161-GP; 99284-25; C1751; J1644

== ENCOUNTER 2016-11-25 13:17 | Inpatient (IN) | payer OTHER ==
--- NOTE | 2016-11-25 14:14 | PDOC ---
*Physical Exam - Vital Signs Last Vital Signs Temp Pulse Resp BP Pulse Ox 95.3 F L 116 H 16 100/65 100 11/25/16 14:02 11/25/16 14:02 11/25/16 14:02 11/25/16 14:02 11/25/16 14:02
[2016-11-25] MEDS ORDERED: SODIUM CHLORIDE 1,000 ML IV ONE (14:20)
[2016-11-25] MEDS ORDERED: SODIUM CHLORIDE 0.9% 1000 ML INFUS.BAG IV PRN (14:20)
[2016-11-25 14:55] LABS: BASOPHIL 0.6 % (0-2.0); EOSINOPHIL 0.1 % (0-4.5); MEAN CELL VOLUME 81.1 fl (80-96); MEAN PLT VOLUME 6.6 fl (7.5-11.1); NEUTROPHILS 68.2 % (42.8-82.8); PLATELET COUNT 442 K/MM3 (134-434); RDW 19.5 % (11.6-15.6); WHITE BLOOD COUNT 7.7 K/mm3 (4.0-10.0)
[2016-11-25 14:57] LABS: VENOUS PH 7.44 (7.32-7.42)
[2016-11-25 14:58] LABS: VENOUS BLOOD GAS HCO3 29.1 meq/L (19-25)
[2016-11-25 15:20] LABS: ALBUMIN 1.5 g/dl (3.4-5.0); ANION GAP 8 (8-16); CALCIUM 8.7 mg/dL (8.5-10.1); CO2 28 mmol/L (21-32); CREATININE 0.6 mg/dL (0.55-1.02); GLUCOSE,RANDOM 140 mg/dL (74-106); SGPT/ALT 17 U/L (12-78)
--- NOTE | 2016-11-25 15:20 | PDOC ---
History of Present Illness - General Chief Complaint: SIRS, Suspected/Possible Stated Complaint: SEPSIS Time Seen by Provider: 11/25/16 14:08 - History of Present Illness Initial Comments: 11/25/16 15:10 Historian is pt's granddaughter as pt does not speak canadian. 86F w/ hx of HTN, R MCA CVA, seizure disorder, hypothyroidism, chronic sacral pressure ulcers, chronic urinary retention, recurrent UTI, and depression presenting to ED after custodial nurse informed pt's daughter that her "wbc count was high." Per granddaughter, pt was hospitalized in [facility] for several months s/p R MCA CVA for fever found to be secondary to sacral decubitus ulcer. Pt was put on abx and the ulcer was debrided. Pt was then transferred to [facility] in [facility] for ulcer healing. She was almost ready to be discharged home when the nurse informed granddaughter of high wbc count. Per granddaughter, pt complained of dysuria a few days ago but no longer has it anymore. She endorses chronic pain in her right arm and leg, and feels nauseous leading to decreases appetite. She also feels cold chronically. Pt denies subjective fevers, headache, SOB, cough, chest pain, or v /c/d. Pt's baseline requires help with all ADLs due to her left sided hemiparesis s/p CVA. She remains in bed most of the day. 11/25/16 15:50 Past History - Past Medical History Allergies/Adverse Reactions: Allergies Allergy/AdvReac Type Severity Reaction Status Date / Time aspirin Allergy Unknown Verified 07/03/16 14:07 iodine Allergy Unknown Verified 07/03/16 14:07 Home Medications: Ambulatory Orders Clopidogrel Bisulfate [Plavix -] 75 mg PO DAILY 07/03/16 Levetiracetam [Keppra] 250 mg PO BID 07/03/16 Levothyroxine [Synthroid -] 50 mcg PO DAILY 07/03/16 Polyvinyl Alcohol/Povidone [Artificial Tears Drops] 15 ml OU BID 07/03/16 Amino Acids/Protein Hydrolys [Prosource No Carb Liquid Pkt] 30 ml PO BID@0800, 1730 #60 packet 07/10/16 Amlodipine Besylate [Norvasc -] 10 mg PO DAILY #30 tablet 07/10/16 Docusate Sodium [Colace -] 100 mg PO DAILY 07/17/16 Atenolol [Tenormin -] 25 mg PO DAILY tablet 07/25/16 Levofloxacin [Levaquin] 500 mg PO DAILY #14 tablet 07/25/16 Megestrol Acetate Oral Susp [Megace Oral Suspension -] 400 mg PO DAILY #30 mg Metronidazole [Flagyl -] 500 mg PO TID #42 tablet 07/25/16 Pantoprazole Sodium [Protonix -] 40 mg PO DAILY #30 mg 07/25/16 Picc Line Flush [Picc Line Flush -] 8 ml IVPUSH PRN PRN #0 ml 07/25/16 Piperacillin/Tazob 3.375 gm [Zosyn 3.375GM Ivpb (Pre-Docked)] 3.375 gm IVPB Q8H- IV #21 bag 07/25/16 CVA: Yes (L SIDE WEAKNESS) Disorders: (UTI) HTN: Yes Hypercholesterolemia: Yes Seizures: Yes Thyroid Disease: Yes (hypothyroidism) Comment:: 11/25/16 15:23 Allergies: iodine causing severe ubiquitous swelling - Surgical History Comments:: 11/25/16 15:21 Tubal ligation tonsillectomy lens surgery - Immunization History Immunization Up to Date: Yes - Psycho/Social/Smoking Cessation Hx Anxiety: No Suicidal Ideation: No Smoking History: Never smoked Have you smoked in the past 12 months: No Information on smoking cessation initiated: No Hx Alcohol Use: No Drug/Substance Use Hx: No Substance Use Type: None Hx Substance Use Treatment: No Comments:: 11/25/16 15:22 Pt denies tobacco use, alcohol, and illicit drugs. Review of Systems - Review of Systems Comments:: 11/25/16 15:24 30 pound weight loss over last 6 months *Physical Exam - Vital Signs Last Vital Signs Temp Pulse Resp BP Pulse Ox 95.3 F L 116 H 16 100/65 100 11/25/16 14:02 11/25/16 14:02 11/25/16 14:02 11/25/16 14:02 11/25/16 14:02 - Physical Exam Comments: 11/25/16 15:25 General: elderly thin appearing female lying in bed in NAD, covered in multiple blankets. Cardiac: tachycardic, regular rhythm, +S1/S2, no m/r/g Pulm: difficult to appreciate lung sounds due to poor inspiratory effort Abd: soft, mildly tender to palpation in all 4 quadrants, ND, no organomegaly : chronic indwelling urinary catheter Extremities: bandages covering ulcers on both ankles, right medial knee, and sacrum. Sacral ulcer is stage 4 without surrounding erythema, warmth, or swelling, not draining any purulent material. 11/25/16 16:32 ED Treatment Course - LABORATORY CBC & Chemistry Diagram: 11/25/16 14:40 11/25/16 14:40 - ADDITIONAL ORDERS Additional order review: Laboratory Results 11/25/16 14:24 VBG pH 7.44 H POC VBG pCO2 43.4 POC VBG pO2 46.8 D Mixed VBG HCO3 29.1 H 11/25/16 14:40 RBC 3.82 MCV 81.1 MCHC 32.0 RDW 19.5 H D MPV 6.6 L Neutrophils % 68.2 Lymphocytes % 25.6 Monocytes % 5.5 Eosinophils % 0.1 D Basophils % 0.6 Medical Decision Making - Medical Decision Making 11/25/16 15:32 A&P: 86F w/ hx of chronic pressure ulcers s/p R MCA CVA, HTN, HLD, seizure disorder, hypothyroidism, chronic urinary retention, recurrent UTI, and depression, being treated in custodial for ulcers, presented after nurse found a leukocytosis on lab, found to have sepsis in ED. Pt denies SOB, cough, or chest pain, but endorses some recent dysuria. Exam was significant for low temp, tachycardia, and multiple decubitus ulcers without signs of infection. -sepsis workup. source of infection possibly due to UTI vs. sacral decubitus ulcer. 11/25/16 16:35 *DC/Admit/Observation/Transfer Diagnosis at time of Disposition: Severe sepsis - Discharge Dispostion Admit: Yes Decision to Admit order Date/Time: 11/25/16 17:11 Admit pt for sepsis workup. - Attestations Physician Attestion: 11/26/16 00:31 I, Adonay Warren, attest that this document has been prepared under my direction and personally reviewed by me in it entirety. I further attest that it accurately reflects all work, treatment, procedures and medical decision-making performed by me.
[2016-11-25 15:21] LABS: BILIRUBIN,TOTAL 0.1 mg/dL (0.2-1.0)
[2016-11-25 15:23] LABS: ALK PHOS 262 U/L (45-117); TROPONIN I 0.02 ng/ml (0.00-0.05)
[2016-11-25 15:24] LABS: CPK 87 IU/L (26-192); SGOT/AST 29 U/L (15-37)
[2016-11-25 15:25] LABS: INR 1.06 (0.82-1.09); PROTHROMBIN TIME (PATIENT) 11.7 SEC (9.98-11.88)
[2016-11-25 15:28] LABS: ACTIVATED PTT 34.4 SECONDS (26.9-34.4)
[2016-11-25] MEDS ORDERED: VANCOMYCIN 1 GRAM (PRE-DOCKED) 1,000 MG/250 ML BAG IVPB ONE (16:06)
[2016-11-25 16:10] LABS: URINE APPEARANCE CLOUDY; URINE BILIRUBIN NEGATIVE (NEGATIVE); URINE BLOOD 1+ (NEGATIVE); URINE COLOR YELLOW; URINE GLUCOSE (UA) NEGATIVE (NEGATIVE); URINE KETONE NEGATIVE (NEGATIVE); URINE NITRITE POSITIVE (NEGATIVE); URINE PROTEIN NEGATIVE (NEGATIVE); URINE UROBILINOGEN NEGATIVE mg/dL (0.2-1.0)
[2016-11-25 16:16] LABS: URINE LEUK ESTERASE 3+ (NEGATIVE)
[2016-11-25] MEDS ORDERED: PIPERACILLIN/TAZOB 4.5 GM/100 ML PRE-DOCKED IVPB ONE (16:17)
[2016-11-25 16:43] LABS: URINE BACTERIA MANY /hpf (NONE SEEN); URINE HYALINE CAST 4 /lpf; URINE MUCUS FEW; URINE RBC 11 /hpf (0-3); URINE WBC 116 /hpf (3-5)
--- NOTE | 2016-11-25 16:43 | PDOC ---
Attending Attestation - Resident Resident Name: Adonay Warren - ED Attending Attestation I have performed the following: I have examined & evaluated the patient, The case was reviewed & discussed with the resident, I agree w/resident's findings & plan, Exceptions are as noted - HPI HPI: 11/25/16 16:41 78-year-old female with history of multiple medical problems sent from longterm for leukocytosis. - Physicial Exam PE: 11/25/16 16:42 Temp 95.3, tachycardia, O2 sat within normal limits. At baseline mental status which is nonverbal. Agree with remainder of exam, large sacral decubitus ulcer without evidence of active infection, indwelling Cardona catheter. - Critical Care Time Total Critical Care Time: 30 Critical Care Statement: The care of this patient involved high complexity decision making to prevent further life threatening deterioration of the patient 's condition and/or to evalute & treat vital organ system(s) failure or risk of failure. - Medical Decision Making 11/25/16 16:42 Patient seen and evaluated with the resident. I agree with the overall evaluation, assessment, and management with the following summary of visit: 86-year-old female from longterm presents with mild hypothermia and tachycardia consistent with SIRS/sepsis, lactate of 2.6 consistent with severe sepsis. Possible etiologies include decubitus ulcers versus urine versus pulmonary. Broad coverage with vancomycin and Zosyn. Sepsis protocol initiated Will need admission for further monitoring 11/25/16 17:32 no leukocytosis but lactate 2.6, urine with elevated WBC, received vanco and zosyn for coverage. HD unchanged. Discussed with Dr. Patrick (admits for [facility]), but requests service admission. Accepted for inpatient tele by Dr. [email or web address]. 11/25/16 18:14 lactate improved, repeat at 1.9. Discharge Disposition - Diagnosis Severe sepsis - Discharge Dispostion Last Admission D/C Date: 07/25/16 Admit: Yes - Referrals - Patient Instructions - Post Discharge Activity
[2016-11-25] MEDS ORDERED: VANCOMYCIN 1 GRAM (PRE-DOCKED) 250 ML IVPB ONE (16:58)
[2016-11-25] MEDS ORDERED: PIPERACILLIN/TAZOB 4.5 GM 100 ML IVPB ONE (16:58)
--- NOTE | 2016-11-25 17:43 | EKG ---
Test Reason : Blood Pressure : / mmHG Vent. Rate : 120 BPM Atrial Rate : 120 BPM P-R Int : 112 ms QRS Dur : 072 ms QT Int : 338 ms P-R-T Axes : 060 -15 063 degrees QTc Int : 477 ms SINUS TACHYCARDIA WITH PREMATURE ATRIAL COMPLEXES OTHERWISE NORMAL ECG WHEN COMPARED WITH ECG OF 17-JUL-2016 15:02, PREMATURE ATRIAL COMPLEXES ARE NOW PRESENT Confirmed by SAADIA TATE MD ([id number]) on 11/25/2016 5:43:03 PM Referred By: Confirmed By:SAADIA TATE MD
[2016-11-25] MEDS ORDERED: ACETAMINOPHEN 325 MG TABLET (FP) PO PRN (20:47)
--- NOTE | 2016-11-25 20:49 | HP ---
Admitting History and Physical - Primary Care Physician PCP: Yolie Mendoza - Admission History of Present Illness: sent from custodial due to high wbc count and sepsis workup 86F w/ hx of HTN, R MCA CVA, seizure disorder, hypothyroidism, chronic sacral pressure ulcers, chronic urinary retention, recurrent UTI, and depression presenting to ED after custodial nurse informed pt's daughter that her "wbc count was high." Per granddaughter, pt was hospitalized in [facility] for several months s/p R MCA CVA for fever found to be secondary to sacral decubitus ulcer. Pt was put on abx and the ulcer was debrided. Pt was then transferred to [facility] in [facility] for ulcer healing. She was almost ready to be discharged home when the nurse informed granddaughter of high wbc count. Per granddaughter, pt complained of dysuria a few days ago but no longer has it anymore. She endorses chronic pain in her right arm and leg, and feels nauseous leading to decreases appetite. She also feels cold chronically. Pt denies subjective fevers, headache, SOB, cough, chest pain, or v /c/d. Pt's baseline requires help with all ADLs due to her left sided hemiparesis s/p CVA. She remains in bed most of the day. 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: CVA (05/11/16 -> acute R MCA territory CVA and L hemiparesis), Seizure (3 years ago) Cardiovascular: Yes: Hyperlipdemia Endocrine: Yes: Hypothyroidism - Smoking History Smoking history: Never smoked Have you smoked in the past 12 months: No - Alcohol/Substance Use Hx Alcohol Use: No History of Substance Use: reports: None Home Medications - Allergies Allergies/Adverse Reactions: Allergies Allergy/AdvReac Type Severity Reaction Status Date / Time aspirin Allergy Unknown Verified 07/03/16 14:07 iodine Allergy Unknown Verified 07/03/16 14:07 - Home Medications Home Medications: Ambulatory Orders Clopidogrel Bisulfate [Plavix -] 75 mg PO DAILY 07/03/16 Levetiracetam [Keppra] 250 mg PO BID 07/03/16 Levothyroxine [Synthroid -] 50 mcg PO DAILY 07/03/16 Polyvinyl Alcohol/Povidone [Artificial Tears Drops] 15 ml OU BID 07/03/16 Amino Acids/Protein Hydrolys [Prosource No Carb Liquid Pkt] 30 ml PO BID@0800, 1730 #60 packet 07/10/16 Amlodipine Besylate [Norvasc -] 10 mg PO DAILY #30 tablet 07/10/16 Docusate Sodium [Colace -] 100 mg PO DAILY 07/17/16 Atenolol [Tenormin -] 25 mg PO DAILY tablet 07/25/16 Levofloxacin [Levaquin] 500 mg PO DAILY #14 tablet 07/25/16 Megestrol Acetate Oral Susp [Megace Oral Suspension -] 400 mg PO DAILY #30 mg Metronidazole [Flagyl -] 500 mg PO TID #42 tablet 07/25/16 Pantoprazole Sodium [Protonix -] 40 mg PO DAILY #30 mg 07/25/16 Picc Line Flush [Picc Line Flush -] 8 ml IVPUSH PRN PRN #0 ml 07/25/16 Piperacillin/Tazob 3.375 gm [Zosyn 3.375GM Ivpb (Pre-Docked)] 3.375 gm IVPB Q8H- IV #21 bag 07/25/16 Physical Examination Vital Signs: Vital Signs Temperature 98.7 F 11/25/16 18:52 Pulse Rate 124 H 11/25/16 18:52 Respiratory Rate 14 11/25/16 18:52 Blood Pressure 96/64 11/25/16 18:52 O2 Sat by Pulse Oximetry (%) 100 11/25/16 18:52 Constitutional: Yes: Calm HENT: Yes: Atraumatic Neck: Yes: Supple Cardiovascular: Yes: Regular Rate and Rhythm Respiratory: Yes: Rhonchi Gastrointestinal: Yes: Normal Bowel Sounds Extremities: Yes: WNL Edema: No Peripheral Pulses WNL: Yes Neurological: Yes: Alert Problem List - Problems (1) Severe sepsis Assessment/Plan: cxs noted on iv abx ivf id on board Code(s): A41.9 - SEPSIS, UNSPECIFIED ORGANISM R65.20 - SEVERE SEPSIS WITHOUT SEPTIC SHOCK (2) UTI (urinary tract infection) Assessment/Plan: on iv abx cxs p Code(s): N39.0 - URINARY TRACT INFECTION, SITE NOT SPECIFIED Qualifiers: (3) HTN (hypertension) Assessment/Plan: monitor bp on ivf Code(s): I10 - ESSENTIAL (PRIMARY) HYPERTENSION Qualifiers: Hypertension type: essential hypertension Qualified Code(s): I10 - Essential (primary) hypertension (4) Hyperlipidemia Code(s): E78.5 - HYPERLIPIDEMIA, UNSPECIFIED Qualifiers: Hyperlipidemia type: pure hypercholesterolemia Qualified Code(s): E78.00 - Pure hypercholesterolemia, unspecified; E78.0 - Pure hypercholesterolemia (5) Hypothyroid Assessment/Plan: on meds stable check tsh Code(s): E03.9 - HYPOTHYROIDISM, UNSPECIFIED Qualifiers: Hypothyroidism type: unspecified Qualified Code(s): E03.9 - Hypothyroidism, unspecified Assessment/Plan Laboratory Tests 11/25/16 11/25/16 11/25/16 14:24 14:24 14:24 WBC RBC Hgb Hct MCV MCH MCHC RDW Plt Count MPV Neutrophils % Lymphocytes % Monocytes % Eosinophils % Basophils % INR PTT (Actin FS) VBG pH 7.44 H POC VBG pCO2 43.4 POC VBG pO2 46.8 D Mixed VBG HCO3 29.1 H Sodium Potassium Chloride Carbon Dioxide Anion Gap BUN Creatinine Creat Clearance w eGFR Random Glucose Lactic Acid 2.6 H* Calcium Total Bilirubin AST ALT Alkaline Phosphatase Creatine Kinase Troponin I Total Protein Albumin Urine Color Yellow Urine Appearance Cloudy Urine pH 5.0 Ur Specific [place] 1.020 Urine Protein Negative Urine Glucose (UA) Negative Urine Ketones Negative Urine Blood 1+ H Urine Nitrite Positive Urine Bilirubin Negative Urine Urobilinogen Negative Ur Leukocyte Esterase 3+ H Urine RBC 11 Urine WBC 116 Ur Epithelial Cells Rare Urine Bacteria Many Hyaline Casts 4 Urine Mucus Few Blood Type Antibody Screen 11/25/16 11/25/16 11/25/16 14:24 14:40 14:40 WBC 7.7 D RBC 3.82 Hgb 9.9 L D Hct 31.0 L MCV 81.1 MCH 26.0 MCHC 32.0 RDW 19.5 H D Plt Count 442 H MPV 6.6 L Neutrophils % 68.2 Lymphocytes % 25.6 Monocytes % 5.5 Eosinophils % 0.1 D Basophils % 0.6 INR 1.06 PTT (Actin FS) 34.4 VBG pH POC VBG pCO2 POC VBG pO2 Mixed VBG HCO3 Sodium Potassium Chloride Carbon Dioxide Anion Gap BUN Creatinine Creat Clearance w eGFR Random Glucose Lactic Acid Calcium Total Bilirubin AST ALT Alkaline Phosphatase Creatine Kinase Troponin I Total Protein Albumin Urine Color Urine Appearance Urine pH Ur Specific [place] Urine Protein Urine Glucose (UA) Urine Ketones Urine Blood Urine Nitrite Urine Bilirubin Urine Urobilinogen Ur Leukocyte Esterase Urine RBC Urine WBC Ur Epithelial Cells Urine Bacteria Hyaline Casts Urine Mucus Blood Type A NEGATIVE Antibody Screen Negative 11/25/16 11/25/16 14:40 17:30 WBC RBC Hgb Hct MCV MCH MCHC RDW Plt Count MPV Neutrophils % Lymphocytes % Monocytes % Eosinophils % Basophils % INR PTT (Actin FS) VBG pH POC VBG pCO2 POC VBG pO2 Mixed VBG HCO3 Sodium 139 Potassium 4.6 D Chloride 103 Carbon Dioxide 28 Anion Gap 8 BUN 21 H D Creatinine 0.6 Creat Clearance w eGFR > 60 Random Glucose 140 H D Lactic Acid 1.9 Calcium 8.7 Total Bilirubin 0.1 L D AST 29 D ALT 17 Alkaline Phosphatase 262 H D Creatine Kinase 87 Troponin I 0.02 Total Protein 6.0 L Albumin 1.5 L D Urine Color Urine Appearance Urine pH Ur Specific [place] Urine Protein Urine Glucose (UA) Urine Ketones Urine Blood Urine Nitrite Urine Bilirubin Urine Urobilinogen Ur Leukocyte Esterase Urine RBC Urine WBC Ur Epithelial Cells Urine Bacteria Hyaline Casts Urine Mucus Blood Type Antibody Screen Active Medications Generic Name Dose Route Start Last Admin Trade Name Freq PRN Reason Stop Dose Admin Acetaminophen 650 mg 11/25/16 20:47 Tylenol - PO Q6H PRN FEVER OR PAIN Amlodipine Besylate 10 mg 11/26/16 10:00 Norvasc - PO DAILY ELENA Clopidogrel Bisulfate 75 mg 11/26/16 10:00 Plavix - PO DAILY ELENA Levetiracetam 250 mg 11/25/16 22:00 Keppra - PO BID ELENA Levothyroxine Sodium 50 mcg 11/26/16 10:00 Synthroid - PO DAILY ELENA Sodium Chloride 570 ml 11/25/16 14:20 11/25/16 16:56 Normal Saline - IV 570 ml Q20M PRN Administration MAP<65mm Hg OR SBP <90
[2016-11-25] MEDS: levETIRAcetam 250 MG TABLET (FP) PO SCH (22:29)
[2016-11-26 00:12] VITALS: BMI 17.4
[2016-11-26] MEDS: LEVOTHYROXINE NA 50 MCG TABLET (FP) PO SCH (06:06)
[2016-11-26 06:25] LABS: BASOPHIL 0.3 % (0-2.0); EOSINOPHIL 0.2 % (0-4.5); MCH 25.8 pg (25.7-33.7); MCHC 32.1 g/dl (32.0-36.0); MEAN CELL VOLUME 80.2 fl (80-96); MEAN PLT VOLUME 6.4 fl (7.5-11.1); NEUTROPHILS 61.6 % (42.8-82.8); PLATELET COUNT 386 K/MM3 (134-434); RDW 18.9 % (11.6-15.6); WHITE BLOOD COUNT 8.1 K/mm3 (4.0-10.0)
[2016-11-26 06:53] LABS: ALBUMIN 1.4 g/dl (3.4-5.0); ALK PHOS 230 U/L (45-117); ANION GAP 8 (8-16); BILIRUBIN,TOTAL 0.2 mg/dL (0.2-1.0); CALCIUM 8.2 mg/dL (8.5-10.1); CO2 26 mmol/L (21-32); CREATININE 0.5 mg/dL (0.55-1.02); GLUCOSE,RANDOM 71 mg/dL (74-106); SGOT/AST 22 U/L (15-37); SGPT/ALT 16 U/L (12-78); TOT PROT 5.2 g/dl (6.4-8.2)
[2016-11-26] MEDS: CLOPIDOGREL BISULFATE 75 MG TABLET (FP) PO SCH (10:33)
[2016-11-26] MEDS: amLODIPine BESYLATE 10 MG TABLET (FP) PO SCH (10:33)
[2016-11-26] MEDS: levETIRAcetam 250 MG TABLET (FP) PO SCH ×2 (10:33→21:25)
--- NOTE | 2016-11-26 14:32 | CONSULT ---
Consult Consult Specialty:: infectious diseases Reason for Consultation:: lekocytosis - History of Present Illness History of Present Illness: 86F w/ hx of HTN, R MCA CVA, seizure disorder, hypothyroidism, chronic sacral pressure ulcers, chronic urinary retention, recurrent UTI, and depression presenting to ED after [facility] nurse informed pt's daughter that her "wbc count was high." Per granddaughter, pt was hospitalized in [facility] for several months s/p R MCA CVA for fever found to be secondary to sacral decubitus ulcer. Pt was put on abx and the ulcer was debrided. Pt was then transferred to [facility] in [facility] for ulcer healing. She was almost ready to be discharged home when the nurse informed granddaughter of high wbc count. Per granddaughter, pt complained of dysuria a few days ago but no longer has it anymore. She endorses chronic pain in her right arm and leg, and feels nauseous leading to decreases appetite. She also feels cold chronically. 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: CVA (05/11/16 -> acute R MCA territory CVA and L hemiparesis), Seizure (3 years ago) Cardio/Vascular: Yes: Hyperlipdemia ...: No Endocrine: Yes: Hypothyroidism - Alcohol/Substance Use Hx Alcohol Use: No History of Substance Use: reports: None - Smoking History Smoking history: Never smoked Have you smoked in the past 12 months: No - Social History Usual Living Arrangement: With Child Home Medications - Allergies Allergies/Adverse Reactions: Allergies Allergy/AdvReac Type Severity Reaction Status Date / Time aspirin Allergy Unknown Verified 07/03/16 14:07 iodine Allergy Unknown Verified 07/03/16 14:07 - Home Medications Home Medications: Ambulatory Orders Clopidogrel Bisulfate [Plavix -] 75 mg PO DAILY 07/03/16 Levetiracetam [Keppra] 250 mg PO BID 07/03/16 Levothyroxine [Synthroid -] 50 mcg PO DAILY 07/03/16 Polyvinyl Alcohol/Povidone [Artificial Tears Drops] 15 ml OU BID 07/03/16 Amino Acids/Protein Hydrolys [Prosource No Carb Liquid Pkt] 30 ml PO BID@0800, 1730 #60 packet 07/10/16 Amlodipine Besylate [Norvasc -] 10 mg PO DAILY #30 tablet 07/10/16 Docusate Sodium [Colace -] 100 mg PO DAILY 07/17/16 Atenolol [Tenormin -] 25 mg PO DAILY tablet 07/25/16 Levofloxacin [Levaquin] 500 mg PO DAILY #14 tablet 07/25/16 Megestrol Acetate Oral Susp [Megace Oral Suspension -] 400 mg PO DAILY #30 mg Metronidazole [Flagyl -] 500 mg PO TID #42 tablet 07/25/16 Pantoprazole Sodium [Protonix -] 40 mg PO DAILY #30 mg 07/25/16 Picc Line Flush [Picc Line Flush -] 8 ml IVPUSH PRN PRN #0 ml 07/25/16 Piperacillin/Tazob 3.375 gm [Zosyn 3.375GM Ivpb (Pre-Docked)] 3.375 gm IVPB Q8H- IV #21 bag 07/25/16 Review of Systems - Review of Systems Constitutional: reports: No Symptoms Eyes: reports: No Symptoms HENT: reports: No Symptoms Neck: reports: No Symptoms Cardiovascular: reports: No Symptoms Respiratory: reports: No Symptoms Gastrointestinal: reports: No Symptoms Genitourinary: reports: Dysuria Musculoskeletal: reports: No Symptoms Integumentary: reports: Lesions Neurological: reports: No Symptoms Endocrine: reports: No Symptoms Hematology/Lymphatic: reports: No Symptoms Psychiatric: reports: No Symptoms Physical Exam Vital Signs: Vital Signs Temperature 98.5 F 11/26/16 13:58 Pulse Rate 112 H 11/26/16 13:58 Respiratory Rate 18 11/26/16 13:58 Blood Pressure 89/49 11/26/16 13:58 O2 Sat by Pulse Oximetry (%) 100 11/26/16 01:53 Constitutional: Yes: No Distress, Calm Eyes: Yes: Conjunctiva Clear HENT: Yes: Atraumatic Neck: Yes: Supple, Trachea Midline Cardiovascular: Yes: Regular Rate and Rhythm, Tachycardia, Murmur Respiratory: Yes: Regular, CTA Bilaterally Gastrointestinal: Yes: Normal Bowel Sounds, Soft Musculoskeletal: Yes: Other Extremities: Yes: Other Wound/Incision: Yes: Other (sacral decubitus ulcer) Neurological: Yes: Alert Psychiatric: Yes: Alert Labs: CBC, BMP 11/26/16 05:20 11/26/16 05:20 Imaging - Results Chest X-ray: Report Reviewed, Image Reviewed Assessment/Plan crystal List - Problems (1) Altered mental status Code(s): R41.82 - ALTERED MENTAL STATUS, UNSPECIFIED Qualifiers: Altered mental status type: somnolence Qualified Code(s): R40.0 - Somnolence (2) Sepsis Code(s): A41.9 - SEPSIS, UNSPECIFIED ORGANISM Qualifiers: Sepsis type: sepsis due to unspecified organism Qualified Code(s): A41.9 - Sepsis, unspecified organism (3) CVA (cerebral vascular accident) Code(s): I63.9 - CEREBRAL INFARCTION, UNSPECIFIED Qualifiers: CVA mechanism: unspecified Qualified Code(s): I63.9 - Cerebral infarction, unspecified (4) H/O partial seizures Code(s): Z86.69 - PERSONAL HISTORY OF DIS OF THE NERVOUS SYS AND SENSE ORGANS (5) HTN (hypertension) Code(s): I10 - ESSENTIAL (PRIMARY) HYPERTENSION Qualifiers: Hypertension type: essential hypertension Qualified Code(s): I10 - Essential (primary) hypertension (6) Hemiparesis 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 Code(s): I69.354 - HEMIPLGA FOLLOWING CEREBRAL INFRC AFFECTING LEFT NONDOM SIDE (7) Hyperlipidemia Code(s): E78.5 - HYPERLIPIDEMIA, UNSPECIFIED Qualifiers: Hyperlipidemia type: pure hypercholesterolemia Qualified Code(s): E78.00 - Pure hypercholesterolemia, unspecified; E78.0 - Pure hypercholesterolemia (8) Hypothyroid Code(s): E03.9 - HYPOTHYROIDISM, UNSPECIFIED Qualifiers: Hypothyroidism type: unspecified Qualified Code(s): E03.9 - Hypothyroidism, unspecified (9) Sacral decubitus ulcer Code(s): L89.159 - PRESSURE ULCER OF SACRAL REGION, UNSPECIFIED STAGE Qualifiers: Pressure ulcer stage: stage 3 Qualified Code(s): L89.153 - Pressure ulcer of sacral region, stage 3 (10) Anemia Code(s): D64.9 - ANEMIA, UNSPECIFIED Qualifiers: Anemia type: unspecified type Qualified Code(s): D64.9 - Anemia, unspecified removed the dressing on the sacral ulcer,noted that the wound is getting soiled with feces patient mentally awake and alerts a/p sacral decubitus ulcer ams htn mca infarct h/oleukocytosis patient clinically looks stable her wbc is normal and patient looks much better there is a high chance that the patient might be dehydrated and the wbc could be because of that and which is now normal plan will hold off on starting any abx await for all cx reports hydrations rest as per primary
--- NOTE | 2016-11-26 17:30 | PN ---
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, Physician History of Present Illness: no compalints - Current Medication List Current Medications: Active Medications Acetaminophen (Tylenol -) 650 mg PO Q6H PRN PRN Reason: FEVER OR PAIN Amlodipine Besylate (Norvasc -) 10 mg PO DAILY [facility] Last Admin: 11/26/16 10:33 Dose: 10 mg Clopidogrel Bisulfate (Plavix -) 75 mg PO DAILY [facility] Last Admin: 11/26/16 10:33 Dose: 75 mg Levetiracetam (Keppra -) 250 mg PO BID [facility] Last Admin: 11/26/16 10:33 Dose: 250 mg Levothyroxine Sodium (Synthroid -) 50 mcg PO DAILY@0700 [facility] Last Admin: 11/26/16 06:06 Dose: 50 mcg Sodium Chloride (Normal Saline -) 570 ml IV Q20M PRN PRN Reason: MAP<65mm Hg OR SBP <90 Last Admin: 11/25/16 16:56 Dose: 570 ml - Objective Vital Signs: Vital Signs Temperature 98.5 F 11/26/16 13:58 Pulse Rate 112 H 11/26/16 13:58 Respiratory Rate 18 11/26/16 13:58 Blood Pressure 89/49 11/26/16 13:58 O2 Sat by Pulse Oximetry (%) 100 11/26/16 09:00 Constitutional: Yes: No Distress HENT: Yes: Atraumatic Neck: Yes: Supple Cardiovascular: Yes: Regular Rate and Rhythm Respiratory: Yes: CTA Bilaterally Gastrointestinal: Yes: Normal Bowel Sounds Extremities: Yes: WNL Neurological: Yes: Alert, Oriented Labs: CBC, BMP 11/26/16 05:20 11/26/16 05:20 INR, PTT INR 1.06 (0.82-1.09) 11/25/16 14:40 Problem List - Problems (1) Severe sepsis Assessment/Plan: awaiting cxs on iv abx id on board Code(s): A41.9 - SEPSIS, UNSPECIFIED ORGANISM R65.20 - SEVERE SEPSIS WITHOUT SEPTIC SHOCK (2) UTI (urinary tract infection) Assessment/Plan: on iv abx cxs p Code(s): N39.0 - URINARY TRACT INFECTION, SITE NOT SPECIFIED Qualifiers: (3) HTN (hypertension) Code(s): I10 - ESSENTIAL (PRIMARY) HYPERTENSION Qualifiers: Hypertension type: essential hypertension Qualified Code(s): I10 - Essential (primary) hypertension (4) Hyperlipidemia Code(s): E78.5 - HYPERLIPIDEMIA, UNSPECIFIED Qualifiers: Hyperlipidemia type: pure hypercholesterolemia Qualified Code(s): E78.00 - Pure hypercholesterolemia, unspecified; E78.0 - Pure hypercholesterolemia (5) Hypothyroid Assessment/Plan: on meds stable Code(s): E03.9 - HYPOTHYROIDISM, UNSPECIFIED Qualifiers: Hypothyroidism type: unspecified Qualified Code(s): E03.9 - Hypothyroidism, unspecified
[2016-11-26] MEDS ORDERED: CEFTRIAXONE 1 GM in DEXTROSE 5%-WATER - 100 ML IVPB SCH (18:30)
[2016-11-26] MEDS: cefTRIAXone 1 GM/50 ML BAG (PRE-DOCKED) IVPB SCH (21:25)
[2016-11-27] MEDS: LEVOTHYROXINE NA 50 MCG TABLET (FP) PO SCH (06:40)
[2016-11-27] MEDS ORDERED: PT OWN MED DRAWER 7, Y5N ONE (08:48)
[2016-11-27] MEDS: amLODIPine BESYLATE 10 MG TABLET (FP) PO SCH (09:19)
[2016-11-27] MEDS: cefTRIAXone 1 GM/50 ML BAG (PRE-DOCKED) IVPB SCH (09:19)
[2016-11-27] MEDS: levETIRAcetam 250 MG TABLET (FP) PO SCH (09:30)
[2016-11-27] MEDS: CLOPIDOGREL BISULFATE 75 MG TABLET (FP) PO SCH (09:30)
[2016-11-27] MEDS ORDERED: VANCOMYCIN 1,250 MG in DEXTROSE 5%-WATER - 250 ML IVPB ONE (10:00)
--- NOTE | 2016-11-27 11:33 | CON.CARD ---
Consult Consult Specialty:: Cardiology Referred by:: Yolie Mendoza MD Reason for Consultation:: Hypotension - History of Present Illness Chief Complaint: Altered mental status History of Present Illness: 86F w/ hx of HTN, R MCA CVA 05/11/2016 and left hemiparesis, seizure disorder, hyperlipidemia, hypothyroidism, chronic sacral pressure ulcers, chronic urinary retention, recurrent UTI, and depression admitted for dysuria, anorexia, lethargy, she denies subjective fevers, headache, SOB, cough, chest pain, palpitations, orthopnea, PND or LE edema. Pt's baseline requires help with all ADLs due to her left sided hemiparesis s/p CVA. She remains in bed most of the day. Bld cx shows gram positive cocci in clusters, received Vanco, urine culture shows yeast. Borderline hypotensive. PMD: Dr. 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: CVA (05/11/16 -> acute R MCA territory CVA and L hemiparesis), Seizure (3 years ago) Cardio/Vascular: Yes: Hyperlipdemia ...: No Endocrine: Yes: Hypothyroidism - Alcohol/Substance Use Hx Alcohol Use: No History of Substance Use: reports: None - Smoking History Smoking history: Never smoked Have you smoked in the past 12 months: No - Social History Usual Living Arrangement: With Child Home Medications - Allergies Allergies/Adverse Reactions: Allergies Allergy/AdvReac Type Severity Reaction Status Date / Time aspirin Allergy Unknown Verified 07/03/16 14:07 iodine Allergy Unknown Verified 07/03/16 14:07 - Home Medications Home Medications: Ambulatory Orders Clopidogrel Bisulfate [Plavix -] 75 mg PO DAILY 07/03/16 Levetiracetam [Keppra] 250 mg PO BID 07/03/16 Levothyroxine [Synthroid -] 50 mcg PO DAILY 07/03/16 Polyvinyl Alcohol/Povidone [Artificial Tears Drops] 15 ml OU BID 07/03/16 Amino Acids/Protein Hydrolys [Prosource No Carb Liquid Pkt] 30 ml PO BID@0800, 1730 #60 packet 07/10/16 Amlodipine Besylate [Norvasc -] 10 mg PO DAILY #30 tablet 07/10/16 Docusate Sodium [Colace -] 100 mg PO DAILY 07/17/16 Atenolol [Tenormin -] 25 mg PO DAILY tablet 07/25/16 Levofloxacin [Levaquin] 500 mg PO DAILY #14 tablet 07/25/16 Megestrol Acetate Oral Susp [Megace Oral Suspension -] 400 mg PO DAILY #30 mg Metronidazole [Flagyl -] 500 mg PO TID #42 tablet 07/25/16 Pantoprazole Sodium [Protonix -] 40 mg PO DAILY #30 mg 07/25/16 Picc Line Flush [Picc Line Flush -] 8 ml IVPUSH PRN PRN #0 ml 07/25/16 Piperacillin/Tazob 3.375 gm [Zosyn 3.375GM Ivpb (Pre-Docked)] 3.375 gm IVPB Q8H- IV #21 bag 07/25/16 Review of Systems - Review of Systems Constitutional: reports: Lethargy, Loss of Appetite Vital Signs: Vital Signs Temperature 97.2 F L 11/27/16 10:00 Pulse Rate 105 H 11/27/16 10:00 Respiratory Rate 20 11/27/16 10:00 Blood Pressure 83/51 11/27/16 10:00 O2 Sat by Pulse Oximetry (%) 100 11/27/16 10:00 Constitutional: Yes: No Distress, Calm, Thin Neck: Yes: Supple Respiratory: Yes: Regular, Diminished Gastrointestinal: Yes: Soft, Hypoactive Bowel Sounds Cardiovascular: Yes: Tachycardia JVD: No Carotid Bruit: No Heart Sounds: Yes: S1, S2 Murmur: Yes: Systolic Murmur, Grade 1 Edema: No Neurological: Yes: Pre-Existing Deficit - Other Data Labs, Other Data: CBC, BMP 11/26/16 05:20 11/26/16 05:20 INR, PTT INR 1.06 (0.82-1.09) 11/25/16 14:40 ST @ 120 PAC Imaging - Results Chest X-ray: Report Reviewed (NAD) Problem List - Problems (1) Altered mental status Code(s): R41.82 - ALTERED MENTAL STATUS, UNSPECIFIED Qualifiers: Altered mental status type: somnolence Qualified Code(s): R40.0 - Somnolence (2) Sepsis Code(s): A41.9 - SEPSIS, UNSPECIFIED ORGANISM Qualifiers: Sepsis type: sepsis due to unspecified organism Qualified Code(s): A41.9 - Sepsis, unspecified organism (3) CVA (cerebral vascular accident) Code(s): I63.9 - CEREBRAL INFARCTION, UNSPECIFIED Qualifiers: CVA mechanism: unspecified Qualified Code(s): I63.9 - Cerebral infarction, unspecified (4) H/O partial seizures Code(s): Z86.69 - PERSONAL HISTORY OF DIS OF THE NERVOUS SYS AND SENSE ORGANS (5) HTN (hypertension) Code(s): I10 - ESSENTIAL (PRIMARY) HYPERTENSION Qualifiers: Hypertension type: essential hypertension Qualified Code(s): I10 - Essential (primary) hypertension (6) Hemiparesis 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 Code(s): I69.354 - HEMIPLGA FOLLOWING CEREBRAL INFRC AFFECTING LEFT NONDOM SIDE (7) Hyperlipidemia Code(s): E78.5 - HYPERLIPIDEMIA, UNSPECIFIED Qualifiers: Hyperlipidemia type: pure hypercholesterolemia Qualified Code(s): E78.00 - Pure hypercholesterolemia, unspecified; E78.0 - Pure hypercholesterolemia (8) Hypothyroid Code(s): E03.9 - HYPOTHYROIDISM, UNSPECIFIED Qualifiers: Hypothyroidism type: unspecified Qualified Code(s): E03.9 - Hypothyroidism, unspecified (9) Sacral decubitus ulcer Code(s): L89.159 - PRESSURE ULCER OF SACRAL REGION, UNSPECIFIED STAGE Qualifiers: Pressure ulcer stage: stage 3 Qualified Code(s): L89.153 - Pressure ulcer of sacral region, stage 3 (10) Gram-positive cocci bacteremia Code(s): R78.81 - BACTEREMIA (11) Anemia Code(s): D64.9 - ANEMIA, UNSPECIFIED Qualifiers: Anemia type: unspecified type Qualified Code(s): D64.9 - Anemia, unspecified Assessment/Plan 05/13/2016 Normal biventricular size and fxn, mild TR 1. Gram positive sepsis, suspect sacral decub ulcer source, previously debrided 2. Right MCA infarct with left hemiparesis 3. HTN 4. Hyperlipidemia 5. Seizure d/o 6. Hypothyroidism 7. Anemia P:1. Abx coverage per ID and C&S, IV hydration 2. May require pressors to maintain MAP>60 mmHg 3. Hold Norvasc, Atenolol pending hemodynamic stability, continue Plavix 75 qd 4. DVT and GI prophylaxis 5. Thank you for consultative opportunity
[2016-11-27] MEDS ORDERED: amLODIPine BESYLATE 10 MG TABLET (FP) PO SCH (11:50)
[2016-11-27] MEDS ORDERED: SODIUM CHLORIDE 1,000 ML IV ONE (14:30)
--- NOTE | 2016-11-27 15:17 | PN ---
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, Physician History of Present Illness: clinical events noted patient became hypotensive with multiple organisms growing from the wound culture also blood is showing one bottle positive stable currently with low bp - Current Medication List Current Medications: Active Medications Acetaminophen (Tylenol -) 650 mg PO Q6H PRN PRN Reason: FEVER OR PAIN Amlodipine Besylate (Norvasc -) 10 mg PO DAILY [facility] Ceftriaxone Sodium (Rocephin 1gm Ivpb (Pre-Docked)) 1 gm IVPB DAILY [facility] Last Admin: 11/27/16 09:19 Dose: 1 gm Clopidogrel Bisulfate (Plavix -) 75 mg PO DAILY [facility] Last Admin: 11/27/16 09:30 Dose: Not Given Sodium Chloride (Normal Saline -) 1,000 mls @ 1,000 mls/hr IV ONCE ONE Stop: 11/27/16 15:29 Last Admin: 11/27/16 14:00 Dose: 1,000 mls/hr Piperacillin Sod/Tazobactam (Sod 3.375 gm/ Dextrose) 50 mls @ 100 mls/hr IVPB Q8H-IV [facility] PRN Reason: Protocol Levetiracetam (Keppra -) 250 mg PO BID [facility] Last Admin: 11/27/16 09:30 Dose: Not Given Levothyroxine Sodium (Synthroid -) 50 mcg PO DAILY@0700 [facility] Last Admin: 11/27/16 06:40 Dose: 50 mcg Sodium Chloride (Normal Saline -) 570 ml IV Q20M PRN PRN Reason: MAP<65mm Hg OR SBP <90 Last Admin: 11/25/16 16:56 Dose: 570 ml - Objective Vital Signs: Vital Signs Temperature 97.2 F L 11/27/16 10:00 Pulse Rate 93 H 11/27/16 12:45 Respiratory Rate 18 11/27/16 12:45 Blood Pressure 73/41 11/27/16 12:45 O2 Sat by Pulse Oximetry (%) 100 11/27/16 10:00 Constitutional: Yes: No Distress, Calm Cardiovascular: Yes: Regular Rate and Rhythm, Tachycardia, Murmur Respiratory: Yes: Regular, CTA Bilaterally Gastrointestinal: Yes: Normal Bowel Sounds, Soft Musculoskeletal: Yes: WNL Extremities: Yes: WNL Wound/Incision: Yes: Dressing Dry and Intact, Other (decubitus) Neurological: Yes: Alert Psychiatric: Yes: Alert Labs: CBC, BMP 11/26/16 05:20 11/26/16 05:20 INR, PTT INR 1.06 (0.82-1.09) 11/25/16 14:40 Assessment/Plan roblem List - Problems (1) Altered mental status Code(s): R41.82 - ALTERED MENTAL STATUS, UNSPECIFIED Qualifiers: Altered mental status type: somnolence Qualified Code(s): R40.0 - Somnolence (2) Sepsis Code(s): A41.9 - SEPSIS, UNSPECIFIED ORGANISM Qualifiers: Sepsis type: sepsis due to unspecified organism Qualified Code(s): A41.9 - Sepsis, unspecified organism (3) CVA (cerebral vascular accident) Code(s): I63.9 - CEREBRAL INFARCTION, UNSPECIFIED Qualifiers: CVA mechanism: unspecified Qualified Code(s): I63.9 - Cerebral infarction, unspecified (4) H/O partial seizures Code(s): Z86.69 - PERSONAL HISTORY OF DIS OF THE NERVOUS SYS AND SENSE ORGANS (5) HTN (hypertension) Code(s): I10 - ESSENTIAL (PRIMARY) HYPERTENSION Qualifiers: Hypertension type: essential hypertension Qualified Code(s): I10 - Essential (primary) hypertension (6) Hemiparesis 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 Code(s): I69.354 - HEMIPLGA FOLLOWING CEREBRAL INFRC AFFECTING LEFT NONDOM SIDE (7) Hyperlipidemia Code(s): E78.5 - HYPERLIPIDEMIA, UNSPECIFIED Qualifiers: Hyperlipidemia type: pure hypercholesterolemia Qualified Code(s): E78.00 - Pure hypercholesterolemia, unspecified; E78.0 - Pure hypercholesterolemia (8) Hypothyroid Code(s): E03.9 - HYPOTHYROIDISM, UNSPECIFIED Qualifiers: Hypothyroidism type: unspecified Qualified Code(s): E03.9 - Hypothyroidism, unspecified (9) Sacral decubitus ulcer Code(s): L89.159 - PRESSURE ULCER OF SACRAL REGION, UNSPECIFIED STAGE Qualifiers: Pressure ulcer stage: stage 3 Qualified Code(s): L89.153 - Pressure ulcer of sacral region, stage 3 (10) Anemia Code(s): D64.9 - ANEMIA, UNSPECIFIED Qualifiers: Anemia type: unspecified type Qualified Code(s): D64.9 - Anemia, unspecified a/p sacral decubitus ulcer ams htn mca infarct h/oleukocytosis gm positve bacteremia wound infection plan started on abx await for identification of bacteria will repeat blood cx on friday hydration rest as per primary
--- NOTE | 2016-11-27 16:13 | PN ---
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, Physician History of Present Illness: no compalints - Current Medication List Current Medications: Active Medications Acetaminophen (Tylenol -) 650 mg PO Q6H PRN PRN Reason: FEVER OR PAIN Amlodipine Besylate (Norvasc -) 10 mg PO DAILY [facility] Clopidogrel Bisulfate (Plavix -) 75 mg PO DAILY [facility] Last Admin: 11/27/16 09:30 Dose: Not Given Piperacillin Sod/Tazobactam Sod (Zosyn 3.375gm Ivpb (Pre-Docked)) 50 mls @ 100 mls/hr IVPB Q8H-IV [facility] PRN Reason: Protocol Vancomycin HCl 1,250 mg/ (Dextrose) 250 mls @ 250 mls/hr IVPB DAILY@1100 [facility] PRN Reason: Protocol Levetiracetam (Keppra -) 250 mg PO BID [facility] Last Admin: 11/27/16 09:30 Dose: Not Given Levothyroxine Sodium (Synthroid -) 50 mcg PO DAILY@0700 [facility] Last Admin: 11/27/16 06:40 Dose: 50 mcg Sodium Chloride (Normal Saline -) 570 ml IV Q20M PRN PRN Reason: MAP<65mm Hg OR SBP <90 Last Admin: 11/25/16 16:56 Dose: 570 ml - Objective Vital Signs: Vital Signs Temperature 97.2 F L 11/27/16 10:00 Pulse Rate 93 H 11/27/16 12:45 Respiratory Rate 18 11/27/16 12:45 Blood Pressure 73/41 11/27/16 12:45 O2 Sat by Pulse Oximetry (%) 100 11/27/16 10:00 HENT: Yes: Atraumatic Neck: Yes: Supple Cardiovascular: Yes: Regular Rate and Rhythm Respiratory: Yes: Rhonchi Gastrointestinal: Yes: Normal Bowel Sounds Extremities: Yes: WNL Neurological: Yes: Alert, Oriented Labs: CBC, BMP 11/26/16 05:20 11/26/16 05:20 INR, PTT INR 1.06 (0.82-1.09) 11/25/16 14:40 Problem List - Problems (1) Severe sepsis Assessment/Plan: cxs noted on iv abx id on board Code(s): A41.9 - SEPSIS, UNSPECIFIED ORGANISM R65.20 - SEVERE SEPSIS WITHOUT SEPTIC SHOCK (2) UTI (urinary tract infection) Assessment/Plan: on iv abx cxs p Code(s): N39.0 - URINARY TRACT INFECTION, SITE NOT SPECIFIED Qualifiers: (3) HTN (hypertension) Assessment/Plan: stable Code(s): I10 - ESSENTIAL (PRIMARY) HYPERTENSION Qualifiers: Hypertension type: essential hypertension Qualified Code(s): I10 - Essential (primary) hypertension (4) Hyperlipidemia Code(s): E78.5 - HYPERLIPIDEMIA, UNSPECIFIED Qualifiers: Hyperlipidemia type: pure hypercholesterolemia Qualified Code(s): E78.00 - Pure hypercholesterolemia, unspecified; E78.0 - Pure hypercholesterolemia (5) Hypothyroid Assessment/Plan: on meds stable Code(s): E03.9 - HYPOTHYROIDISM, UNSPECIFIED Qualifiers: Hypothyroidism type: unspecified Qualified Code(s): E03.9 - Hypothyroidism, unspecified Assessment/Plan pt has loww bp on ivf sepsis syndrome?? transfer to icu for monitoring and pressors if needed
[2016-11-27] MEDS: PIPERACILLIN/TAZOB 3.375 GM 50 ML IVPB SCH ×2 (16:30→17:01)
[2016-11-27] MEDS: SODIUM CHLORIDE 1,000 ML IV SCH (20:00)
[2016-11-27] MEDS ORDERED: SODIUM CHLORIDE 0.9% 1000 ML INFUS.BAG IV PRN (21:47)
[2016-11-27] MEDS ORDERED: ACETAMINOPHEN 325 MG TABLET (FP) PO PRN (21:47)
[2016-11-28] MEDS: levETIRAcetam 250 MG TABLET (FP) PO SCH ×3 (00:49→21:19)
[2016-11-28] MEDS: PIPERACILLIN/TAZOB 3.375 GM 50 ML IVPB SCH ×3 (04:38→17:57)
[2016-11-28] MEDS: LEVOTHYROXINE NA 50 MCG TABLET (FP) PO SCH (06:59)
[2016-11-28 07:48] LABS: BASOPHIL 0.4 % (0-2.0); EOSINOPHIL 0.5 % (0-4.5); MCH 25.8 pg (25.7-33.7); MCHC 31.8 g/dl (32.0-36.0); MEAN CELL VOLUME 81.1 fl (80-96); MEAN PLT VOLUME 6.5 fl (7.5-11.1); NEUTROPHILS 61.1 % (42.8-82.8); PLATELET COUNT 365 K/MM3 (134-434); RDW 19.2 % (11.6-15.6); WHITE BLOOD COUNT 6.9 K/mm3 (4.0-10.0)
[2016-11-28 08:54] LABS: ALBUMIN 1.1 g/dl (3.4-5.0); ALK PHOS 202 U/L (45-117); ANION GAP 8 (8-16); BILIRUBIN,TOTAL 0.2 mg/dL (0.2-1.0); CALCIUM 8.1 mg/dL (8.5-10.1); CO2 24 mmol/L (21-32); CREATININE 0.3 mg/dL (0.55-1.02); GLUCOSE,RANDOM 57 mg/dL (74-106); SGOT/AST 17 U/L (15-37); SGPT/ALT 13 U/L (12-78); THYROID STIMULATING HORMONE 3.99 uIU/ml (0.358-3.74); TOT PROT 4.8 g/dl (6.4-8.2)
[2016-11-28] MEDS: SODIUM CHLORIDE 1,000 ML IV SCH ×2 (10:05→21:19)
[2016-11-28] MEDS: CLOPIDOGREL BISULFATE 75 MG TABLET (FP) PO SCH (10:05)
[2016-11-28] MEDS: amLODIPine BESYLATE 10 MG TABLET (FP) PO SCH (10:05)
[2016-11-28] MEDS ORDERED: VANCOMYCIN 1,250 MG in DEXTROSE 5%-WATER - 250 ML IVPB SCH ×2 (11:00)
--- NOTE | 2016-11-28 12:56 | PN ---
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, Physician History of Present Illness: Hemodynamics stabilizing. - Current Medication List Current Medications: Active Medications Acetaminophen (Tylenol -) 650 mg PO Q6H PRN PRN Reason: FEVER OR PAIN Amlodipine Besylate (Norvasc -) 10 mg PO DAILY [facility] Last Admin: 11/28/16 10:05 Dose: Not Given Clopidogrel Bisulfate (Plavix -) 75 mg PO DAILY [facility] Last Admin: 11/28/16 10:05 Dose: 75 mg Sodium Chloride (Normal Saline -) 1,000 mls @ 75 mls/hr IV ASDIR [facility] Last Admin: 11/28/16 10:05 Dose: 75 mls/hr Vancomycin HCl 1,250 mg/ (Dextrose) 250 mls @ 166.667 mls/hr IVPB DAILY@1100 [facility] PRN Reason: Protocol Last Admin: 11/28/16 10:10 Dose: 166.667 mls/hr Piperacillin Sod/Tazobactam Sod (Zosyn 3.375gm Ivpb (Pre-Docked)) 50 mls @ 100 mls/hr IVPB Q8H-IV ELENA PRN Reason: Protocol Last Admin: 11/28/16 10:05 Dose: 100 mls/hr Levetiracetam (Keppra -) 250 mg PO BID [facility] Last Admin: 11/28/16 10:04 Dose: 250 mg Levothyroxine Sodium (Synthroid -) 50 mcg PO DAILY@0700 [facility] Last Admin: 11/28/16 06:59 Dose: 50 mcg Sodium Chloride (Normal Saline -) 570 ml IV Q20M PRN PRN Reason: MAP<65mm Hg OR SBP <90 - Objective Vital Signs: Vital Signs Temperature 97.6 F 11/28/16 04:57 Pulse Rate 96 H 11/28/16 04:57 Respiratory Rate 20 11/28/16 04:57 Blood Pressure 96/55 11/28/16 04:57 O2 Sat by Pulse Oximetry (%) 100 11/27/16 21:00 Constitutional: Yes: No Distress, Calm, Thin Neck: Yes: Supple Cardiovascular: Yes: Regular Rate and Rhythm Respiratory: Yes: Regular, Diminished, On Nasal O2 Gastrointestinal: Yes: Normal Bowel Sounds, Soft Edema: No Labs: CBC, BMP 11/28/16 05:35 11/28/16 05:35 INR, PTT INR 1.06 (0.82-1.09) 11/25/16 14:40 Problem List - Problems (1) Altered mental status Code(s): R41.82 - ALTERED MENTAL STATUS, UNSPECIFIED Qualifiers: Altered mental status type: somnolence Qualified Code(s): R40.0 - Somnolence (2) Sepsis Code(s): A41.9 - SEPSIS, UNSPECIFIED ORGANISM Qualifiers: Sepsis type: sepsis due to unspecified organism Qualified Code(s): A41.9 - Sepsis, unspecified organism (3) CVA (cerebral vascular accident) Code(s): I63.9 - CEREBRAL INFARCTION, UNSPECIFIED Qualifiers: CVA mechanism: unspecified Qualified Code(s): I63.9 - Cerebral infarction, unspecified (4) H/O partial seizures Code(s): Z86.69 - PERSONAL HISTORY OF DIS OF THE NERVOUS SYS AND SENSE ORGANS (5) HTN (hypertension) Code(s): I10 - ESSENTIAL (PRIMARY) HYPERTENSION Qualifiers: Hypertension type: essential hypertension Qualified Code(s): I10 - Essential (primary) hypertension (6) Hemiparesis 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 Code(s): I69.354 - HEMIPLGA FOLLOWING CEREBRAL INFRC AFFECTING LEFT NONDOM SIDE (7) Hyperlipidemia Code(s): E78.5 - HYPERLIPIDEMIA, UNSPECIFIED Qualifiers: Hyperlipidemia type: pure hypercholesterolemia Qualified Code(s): E78.00 - Pure hypercholesterolemia, unspecified; E78.0 - Pure hypercholesterolemia (8) Hypothyroid Code(s): E03.9 - HYPOTHYROIDISM, UNSPECIFIED Qualifiers: Hypothyroidism type: unspecified Qualified Code(s): E03.9 - Hypothyroidism, unspecified (9) Sacral decubitus ulcer Code(s): L89.159 - PRESSURE ULCER OF SACRAL REGION, UNSPECIFIED STAGE Qualifiers: Pressure ulcer stage: stage 3 Qualified Code(s): L89.153 - Pressure ulcer of sacral region, stage 3 (10) Gram-positive cocci bacteremia Code(s): R78.81 - BACTEREMIA (11) Anemia Code(s): D64.9 - ANEMIA, UNSPECIFIED Qualifiers: Anemia type: unspecified type Qualified Code(s): D64.9 - Anemia, unspecified Assessment/Plan 05/13/2016 Normal biventricular size and fxn, mild TR 1. Gram positive sepsis, suspect sacral decub ulcer source, previously debrided 2. Right MCA infarct with left hemiparesis 3. HTN 4. Hyperlipidemia 5. Seizure d/o 6. Hypothyroidism 7. Anemia P:1. Abx coverage per ID and C&S, IV hydration, replete K 2. May require pressors to maintain MAP>60 mmHg 3. Hold Norvasc and Atenolol pending hemodynamic stability, continue Plavix 75 qd 4. DVT and GI prophylaxis
[2016-11-28] MEDS ORDERED: POTASSIUM CHLORIDE TABS 20 MEQ TABLET.ER (FP) PO ONE (13:30)
--- NOTE | 2016-11-28 14:30 | PN ---
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, Physician History of Present Illness: patient looks much stable no new events family in room - Current Medication List Current Medications: Active Medications Acetaminophen (Tylenol -) 650 mg PO Q6H PRN PRN Reason: FEVER OR PAIN Amlodipine Besylate (Norvasc -) 10 mg PO DAILY [facility] Last Admin: 11/28/16 10:05 Dose: Not Given Clopidogrel Bisulfate (Plavix -) 75 mg PO DAILY [facility] Last Admin: 11/28/16 10:05 Dose: 75 mg Heparin Sodium (Porcine) (Heparin -) 5,000 unit SQ BID [facility] Sodium Chloride (Normal Saline -) 1,000 mls @ 75 mls/hr IV ASDIR [facility] Last Admin: 11/28/16 10:05 Dose: 75 mls/hr Piperacillin Sod/Tazobactam Sod (Zosyn 3.375gm Ivpb (Pre-Docked)) 50 mls @ 100 mls/hr IVPB Q8H-IV [facility] PRN Reason: Protocol Last Admin: 11/28/16 10:05 Dose: 100 mls/hr Levetiracetam (Keppra -) 250 mg PO BID [facility] Last Admin: 11/28/16 10:04 Dose: 250 mg Levothyroxine Sodium (Synthroid -) 50 mcg PO DAILY@0700 [facility] Last Admin: 11/28/16 06:59 Dose: 50 mcg Sodium Chloride (Normal Saline -) 570 ml IV Q20M PRN PRN Reason: MAP<65mm Hg OR SBP <90 - Objective Vital Signs: Vital Signs Temperature 97.7 F 11/28/16 13:38 Pulse Rate 92 H 11/28/16 13:38 Respiratory Rate 18 11/28/16 13:38 Blood Pressure 85/55 11/28/16 13:38 O2 Sat by Pulse Oximetry (%) 100 11/28/16 09:00 Constitutional: Yes: No Distress, Calm Cardiovascular: Yes: S1, S2 Respiratory: Yes: Regular, CTA Bilaterally Gastrointestinal: Yes: Normal Bowel Sounds, Soft Musculoskeletal: Yes: Other Extremities: Yes: Other Wound/Incision: Yes: Other (sacral decubitus) Neurological: Yes: Alert, Other Labs: CBC, BMP 11/28/16 05:35 11/28/16 05:35 INR, PTT INR 1.06 (0.82-1.09) 11/25/16 14:40 Assessment/Plan roblem List - Problems (1) Altered mental status Code(s): R41.82 - ALTERED MENTAL STATUS, UNSPECIFIED Qualifiers: Altered mental status type: somnolence Qualified Code(s): R40.0 - Somnolence (2) Sepsis Code(s): A41.9 - SEPSIS, UNSPECIFIED ORGANISM Qualifiers: Sepsis type: sepsis due to unspecified organism Qualified Code(s): A41.9 - Sepsis, unspecified organism (3) CVA (cerebral vascular accident) Code(s): I63.9 - CEREBRAL INFARCTION, UNSPECIFIED Qualifiers: CVA mechanism: unspecified Qualified Code(s): I63.9 - Cerebral infarction, unspecified (4) H/O partial seizures Code(s): Z86.69 - PERSONAL HISTORY OF DIS OF THE NERVOUS SYS AND SENSE ORGANS (5) HTN (hypertension) Code(s): I10 - ESSENTIAL (PRIMARY) HYPERTENSION Qualifiers: Hypertension type: essential hypertension Qualified Code(s): I10 - Essential (primary) hypertension (6) Hemiparesis 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 Code(s): I69.354 - HEMIPLGA FOLLOWING CEREBRAL INFRC AFFECTING LEFT NONDOM SIDE (7) Hyperlipidemia Code(s): E78.5 - HYPERLIPIDEMIA, UNSPECIFIED Qualifiers: Hyperlipidemia type: pure hypercholesterolemia Qualified Code(s): E78.00 - Pure hypercholesterolemia, unspecified; E78.0 - Pure hypercholesterolemia (8) Hypothyroid Code(s): E03.9 - HYPOTHYROIDISM, UNSPECIFIED Qualifiers: Hypothyroidism type: unspecified Qualified Code(s): E03.9 - Hypothyroidism, unspecified (9) Sacral decubitus ulcer Code(s): L89.159 - PRESSURE ULCER OF SACRAL REGION, UNSPECIFIED STAGE Qualifiers: Pressure ulcer stage: stage 3 Qualified Code(s): L89.153 - Pressure ulcer of sacral region, stage 3 (10) Anemia Code(s): D64.9 - ANEMIA, UNSPECIFIED Qualifiers: Anemia type: unspecified type Qualified Code(s): D64.9 - Anemia, unspecified a/p sacral decubitus ulcer ams htn mca infarct h/oleukocytosis gm positve bacteremia wound infection plan will stop vanco continue zosyn rest as per primary
--- NOTE | 2016-11-28 17:15 | PN ---
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, Physician History of Present Illness: no compalints - Current Medication List Current Medications: Active Medications Acetaminophen (Tylenol -) 650 mg PO Q6H PRN PRN Reason: FEVER OR PAIN Amlodipine Besylate (Norvasc -) 10 mg PO DAILY [facility] Last Admin: 11/28/16 10:05 Dose: Not Given Clopidogrel Bisulfate (Plavix -) 75 mg PO DAILY [facility] Last Admin: 11/28/16 10:05 Dose: 75 mg Heparin Sodium (Porcine) (Heparin -) 5,000 unit SQ BID [facility] Sodium Chloride (Normal Saline -) 1,000 mls @ 75 mls/hr IV ASDIR [facility] Last Admin: 11/28/16 10:05 Dose: 75 mls/hr Piperacillin Sod/Tazobactam Sod (Zosyn 3.375gm Ivpb (Pre-Docked)) 50 mls @ 100 mls/hr IVPB Q8H-IV [facility] PRN Reason: Protocol Last Admin: 11/28/16 10:05 Dose: 100 mls/hr Levetiracetam (Keppra -) 250 mg PO BID [facility] Last Admin: 11/28/16 10:04 Dose: 250 mg Levothyroxine Sodium (Synthroid -) 50 mcg PO DAILY@0700 [facility] Last Admin: 11/28/16 06:59 Dose: 50 mcg Sodium Chloride (Normal Saline -) 570 ml IV Q20M PRN PRN Reason: MAP<65mm Hg OR SBP <90 - Objective Vital Signs: Vital Signs Temperature 97.7 F 11/28/16 13:38 Pulse Rate 92 H 11/28/16 13:38 Respiratory Rate 18 11/28/16 13:38 Blood Pressure 90/54 11/28/16 15:12 O2 Sat by Pulse Oximetry (%) 100 11/28/16 09:00 Constitutional: Yes: No Distress HENT: Yes: Atraumatic Neck: Yes: Supple Cardiovascular: Yes: Regular Rate and Rhythm Respiratory: Yes: CTA Bilaterally Gastrointestinal: Yes: Normal Bowel Sounds Musculoskeletal: Yes: Other (sacral decub since admisssion) Extremities: Yes: WNL Neurological: Yes: Alert Labs: CBC, BMP 11/28/16 05:35 11/28/16 05:35 INR, PTT INR 1.06 (0.82-1.09) 11/25/16 14:40 Problem List - Problems (1) Severe sepsis Assessment/Plan: cxs noted sacral decub on iv abx ivf id on board Code(s): A41.9 - SEPSIS, UNSPECIFIED ORGANISM R65.20 - SEVERE SEPSIS WITHOUT SEPTIC SHOCK (2) UTI (urinary tract infection) Assessment/Plan: on iv abx cxs p Code(s): N39.0 - URINARY TRACT INFECTION, SITE NOT SPECIFIED Qualifiers: (3) HTN (hypertension) Assessment/Plan: monitor bp on ivf Code(s): I10 - ESSENTIAL (PRIMARY) HYPERTENSION Qualifiers: Hypertension type: essential hypertension Qualified Code(s): I10 - Essential (primary) hypertension (4) Hyperlipidemia Code(s): E78.5 - HYPERLIPIDEMIA, UNSPECIFIED Qualifiers: Hyperlipidemia type: pure hypercholesterolemia Qualified Code(s): E78.00 - Pure hypercholesterolemia, unspecified; E78.0 - Pure hypercholesterolemia (5) Hypothyroid Assessment/Plan: on meds stable check tsh Code(s): E03.9 - HYPOTHYROIDISM, UNSPECIFIED Qualifiers: Hypothyroidism type: unspecified Qualified Code(s): E03.9 - Hypothyroidism, unspecified Assessment/Plan
[2016-11-28] MEDS: HEPARIN NA (PORCINE) 5,000 UNITS/ML 1ML VIAL SQ SCH (21:19)
[2016-11-29] MEDS: PIPERACILLIN/TAZOB 3.375 GM 50 ML IVPB SCH ×3 (01:28→18:12)
[2016-11-29] MEDS: SODIUM CHLORIDE 1,000 ML IV SCH ×2 (04:05→19:45)
[2016-11-29] MEDS: LEVOTHYROXINE NA 50 MCG TABLET (FP) PO SCH (05:59)
--- NOTE | 2016-11-29 08:28 | CONSULT ---
- Consultation REQUESTING PROVIDER: CONSULT REQUEST: We have been asked to surgically evaluate this patient for sacral ulcer PCP:Yolie Mendoza HISTORY OF PRESENT ILLNESS: Called to evaluate sacral ulcer; patient is s/p operative debridement 07/12 PMHx: reviewed PSHx: reviewed Home Medications Medication Instructions Recorded Clopidogrel Bisulfate [Plavix -] 75 mg PO DAILY 07/03/16 Levetiracetam [Keppra] 250 mg PO BID 07/03/16 Levothyroxine [Synthroid -] 50 mcg PO DAILY 07/03/16 Polyvinyl Alcohol/Povidone 15 ml OU BID 07/03/16 [Artificial Tears Drops] Amino Acids/Protein Hydrolys 30 ml PO BID@0800,1730 #60 packet 07/10/16 [Prosource No Carb Liquid Pkt] Amlodipine Besylate [Norvasc -] 10 mg PO DAILY #30 tablet 07/10/16 Docusate Sodium [Colace -] 100 mg PO DAILY 07/17/16 Atenolol [Tenormin -] 25 mg PO DAILY tablet 07/25/16 Levofloxacin [Levaquin] 500 mg PO DAILY #14 tablet 07/25/16 Megestrol Acetate Oral Susp 400 mg PO DAILY #30 mg 07/25/16 [Megace Oral Suspension -] Metronidazole [Flagyl -] 500 mg PO TID #42 tablet 07/25/16 Pantoprazole Sodium [Protonix -] 40 mg PO DAILY #30 mg 07/25/16 Picc Line Flush [Picc Line Flush -] 8 ml IVPUSH PRN PRN #0 ml 07/25/16 Piperacillin/Tazob 3.375 gm [Zosyn 3.375 gm IVPB Q8H-IV #21 bag 07/25/16 3.375GM Ivpb (Pre-Docked)] Allergies Allergy/AdvReac Type Severity Reaction Status Date / Time aspirin Allergy Unknown Verified 07/03/16 14:07 iodine Allergy Unknown Verified 07/03/16 14:07 PHYSICAL EXAM: GENERAL: Not Awake, alert, and not fully oriented, in no acute distress. Sacral ulcer clean and granulating. Vital Signs Temperature 98.0 F 11/29/16 05:00 Pulse Rate 101 H 11/29/16 05:00 Respiratory Rate 18 11/29/16 05:00 Blood Pressure 91/54 11/29/16 05:00 O2 Sat by Pulse Oximetry (%) 100 11/28/16 21:00 Lab Results WBC 6.9 K/mm3 (4.0-10.0) 11/28/16 05:35 RBC 3.18 M/mm3 (3.60-5.2) L 11/28/16 05:35 Hgb 8.2 GM/dL (10.7-15.3) L 11/28/16 05:35 Hct 25.8 % (32.4-45.2) L 11/28/16 05:35 MCV 81.1 fl (80-96) 11/28/16 05:35 MCHC 31.8 g/dl (32.0-36.0) L 11/28/16 05:35 RDW 19.2 % (11.6-15.6) H 11/28/16 05:35 Plt Count 365 K/MM3 (134-434) 11/28/16 05:35 Sodium 142 mmol/L (136-145) 11/28/16 05:35 Potassium 3.4 mmol/L (3.5-5.1) L 11/28/16 05:35 Chloride 110 mmol/L (98-107) H 11/28/16 05:35 Carbon Dioxide 24 mmol/L (21-32) 11/28/16 05:35 Anion Gap 8 (8-16) 11/28/16 05:35 BUN 8 mg/dL (7-18) D 11/28/16 05:35 Creatinine 0.3 mg/dL (0.55-1.02) L D 11/28/16 05:35 Random Glucose 57 mg/dL (74-106) L 11/28/16 05:35 Calcium 8.1 mg/dL (8.5-10.1) L 11/28/16 05:35 Blood Type A NEGATIVE 11/25/16 14:24 Antibody Screen Negative 11/25/16 14:24 INR 1.06 (0.82-1.09) 11/25/16 14:40 IMP: sacral ulcer PLAN: Consider wound VAC or continue NS wet dry dressing changes BID. Eric Pan MD FACS Visit type - Case Type Case Type: ED Admission - Emergency Emergency Visit: Yes ED Registration Date: 11/25/16 Care time: The patient presented to the Emergency Department on the above date and was hospitalized for further evaluation of their emergent condition. - New patient This patient is new to me today: Yes Date on this admission: 11/29/16
[2016-11-29] MEDS: levETIRAcetam 250 MG TABLET (FP) PO SCH ×2 (09:56→21:35)
[2016-11-29] MEDS: CLOPIDOGREL BISULFATE 75 MG TABLET (FP) PO SCH (09:57)
[2016-11-29] MEDS: amLODIPine BESYLATE 10 MG TABLET (FP) PO SCH (09:57)
[2016-11-29] MEDS: HEPARIN NA (PORCINE) 5,000 UNITS/ML 1ML VIAL SQ SCH ×2 (10:12→21:35)
--- NOTE | 2016-11-29 10:35 | PN ---
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, Physician History of Present Illness: Hemodynamics stabilizing. - Current Medication List Current Medications: Active Medications Acetaminophen (Tylenol -) 650 mg PO Q6H PRN PRN Reason: FEVER OR PAIN Amlodipine Besylate (Norvasc -) 10 mg PO DAILY [facility] Last Admin: 11/29/16 09:57 Dose: 10 mg Clopidogrel Bisulfate (Plavix -) 75 mg PO DAILY [facility] Last Admin: 11/29/16 09:57 Dose: 75 mg Heparin Sodium (Porcine) (Heparin -) 5,000 unit SQ BID [facility] Last Admin: 11/28/16 21:19 Dose: 5,000 unit Sodium Chloride (Normal Saline -) 1,000 mls @ 75 mls/hr IV ASDIR [facility] Last Admin: 11/29/16 04:05 Dose: 75 mls/hr Piperacillin Sod/Tazobactam Sod (Zosyn 3.375gm Ivpb (Pre-Docked)) 50 mls @ 100 mls/hr IVPB Q8H-IV [facility] PRN Reason: Protocol Last Admin: 11/29/16 09:57 Dose: 100 mls/hr Levetiracetam (Keppra -) 250 mg PO BID [facility] Last Admin: 11/29/16 09:56 Dose: 250 mg Levothyroxine Sodium (Synthroid -) 50 mcg PO DAILY@0700 [facility] Last Admin: 11/29/16 05:59 Dose: 50 mcg Sodium Chloride (Normal Saline -) 570 ml IV Q20M PRN PRN Reason: MAP<65mm Hg OR SBP <90 - Objective Vital Signs: Vital Signs Temperature 97.6 F 11/29/16 09:00 Pulse Rate 98 H 11/29/16 09:00 Respiratory Rate 18 11/29/16 09:00 Blood Pressure 104/60 11/29/16 09:00 O2 Sat by Pulse Oximetry (%) 100 11/28/16 21:00 Constitutional: Yes: No Distress, Calm, Thin Neck: Yes: Supple Cardiovascular: Yes: Regular Rate and Rhythm Respiratory: Yes: Regular, Diminished Gastrointestinal: Yes: Normal Bowel Sounds, Soft Edema: No Neurological: Yes: Pre-Existing Deficit Labs: CBC, BMP 11/28/16 05:35 11/28/16 05:35 INR, PTT INR 1.06 (0.82-1.09) 11/25/16 14:40 Problem List - Problems (1) Altered mental status Code(s): R41.82 - ALTERED MENTAL STATUS, UNSPECIFIED Qualifiers: Altered mental status type: somnolence Qualified Code(s): R40.0 - Somnolence (2) Sepsis Code(s): A41.9 - SEPSIS, UNSPECIFIED ORGANISM Qualifiers: Sepsis type: sepsis due to unspecified organism Qualified Code(s): A41.9 - Sepsis, unspecified organism (3) CVA (cerebral vascular accident) Code(s): I63.9 - CEREBRAL INFARCTION, UNSPECIFIED Qualifiers: CVA mechanism: unspecified Qualified Code(s): I63.9 - Cerebral infarction, unspecified (4) H/O partial seizures Code(s): Z86.69 - PERSONAL HISTORY OF DIS OF THE NERVOUS SYS AND SENSE ORGANS (5) HTN (hypertension) Code(s): I10 - ESSENTIAL (PRIMARY) HYPERTENSION Qualifiers: Hypertension type: essential hypertension Qualified Code(s): I10 - Essential (primary) hypertension (6) Hemiparesis 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 Code(s): I69.354 - HEMIPLGA FOLLOWING CEREBRAL INFRC AFFECTING LEFT NONDOM SIDE (7) Hyperlipidemia Code(s): E78.5 - HYPERLIPIDEMIA, UNSPECIFIED Qualifiers: Hyperlipidemia type: pure hypercholesterolemia Qualified Code(s): E78.00 - Pure hypercholesterolemia, unspecified; E78.0 - Pure hypercholesterolemia (8) Hypothyroid Code(s): E03.9 - HYPOTHYROIDISM, UNSPECIFIED Qualifiers: Hypothyroidism type: unspecified Qualified Code(s): E03.9 - Hypothyroidism, unspecified (9) Sacral decubitus ulcer Code(s): L89.159 - PRESSURE ULCER OF SACRAL REGION, UNSPECIFIED STAGE Qualifiers: Pressure ulcer stage: stage 3 Qualified Code(s): L89.153 - Pressure ulcer of sacral region, stage 3 (10) Gram-positive cocci bacteremia Code(s): R78.81 - BACTEREMIA (11) Anemia Code(s): D64.9 - ANEMIA, UNSPECIFIED Qualifiers: Anemia type: unspecified type Qualified Code(s): D64.9 - Anemia, unspecified Assessment/Plan 05/13/2016 Normal biventricular size and fxn, mild TR 1. Gram positive sepsis, suspect sacral decub ulcer source, previously debrided 2. Right MCA infarct with left hemiparesis 3. HTN 4. Hyperlipidemia 5. Seizure d/o 6. Hypothyroidism 7. Anemia P:1. Abx coverage per ID and C&S, IV hydration, replete K 2. Surgical input appreciated, to consider wound VAC or continue NS wet dry dressing changes BID. 3. Resumed Norvasc 10 qd and Atenolol 25 qd given hemodynamic stability, continue Plavix 75 qd 4. DVT and GI prophylaxis
--- NOTE | 2016-11-29 18:38 | PN ---
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, Physician History of Present Illness: stable patient looking much better bpo stabilized patient tolerating diet - Current Medication List Current Medications: Active Medications Acetaminophen (Tylenol -) 650 mg PO Q6H PRN PRN Reason: FEVER OR PAIN Amlodipine Besylate (Norvasc -) 10 mg PO DAILY [facility] Last Admin: 11/29/16 09:57 Dose: 10 mg Atenolol (Tenormin -) 25 mg PO DAILY [facility] Clopidogrel Bisulfate (Plavix -) 75 mg PO DAILY [facility] Last Admin: 11/29/16 09:57 Dose: 75 mg Heparin Sodium (Porcine) (Heparin -) 5,000 unit SQ BID [facility] Last Admin: 11/29/16 10:12 Dose: 5,000 unit Sodium Chloride (Normal Saline -) 1,000 mls @ 75 mls/hr IV ASDIR [facility] Last Admin: 11/29/16 04:05 Dose: 75 mls/hr Piperacillin Sod/Tazobactam Sod (Zosyn 3.375gm Ivpb (Pre-Docked)) 50 mls @ 100 mls/hr IVPB Q8H-IV [facility] PRN Reason: Protocol Last Admin: 11/29/16 18:12 Dose: 100 mls/hr Levetiracetam (Keppra -) 250 mg PO BID [facility] Last Admin: 11/29/16 09:56 Dose: 250 mg Levothyroxine Sodium (Synthroid -) 50 mcg PO DAILY@0700 [facility] Last Admin: 11/29/16 05:59 Dose: 50 mcg Sodium Chloride (Normal Saline -) 570 ml IV Q20M PRN PRN Reason: MAP<65mm Hg OR SBP <90 - Objective Vital Signs: Vital Signs Temperature 97.6 F 11/29/16 09:00 Pulse Rate 98 H 11/29/16 09:00 Respiratory Rate 18 11/29/16 09:00 Blood Pressure 104/60 11/29/16 09:00 O2 Sat by Pulse Oximetry (%) 100 11/28/16 21:00 Constitutional: Yes: No Distress, Calm Cardiovascular: Yes: Regular Rate and Rhythm Respiratory: Yes: Regular, CTA Bilaterally Gastrointestinal: Yes: Normal Bowel Sounds, Soft Musculoskeletal: Yes: WNL Extremities: Yes: WNL Neurological: Yes: Alert Psychiatric: Yes: Alert Labs: CBC, BMP 11/28/16 05:35 11/28/16 05:35 INR, PTT INR 1.06 (0.82-1.09) 11/25/16 14:40 Assessment/Plan roblem List - Problems (1) Altered mental status Code(s): R41.82 - ALTERED MENTAL STATUS, UNSPECIFIED Qualifiers: Altered mental status type: somnolence Qualified Code(s): R40.0 - Somnolence (2) Sepsis Code(s): A41.9 - SEPSIS, UNSPECIFIED ORGANISM Qualifiers: Sepsis type: sepsis due to unspecified organism Qualified Code(s): A41.9 - Sepsis, unspecified organism (3) CVA (cerebral vascular accident) Code(s): I63.9 - CEREBRAL INFARCTION, UNSPECIFIED Qualifiers: CVA mechanism: unspecified Qualified Code(s): I63.9 - Cerebral infarction, unspecified (4) H/O partial seizures Code(s): Z86.69 - PERSONAL HISTORY OF DIS OF THE NERVOUS SYS AND SENSE ORGANS (5) HTN (hypertension) Code(s): I10 - ESSENTIAL (PRIMARY) HYPERTENSION Qualifiers: Hypertension type: essential hypertension Qualified Code(s): I10 - Essential (primary) hypertension (6) Hemiparesis 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 Code(s): I69.354 - HEMIPLGA FOLLOWING CEREBRAL INFRC AFFECTING LEFT NONDOM SIDE (7) Hyperlipidemia Code(s): E78.5 - HYPERLIPIDEMIA, UNSPECIFIED Qualifiers: Hyperlipidemia type: pure hypercholesterolemia Qualified Code(s): E78.00 - Pure hypercholesterolemia, unspecified; E78.0 - Pure hypercholesterolemia (8) Hypothyroid Code(s): E03.9 - HYPOTHYROIDISM, UNSPECIFIED Qualifiers: Hypothyroidism type: unspecified Qualified Code(s): E03.9 - Hypothyroidism, unspecified (9) Sacral decubitus ulcer Code(s): L89.159 - PRESSURE ULCER OF SACRAL REGION, UNSPECIFIED STAGE Qualifiers: Pressure ulcer stage: stage 3 Qualified Code(s): L89.153 - Pressure ulcer of sacral region, stage 3 (10) Anemia Code(s): D64.9 - ANEMIA, UNSPECIFIED Qualifiers: Anemia type: unspecified type Qualified Code(s): D64.9 - Anemia, unspecified a/p sacral decubitus ulcer ams htn mca infarct h/oleukocytosis gm positve bacteremia wound infection plan continue zosyn continue nutrition can stop iv fluids rest as per primary
--- NOTE | 2016-11-29 19:57 | PN ---
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, Physician History of Present Illness: no compalints - Current Medication List Current Medications: Active Medications Acetaminophen (Tylenol -) 650 mg PO Q6H PRN PRN Reason: FEVER OR PAIN Amlodipine Besylate (Norvasc -) 10 mg PO DAILY [facility] Last Admin: 11/29/16 09:57 Dose: 10 mg Atenolol (Tenormin -) 25 mg PO DAILY [facility] Clopidogrel Bisulfate (Plavix -) 75 mg PO DAILY [facility] Last Admin: 11/29/16 09:57 Dose: 75 mg Heparin Sodium (Porcine) (Heparin -) 5,000 unit SQ BID [facility] Last Admin: 11/29/16 10:12 Dose: 5,000 unit Piperacillin Sod/Tazobactam Sod (Zosyn 3.375gm Ivpb (Pre-Docked)) 50 mls @ 100 mls/hr IVPB Q8H-IV [facility] PRN Reason: Protocol Last Admin: 11/29/16 18:12 Dose: 100 mls/hr Levetiracetam (Keppra -) 250 mg PO BID [facility] Last Admin: 11/29/16 09:56 Dose: 250 mg Levothyroxine Sodium (Synthroid -) 50 mcg PO DAILY@0700 [facility] Last Admin: 11/29/16 05:59 Dose: 50 mcg Sodium Chloride (Normal Saline -) 570 ml IV Q20M PRN PRN Reason: MAP<65mm Hg OR SBP <90 - Objective Vital Signs: Vital Signs Temperature 97.6 F 11/29/16 09:00 Pulse Rate 98 H 11/29/16 09:00 Respiratory Rate 18 11/29/16 09:00 Blood Pressure 104/60 11/29/16 09:00 O2 Sat by Pulse Oximetry (%) 100 11/28/16 21:00 Constitutional: Yes: No Distress HENT: Yes: Atraumatic Neck: Yes: Supple Cardiovascular: Yes: Regular Rate and Rhythm Respiratory: Yes: CTA Bilaterally Gastrointestinal: Yes: Normal Bowel Sounds Extremities: Yes: WNL Neurological: Yes: Alert Labs: CBC, BMP 11/28/16 05:35 11/28/16 05:35 INR, PTT INR 1.06 (0.82-1.09) 11/25/16 14:40 Problem List - Problems (1) Severe sepsis Assessment/Plan: cxs noted sacral decub on iv abx ivf id on board Code(s): A41.9 - SEPSIS, UNSPECIFIED ORGANISM R65.20 - SEVERE SEPSIS WITHOUT SEPTIC SHOCK (2) UTI (urinary tract infection) Assessment/Plan: on iv abx cxs p Code(s): N39.0 - URINARY TRACT INFECTION, SITE NOT SPECIFIED Qualifiers: (3) HTN (hypertension) Assessment/Plan: monitor bp on ivf Code(s): I10 - ESSENTIAL (PRIMARY) HYPERTENSION Qualifiers: Hypertension type: essential hypertension Qualified Code(s): I10 - Essential (primary) hypertension (4) Hyperlipidemia Code(s): E78.5 - HYPERLIPIDEMIA, UNSPECIFIED Qualifiers: Hyperlipidemia type: pure hypercholesterolemia Qualified Code(s): E78.00 - Pure hypercholesterolemia, unspecified; E78.0 - Pure hypercholesterolemia (5) Hypothyroid Assessment/Plan: on meds stable Code(s): E03.9 - HYPOTHYROIDISM, UNSPECIFIED Qualifiers: Hypothyroidism type: unspecified Qualified Code(s): E03.9 - Hypothyroidism, unspecified
[2016-11-30] MEDS: PIPERACILLIN/TAZOB 3.375 GM 50 ML IVPB SCH ×4 (03:00→17:05)
[2016-11-30] MEDS: LEVOTHYROXINE NA 50 MCG TABLET (FP) PO SCH (06:23)
[2016-11-30] MEDS: CLOPIDOGREL BISULFATE 75 MG TABLET (FP) PO SCH ×2 (08:53→09:51)
[2016-11-30] MEDS: levETIRAcetam 250 MG TABLET (FP) PO SCH ×3 (08:53→21:27)
[2016-11-30] MEDS: HEPARIN NA (PORCINE) 5,000 UNITS/ML 1ML VIAL SQ SCH ×3 (08:53→21:27)
[2016-11-30] MEDS: ATENOLOL 25 MG TABLET (FP) PO SCH (09:51)
[2016-11-30] MEDS: amLODIPine BESYLATE 10 MG TABLET (FP) PO SCH (09:51)
--- NOTE | 2016-11-30 11:03 | PN ---
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, Physician Chief Complaint: ID progress note History of Present Illness: Pt afebrile, without distress No new events - Current Medication List Current Medications: Active Medications Acetaminophen (Tylenol -) 650 mg PO Q6H PRN PRN Reason: FEVER OR PAIN Amlodipine Besylate (Norvasc -) 10 mg PO DAILY [facility] Last Admin: 11/30/16 09:51 Dose: Not Given Atenolol (Tenormin -) 25 mg PO DAILY [facility] Last Admin: 11/30/16 09:51 Dose: Not Given Clopidogrel Bisulfate (Plavix -) 75 mg PO DAILY [facility] Last Admin: 11/30/16 09:51 Dose: Not Given Heparin Sodium (Porcine) (Heparin -) 5,000 unit SQ BID [facility] Last Admin: 11/30/16 09:50 Dose: Not Given Piperacillin Sod/Tazobactam Sod (Zosyn 3.375gm Ivpb (Pre-Docked)) 50 mls @ 100 mls/hr IVPB Q8H-IV [facility] PRN Reason: Protocol Last Admin: 11/30/16 09:51 Dose: Not Given Levetiracetam (Keppra -) 250 mg PO BID [facility] Last Admin: 11/30/16 09:51 Dose: Not Given Levothyroxine Sodium (Synthroid -) 50 mcg PO DAILY@0700 [facility] Last Admin: 11/30/16 06:23 Dose: 50 mcg Sodium Chloride (Normal Saline -) 570 ml IV Q20M PRN PRN Reason: MAP<65mm Hg OR SBP <90 - Objective Vital Signs: Vital Signs Temperature 98.2 F 11/30/16 05:44 Pulse Rate 95 H 11/30/16 05:44 Respiratory Rate 18 11/30/16 05:44 Blood Pressure 93/55 11/30/16 05:44 O2 Sat by Pulse Oximetry (%) 100 11/28/16 21:00 Constitutional: Yes: No Distress Cardiovascular: Yes: Regular Rate and Rhythm Respiratory: Yes: Regular Gastrointestinal: Yes: Normal Bowel Sounds, Soft Genitourinary: Yes: Cardona Present Extremities: Yes: WNL Integumentary: Yes: Pressure Ulcer (Sacral decubitus) Labs: CBC, BMP 11/28/16 05:35 11/28/16 05:35 INR, PTT INR 1.06 (0.82-1.09) 11/25/16 14:40 Microbiology 11/25/16 14:24 Blood - Peripheral Venous Blood Culture - Final Staphylococcus Epidermidis 11/25/16 15:00 Blood - Peripheral Venous Blood Culture - Preliminary NO GROWTH OBTAINED AFTER 96 HOURS, INCUBATION TO CONTINUE FOR 1 DAYS. Microbiology 11/25/16 14:24 Blood - Peripheral Venous Blood Culture - Final Staphylococcus Epidermidis 11/25/16 15:00 Blood - Peripheral Venous Blood Culture - Preliminary NO GROWTH OBTAINED AFTER 96 HOURS, INCUBATION TO CONTINUE FOR 1 DAYS. 11/25/16 16:07 Back Gram Stain - Final 11/25/16 16:07 Back Wound Culture - Final Providencia Stuartii Pseudomonas Aeruginosa Enterococcus Faecalis Staphylococcus Coagulase Neg Staphylococcus Coagulase Neg#2 Diphtheroid/Corynebacterium 11/25/16 14:24 Urine - Urine Clean Catch Urine Culture - Final Escherichia Coli Pseudomonas Aeruginosa Enterococcus Faecalis Problem List - Problems (1) Severe sepsis Code(s): A41.9 - SEPSIS, UNSPECIFIED ORGANISM R65.20 - SEVERE SEPSIS WITHOUT SEPTIC SHOCK (2) UTI (urinary tract infection) Code(s): N39.0 - URINARY TRACT INFECTION, SITE NOT SPECIFIED Qualifiers: (3) Sacral decubitus ulcer Code(s): L89.159 - PRESSURE ULCER OF SACRAL REGION, UNSPECIFIED STAGE Qualifiers: Pressure ulcer stage: stage 3 Qualified Code(s): L89.153 - Pressure ulcer of sacral region, stage 3 Assessment/Plan Sacral DU Sepsis UTI s/p fever/leukocytosis Pt clinically stable, afebrile continue antibiotics for now, supportive care
--- NOTE | 2016-11-30 11:13 | PN ---
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, Physician Chief Complaint: Events noted Not in distress History of Present Illness: Patient was seen and examined. Chart was reviewed - Current Medication List Current Medications: Active Medications Acetaminophen (Tylenol -) 650 mg PO Q6H PRN PRN Reason: FEVER OR PAIN Amlodipine Besylate (Norvasc -) 10 mg PO DAILY [facility] Last Admin: 11/30/16 09:51 Dose: Not Given Atenolol (Tenormin -) 25 mg PO DAILY [facility] Last Admin: 11/30/16 09:51 Dose: Not Given Clopidogrel Bisulfate (Plavix -) 75 mg PO DAILY [facility] Last Admin: 11/30/16 09:51 Dose: Not Given Heparin Sodium (Porcine) (Heparin -) 5,000 unit SQ BID [facility] Last Admin: 11/30/16 09:50 Dose: Not Given Piperacillin Sod/Tazobactam Sod (Zosyn 3.375gm Ivpb (Pre-Docked)) 50 mls @ 100 mls/hr IVPB Q8H-IV [facility] PRN Reason: Protocol Last Admin: 11/30/16 09:51 Dose: Not Given Levetiracetam (Keppra -) 250 mg PO BID [facility] Last Admin: 11/30/16 09:51 Dose: Not Given Levothyroxine Sodium (Synthroid -) 50 mcg PO DAILY@0700 [facility] Last Admin: 11/30/16 06:23 Dose: 50 mcg Sodium Chloride (Normal Saline -) 570 ml IV Q20M PRN PRN Reason: MAP<65mm Hg OR SBP <90 - Objective Vital Signs: Vital Signs Temperature 98.2 F 11/30/16 05:44 Pulse Rate 95 H 11/30/16 05:44 Respiratory Rate 18 11/30/16 05:44 Blood Pressure 93/55 11/30/16 05:44 O2 Sat by Pulse Oximetry (%) 100 11/28/16 21:00 Cardiovascular: Yes: Regular Rate and Rhythm, S1, S2. No: Murmur Respiratory: Yes: Diminished Gastrointestinal: Yes: Normal Bowel Sounds, Soft. No: Tenderness Edema: No Labs: CBC, BMP 11/28/16 05:35 11/28/16 05:35 Problem List - Problems (1) Anemia Code(s): D64.9 - ANEMIA, UNSPECIFIED Qualifiers: Anemia type: unspecified type Qualified Code(s): D64.9 - Anemia, unspecified (2) Gram-positive cocci bacteremia Code(s): R78.81 - BACTEREMIA (3) Altered mental status Code(s): R41.82 - ALTERED MENTAL STATUS, UNSPECIFIED Qualifiers: Altered mental status type: somnolence Qualified Code(s): R40.0 - Somnolence (4) Sepsis Code(s): A41.9 - SEPSIS, UNSPECIFIED ORGANISM Qualifiers: Sepsis type: sepsis due to unspecified organism Qualified Code(s): A41.9 - Sepsis, unspecified organism (5) CVA (cerebral vascular accident) Code(s): I63.9 - CEREBRAL INFARCTION, UNSPECIFIED Qualifiers: CVA mechanism: unspecified Qualified Code(s): I63.9 - Cerebral infarction, unspecified (6) H/O partial seizures Code(s): Z86.69 - PERSONAL HISTORY OF DIS OF THE NERVOUS SYS AND SENSE ORGANS (7) HTN (hypertension) Code(s): I10 - ESSENTIAL (PRIMARY) HYPERTENSION Qualifiers: Hypertension type: essential hypertension Qualified Code(s): I10 - Essential (primary) hypertension (8) Hyperlipidemia Code(s): E78.5 - HYPERLIPIDEMIA, UNSPECIFIED Qualifiers: Hyperlipidemia type: pure hypercholesterolemia Qualified Code(s): E78.00 - Pure hypercholesterolemia, unspecified; E78.0 - Pure hypercholesterolemia (9) Hypothyroid Code(s): E03.9 - HYPOTHYROIDISM, UNSPECIFIED Qualifiers: Hypothyroidism type: unspecified Qualified Code(s): E03.9 - Hypothyroidism, unspecified (10) Sacral decubitus ulcer Code(s): L89.159 - PRESSURE ULCER OF SACRAL REGION, UNSPECIFIED STAGE Qualifiers: Pressure ulcer stage: stage 3 Qualified Code(s): L89.153 - Pressure ulcer of sacral region, stage 3 Assessment/Plan 1. Gram positive sepsis, suspect sacral decubiti ulcer source 2. Right MCA infarct with left hemiparesis 3. HTN 4. Hyperlipidemia 5. Seizure disorder 6. Hypothyroidism 7. Anemia PLAN: 1. Antibiotic coverage per ID, IV hydration, follow electrolytes and replete if needed 2. Wound care 3. Continue Norvasc 10 qd and Atenolol 25 qd as tolerated and continue Plavix 75 qd 4. DVT and GI prophylaxis Further plans are to follow Steve Forrester MD
--- NOTE | 2016-11-30 16:03 | PN ---
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, Physician History of Present Illness: no compalints - Current Medication List Current Medications: Active Medications Acetaminophen (Tylenol -) 650 mg PO Q6H PRN PRN Reason: FEVER OR PAIN Amlodipine Besylate (Norvasc -) 10 mg PO DAILY [facility] Last Admin: 11/30/16 09:51 Dose: Not Given Atenolol (Tenormin -) 25 mg PO DAILY [facility] Last Admin: 11/30/16 09:51 Dose: Not Given Clopidogrel Bisulfate (Plavix -) 75 mg PO DAILY [facility] Last Admin: 11/30/16 09:51 Dose: Not Given Heparin Sodium (Porcine) (Heparin -) 5,000 unit SQ BID [facility] Last Admin: 11/30/16 09:50 Dose: Not Given Piperacillin Sod/Tazobactam Sod (Zosyn 3.375gm Ivpb (Pre-Docked)) 50 mls @ 100 mls/hr IVPB Q8H-IV [facility] PRN Reason: Protocol Last Admin: 11/30/16 09:51 Dose: Not Given Levetiracetam (Keppra -) 250 mg PO BID [facility] Last Admin: 11/30/16 09:51 Dose: Not Given Levothyroxine Sodium (Synthroid -) 50 mcg PO DAILY@0700 [facility] Last Admin: 11/30/16 06:23 Dose: 50 mcg Sodium Chloride (Normal Saline -) 570 ml IV Q20M PRN PRN Reason: MAP<65mm Hg OR SBP <90 - Objective Vital Signs: Vital Signs Temperature 97.5 F L 11/30/16 14:00 Pulse Rate 95 H 11/30/16 05:44 Respiratory Rate 18 11/30/16 05:44 Blood Pressure 93/55 11/30/16 05:44 O2 Sat by Pulse Oximetry (%) 100 11/28/16 21:00 Constitutional: Yes: No Distress HENT: Yes: Atraumatic Neck: Yes: Supple Cardiovascular: Yes: Regular Rate and Rhythm Respiratory: Yes: CTA Bilaterally Gastrointestinal: Yes: Normal Bowel Sounds Extremities: Yes: WNL Neurological: Yes: Alert Labs: CBC, BMP 11/28/16 05:35 11/28/16 05:35 INR, PTT INR 1.06 (0.82-1.09) 11/25/16 14:40 Problem List - Problems (1) Severe sepsis Assessment/Plan: cxs noted sacral decub on iv abx ivf id on board Code(s): A41.9 - SEPSIS, UNSPECIFIED ORGANISM R65.20 - SEVERE SEPSIS WITHOUT SEPTIC SHOCK (2) UTI (urinary tract infection) Assessment/Plan: on iv abx cxs p Code(s): N39.0 - URINARY TRACT INFECTION, SITE NOT SPECIFIED Qualifiers: (3) HTN (hypertension) Assessment/Plan: monitor bp on ivf Code(s): I10 - ESSENTIAL (PRIMARY) HYPERTENSION Qualifiers: Hypertension type: essential hypertension Qualified Code(s): I10 - Essential (primary) hypertension (4) Hyperlipidemia Code(s): E78.5 - HYPERLIPIDEMIA, UNSPECIFIED Qualifiers: Hyperlipidemia type: pure hypercholesterolemia Qualified Code(s): E78.00 - Pure hypercholesterolemia, unspecified; E78.0 - Pure hypercholesterolemia (5) Hypothyroid Assessment/Plan: on meds stable check tsh Code(s): E03.9 - HYPOTHYROIDISM, UNSPECIFIED Qualifiers: Hypothyroidism type: unspecified Qualified Code(s): E03.9 - Hypothyroidism, unspecified
[2016-12-01] MEDS: PIPERACILLIN/TAZOB 3.375 GM 50 ML IVPB SCH ×3 (01:07→17:23)
[2016-12-01] MEDS: LEVOTHYROXINE NA 50 MCG TABLET (FP) PO SCH (06:25)
--- NOTE | 2016-12-01 09:06 | PN ---
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, Physician Chief Complaint: No new events Not in distress History of Present Illness: Patient was seen and examined. Chart was reviewed - Current Medication List Current Medications: Active Medications Acetaminophen (Tylenol -) 650 mg PO Q6H PRN PRN Reason: FEVER OR PAIN Amlodipine Besylate (Norvasc -) 10 mg PO DAILY [facility] Last Admin: 11/30/16 09:51 Dose: Not Given Atenolol (Tenormin -) 25 mg PO DAILY [facility] Last Admin: 11/30/16 09:51 Dose: Not Given Clopidogrel Bisulfate (Plavix -) 75 mg PO DAILY [facility] Last Admin: 11/30/16 09:51 Dose: Not Given Heparin Sodium (Porcine) (Heparin -) 5,000 unit SQ BID [facility] Last Admin: 11/30/16 21:27 Dose: 5,000 unit Piperacillin Sod/Tazobactam Sod (Zosyn 3.375gm Ivpb (Pre-Docked)) 50 mls @ 100 mls/hr IVPB Q8H-IV [facility] PRN Reason: Protocol Last Admin: 12/01/16 01:07 Dose: 100 mls/hr Levetiracetam (Keppra -) 250 mg PO BID [facility] Last Admin: 11/30/16 21:27 Dose: 250 mg Levothyroxine Sodium (Synthroid -) 50 mcg PO DAILY@0700 [facility] Last Admin: 12/01/16 06:25 Dose: 50 mcg Sodium Chloride (Normal Saline -) 570 ml IV Q20M PRN PRN Reason: MAP<65mm Hg OR SBP <90 - Objective Vital Signs: Vital Signs Temperature 97.6 F 12/01/16 06:00 Pulse Rate 93 H 12/01/16 06:00 Respiratory Rate 18 12/01/16 06:00 Blood Pressure 93/50 12/01/16 06:00 O2 Sat by Pulse Oximetry (%) 99 11/30/16 21:00 Neck: Yes: Supple Cardiovascular: Yes: Regular Rate and Rhythm, S1, S2 Respiratory: Yes: Diminished Gastrointestinal: Yes: Normal Bowel Sounds, Soft. No: Tenderness Edema: No Problem List - Problems (1) Anemia Code(s): D64.9 - ANEMIA, UNSPECIFIED Qualifiers: Anemia type: unspecified type Qualified Code(s): D64.9 - Anemia, unspecified (2) Gram-positive cocci bacteremia Code(s): R78.81 - BACTEREMIA (3) Altered mental status Code(s): R41.82 - ALTERED MENTAL STATUS, UNSPECIFIED Qualifiers: Altered mental status type: somnolence Qualified Code(s): R40.0 - Somnolence (4) Sepsis Code(s): A41.9 - SEPSIS, UNSPECIFIED ORGANISM Qualifiers: Sepsis type: sepsis due to unspecified organism Qualified Code(s): A41.9 - Sepsis, unspecified organism (5) CVA (cerebral vascular accident) Code(s): I63.9 - CEREBRAL INFARCTION, UNSPECIFIED Qualifiers: CVA mechanism: unspecified Qualified Code(s): I63.9 - Cerebral infarction, unspecified (6) H/O partial seizures Code(s): Z86.69 - PERSONAL HISTORY OF DIS OF THE NERVOUS SYS AND SENSE ORGANS (7) HTN (hypertension) Code(s): I10 - ESSENTIAL (PRIMARY) HYPERTENSION Qualifiers: Hypertension type: essential hypertension Qualified Code(s): I10 - Essential (primary) hypertension (8) Hyperlipidemia Code(s): E78.5 - HYPERLIPIDEMIA, UNSPECIFIED Qualifiers: Hyperlipidemia type: pure hypercholesterolemia Qualified Code(s): E78.00 - Pure hypercholesterolemia, unspecified; E78.0 - Pure hypercholesterolemia (9) Hypothyroid Code(s): E03.9 - HYPOTHYROIDISM, UNSPECIFIED Qualifiers: Hypothyroidism type: unspecified Qualified Code(s): E03.9 - Hypothyroidism, unspecified (10) Sacral decubitus ulcer Code(s): L89.159 - PRESSURE ULCER OF SACRAL REGION, UNSPECIFIED STAGE Qualifiers: Pressure ulcer stage: stage 3 Qualified Code(s): L89.153 - Pressure ulcer of sacral region, stage 3 Assessment/Plan 1. Gram positive sepsis, suspect sacral decubiti ulcer 2. Right MCA infarct with left hemiparesis 3. HTN 4. Hyperlipidemia 5. Seizure disorder 6. Hypothyroidism 7. Anemia PLAN: 1. Antibiotic coverage per ID, IV hydration, follow electrolytes 2. Wound care 3. Continue Norvasc 10 qd and Atenolol 25 qd as tolerated and continue Plavix 75 qd 4. DVT and GI prophylaxis Further plans are to follow Steve Forrester MD
[2016-12-01] MEDS: amLODIPine BESYLATE 10 MG TABLET (FP) PO SCH (09:56)
[2016-12-01] MEDS: ATENOLOL 25 MG TABLET (FP) PO SCH (09:56)
[2016-12-01] MEDS: CLOPIDOGREL BISULFATE 75 MG TABLET (FP) PO SCH (09:56)
[2016-12-01] MEDS: levETIRAcetam 250 MG TABLET (FP) PO SCH ×2 (09:56→22:19)
[2016-12-01] MEDS: HEPARIN NA (PORCINE) 5,000 UNITS/ML 1ML VIAL SQ SCH ×2 (09:57→22:19)
--- NOTE | 2016-12-01 20:18 | PN ---
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, Physician History of Present Illness: Pt seen and examined No new events Pt denies pain, fever, chills - Current Medication List Current Medications: Active Medications Acetaminophen (Tylenol -) 650 mg PO Q6H PRN PRN Reason: FEVER OR PAIN Amlodipine Besylate (Norvasc -) 10 mg PO DAILY [facility] Last Admin: 12/01/16 09:56 Dose: 10 mg Atenolol (Tenormin -) 25 mg PO DAILY [facility] Last Admin: 12/01/16 09:56 Dose: 25 mg Clopidogrel Bisulfate (Plavix -) 75 mg PO DAILY [facility] Last Admin: 12/01/16 09:56 Dose: 75 mg Heparin Sodium (Porcine) (Heparin -) 5,000 unit SQ BID [facility] Last Admin: 12/01/16 09:57 Dose: 5,000 unit Piperacillin Sod/Tazobactam Sod (Zosyn 3.375gm Ivpb (Pre-Docked)) 50 mls @ 100 mls/hr IVPB Q8H-IV [facility] PRN Reason: Protocol Last Admin: 12/01/16 17:23 Dose: 100 mls/hr Levetiracetam (Keppra -) 250 mg PO BID [facility] Last Admin: 12/01/16 09:56 Dose: 250 mg Levothyroxine Sodium (Synthroid -) 50 mcg PO DAILY@0700 [facility] Last Admin: 12/01/16 06:25 Dose: 50 mcg Sodium Chloride (Normal Saline -) 570 ml IV Q20M PRN PRN Reason: MAP<65mm Hg OR SBP <90 - Objective Vital Signs: Vital Signs Temperature 97.5 F L 12/01/16 18:00 Pulse Rate 86 12/01/16 18:00 Respiratory Rate 20 12/01/16 18:00 Blood Pressure 88/50 12/01/16 18:00 O2 Sat by Pulse Oximetry (%) 99 12/01/16 09:00 Constitutional: Yes: No Distress Cardiovascular: Yes: Regular Rate and Rhythm Respiratory: Yes: Regular Gastrointestinal: Yes: Normal Bowel Sounds, Soft Genitourinary: Yes: WNL Integumentary: Yes: Pressure Ulcer (Sacral ulcer) Labs: CBC, BMP 11/28/16 05:35 11/28/16 05:35 INR, PTT INR 1.06 (0.82-1.09) 11/25/16 14:40 Problem List - Problems (1) Severe sepsis Code(s): A41.9 - SEPSIS, UNSPECIFIED ORGANISM R65.20 - SEVERE SEPSIS WITHOUT SEPTIC SHOCK (2) UTI (urinary tract infection) Code(s): N39.0 - URINARY TRACT INFECTION, SITE NOT SPECIFIED Qualifiers: (3) Sacral decubitus ulcer Code(s): L89.159 - PRESSURE ULCER OF SACRAL REGION, UNSPECIFIED STAGE Qualifiers: Pressure ulcer stage: stage 3 Qualified Code(s): L89.153 - Pressure ulcer of sacral region, stage 3 (4) Fever Code(s): R50.9 - FEVER, UNSPECIFIED (5) CVA (cerebral vascular accident) Code(s): I63.9 - CEREBRAL INFARCTION, UNSPECIFIED Qualifiers: CVA mechanism: unspecified Qualified Code(s): I63.9 - Cerebral infarction, unspecified (6) Hemiparesis 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 Code(s): I69.354 - HEMIPLGA FOLLOWING CEREBRAL INFRC AFFECTING LEFT NONDOM SIDE Assessment/Plan Pt appears stable fever/leukocytosis resolved -- continue Zosyn, wound care
--- NOTE | 2016-12-01 21:44 | PN ---
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, Physician History of Present Illness: no compalints - Current Medication List Current Medications: Active Medications Acetaminophen (Tylenol -) 650 mg PO Q6H PRN PRN Reason: FEVER OR PAIN Amlodipine Besylate (Norvasc -) 10 mg PO DAILY [facility] Last Admin: 12/01/16 09:56 Dose: 10 mg Atenolol (Tenormin -) 25 mg PO DAILY [facility] Last Admin: 12/01/16 09:56 Dose: 25 mg Clopidogrel Bisulfate (Plavix -) 75 mg PO DAILY [facility] Last Admin: 12/01/16 09:56 Dose: 75 mg Heparin Sodium (Porcine) (Heparin -) 5,000 unit SQ BID [facility] Last Admin: 12/01/16 09:57 Dose: 5,000 unit Piperacillin Sod/Tazobactam Sod (Zosyn 3.375gm Ivpb (Pre-Docked)) 50 mls @ 100 mls/hr IVPB Q8H-IV [facility] PRN Reason: Protocol Last Admin: 12/01/16 17:23 Dose: 100 mls/hr Levetiracetam (Keppra -) 250 mg PO BID [facility] Last Admin: 12/01/16 09:56 Dose: 250 mg Levothyroxine Sodium (Synthroid -) 50 mcg PO DAILY@0700 [facility] Last Admin: 12/01/16 06:25 Dose: 50 mcg Sodium Chloride (Normal Saline -) 570 ml IV Q20M PRN PRN Reason: MAP<65mm Hg OR SBP <90 - Objective Vital Signs: Vital Signs Temperature 97.5 F L 12/01/16 18:00 Pulse Rate 86 12/01/16 18:00 Respiratory Rate 20 12/01/16 18:00 Blood Pressure 88/50 12/01/16 18:00 O2 Sat by Pulse Oximetry (%) 99 12/01/16 09:00 Constitutional: Yes: No Distress HENT: Yes: Atraumatic Neck: Yes: Supple Cardiovascular: Yes: Regular Rate and Rhythm Respiratory: Yes: CTA Bilaterally Gastrointestinal: Yes: Normal Bowel Sounds Extremities: Yes: WNL Neurological: Yes: Alert, Oriented Labs: CBC, BMP 11/28/16 05:35 11/28/16 05:35 INR, PTT INR 1.06 (0.82-1.09) 11/25/16 14:40 Problem List - Problems (1) Severe sepsis Assessment/Plan: cxs noted sacral decub on iv abx ivf id on board Code(s): A41.9 - SEPSIS, UNSPECIFIED ORGANISM R65.20 - SEVERE SEPSIS WITHOUT SEPTIC SHOCK (2) UTI (urinary tract infection) Assessment/Plan: on iv abx cxs p Code(s): N39.0 - URINARY TRACT INFECTION, SITE NOT SPECIFIED Qualifiers: (3) HTN (hypertension) Assessment/Plan: monitor bp on ivf Code(s): I10 - ESSENTIAL (PRIMARY) HYPERTENSION Qualifiers: Hypertension type: essential hypertension Qualified Code(s): I10 - Essential (primary) hypertension (4) Hyperlipidemia Code(s): E78.5 - HYPERLIPIDEMIA, UNSPECIFIED Qualifiers: Hyperlipidemia type: pure hypercholesterolemia Qualified Code(s): E78.00 - Pure hypercholesterolemia, unspecified; E78.0 - Pure hypercholesterolemia (5) Hypothyroid Assessment/Plan: on meds stable check tsh Code(s): E03.9 - HYPOTHYROIDISM, UNSPECIFIED Qualifiers: Hypothyroidism type: unspecified Qualified Code(s): E03.9 - Hypothyroidism, unspecified Assessment/Plan
[2016-12-02] MEDS: PIPERACILLIN/TAZOB 3.375 GM 50 ML IVPB SCH ×3 (01:52→17:11)
[2016-12-02] MEDS: LEVOTHYROXINE NA 50 MCG TABLET (FP) PO SCH (06:07)
[2016-12-02] MEDS: ATENOLOL 25 MG TABLET (FP) PO SCH (09:24)
[2016-12-02] MEDS: CLOPIDOGREL BISULFATE 75 MG TABLET (FP) PO SCH (09:24)
[2016-12-02] MEDS: levETIRAcetam 250 MG TABLET (FP) PO SCH ×2 (09:24→21:21)
[2016-12-02] MEDS: HEPARIN NA (PORCINE) 5,000 UNITS/ML 1ML VIAL SQ SCH ×2 (09:25→21:26)
[2016-12-02] MEDS: amLODIPine BESYLATE 10 MG TABLET (FP) PO SCH (09:25)
--- NOTE | 2016-12-02 10:05 | PN ---
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, Physician Chief Complaint: No new events Hemodynamically stable History of Present Illness: Patient was seen and examined. Chart was reviewed - Current Medication List Current Medications: Active Medications Acetaminophen (Tylenol -) 650 mg PO Q6H PRN PRN Reason: FEVER OR PAIN Amlodipine Besylate (Norvasc -) 10 mg PO DAILY [facility] Last Admin: 12/02/16 09:25 Dose: Not Given Atenolol (Tenormin -) 25 mg PO DAILY [facility] Last Admin: 12/02/16 09:24 Dose: 25 mg Clopidogrel Bisulfate (Plavix -) 75 mg PO DAILY [facility] Last Admin: 12/02/16 09:24 Dose: 75 mg Heparin Sodium (Porcine) (Heparin -) 5,000 unit SQ BID [facility] Last Admin: 12/02/16 09:25 Dose: 5,000 unit Piperacillin Sod/Tazobactam Sod (Zosyn 3.375gm Ivpb (Pre-Docked)) 50 mls @ 100 mls/hr IVPB Q8H-IV [facility] PRN Reason: Protocol Last Admin: 12/02/16 09:23 Dose: 100 mls/hr Levetiracetam (Keppra -) 250 mg PO BID [facility] Last Admin: 12/02/16 09:24 Dose: 250 mg Levothyroxine Sodium (Synthroid -) 50 mcg PO DAILY@0700 [facility] Last Admin: 12/02/16 06:07 Dose: 50 mcg Sodium Chloride (Normal Saline -) 570 ml IV Q20M PRN PRN Reason: MAP<65mm Hg OR SBP <90 - Objective Vital Signs: Vital Signs Temperature 98.2 F 12/02/16 05:48 Pulse Rate 85 12/02/16 05:48 Respiratory Rate 20 12/02/16 05:48 Blood Pressure 82/48 12/02/16 05:48 O2 Sat by Pulse Oximetry (%) 100 12/01/16 21:00 Neck: Yes: Supple Cardiovascular: Yes: Regular Rate and Rhythm, S1, S2 Respiratory: Yes: Diminished Gastrointestinal: Yes: Normal Bowel Sounds, Soft. No: Tenderness Edema: No Problem List - Problems (1) Anemia Code(s): D64.9 - ANEMIA, UNSPECIFIED Qualifiers: Anemia type: unspecified type Qualified Code(s): D64.9 - Anemia, unspecified (2) Gram-positive cocci bacteremia Code(s): R78.81 - BACTEREMIA (3) Altered mental status Code(s): R41.82 - ALTERED MENTAL STATUS, UNSPECIFIED Qualifiers: Altered mental status type: somnolence Qualified Code(s): R40.0 - Somnolence (4) Sepsis Code(s): A41.9 - SEPSIS, UNSPECIFIED ORGANISM Qualifiers: Sepsis type: sepsis due to unspecified organism Qualified Code(s): A41.9 - Sepsis, unspecified organism (5) CVA (cerebral vascular accident) Code(s): I63.9 - CEREBRAL INFARCTION, UNSPECIFIED Qualifiers: CVA mechanism: unspecified Qualified Code(s): I63.9 - Cerebral infarction, unspecified (6) H/O partial seizures Code(s): Z86.69 - PERSONAL HISTORY OF DIS OF THE NERVOUS SYS AND SENSE ORGANS (7) HTN (hypertension) Code(s): I10 - ESSENTIAL (PRIMARY) HYPERTENSION Qualifiers: Hypertension type: essential hypertension Qualified Code(s): I10 - Essential (primary) hypertension (8) Hyperlipidemia Code(s): E78.5 - HYPERLIPIDEMIA, UNSPECIFIED Qualifiers: Hyperlipidemia type: pure hypercholesterolemia Qualified Code(s): E78.00 - Pure hypercholesterolemia, unspecified; E78.0 - Pure hypercholesterolemia (9) Hypothyroid Code(s): E03.9 - HYPOTHYROIDISM, UNSPECIFIED Qualifiers: Hypothyroidism type: unspecified Qualified Code(s): E03.9 - Hypothyroidism, unspecified (10) Sacral decubitus ulcer Code(s): L89.159 - PRESSURE ULCER OF SACRAL REGION, UNSPECIFIED STAGE Qualifiers: Pressure ulcer stage: stage 3 Qualified Code(s): L89.153 - Pressure ulcer of sacral region, stage 3 Assessment/Plan 1. Gram positive sepsis, suspect sacral decubiti ulcer 2. Right MCA infarct with left hemiparesis 3. HTN 4. Hyperlipidemia 5. Seizure disorder 6. Hypothyroidism 7. Anemia PLAN: 1. Antibiotic coverage per ID, IV hydration, follow electrolytes 2. Wound care 3. Continue Norvasc 10 qd and Atenolol 25 qd as tolerated and continue Plavix 75 qd 4. DVT and GI prophylaxis May transfer to floor care Further plans are to follow Steve Forrester MD
--- NOTE | 2016-12-02 13:36 | PN ---
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, Physician History of Present Illness: stable no new issues family in the room - Current Medication List Current Medications: Active Medications Acetaminophen (Tylenol -) 650 mg PO Q6H PRN PRN Reason: FEVER OR PAIN Amlodipine Besylate (Norvasc -) 10 mg PO DAILY [facility] Last Admin: 12/02/16 09:25 Dose: Not Given Atenolol (Tenormin -) 25 mg PO DAILY [facility] Last Admin: 12/02/16 09:24 Dose: 25 mg Clopidogrel Bisulfate (Plavix -) 75 mg PO DAILY [facility] Last Admin: 12/02/16 09:24 Dose: 75 mg Heparin Sodium (Porcine) (Heparin -) 5,000 unit SQ BID [facility] Last Admin: 12/02/16 09:25 Dose: 5,000 unit Piperacillin Sod/Tazobactam Sod (Zosyn 3.375gm Ivpb (Pre-Docked)) 50 mls @ 100 mls/hr IVPB Q8H-IV [facility] PRN Reason: Protocol Last Admin: 12/02/16 09:23 Dose: 100 mls/hr Levetiracetam (Keppra -) 250 mg PO BID [facility] Last Admin: 12/02/16 09:24 Dose: 250 mg Levothyroxine Sodium (Synthroid -) 50 mcg PO DAILY@0700 [facility] Last Admin: 12/02/16 06:07 Dose: 50 mcg Sodium Chloride (Normal Saline -) 570 ml IV Q20M PRN PRN Reason: MAP<65mm Hg OR SBP <90 - Objective Vital Signs: Vital Signs Temperature 97.8 F 12/02/16 10:00 Pulse Rate 80 12/02/16 10:00 Respiratory Rate 18 12/02/16 10:00 Blood Pressure 93/54 12/02/16 10:00 O2 Sat by Pulse Oximetry (%) 98 12/02/16 09:00 Constitutional: Yes: No Distress, Calm Cardiovascular: Yes: Regular Rate and Rhythm Respiratory: Yes: Regular, CTA Bilaterally Gastrointestinal: Yes: Normal Bowel Sounds, Soft Musculoskeletal: Yes: WNL Extremities: Yes: WNL Wound/Incision: Yes: Dressing Dry and Intact, Other (sacral decubitus clean) Neurological: Yes: Alert Psychiatric: Yes: Alert Labs: CBC, BMP 11/28/16 05:35 11/28/16 05:35 INR, PTT INR 1.06 (0.82-1.09) 11/25/16 14:40 Assessment/Plan roblem List - Problems (1) Altered mental status Code(s): R41.82 - ALTERED MENTAL STATUS, UNSPECIFIED Qualifiers: Altered mental status type: somnolence Qualified Code(s): R40.0 - Somnolence (2) Sepsis Code(s): A41.9 - SEPSIS, UNSPECIFIED ORGANISM Qualifiers: Sepsis type: sepsis due to unspecified organism Qualified Code(s): A41.9 - Sepsis, unspecified organism (3) CVA (cerebral vascular accident) Code(s): I63.9 - CEREBRAL INFARCTION, UNSPECIFIED Qualifiers: CVA mechanism: unspecified Qualified Code(s): I63.9 - Cerebral infarction, unspecified (4) H/O partial seizures Code(s): Z86.69 - PERSONAL HISTORY OF DIS OF THE NERVOUS SYS AND SENSE ORGANS (5) HTN (hypertension) Code(s): I10 - ESSENTIAL (PRIMARY) HYPERTENSION Qualifiers: Hypertension type: essential hypertension Qualified Code(s): I10 - Essential (primary) hypertension (6) Hemiparesis 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 Code(s): I69.354 - HEMIPLGA FOLLOWING CEREBRAL INFRC AFFECTING LEFT NONDOM SIDE (7) Hyperlipidemia Code(s): E78.5 - HYPERLIPIDEMIA, UNSPECIFIED Qualifiers: Hyperlipidemia type: pure hypercholesterolemia Qualified Code(s): E78.00 - Pure hypercholesterolemia, unspecified; E78.0 - Pure hypercholesterolemia (8) Hypothyroid Code(s): E03.9 - HYPOTHYROIDISM, UNSPECIFIED Qualifiers: Hypothyroidism type: unspecified Qualified Code(s): E03.9 - Hypothyroidism, unspecified (9) Sacral decubitus ulcer Code(s): L89.159 - PRESSURE ULCER OF SACRAL REGION, UNSPECIFIED STAGE Qualifiers: Pressure ulcer stage: stage 3 Qualified Code(s): L89.153 - Pressure ulcer of sacral region, stage 3 (10) Anemia Code(s): D64.9 - ANEMIA, UNSPECIFIED Qualifiers: Anemia type: unspecified type Qualified Code(s): D64.9 - Anemia, unspecified a/p sacral decubitus ulcer ams htn mca infarct h/oleukocytosis gm positve bacteremia wound infection plan continue zosyn continue nutrition wound care rest as per primary
--- NOTE | 2016-12-02 19:17 | PN ---
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, Physician History of Present Illness: no compalints - Current Medication List Current Medications: Active Medications Acetaminophen (Tylenol -) 650 mg PO Q6H PRN PRN Reason: FEVER OR PAIN Amlodipine Besylate (Norvasc -) 10 mg PO DAILY [facility] Last Admin: 12/02/16 09:25 Dose: Not Given Atenolol (Tenormin -) 25 mg PO DAILY [facility] Last Admin: 12/02/16 09:24 Dose: 25 mg Clopidogrel Bisulfate (Plavix -) 75 mg PO DAILY [facility] Last Admin: 12/02/16 09:24 Dose: 75 mg Heparin Sodium (Porcine) (Heparin -) 5,000 unit SQ BID [facility] Last Admin: 12/02/16 09:25 Dose: 5,000 unit Piperacillin Sod/Tazobactam Sod (Zosyn 3.375gm Ivpb (Pre-Docked)) 50 mls @ 100 mls/hr IVPB Q8H-IV [facility] PRN Reason: Protocol Last Admin: 12/02/16 17:11 Dose: 100 mls/hr Levetiracetam (Keppra -) 250 mg PO BID [facility] Last Admin: 12/02/16 09:24 Dose: 250 mg Levothyroxine Sodium (Synthroid -) 50 mcg PO DAILY@0700 [facility] Last Admin: 12/02/16 06:07 Dose: 50 mcg Sodium Chloride (Normal Saline -) 570 ml IV Q20M PRN PRN Reason: MAP<65mm Hg OR SBP <90 - Objective Vital Signs: Vital Signs Temperature 97.8 F 12/02/16 10:00 Pulse Rate 80 12/02/16 10:00 Respiratory Rate 18 12/02/16 10:00 Blood Pressure 93/54 12/02/16 10:00 O2 Sat by Pulse Oximetry (%) 98 12/02/16 09:00 Constitutional: Yes: No Distress HENT: Yes: Atraumatic Neck: Yes: Supple Cardiovascular: Yes: Regular Rate and Rhythm Respiratory: Yes: CTA Bilaterally Gastrointestinal: Yes: Normal Bowel Sounds Extremities: Yes: WNL Neurological: Yes: Alert, Oriented Labs: CBC, BMP 11/28/16 05:35 11/28/16 05:35 INR, PTT INR 1.06 (0.82-1.09) 11/25/16 14:40 Problem List - Problems (1) Severe sepsis Assessment/Plan: cxs noted on iv abx ivf id on board Code(s): A41.9 - SEPSIS, UNSPECIFIED ORGANISM R65.20 - SEVERE SEPSIS WITHOUT SEPTIC SHOCK (2) UTI (urinary tract infection) Assessment/Plan: on iv abx Code(s): N39.0 - URINARY TRACT INFECTION, SITE NOT SPECIFIED Qualifiers: (3) HTN (hypertension) Assessment/Plan: stable on meds Code(s): I10 - ESSENTIAL (PRIMARY) HYPERTENSION Qualifiers: Hypertension type: essential hypertension Qualified Code(s): I10 - Essential (primary) hypertension (4) Hyperlipidemia Assessment/Plan: on meds Code(s): E78.5 - HYPERLIPIDEMIA, UNSPECIFIED Qualifiers: Hyperlipidemia type: pure hypercholesterolemia Qualified Code(s): E78.00 - Pure hypercholesterolemia, unspecified; E78.0 - Pure hypercholesterolemia (5) Hypothyroid Assessment/Plan: on meds stable Code(s): E03.9 - HYPOTHYROIDISM, UNSPECIFIED Qualifiers: Hypothyroidism type: unspecified Qualified Code(s): E03.9 - Hypothyroidism, unspecified Assessment/Plan NEED TO KNOW FROM ID IF SHE CAN BE SWITCHED TO PO
[2016-12-03] MEDS: PIPERACILLIN/TAZOB 3.375 GM 50 ML IVPB SCH ×2 (01:23→09:01)
[2016-12-03] MEDS: LEVOTHYROXINE NA 50 MCG TABLET (FP) PO SCH (06:21)
[2016-12-03] MEDS: ATENOLOL 25 MG TABLET (FP) PO SCH (09:01)
[2016-12-03] MEDS: amLODIPine BESYLATE 10 MG TABLET (FP) PO SCH (09:01)
[2016-12-03] MEDS: CLOPIDOGREL BISULFATE 75 MG TABLET (FP) PO SCH (09:01)
[2016-12-03] MEDS: HEPARIN NA (PORCINE) 5,000 UNITS/ML 1ML VIAL SQ SCH ×2 (09:01→22:22)
[2016-12-03] MEDS: levETIRAcetam 250 MG TABLET (FP) PO SCH ×2 (09:01→22:22)
--- NOTE | 2016-12-03 09:40 | PN ---
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 (short form) - Note 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: Chief Complaint: Seen and examined. Resting in bed in no distress History of Present Illness: Seen and examined on telemetry. Resting in bed in no distress - Current Medication List Current Medications Acetaminophen (Tylenol -) 650 mg PO Q6H PRN PRN Reason: FEVER OR PAIN Amlodipine Besylate (Norvasc -) 10 mg PO DAILY [facility] Last Admin: 12/03/16 09:01 Dose: 10 mg Atenolol (Tenormin -) 25 mg PO DAILY [facility] Last Admin: 12/03/16 09:01 Dose: 25 mg Clopidogrel Bisulfate (Plavix -) 75 mg PO DAILY [facility] Last Admin: 12/03/16 09:01 Dose: 75 mg Heparin Sodium (Porcine) (Heparin -) 5,000 unit SQ BID [facility] Last Admin: 12/03/16 09:01 Dose: 5,000 unit Piperacillin Sod/Tazobactam Sod (Zosyn 3.375gm Ivpb (Pre-Docked)) 50 mls @ 100 mls/hr IVPB Q8H-IV [facility] PRN Reason: Protocol Last Admin: 12/03/16 09:01 Dose: 100 mls/hr Levetiracetam (Keppra -) 250 mg PO BID [facility] Last Admin: 12/03/16 09:01 Dose: 250 mg Levothyroxine Sodium (Synthroid -) 50 mcg PO DAILY@0700 [facility] Last Admin: 12/03/16 06:21 Dose: 50 mcg - Objective Vital Signs: Last Vital Signs Temp Pulse Resp BP Pulse Ox 97.5 F L 85 20 92/54 100 12/03/16 05:49 12/03/16 05:49 12/03/16 05:49 12/03/16 05:49 12/02/16 21:00 Intake & Output 11/30/16 12/01/16 12/02/16 12/03/16 23:59 23:59 23:59 23:59 Intake Total 1525 200 200 170 Output Total 1050 1200 Balance 475 200 -1000 170 Neck: Supple Negative JVD No Bruit Cardiovascular: S1 S2 Regular Rate and Rhythm No Murmurs Respiratory: Diminished Breath Sounds at the Bases Gastrointestinal: Soft Benign Normal Bowel Sounds Ext: No Edema Labs: CBC, BMP 11/28/16 05:35 11/28/16 05:35 Hepatic Panel Total Bilirubin 0.2 mg/dL (0.2-1.0) 11/28/16 05:35 AST 17 U/L (15-37) D 11/28/16 05:35 ALT 13 U/L (12-78) 11/28/16 05:35 Alkaline Phosphatase 202 U/L (45-117) H 11/28/16 05:35 Albumin 1.1 g/dl (3.4-5.0) L D 11/28/16 05:35 INR, PTT INR 1.06 (0.82-1.09) 11/25/16 14:40 Assessment/Plan ASSESSMENT: 1. Sacral decubitus ulcer with Gram positive sepsis, resolving 2. Right MCA infarct with left hemiparesis 3. 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 HTN 5. Hyperlipidemia 6. Seizure disorder 7. Hypothyroidism 8. Anemia 9. Hypokalemia PLAN: 1. Antibiotic coverage as per ID service 2. Wound care as per the primary team 3. Continue Norvasc 4. Continue Atenolol 5. Continue Plavix with caution considering the above noted anemia 6. Continue SQ Heparin with caution considering the above noted anemia 7. Correction of Hypokalemia May transfer to floor care from cardiovascular point of view Abena Prince MD
--- NOTE | 2016-12-03 16:08 | PN ---
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, Physician History of Present Illness: stable no new issues - Current Medication List Current Medications: Active Medications Acetaminophen (Tylenol -) 650 mg PO Q6H PRN PRN Reason: FEVER OR PAIN Amlodipine Besylate (Norvasc -) 10 mg PO DAILY [facility] Last Admin: 12/03/16 09:01 Dose: 10 mg Atenolol (Tenormin -) 25 mg PO DAILY [facility] Last Admin: 12/03/16 09:01 Dose: 25 mg Clopidogrel Bisulfate (Plavix -) 75 mg PO DAILY [facility] Last Admin: 12/03/16 09:01 Dose: 75 mg Heparin Sodium (Porcine) (Heparin -) 5,000 unit SQ BID [facility] Last Admin: 12/03/16 09:01 Dose: 5,000 unit Piperacillin Sod/Tazobactam Sod (Zosyn 3.375gm Ivpb (Pre-Docked)) 50 mls @ 100 mls/hr IVPB Q8H-IV [facility] PRN Reason: Protocol Last Admin: 12/03/16 09:01 Dose: 100 mls/hr Levetiracetam (Keppra -) 250 mg PO BID [facility] Last Admin: 12/03/16 09:01 Dose: 250 mg Levothyroxine Sodium (Synthroid -) 50 mcg PO DAILY@0700 [facility] Last Admin: 12/03/16 06:21 Dose: 50 mcg - Objective Vital Signs: Vital Signs Temperature 98.2 F 12/03/16 14:00 Pulse Rate 77 12/03/16 14:00 Respiratory Rate 20 12/03/16 14:00 Blood Pressure 95/56 12/03/16 14:00 O2 Sat by Pulse Oximetry (%) 100 12/03/16 14:00 Constitutional: Yes: No Distress, Calm Cardiovascular: Yes: S1, S2 Respiratory: Yes: Regular, CTA Bilaterally, On Nasal O2 Gastrointestinal: Yes: Normal Bowel Sounds, Soft Musculoskeletal: Yes: WNL Extremities: Yes: WNL Wound/Incision: Yes: Dressing Dry and Intact Neurological: Yes: Alert Psychiatric: Yes: Alert Labs: CBC, BMP 11/28/16 05:35 11/28/16 05:35 INR, PTT INR 1.06 (0.82-1.09) 11/25/16 14:40 Assessment/Plan roblem List - Problems (1) Altered mental status Code(s): R41.82 - ALTERED MENTAL STATUS, UNSPECIFIED Qualifiers: Altered mental status type: somnolence Qualified Code(s): R40.0 - Somnolence (2) Sepsis Code(s): A41.9 - SEPSIS, UNSPECIFIED ORGANISM Qualifiers: Sepsis type: sepsis due to unspecified organism Qualified Code(s): A41.9 - Sepsis, unspecified organism (3) CVA (cerebral vascular accident) Code(s): I63.9 - CEREBRAL INFARCTION, UNSPECIFIED Qualifiers: CVA mechanism: unspecified Qualified Code(s): I63.9 - Cerebral infarction, unspecified (4) H/O partial seizures Code(s): Z86.69 - PERSONAL HISTORY OF DIS OF THE NERVOUS SYS AND SENSE ORGANS (5) HTN (hypertension) Code(s): I10 - ESSENTIAL (PRIMARY) HYPERTENSION Qualifiers: Hypertension type: essential hypertension Qualified Code(s): I10 - Essential (primary) hypertension (6) Hemiparesis 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 Code(s): I69.354 - HEMIPLGA FOLLOWING CEREBRAL INFRC AFFECTING LEFT NONDOM SIDE (7) Hyperlipidemia Code(s): E78.5 - HYPERLIPIDEMIA, UNSPECIFIED Qualifiers: Hyperlipidemia type: pure hypercholesterolemia Qualified Code(s): E78.00 - Pure hypercholesterolemia, unspecified; E78.0 - Pure hypercholesterolemia (8) Hypothyroid Code(s): E03.9 - HYPOTHYROIDISM, UNSPECIFIED Qualifiers: Hypothyroidism type: unspecified Qualified Code(s): E03.9 - Hypothyroidism, unspecified (9) Sacral decubitus ulcer Code(s): L89.159 - PRESSURE ULCER OF SACRAL REGION, UNSPECIFIED STAGE Qualifiers: Pressure ulcer stage: stage 3 Qualified Code(s): L89.153 - Pressure ulcer of sacral region, stage 3 (10) Anemia Code(s): D64.9 - ANEMIA, UNSPECIFIED Qualifiers: Anemia type: unspecified type Qualified Code(s): D64.9 - Anemia, unspecified a/p sacral decubitus ulcer ams htn mca infarct h/oleukocytosis gm positve bacteremia wound infection plan continue zosyn continue nutrition wound care rest as per primary patient stable and improving
--- NOTE | 2016-12-03 16:21 | PN ---
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, Physician History of Present Illness: no compalints - Current Medication List Current Medications: Active Medications Acetaminophen (Tylenol -) 650 mg PO Q6H PRN PRN Reason: FEVER OR PAIN Amlodipine Besylate (Norvasc -) 10 mg PO DAILY [facility] Last Admin: 12/03/16 09:01 Dose: 10 mg Atenolol (Tenormin -) 25 mg PO DAILY [facility] Last Admin: 12/03/16 09:01 Dose: 25 mg Clopidogrel Bisulfate (Plavix -) 75 mg PO DAILY [facility] Last Admin: 12/03/16 09:01 Dose: 75 mg Heparin Sodium (Porcine) (Heparin -) 5,000 unit SQ BID [facility] Last Admin: 12/03/16 09:01 Dose: 5,000 unit Piperacillin Sod/Tazobactam Sod (Zosyn 3.375gm Ivpb (Pre-Docked)) 50 mls @ 100 mls/hr IVPB Q8H-IV [facility] PRN Reason: Protocol Last Admin: 12/03/16 09:01 Dose: 100 mls/hr Levetiracetam (Keppra -) 250 mg PO BID [facility] Last Admin: 12/03/16 09:01 Dose: 250 mg Levothyroxine Sodium (Synthroid -) 50 mcg PO DAILY@0700 [facility] Last Admin: 12/03/16 06:21 Dose: 50 mcg - Objective Vital Signs: Vital Signs Temperature 98.2 F 12/03/16 14:00 Pulse Rate 77 12/03/16 14:00 Respiratory Rate 20 12/03/16 14:00 Blood Pressure 95/56 12/03/16 14:00 O2 Sat by Pulse Oximetry (%) 100 12/03/16 14:00 Constitutional: Yes: No Distress HENT: Yes: Atraumatic Neck: Yes: Supple Cardiovascular: Yes: Regular Rate and Rhythm Respiratory: Yes: CTA Bilaterally Gastrointestinal: Yes: Normal Bowel Sounds Extremities: Yes: WNL Edema: No Neurological: Yes: Alert Labs: CBC, BMP 11/28/16 05:35 11/28/16 05:35 INR, PTT INR 1.06 (0.82-1.09) 11/25/16 14:40 Problem List - Problems (1) Severe sepsis Assessment/Plan: cxs noted on iv abx ivf id on board Code(s): A41.9 - SEPSIS, UNSPECIFIED ORGANISM R65.20 - SEVERE SEPSIS WITHOUT SEPTIC SHOCK (2) UTI (urinary tract infection) Assessment/Plan: on iv abx Code(s): N39.0 - URINARY TRACT INFECTION, SITE NOT SPECIFIED Qualifiers: (3) HTN (hypertension) Assessment/Plan: stable on meds Code(s): I10 - ESSENTIAL (PRIMARY) HYPERTENSION Qualifiers: Hypertension type: essential hypertension Qualified Code(s): I10 - Essential (primary) hypertension (4) Hyperlipidemia Code(s): E78.5 - HYPERLIPIDEMIA, UNSPECIFIED Qualifiers: Hyperlipidemia type: pure hypercholesterolemia Qualified Code(s): E78.00 - Pure hypercholesterolemia, unspecified; E78.0 - Pure hypercholesterolemia (5) Hypothyroid Code(s): E03.9 - HYPOTHYROIDISM, UNSPECIFIED Qualifiers: Hypothyroidism type: unspecified Qualified Code(s): E03.9 - Hypothyroidism, unspecified
[2016-12-03] MEDS ORDERED: DEXTROSE 5%-WATER - 50 ML IVPB ONE (17:36)
[2016-12-03] MEDS ORDERED: PIPERACILLIN/TAZOBACTAM 3.375 GM VIAL IVPB ONE (17:36)
[2016-12-03] MEDS: PIPERACILLIN/TAZOB 3.375 GM 3.375 GM in DEXTROSE 5%-WATER - 50 ML IVPB SCH (17:40)
[2016-12-03] MEDS ORDERED: SODIUM CHLORIDE 250 ML IV ONE (23:15)
[2016-12-04] MEDS ORDERED: PIPERACILLIN/TAZOBACTAM 3.375 GM VIAL IVPB ONE ×3 (01:14→18:07)
[2016-12-04] MEDS ORDERED: DEXTROSE 5%-WATER - 50 ML IVPB ONE ×3 (01:15→18:07)
[2016-12-04] MEDS: PIPERACILLIN/TAZOB 3.375 GM 3.375 GM in DEXTROSE 5%-WATER - 50 ML IVPB SCH ×3 (01:34→18:15)
[2016-12-04] MEDS: LEVOTHYROXINE NA 50 MCG TABLET (FP) PO SCH (06:12)
--- NOTE | 2016-12-04 10:04 | PN ---
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, Physician Chief Complaint: No new events Not in distress History of Present Illness: Patient was seen and examined. Chart was reviewed - Current Medication List Current Medications: Active Medications Acetaminophen (Tylenol -) 650 mg PO Q6H PRN PRN Reason: FEVER OR PAIN Amlodipine Besylate (Norvasc -) 10 mg PO DAILY [facility] Last Admin: 12/03/16 09:01 Dose: 10 mg Atenolol (Tenormin -) 25 mg PO DAILY [facility] Last Admin: 12/03/16 09:01 Dose: 25 mg Clopidogrel Bisulfate (Plavix -) 75 mg PO DAILY [facility] Last Admin: 12/03/16 09:01 Dose: 75 mg Heparin Sodium (Porcine) (Heparin -) 5,000 unit SQ BID [facility] Last Admin: 12/03/16 22:22 Dose: 5,000 unit Piperacillin Sod/Tazobactam (Sod 3.375 gm/ Dextrose) 50 mls @ 100 mls/hr IVPB Q8H-IV [facility] PRN Reason: Protocol Last Admin: 12/04/16 01:34 Dose: 100 mls/hr Levetiracetam (Keppra -) 250 mg PO BID [facility] Last Admin: 12/03/16 22:22 Dose: 250 mg Levothyroxine Sodium (Synthroid -) 50 mcg PO DAILY@0700 [facility] Last Admin: 12/04/16 06:12 Dose: 50 mcg - Objective Vital Signs: Vital Signs Temperature 97.6 F 12/04/16 05:39 Pulse Rate 80 12/04/16 05:39 Respiratory Rate 20 12/04/16 05:39 Blood Pressure 106/56 12/04/16 05:39 O2 Sat by Pulse Oximetry (%) 97 12/03/16 21:00 Cardiovascular: Yes: Regular Rate and Rhythm, S1, S2 Respiratory: Yes: Diminished Gastrointestinal: Yes: Normal Bowel Sounds, Soft. No: Tenderness Edema: No Problem List - Problems (1) Anemia Code(s): D64.9 - ANEMIA, UNSPECIFIED Qualifiers: Anemia type: unspecified type Qualified Code(s): D64.9 - Anemia, unspecified (2) Gram-positive cocci bacteremia Code(s): R78.81 - BACTEREMIA (3) Altered mental status Code(s): R41.82 - ALTERED MENTAL STATUS, UNSPECIFIED Qualifiers: Altered mental status type: somnolence Qualified Code(s): R40.0 - Somnolence (4) Sepsis Code(s): A41.9 - SEPSIS, UNSPECIFIED ORGANISM Qualifiers: Sepsis type: sepsis due to unspecified organism Qualified Code(s): A41.9 - Sepsis, unspecified organism (5) CVA (cerebral vascular accident) Code(s): I63.9 - CEREBRAL INFARCTION, UNSPECIFIED Qualifiers: CVA mechanism: unspecified Qualified Code(s): I63.9 - Cerebral infarction, unspecified (6) H/O partial seizures Code(s): Z86.69 - PERSONAL HISTORY OF DIS OF THE NERVOUS SYS AND SENSE ORGANS (7) HTN (hypertension) Code(s): I10 - ESSENTIAL (PRIMARY) HYPERTENSION Qualifiers: Hypertension type: essential hypertension Qualified Code(s): I10 - Essential (primary) hypertension (8) Hyperlipidemia Code(s): E78.5 - HYPERLIPIDEMIA, UNSPECIFIED Qualifiers: Hyperlipidemia type: pure hypercholesterolemia Qualified Code(s): E78.00 - Pure hypercholesterolemia, unspecified; E78.0 - Pure hypercholesterolemia (9) Hypothyroid Code(s): E03.9 - HYPOTHYROIDISM, UNSPECIFIED Qualifiers: Hypothyroidism type: unspecified Qualified Code(s): E03.9 - Hypothyroidism, unspecified (10) Sacral decubitus ulcer Code(s): L89.159 - PRESSURE ULCER OF SACRAL REGION, UNSPECIFIED STAGE Qualifiers: Pressure ulcer stage: stage 3 Qualified Code(s): L89.153 - Pressure ulcer of sacral region, stage 3 Assessment/Plan 1. Gram positive sepsis, suspect sacral decubiti ulcer 2. Right MCA infarct with left hemiparesis 3. HTN 4. Hyperlipidemia 5. Seizure disorder 6. Hypothyroidism 7. Anemia PLAN: 1. Antibiotic coverage per ID, IV hydration, follow electrolytes 2. Wound care 3. Continue Norvasc and Atenolol as tolerated and continue Plavix 4. DVT and GI prophylaxis Further plans are to follow Steve Forrester MD
[2016-12-04] MEDS ORDERED: PT OWN MED DRAWER 7, Y5N ONE ×2 (10:14→21:34)
[2016-12-04] MEDS: ATENOLOL 25 MG TABLET (FP) PO SCH (10:19)
[2016-12-04] MEDS: levETIRAcetam 250 MG TABLET (FP) PO SCH ×2 (10:19→21:49)
[2016-12-04] MEDS: CLOPIDOGREL BISULFATE 75 MG TABLET (FP) PO SCH (10:20)
[2016-12-04] MEDS: HEPARIN NA (PORCINE) 5,000 UNITS/ML 1ML VIAL SQ SCH ×2 (10:20→21:49)
[2016-12-04] MEDS: amLODIPine BESYLATE 10 MG TABLET (FP) PO SCH (10:20)
--- NOTE | 2016-12-04 14:27 | PN ---
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, Physician History of Present Illness: stable no new issues family in room discussed about patients condition family worried about the rt heel ulcer - Current Medication List Current Medications: Active Medications Acetaminophen (Tylenol -) 650 mg PO Q6H PRN PRN Reason: FEVER OR PAIN Amlodipine Besylate (Norvasc -) 10 mg PO DAILY [facility] Last Admin: 12/04/16 10:20 Dose: Not Given Atenolol (Tenormin -) 25 mg PO DAILY [facility] Last Admin: 12/04/16 10:19 Dose: Not Given Clopidogrel Bisulfate (Plavix -) 75 mg PO DAILY [facility] Last Admin: 12/04/16 10:20 Dose: 75 mg Heparin Sodium (Porcine) (Heparin -) 5,000 unit SQ BID [facility] Last Admin: 12/04/16 10:20 Dose: 5,000 unit Piperacillin Sod/Tazobactam (Sod 3.375 gm/ Dextrose) 50 mls @ 100 mls/hr IVPB Q8H-IV ELENA PRN Reason: Protocol Last Admin: 12/04/16 10:18 Dose: 100 mls/hr Levetiracetam (Keppra -) 250 mg PO BID [facility] Last Admin: 12/04/16 10:19 Dose: 250 mg Levothyroxine Sodium (Synthroid -) 50 mcg PO DAILY@0700 [facility] Last Admin: 12/04/16 06:12 Dose: 50 mcg - Objective Vital Signs: Vital Signs Temperature 97.4 F L 12/04/16 09:00 Pulse Rate 71 12/04/16 09:00 Respiratory Rate 20 12/04/16 09:00 Blood Pressure 103/51 12/04/16 09:00 O2 Sat by Pulse Oximetry (%) 97 12/04/16 09:00 Constitutional: Yes: No Distress, Calm Cardiovascular: Yes: S1, S2 Respiratory: Yes: Regular, CTA Bilaterally Gastrointestinal: Yes: Normal Bowel Sounds, Soft Musculoskeletal: Yes: Other Extremities: Yes: Other (rt heel ulcer) Integumentary: Yes: Other Wound/Incision: Yes: Other (sacral decubitus ulcer) Neurological: Yes: Alert, Other Psychiatric: Yes: Alert Labs: CBC, BMP 11/28/16 05:35 11/28/16 05:35 INR, PTT INR 1.06 (0.82-1.09) 11/25/16 14:40 Assessment/Plan roblem List - Problems (1) Altered mental status Code(s): R41.82 - ALTERED MENTAL STATUS, UNSPECIFIED Qualifiers: Altered mental status type: somnolence Qualified Code(s): R40.0 - Somnolence (2) Sepsis Code(s): A41.9 - SEPSIS, UNSPECIFIED ORGANISM Qualifiers: Sepsis type: sepsis due to unspecified organism Qualified Code(s): A41.9 - Sepsis, unspecified organism (3) CVA (cerebral vascular accident) Code(s): I63.9 - CEREBRAL INFARCTION, UNSPECIFIED Qualifiers: CVA mechanism: unspecified Qualified Code(s): I63.9 - Cerebral infarction, unspecified (4) H/O partial seizures Code(s): Z86.69 - PERSONAL HISTORY OF DIS OF THE NERVOUS SYS AND SENSE ORGANS (5) HTN (hypertension) Code(s): I10 - ESSENTIAL (PRIMARY) HYPERTENSION Qualifiers: Hypertension type: essential hypertension Qualified Code(s): I10 - Essential (primary) hypertension (6) Hemiparesis 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 Code(s): I69.354 - HEMIPLGA FOLLOWING CEREBRAL INFRC AFFECTING LEFT NONDOM SIDE (7) Hyperlipidemia Code(s): E78.5 - HYPERLIPIDEMIA, UNSPECIFIED Qualifiers: Hyperlipidemia type: pure hypercholesterolemia Qualified Code(s): E78.00 - Pure hypercholesterolemia, unspecified; E78.0 - Pure hypercholesterolemia (8) Hypothyroid Code(s): E03.9 - HYPOTHYROIDISM, UNSPECIFIED Qualifiers: Hypothyroidism type: unspecified Qualified Code(s): E03.9 - Hypothyroidism, unspecified (9) Sacral decubitus ulcer Code(s): L89.159 - PRESSURE ULCER OF SACRAL REGION, UNSPECIFIED STAGE Qualifiers: Pressure ulcer stage: stage 3 Qualified Code(s): L89.153 - Pressure ulcer of sacral region, stage 3 (10) Anemia Code(s): D64.9 - ANEMIA, UNSPECIFIED Qualifiers: Anemia type: unspecified type Qualified Code(s): D64.9 - Anemia, unspecified a/p sacral decubitus ulcer ams htn mca infarct h/oleukocytosis gm positve bacteremia wound infection heel ulcer rt plan continue zosyn patient will need a total of 2 weeks of treatment wound care avoid pressure on heels
--- NOTE | 2016-12-04 19:17 | PN ---
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, Physician History of Present Illness: no compalints - Current Medication List Current Medications: Active Medications Acetaminophen (Tylenol -) 650 mg PO Q6H PRN PRN Reason: FEVER OR PAIN Amlodipine Besylate (Norvasc -) 10 mg PO DAILY [facility] Last Admin: 12/04/16 10:20 Dose: Not Given Atenolol (Tenormin -) 25 mg PO DAILY [facility] Last Admin: 12/04/16 10:19 Dose: Not Given Clopidogrel Bisulfate (Plavix -) 75 mg PO DAILY [facility] Last Admin: 12/04/16 10:20 Dose: 75 mg Heparin Sodium (Porcine) (Heparin -) 5,000 unit SQ BID [facility] Last Admin: 12/04/16 10:20 Dose: 5,000 unit Piperacillin Sod/Tazobactam (Sod 3.375 gm/ Dextrose) 50 mls @ 100 mls/hr IVPB Q8H-IV ELE[facility] PRN Reason: Protocol Last Admin: 12/04/16 18:15 Dose: 100 mls/hr Levetiracetam (Keppra -) 250 mg PO BID [facility] Last Admin: 12/04/16 10:19 Dose: 250 mg Levothyroxine Sodium (Synthroid -) 50 mcg PO DAILY@0700 [facility] Last Admin: 12/04/16 06:12 Dose: 50 mcg - Objective Vital Signs: Vital Signs Temperature 98.9 F 12/04/16 14:52 Pulse Rate 81 12/04/16 14:52 Respiratory Rate 20 12/04/16 14:52 Blood Pressure 98/55 12/04/16 14:52 O2 Sat by Pulse Oximetry (%) 97 12/04/16 09:00 Constitutional: Yes: No Distress HENT: Yes: Atraumatic Neck: Yes: Supple Cardiovascular: Yes: Regular Rate and Rhythm Respiratory: Yes: CTA Bilaterally Gastrointestinal: Yes: Normal Bowel Sounds Extremities: Yes: Other (heel ulcer not new) Edema: No Peripheral Pulses WNL: Yes Neurological: Yes: Alert Labs: CBC, BMP 11/28/16 05:35 11/28/16 05:35 INR, PTT INR 1.06 (0.82-1.09) 11/25/16 14:40 Problem List - Problems (1) Severe sepsis Assessment/Plan: cxs noted on iv abx...5 mre days per id pt has a picc line can be dc to snf Code(s): A41.9 - SEPSIS, UNSPECIFIED ORGANISM R65.20 - SEVERE SEPSIS WITHOUT SEPTIC SHOCK (2) UTI (urinary tract infection) Assessment/Plan: on iv abx Code(s): N39.0 - URINARY TRACT INFECTION, SITE NOT SPECIFIED Qualifiers: (3) HTN (hypertension) Assessment/Plan: stable on meds Code(s): I10 - ESSENTIAL (PRIMARY) HYPERTENSION Qualifiers: Hypertension type: essential hypertension Qualified Code(s): I10 - Essential (primary) hypertension (4) Hyperlipidemia Assessment/Plan: on meds Code(s): E78.5 - HYPERLIPIDEMIA, UNSPECIFIED Qualifiers: Hyperlipidemia type: pure hypercholesterolemia Qualified Code(s): E78.00 - Pure hypercholesterolemia, unspecified; E78.0 - Pure hypercholesterolemia (5) Hypothyroid Assessment/Plan: on meds stable Code(s): E03.9 - HYPOTHYROIDISM, UNSPECIFIED Qualifiers: Hypothyroidism type: unspecified Qualified Code(s): E03.9 - Hypothyroidism, unspecified
[2016-12-05] MEDS ORDERED: PIPERACILLIN/TAZOBACTAM 3.375 GM VIAL IVPB ONE ×2 (01:49→10:03)
[2016-12-05] MEDS ORDERED: DEXTROSE 5%-WATER - 50 ML IVPB ONE ×2 (01:50→10:03)
[2016-12-05] MEDS: PIPERACILLIN/TAZOB 3.375 GM 3.375 GM in DEXTROSE 5%-WATER - 50 ML IVPB SCH ×2 (01:56→10:06)
[2016-12-05] MEDS: LEVOTHYROXINE NA 50 MCG TABLET (FP) PO SCH (06:05)
--- NOTE | 2016-12-05 08:59 | PN ---
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, Physician Chief Complaint: No new events Not in distress History of Present Illness: Patient was seen and examined. Chart was reviewed - Current Medication List Current Medications: Active Medications Acetaminophen (Tylenol -) 650 mg PO Q6H PRN PRN Reason: FEVER OR PAIN Amlodipine Besylate (Norvasc -) 10 mg PO DAILY [facility] Last Admin: 12/04/16 10:20 Dose: Not Given Atenolol (Tenormin -) 25 mg PO DAILY [facility] Last Admin: 12/04/16 10:19 Dose: Not Given Clopidogrel Bisulfate (Plavix -) 75 mg PO DAILY [facility] Last Admin: 12/04/16 10:20 Dose: 75 mg Heparin Sodium (Porcine) (Heparin -) 5,000 unit SQ BID [facility] Last Admin: 12/04/16 21:49 Dose: 5,000 unit Piperacillin Sod/Tazobactam (Sod 3.375 gm/ Dextrose) 50 mls @ 100 mls/hr IVPB Q8H-IV ELENA PRN Reason: Protocol Last Admin: 12/05/16 01:56 Dose: 100 mls/hr Levetiracetam (Keppra -) 250 mg PO BID [facility] Last Admin: 12/04/16 21:49 Dose: 250 mg Levothyroxine Sodium (Synthroid -) 50 mcg PO DAILY@0700 [facility] Last Admin: 12/05/16 06:05 Dose: 50 mcg - Objective Vital Signs: Vital Signs Temperature 98.4 F 12/05/16 08:17 Pulse Rate 75 12/05/16 08:17 Respiratory Rate 18 12/05/16 08:17 Blood Pressure 93/57 12/05/16 08:17 O2 Sat by Pulse Oximetry (%) 98 12/05/16 07:56 Neck: Yes: Supple Cardiovascular: Yes: Regular Rate and Rhythm, S1, S2 Respiratory: Yes: Diminished Gastrointestinal: Yes: Normal Bowel Sounds, Soft. No: Tenderness Edema: No Problem List - Problems (1) Anemia Code(s): D64.9 - ANEMIA, UNSPECIFIED Qualifiers: Anemia type: unspecified type Qualified Code(s): D64.9 - Anemia, unspecified (2) Gram-positive cocci bacteremia Code(s): R78.81 - BACTEREMIA (3) Altered mental status Code(s): R41.82 - ALTERED MENTAL STATUS, UNSPECIFIED Qualifiers: Altered mental status type: somnolence Qualified Code(s): R40.0 - Somnolence (4) Sepsis Code(s): A41.9 - SEPSIS, UNSPECIFIED ORGANISM Qualifiers: Sepsis type: sepsis due to unspecified organism Qualified Code(s): A41.9 - Sepsis, unspecified organism (5) CVA (cerebral vascular accident) Code(s): I63.9 - CEREBRAL INFARCTION, UNSPECIFIED Qualifiers: CVA mechanism: unspecified Qualified Code(s): I63.9 - Cerebral infarction, unspecified (6) H/O partial seizures Code(s): Z86.69 - PERSONAL HISTORY OF DIS OF THE NERVOUS SYS AND SENSE ORGANS (7) HTN (hypertension) Code(s): I10 - ESSENTIAL (PRIMARY) HYPERTENSION Qualifiers: Hypertension type: essential hypertension Qualified Code(s): I10 - Essential (primary) hypertension (8) Hyperlipidemia Code(s): E78.5 - HYPERLIPIDEMIA, UNSPECIFIED Qualifiers: Hyperlipidemia type: pure hypercholesterolemia Qualified Code(s): E78.00 - Pure hypercholesterolemia, unspecified; E78.0 - Pure hypercholesterolemia (9) Hypothyroid Code(s): E03.9 - HYPOTHYROIDISM, UNSPECIFIED Qualifiers: Hypothyroidism type: unspecified Qualified Code(s): E03.9 - Hypothyroidism, unspecified (10) Sacral decubitus ulcer Code(s): L89.159 - PRESSURE ULCER OF SACRAL REGION, UNSPECIFIED STAGE Qualifiers: Pressure ulcer stage: stage 3 Qualified Code(s): L89.153 - Pressure ulcer of sacral region, stage 3 Assessment/Plan 1. Gram positive sepsis, suspect sacral decubiti ulcer 2. Right MCA infarct with left hemiparesis 3. HTN 4. Hyperlipidemia 5. Seizure disorder 6. Hypothyroidism 7. Anemia PLAN: 1. Antibiotic coverage per ID 2. Continue IV hydration and follow electrolytes 3. Wound care 4. Continue Norvasc and Atenolol as tolerated and continue Plavix 5. DVT and GI prophylaxis Further plans are to follow Steve Forrester MD
[2016-12-05] MEDS ORDERED: PT OWN MED DRAWER 7, Y5N ONE (10:03)
[2016-12-05] MEDS: HEPARIN NA (PORCINE) 5,000 UNITS/ML 1ML VIAL SQ SCH (10:06)
[2016-12-05] MEDS: ATENOLOL 25 MG TABLET (FP) PO SCH (10:07)
[2016-12-05] MEDS: CLOPIDOGREL BISULFATE 75 MG TABLET (FP) PO SCH (10:07)
[2016-12-05] MEDS: levETIRAcetam 250 MG TABLET (FP) PO SCH (10:07)
[2016-12-05] MEDS: amLODIPine BESYLATE 10 MG TABLET (FP) PO SCH (10:07)
--- NOTE | 2016-12-05 12:57 | PN ---
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, Physician History of Present Illness: patient stable doing well family in room - Current Medication List Current Medications: Active Medications Acetaminophen (Tylenol -) 650 mg PO Q6H PRN PRN Reason: FEVER OR PAIN Amlodipine Besylate (Norvasc -) 10 mg PO DAILY [facility] Last Admin: 12/05/16 10:07 Dose: Not Given Atenolol (Tenormin -) 25 mg PO DAILY [facility] Last Admin: 12/05/16 10:07 Dose: Not Given Clopidogrel Bisulfate (Plavix -) 75 mg PO DAILY [facility] Last Admin: 12/05/16 10:07 Dose: 75 mg Heparin Sodium (Porcine) (Heparin -) 5,000 unit SQ BID [facility] Last Admin: 12/05/16 10:06 Dose: 5,000 unit Piperacillin Sod/Tazobactam (Sod 3.375 gm/ Dextrose) 50 mls @ 100 mls/hr IVPB Q8H-IV [facility] PRN Reason: Protocol Last Admin: 12/05/16 10:06 Dose: 100 mls/hr Levetiracetam (Keppra -) 250 mg PO BID [facility] Last Admin: 12/05/16 10:07 Dose: 250 mg Levothyroxine Sodium (Synthroid -) 50 mcg PO DAILY@0700 [facility] Last Admin: 12/05/16 06:05 Dose: 50 mcg - Objective Vital Signs: Vital Signs Temperature 98.4 F 12/05/16 08:17 Pulse Rate 75 12/05/16 08:17 Respiratory Rate 18 12/05/16 08:17 Blood Pressure 93/57 12/05/16 08:17 O2 Sat by Pulse Oximetry (%) 98 12/05/16 07:56 Constitutional: Yes: No Distress, Calm Cardiovascular: Yes: Regular Rate and Rhythm Respiratory: Yes: Regular, CTA Bilaterally Gastrointestinal: Yes: Normal Bowel Sounds, Soft Musculoskeletal: Yes: WNL Extremities: Yes: Other Wound/Incision: Yes: Dressing Dry and Intact, Other (heel ulcer) Psychiatric: Yes: Alert, Oriented Labs: CBC, BMP 11/28/16 05:35 11/28/16 05:35 INR, PTT INR 1.06 (0.82-1.09) 11/25/16 14:40 Assessment/Plan roblem List - Problems (1) Altered mental status Code(s): R41.82 - ALTERED MENTAL STATUS, UNSPECIFIED Qualifiers: Altered mental status type: somnolence Qualified Code(s): R40.0 - Somnolence (2) Sepsis Code(s): A41.9 - SEPSIS, UNSPECIFIED ORGANISM Qualifiers: Sepsis type: sepsis due to unspecified organism Qualified Code(s): A41.9 - Sepsis, unspecified organism (3) CVA (cerebral vascular accident) Code(s): I63.9 - CEREBRAL INFARCTION, UNSPECIFIED Qualifiers: CVA mechanism: unspecified Qualified Code(s): I63.9 - Cerebral infarction, unspecified (4) H/O partial seizures Code(s): Z86.69 - PERSONAL HISTORY OF DIS OF THE NERVOUS SYS AND SENSE ORGANS (5) HTN (hypertension) Code(s): I10 - ESSENTIAL (PRIMARY) HYPERTENSION Qualifiers: Hypertension type: essential hypertension Qualified Code(s): I10 - Essential (primary) hypertension (6) Hemiparesis 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 Code(s): I69.354 - HEMIPLGA FOLLOWING CEREBRAL INFRC AFFECTING LEFT NONDOM SIDE (7) Hyperlipidemia Code(s): E78.5 - HYPERLIPIDEMIA, UNSPECIFIED Qualifiers: Hyperlipidemia type: pure hypercholesterolemia Qualified Code(s): E78.00 - Pure hypercholesterolemia, unspecified; E78.0 - Pure hypercholesterolemia (8) Hypothyroid Code(s): E03.9 - HYPOTHYROIDISM, UNSPECIFIED Qualifiers: Hypothyroidism type: unspecified Qualified Code(s): E03.9 - Hypothyroidism, unspecified (9) Sacral decubitus ulcer Code(s): L89.159 - PRESSURE ULCER OF SACRAL REGION, UNSPECIFIED STAGE Qualifiers: Pressure ulcer stage: stage 3 Qualified Code(s): L89.153 - Pressure ulcer of sacral region, stage 3 (10) Anemia Code(s): D64.9 - ANEMIA, UNSPECIFIED Qualifiers: Anemia type: unspecified type Qualified Code(s): D64.9 - Anemia, unspecified a/p sacral decubitus ulcer ams htn mca infarct h/oleukocytosis gm positve bacteremia wound infection heel ulcer rt plan continue abx as planned rest as per primary team
[2016-12-05 14:08] VITALS: BP 100/74; PULSE 98; TEMP 98.1
--- NOTE | 2016-12-05 19:05 | DS ---
Physical Examination Vital Signs: Vital Signs Temperature 98.1 F 12/05/16 14:06 Pulse Rate 98 H 12/05/16 14:06 Respiratory Rate 18 12/05/16 14:06 Blood Pressure 100/74 12/05/16 14:06 O2 Sat by Pulse Oximetry (%) 98 12/05/16 07:56 HENT: Yes: Atraumatic Neck: Yes: Supple Cardiovascular: Yes: Regular Rate and Rhythm Respiratory: Yes: CTA Bilaterally Gastrointestinal: Yes: Normal Bowel Sounds Extremities: Yes: WNL Neurological: Yes: Alert Labs: CBC, BMP 11/28/16 05:35 11/28/16 05:35 Discharge Summary Reason For Visit: SEVER SEPSIS - Instructions Diet, Activity, Other Instructions: iv abx for 5 more days pt has a picc line Referrals: Maykel Coronado [Primary Care Provider] - Disposition: [facility]ILITY - Home Medications Comprehensive Discharge Medication List: Ambulatory Orders Clopidogrel Bisulfate [Plavix -] 75 mg PO DAILY 07/03/16 Levetiracetam [Keppra] 250 mg PO BID 07/03/16 Levothyroxine [Synthroid -] 50 mcg PO DAILY 07/03/16 Polyvinyl Alcohol/Povidone [Artificial Tears Drops] 15 ml OU BID 07/03/16 Amino Acids/Protein Hydrolys [Prosource No Carb Liquid Pkt] 30 ml PO BID@0800, 1730 #60 packet 07/10/16 Amlodipine Besylate [Norvasc -] 10 mg PO DAILY #30 tablet 07/10/16 Docusate Sodium [Colace -] 100 mg PO DAILY 07/17/16 Atenolol [Tenormin -] 25 mg PO DAILY tablet 07/25/16 Levofloxacin [Levaquin] 500 mg PO DAILY #14 tablet 07/25/16 Megestrol Acetate Oral Susp [Megace Oral Suspension -] 400 mg PO DAILY #30 mg Metronidazole [Flagyl -] 500 mg PO TID #42 tablet 07/25/16 Pantoprazole Sodium [Protonix -] 40 mg PO DAILY #30 mg 07/25/16 Picc Line Flush [Picc Line Flush -] 8 ml IVPUSH PRN PRN #0 ml 07/25/16 Piperacillin/Tazob 3.375 gm [Zosyn 3.375GM Ivpb (Pre-Docked)] 3.375 gm IVPB Q8H- IV #21 bag 07/25/16 Piperacillin/Tazob 3.375 gm [Zosyn -] 3.375 gm IVPB Q8H-IV #7 vial 12/04/16 dc to snf
== END 2016-12-05 14:55 | DRG 871 ==
LOC: JER 13:17 → JERBED 17:34 → J2W 21:14 → J4W 11-26 08:05 → J7W 12-03 14:06
PROVIDERS: ADMIT Internal Medicine; ATTEND Internal Medicine
DX: A41.89 Other specified sepsis (principal); L89.153 Pressure ulcer of sacral region, stage 3; E43 Unspecified severe protein-calorie malnutrition; B37.49 Other urogenital candidiasis; G40.89 Other seizures; I69.354 Hemiplegia and hemiparesis following cerebral infarction affecting left non-dominant side; R65.20 Severe sepsis without septic shock; I10 Essential (primary) hypertension; E03.9 Hypothyroidism, unspecified; F32.9 Major depressive disorder, single episode, unspecified; R33.9 Retention of urine, unspecified; L89.529 Pressure ulcer of left ankle, unspecified stage; L89.519 Pressure ulcer of right ankle, unspecified stage; L89.899 Pressure ulcer of other site, unspecified stage; E78.5 Hyperlipidemia, unspecified; D64.9 Anemia, unspecified; E87.6 Hypokalemia
CPT/HCPCS: 36415; 71010-TC; 80053; 81003; 81015; 82803; 83605; 84443; 84484; 85025; 85610; 85730; 86850; 86900; 86901; 87040; 87070; 87086; 87186; 87205; 93005; 93010; 99285-25; J1644